=== PATIENT | male | born 1960 ===

== ENCOUNTER 2019-12-31 09:24 | Outpatient (REF) | payer MEDICARE, OTHER, SELFPAY | END 2019-12-31 09:25 | disposition home or self-care (01) | LOC: HO.LAB 09:24 | PROVIDERS: PCP Internal Medicine; Visit Provider Internal Medicine | DX: Z20.828 Contact with and (suspected) exposure to other viral communicable diseases (principal) | CPT/HCPCS: 87635 ==

== ENCOUNTER → 2020-01-24 14:18 | Outpatient (BNVA) | payer MEDICARE, OTHER, SELFPAY | PROVIDERS: PCP Internal Medicine; Referring Provider Internal Medicine; Visit Provider Internal Medicine Endocrinology, Diabetes & Metabolism | DX: E11.65 Type 2 diabetes mellitus with hyperglycemia (principal); E11.42 Type 2 diabetes mellitus with diabetic polyneuropathy; Z79.4 Long term (current) use of insulin; I10 Essential (primary) hypertension; E66.3 Overweight; Z68.29 Body mass index [BMI] 29.0-29.9, adult | CPT/HCPCS: 82947; 99212 ==

== ENCOUNTER 2020-02-04 06:56 | Outpatient (REF) | payer MEDICARE, OTHER, SELFPAY ==
[2020-02-04 08:09] LABS: Hematocrit 39.9 % (42-52); Hemoglobin 13.6 g/dl (14.0-18.0); Mean Corpuscular HGB Conc 34.1 g/dl (31.0-36.0); Mean Corpuscular Hemoglobin 31.1 pg (27.0-33.0); Mean Corpuscular Volume 91.3 fL (80-98); Mean Platelet Volume 9.8 fL (9.4-12.4); Platelet Count 173 X10*3/uL (160-400); Red Blood Count 4.37 X10*6/uL (4.60-5.80); White Blood Count 4.5 X10*3/uL (4.8-10.8)
[2020-02-04 08:22] LABS: Alanine Aminotransferase 14 U/L (0-40); Albumin Level 4.2 g/dL (3.5-5.0); Alkaline Phosphatase 75 U/L (39-117); Anion Gap 12 (12-20); Aspartate Amino Transferase 17 U/L (5-37); Bilirubin Total 0.5 mg/dL (0.0-1.0); Blood Urea Nitrogen 16 mg/dL (9-16); Calcium 8.9 mg/dL (8.4-10.2); Carbon Dioxide 30 mmol/L (22-29); Chloride 104 mmol/L (96-108); Cholesterol 132 mg/dL; Estimated Glomerular Filt Rate > 60; Glucose Random 90 mg/dL (60-115); HDL Cholesterol 43 mg/dL; LDL Cholesterol Calculated 75 mg/dl; Potassium 4.1 mmol/l (3.3-5.1); Sodium 142 mmol/L (135-145); Total Protein 6.9 g/dL (6.5-8.0); Triglycerides 74 mg/dL
[2020-02-04 08:59] LABS: Vitamin B12 252 pg/mL (200-900)
[2020-02-04 09:59] LABS: Microalbum/Creatinine Ratio Ur 8.5 ug/mg cr
[2020-02-05 21:08] LABS: LDL Cholesterol Direct 75 mg/dL (<100)
== END 2020-02-04 06:57 | disposition home or self-care (01) ==
LOC: HO.LAB 06:56
PROVIDERS: PCP Internal Medicine; Visit Provider Internal Medicine Endocrinology, Diabetes & Metabolism
DX: E11.65 Type 2 diabetes mellitus with hyperglycemia (principal); Z79.4 Long term (current) use of insulin
CPT/HCPCS: 36415; 80053; 80061; 82043; 82607; 83721; 85027

== ENCOUNTER → 2020-02-07 12:50 | Outpatient (BNVA) | payer MEDICARE, OTHER, SELFPAY | PROVIDERS: PCP Internal Medicine; Referring Provider Internal Medicine; Visit Provider Internal Medicine Endocrinology, Diabetes & Metabolism | DX: E11.65 Type 2 diabetes mellitus with hyperglycemia (principal); E11.42 Type 2 diabetes mellitus with diabetic polyneuropathy; Z79.4 Long term (current) use of insulin; E66.3 Overweight; F32.9 Major depressive disorder, single episode, unspecified; I10 Essential (primary) hypertension | CPT/HCPCS: 82947; 99212 ==

== ENCOUNTER 2020-03-19 12:55 | Outpatient (REF) | payer MEDICARE, OTHER, SELFPAY | END 2020-03-19 12:56 | disposition home or self-care (01) | LOC: HO.LAB 12:55 | PROVIDERS: PCP Internal Medicine; Visit Provider Internal Medicine | DX: Z20.822 Contact with and (suspected) exposure to COVID-19 (principal) | CPT/HCPCS: 36415; C9803; U0003 ==

== ENCOUNTER → 2020-03-26 11:12 | Outpatient (BNVA) | payer MEDICARE, OTHER, SELFPAY | PROVIDERS: PCP Internal Medicine; Visit Provider Physician Assistant | DX: Z13.89 Encounter for screening for other disorder (principal) | CPT/HCPCS: Q3014 ==

== ENCOUNTER 2020-03-28 09:52 | Outpatient (REF) | payer MEDICARE, OTHER, SELFPAY | END 2020-03-28 09:53 | disposition home or self-care (01) | LOC: HO.LAB 09:52 | PROVIDERS: PCP Internal Medicine; Visit Provider Internal Medicine | DX: Z20.822 Contact with and (suspected) exposure to COVID-19 (principal) | CPT/HCPCS: 36415; C9803; U0003 ==

== ENCOUNTER → 2020-04-02 10:22 | Outpatient (BNVA) | payer MEDICARE, OTHER, SELFPAY | PROVIDERS: PCP Internal Medicine; Visit Provider Urology | DX: N52.9 Male erectile dysfunction, unspecified (principal); N40.1 Benign prostatic hyperplasia with lower urinary tract symptoms; R35.0 Frequency of micturition | CPT/HCPCS: 51798; 81002; 99212 ==

== ENCOUNTER → 2020-04-13 09:40 | Outpatient (BNVA) | payer MEDICARE, OTHER, SELFPAY | PROVIDERS: Visit Provider Orthopaedic Surgery | DX: M17.12 Unilateral primary osteoarthritis, left knee (principal); K76.0 Fatty (change of) liver, not elsewhere classified; E11.65 Type 2 diabetes mellitus with hyperglycemia; Z79.4 Long term (current) use of insulin | CPT/HCPCS: 99212 ==

== ENCOUNTER 2020-04-23 07:44 | Outpatient (REF) | payer MEDICARE, OTHER, SELFPAY | END 2020-04-23 07:45 | disposition home or self-care (01) | LOC: HO.LAB 07:44 | PROVIDERS: Visit Provider Internal Medicine | DX: Z20.822 Contact with and (suspected) exposure to COVID-19 (principal) | CPT/HCPCS: 36415; C9803; U0003 ==

== ENCOUNTER 2020-04-23 08:34 | Outpatient (REF) | payer MEDICARE, OTHER, SELFPAY ==
[2020-04-23 09:43] LABS: MANUAL DIFF FLAG NO
[2020-04-23 10:00] LABS: Basophils Percent Auto 0.2 % (0-2); Eosinophils Absolute Auto 0.1 X10*3/uL (0.0-0.4); Eosinophils Percent Auto 2.2 % (0-4); Hematocrit 38.4 % (42-52); Hemoglobin 12.9 g/dl (14.0-18.0); Imm Gran Abs Auto 0.02 X10*3/uL (0.00-0.03); Imm Gran Pct Auto 0.4 % (0.0-0.4); Lymphocytes Absolute Auto 1.1 X10*3/uL (1.2-4.9); Mean Corpuscular HGB Conc 33.6 g/dl (31.0-36.0); Mean Corpuscular Hemoglobin 30.3 pg (27.0-33.0); Mean Corpuscular Volume 90.1 fL (80-98); Mean Platelet Volume 10.1 fL (9.4-12.4); Monocytes Absolute Auto 0.3 X10*3/uL (0.1-1.2); Monocytes Percent Auto 6.1 % (2-11); Neutrophils Percent Auto 71.1 % (45-73); Platelet Count 167 X10*3/uL (160-400); Red Blood Count 4.26 X10*6/uL (4.60-5.80); Red Cell Distribution Width 12.8 % (11.0-16.0); White Blood Count 5.6 X10*3/uL (4.8-10.8)
[2020-04-23 10:04] LABS: Estimated Average Glucose 189 mg/dL; Hemoglobin A1c % 8.2 %
[2020-04-23 10:41] LABS: Ferritin 178 ng/mL (20-250)
[2020-05-06 12:19] LABS: HepC Viral Load <15 NOT DETECTED
[2020-05-06 12:20] LABS: HCV Log PCR <1.18 NOT DETECTED
== END 2020-04-23 08:35 | disposition home or self-care (01) ==
LOC: HO.LAB 08:34
PROVIDERS: PCP Otolaryngology; Referring Provider Orthopaedic Surgery; Visit Provider Physician Assistant
DX: Z01.812 Encounter for preprocedural laboratory examination (principal); D64.9 Anemia, unspecified; B18.2 Chronic viral hepatitis C; R74.01 Elevation of levels of liver transaminase levels; Z20.822 Contact with and (suspected) exposure to COVID-19
CPT/HCPCS: 36415; 82728; 83036; 85025; 87522; C9803; U0003

== ENCOUNTER → 2020-04-30 11:22 | Outpatient (BNVA) | payer MEDICARE, OTHER, SELFPAY | PROVIDERS: PCP Internal Medicine; Visit Provider Physician Assistant | CPT/HCPCS: Q3014 ==

== ENCOUNTER → 2020-05-05 14:47 | Outpatient (BNVA) | payer MEDICARE, SELFPAY | PROVIDERS: PCP Internal Medicine; Visit Provider Internal Medicine Endocrinology, Diabetes & Metabolism | DX: E11.65 Type 2 diabetes mellitus with hyperglycemia (principal); E11.42 Type 2 diabetes mellitus with diabetic polyneuropathy; Z79.4 Long term (current) use of insulin; I10 Essential (primary) hypertension; E66.3 Overweight | CPT/HCPCS: 82947; 99212 ==

== ENCOUNTER 2020-05-21 08:12 | Outpatient (REF) | payer MEDICARE, OTHER, SELFPAY ==
--- NOTE | ~2020-05-21 | US_ITS ---
EXAMINATION: US ABDOMEN LIMITED CLINICAL INFORMATION: Fatty change of liver, not elsewhere classified. COMPARISON: Ultrasound abdomen complete 03/05/2019 and 11/07/2014. TECHNIQUE: Real-time imaging of the right upper quadrant abdominal viscera. FINDINGS: PANCREAS: The head and body of the pancreas is homogeneous in echotexture. The tail is obscured by overlying gas. LIVER: The liver is normal in size. The liver contour is normal. There is diffuse liver echogenicity without any focal hepatic lesion. There is no intrahepatic biliary duct dilatation seen. GALLBLADDER: Normal. The gallbladder is physiologically distended without evidence of stones, sludge, polyps, wall thickening or pericholecystic fluid. COMMON BILE DUCT: Normal in caliber measuring 0.8 cm in diameter. RIGHT KIDNEY: Normal. No hydronephrosis. No renal calculi or focal parenchymal lesions. The kidney measures 11.9 cm in maximum dimension. FREE FLUID: None. US/US abdomen limited IMPRESSION: There is diffuse hepatic echogenicity without any focal lesion. The rest of visualized limited abdomen ultrasound is unremarkable.
== END 2020-05-21 08:13 | disposition home or self-care (01) ==
LOC: HO.US 08:12
PROVIDERS: Visit Provider Physician Assistant
DX: K76.0 Fatty (change of) liver, not elsewhere classified (principal)
CPT/HCPCS: 76705

== ENCOUNTER → 2020-05-28 11:08 | Outpatient (BNVA) | payer MEDICARE, OTHER, SELFPAY | PROVIDERS: Visit Provider Physician Assistant | DX: Z13.89 Encounter for screening for other disorder (principal) | CPT/HCPCS: Q3014 ==

== ENCOUNTER 2020-06-02 00:46 | Emergency (ER) | payer MEDICARE, OTHER, SELFPAY ==
[2020-06-02] VITALS (14 sets, daily range): BP systolic 117–222; BP diastolic 81–105; PULSE 76–108; RESP 15–22; TEMP 36.7–37.1; O2SAT 94–99; BMI 30.1
--- NOTE | 2020-06-02 02:10 | PC.NURSE ---
PT has facial swelling to his left side with dental issues. pt states he was eating steak and seafood and the crab meat didnt seem right. pt has a upset stomach midline, nausea no vomiting. pt talking in full sentences no s/s of resp distress.
[2020-06-02] MEDS: EPINEPHrine 1 MG/ML VIAL 0.3 MG IM ×2 (02:51→07:18)
[2020-06-02] MEDS: diphenhydrAMINE HCL 50 MG/ML VIAL IVPUSH (02:51)
[2020-06-02] MEDS: methylPREDNISolone Sod Succ 125 MG/2 ML VIAL IVPUSH (02:53)
[2020-06-02] MEDS: Famotidine/PF 20 MG/2 ML VIAL IVPUSH (02:53)
[2020-06-02 03:00] LABS: Glucose, Whole Blood 114 mg/dL (60-115)
--- NOTE | 2020-06-02 03:06 | PC.NURSE ---
pt lower lip has signs of improvment, swelling decreased. pt bp elevabed due to medications given. hr nsr 97
--- NOTE | 2020-06-02 03:10 | PC.NURSE ---
pt left side of his face has signs of improvment, swelling improving, pt also states he can notice the difference for the better. sat 96% on room air, pt talking in full sentences, pt is able to swallow no drooling noted. occassional cough noted.
--- NOTE | 2020-06-02 03:22 | PC.NURSE ---
pt upper lip is improving, swelling resolving. pt talking in full sentences, no drooling, dr perez at bedside.
--- NOTE | 2020-06-02 03:46 | ED.GENADULT ---
HPI - General Adult General Chief complaint: General Medical Stated complaint: ABSCESS/HIVES Time Seen by Provider: 06/02/20 02:43 History of Present Illness HPI narrative: 59-year-old male who comes in with left lower jaw swelling that started approximately an hour prior to presentation and states he had been itchy all day but denies any issues with talking or breathing and is able to handle secretions. In addition, he denies any fevers, chills, tooth pain, ear pain. Patient states that for dinner he had shrimp, but states he has had this before without difficulties and that he also had fake crab meat. Related Data Home Medications Medication Instructions Recorded Confirmed lisinopril 40 mg tablet 40 mg PO DAILY 01/24/20 05/05/20 tamsulosin 0.4 mg capsule 0.4 mg PO DAILY 01/24/20 05/05/20 diclofenac sodium 75 mg 75 mg PO BID 05/05/20 05/05/20 tablet,delayed release Previous Rx's Medication Instructions Recorded tadalafil 20 mg tablet 20 mg PO DAILY PRN #10 tab 04/02/20 blood sugar diagnostic 1 strip MISCELLANEOUS QID 30 Days 05/05/20 #150 cap cholecalciferol (vitamin D3) 50 50 mcg PO DAILY #30 cap 05/05/20 mcg (2,000 unit) capsule insulin aspart (niacinamide) See Rx Instructions SUBCUT DAILY 05/05/20 (U-100) 100 unit/mL subcutaneous 30 Days #30 ml solution lancets #100 ea 05/05/20 metformin 500 mg tablet,extended 500 mg PO BEDTIME 30 Days #30 tab 05/05/20 release 24 hr sitagliptin 100 mg tablet 100 mg PO DAILY 30 Days #30 tab 05/05/20 sub-q insulin device, 30 unit #30 ea 05/05/20 Allergies Allergy/AdvReac Type Severity Reaction Status Date / Time canagliflozin [Invokana] Allergy Unknown polyuria Verified 05/28/20 11:09 liraglutide [Victoza] AdvReac Unknown nausea, Verified 05/28/20 11:09 constipation Review of Systems Review of Systems: Pertinent positives and negatives as stated in HPI 10 point review of systems is otherwise negative. PMFSH Past Medical History Source: nursing notes reviewed Medical History Alcohol abuse Arthritis BPH loc w urin obs/LUTS Carpal tunnel syndrome Depression Diabetic polyneuropathy associated with type 2 diabetes mellitus Erectile dysfunction Essential hypertension Frequency of urination Hepatitis B Hepatitis C NAFLD (nonalcoholic fatty liver disease) Overweight (BMI 25.0-29.9) Type 2 diabetes mellitus with diabetic neuropathy, unspecified Type 2 diabetes mellitus with hyperglycemia, with long-term current use of insulin Surgical History History of back surgery History of excision of mass Hx of cataract removal with insertion of prosthetic lens Hx of colonoscopy Hx of rhinoplasty Family History Family History Father Myocardial infarct Colon cancer Mother Diabetes Social History Social History Household Members: Spouse Alcohol intake: current Alcohol intake frequency: a few times a week Alcohol type: beer and hard liquor Smoking Status: Never smoker Substance Use Type: Crack/Cocaine Last Used Substance: Days (ago) Any prior treatment program specific to substance use: No Advance Directives: No Current occupational status: disabled Physical Exam Vital Signs: Vital Signs: Last Vital Signs Temp 98.8 F 06/02/20 02:00 Pulse 85 06/02/20 08:00 Resp 18 06/02/20 08:00 BP 146/89 H 06/02/20 06:00 Pulse Ox 96 06/02/20 08:00 Body Mass Index 30.1 VITAL SIGNS: Reviewed. GENERAL: Well developed, well nourished, in no acute distress. HEAD: Normocephalic/atraumatic EYES: PERRLA, EOMI EARS: Ext canals without abnormality, TMs non-bulging and non-erythematous NOSE: Nares patent bilateral OROPHARYNX: no oral lesions noted, posterior pharynx clear, there is noted swelling to upper and lower lips, no swelling noted to the tongue or floor of the mouth, no trismus NECK: Supple, no adenopathy LUNGS: No stridor, Normal breath sounds, no tachypnea SpO2<96> CARDIOVASCULAR: Regular rate and rhythm without noted murmurs ABDOMEN: Soft, non-tender, non-distended with bowel sounds. NEUROLOGIC: Alert and oriented x 4. Course Course Course Narrative: 59-year-old male with history and clinical presentation consistent with angioedema and patient treated with EpiPen, Benadryl, Pepcid, Solu-Medrol. On re-evaluation lip swelling continues to decrease, but upper lip remains swollen and patient continues to endorse that he is not having difficulty handling his secretions or feeling short of breath. 0710: On re-evaluation patient states his voice is feeling a little more raspy and his lips are noted to have started swelling again, patient given another round of epi as well as 25 mg of Benadryl. On further investigation patient is noted to be on lisinopril and he will be instructed to stop taking this medication and will be instructed to have his primary care provider send in a different blood pressure control medication. Patient signed out to YEHUDA Faith: Continue to observe until 11:15am. Reevaluation(s) Reevaluation #1: Patient placed in physician observation because the patient needed more time for medication to work and for observation after receiving EpiPen. At the time observation was started the patient's vital signs were stable, patient is alert and oriented, neuro: Nonfocal, CV RRR, lungs clear, mild swelling of the upper and lower lips, but tongue and floor of mouth are otherwise within normal limits Time: 07:10 Medical Decision Making Lab Data Labs: Lab Results 06/02/20 06/02/20 Range/Units 02:57 09:06 POC Glucose 114 297 H (60-115) mg/dL Discharge Plan Discharge Clinical Impression: Angioedema Qualifiers: Encounter type: initial encounter Qualified Code(s): T78.3XXA - Angioneurotic edema, initial encounter Patient Disposition: Home, Self-Care Instructions: Angioedema (ED) Additional Instructions: STOP taking lisinopril. Prescriptions: No Action tamsulosin 0.4 mg capsule 0.4 mg PO DAILY RF: 0 lisinopril 40 mg tablet 40 mg PO DAILY RF: 0 diclofenac sodium 75 mg tablet,delayed release (DR/EC) 75 mg PO BID RF: 0 insulin aspart (niacinamide) 100 unit/mL solution See Rx Instructions subcut DAILY 30 Days Qty: 30 RF: 4 metformin 500 mg tablet extended release 24 hr 500 mg PO BEDTIME 30 Days Qty: 30 RF: 6 sitagliptin 100 mg tablet 100 mg PO DAILY 30 Days Qty: 30 RF: 6 (DME) sub-q insulin device, 30 unit Device See Rx Instructions ea .ROUTE DAILY Qty: 30 RF: 6 Accu-Chek Lizy Plus test strp Strip 1 strip miscellaneous QID 30 Days Qty: 150 RF: 5 cholecalciferol (vitamin D3) [Vitamin D3] 50 mcg (2,000 unit) capsule 50 mcg PO DAILY Qty: 30 RF: 5 (DME) lancets Misc See Rx Instructions ea topical TID Qty: 100 RF: 6 tadalafil 20 mg tablet 20 mg PO DAILY PRN (Reason: sexual activity) Qty: 10 RF: 6 Referrals: Reji Coronado MD [Primary Care Provider] - 2 days (Re-evaluation after treated for angioedema suspected to be secondary to lisinopril. This medication was stopped.)
--- NOTE | 2020-06-02 04:39 | PC.NURSE ---
pt ambulated to the bathroom and on return to the bed sat 96% no sob noted. steady gait, no resp distress, swelling remain improved.
[2020-06-02] MEDS: diphenhydrAMINE HCL 50 MG/ML VIAL 25 MG IVPUSH ×2 (07:20→13:56)
--- NOTE | 2020-06-02 07:29 | PC.NURSE ---
addtional im epi dose given d/t continuous cough, upper and lower lip swelling, and swelling in the throat. additional benadryl dose given per md order. pt resting comfortably in bed. vss at this time. will continue to monitor.
--- NOTE | 2020-06-02 08:23 | PC.NURSE ---
swelling slightly has decreased, md aware
[2020-06-02 09:10] LABS: Glucose, Whole Blood 297 mg/dL (60-115)
--- NOTE | 2020-06-02 11:36 | PC.NURSE ---
pt requesting dc, pa and md to bedside to discuss risks of leaving ama. pt upper lip is still noticably swollen. pt agreeable to stay. ed diet ordered.
--- NOTE | 2020-06-02 12:07 | PC.NURSE ---
family at bedside, pt continues to have noticable upper lip swelling. awaiting hopsitalist.
--- NOTE | 2020-06-02 12:56 | PC.NURSE ---
pt sitting up in bed eating lunch at this time. resp even and unlabored. nad. airway patent.
[2020-06-02] MEDS: dexAMETHasone sod phosphate 4 MG/ML VIAL 8 MG IVPUSH (13:56)
[2020-06-02 14:04] LABS: Glucose, Whole Blood 440 mg/dL (60-115)
[2020-06-02] MEDS: Insulin Lispro 100 UNIT/ML 3 ML VIAL 10 UNIT SUBCUT (14:12)
[2020-06-02] MEDS: 0.9 % Sodium Chloride 1,000 ML 999 ML IVCONT (14:12)
--- NOTE | 2020-06-02 15:29 | PC.NURSE ---
pt refused admission, will stay in ed for obs
[2020-06-02 16:28] LABS: Glucose, Whole Blood 264 mg/dL (60-115)
== END 2020-06-02 16:50 | disposition home or self-care (01) ==
PROVIDERS: Emergency Provider Student in an Organized Health Care Education/Training Program; PCP Internal Medicine
DX: L50.0 Allergic urticaria (principal); T78.49XA Other allergy, initial encounter; T78.40XA Allergy, unspecified, initial encounter; T50.905A Adverse effect of unspecified drugs, medicaments and biological substances, initial encounter; F14.90 Cocaine use, unspecified, uncomplicated; E11.9 Type 2 diabetes mellitus without complications; Y92.9 Unspecified place or not applicable; X58.XXXA Exposure to other specified factors, initial encounter; Z79.899 Other long term (current) drug therapy; Z79.4 Long term (current) use of insulin
CPT/HCPCS: 82947; 96365; 96372; 96375; 96376; 99285; J0171; J1100; J1200; J2930

== ENCOUNTER → 2020-08-07 14:06 | Outpatient (BNVA) | payer MEDICARE, OTHER, SELFPAY | PROVIDERS: PCP Internal Medicine; Visit Provider Internal Medicine Endocrinology, Diabetes & Metabolism | DX: E11.65 Type 2 diabetes mellitus with hyperglycemia (principal); E11.42 Type 2 diabetes mellitus with diabetic polyneuropathy; E66.3 Overweight; I10 Essential (primary) hypertension; Z79.4 Long term (current) use of insulin | CPT/HCPCS: 82947; 99212 ==

== ENCOUNTER 2020-08-17 10:27 | Emergency (ER) | payer MEDICARE, OTHER, SELFPAY ==
--- NOTE | ~2020-08-17 | US_ITS ---
EXAMINATION: US UPPER EXTREMITY, RIGHT CLINICAL INFORMATION: Swelling and inflammation right arm. Evaluate for foreign body. COMPARISON: None TECHNIQUE: Limited ultrasound imaging through the posterior right upper arm was performed. FINDINGS: Limited imaging through the right upper arm was performed and reveals no mass or foreign body seen. There is mild inflammation and swelling in the area of pain. US/US extremity nonvascular IMPRESSION: No radiopaque foreign body seen. There is mild swelling and inflammation seen in the area of pain.
--- NOTE | ~2020-08-17 | XR_ITS ---
EXAMINATION: XR HUMERUS, RIGHT CLINICAL INFORMATION: Evaluate for foreign body (needle versus plastic). COMPARISON: None TECHNIQUE: AP and lateral views of the right humerus. FINDINGS: There is no metallic foreign body demonstrated. The underlying bone appears intact with no fracture or destructive process or periostitis. There is no gas tracking in the soft tissues. There are scattered soft tissue densities, some linear and likely related to venous markings. XR/XR humerus RT IMPRESSION: 1. No metallic foreign body. No definite radiopaque soft tissue foreign body on plain film. 2. If there is a clinically palpable soft tissue finding, this could be targeted with ultrasound for further assessment..
[2020-08-17 11:10] VITALS: BP 129/78; PULSE 81; RESP 16; TEMP 36.3; O2SAT 99; BMI 29.2
--- NOTE | 2020-08-17 13:44 | ED.SKABFB ---
HPI - Skin/Abscess/Foreign Bdy General Chief complaint: Skin/Abscess/Foreign Body Stated complaint: needle stick Time Seen by Provider: 08/17/20 11:17 Source: patient Mode of arrival: ambulatory History of Present Illness HPI narrative: 60-year-old male with a past medical history of alcohol abuse, arthritis, depression, carpal tunnel, diabetes, HTN, hepatitis-B, hepatitis-C, presenting to the ED complaining of red painful lump to right upper arm x 2-3 days s/p removing insulin infusion pump. Reports believes there is either residual needle or plastic stuck in arm from home, admits to similar symptoms in the past. Denies fever, chills, drainage from area Related Data Home Medications Medication Instructions Recorded Confirmed tamsulosin 0.4 mg capsule 0.4 mg PO DAILY 01/24/20 08/07/20 diclofenac sodium 75 mg 75 mg PO BID 05/05/20 08/07/20 tablet,delayed release Previous Rx's Medication Instructions Recorded tadalafil 20 mg tablet 20 mg PO DAILY PRN #10 tab 04/02/20 amlodipine 5 mg tablet 5 mg PO DAILY 30 Days #30 tab 08/07/20 blood sugar diagnostic 1 strip MISCELLANEOUS QID 30 Days 08/07/20 #150 cap cholecalciferol (vitamin D3) 50 50 mcg PO DAILY #30 cap 08/07/20 mcg (2,000 unit) capsule insulin aspart (niacinamide) See Rx Instructions SUBCUT DAILY 08/07/20 (U-100) 100 unit/mL subcutaneous 30 Days #30 ml solution lancets #100 ea 08/07/20 metformin 500 mg tablet,extended 500 mg PO BEDTIME 30 Days #30 tab 08/07/20 release 24 hr sitagliptin 100 mg tablet 100 mg PO DAILY 30 Days #30 tab 08/07/20 Accu-Chek Fastclix Lancet Drum #150 ea NS 08/10/20 sub-q insulin device, 30 unit #30 ea 08/10/20 cephalexin 500 mg PO QID 7 Days #28 cap 08/17/20 sulfamethoxazole-trimethoprim 1 tab PO Q12H 7 Days #14 tab 08/17/20 [Bactrim DS] Allergies Allergy/AdvReac Type Severity Reaction Status Date / Time lisinopril Allergy Severe Angioedema Verified 06/02/20 09:38 canagliflozin [Invokana] Allergy Unknown polyuria Verified 05/28/20 11:09 liraglutide [Victoza] AdvReac Unknown nausea, Verified 05/28/20 11:09 constipation Review of Systems Review of Systems: Constitutional: No Fever, No Chills, No Fatigue, No Malaise Cardiovascular: No Chest Pain, No SOB Respiratory: No Cough, No Dyspnea Gastrointestinal: No Nausea, No Vomiting, No Diarrhea, No Constipation, No Abdominal pain Musculoskeletal: No joint pain, No Myalgias, No Joint Swelling Skin: + Skin Lesions, No rash Neuro: No Weakness, No Numbness Yes all other systems are reviewed and are negative [facility] Past Medical History Attestation statement: The following information was validated with the patient. Medical History Alcohol abuse Arthritis BPH loc w urin obs/LUTS Carpal tunnel syndrome Depression Diabetic polyneuropathy associated with type 2 diabetes mellitus Erectile dysfunction Essential hypertension Frequency of urination Hepatitis B Hepatitis C NAFLD (nonalcoholic fatty liver disease) Overweight (BMI 25.0-29.9) Type 2 diabetes mellitus with diabetic neuropathy, unspecified Type 2 diabetes mellitus with hyperglycemia, with long-term current use of insulin Surgical History History of back surgery History of excision of mass Hx of cataract removal with insertion of prosthetic lens Hx of colonoscopy Hx of rhinoplasty Family History Family History Father Myocardial infarct Colon cancer Mother Diabetes Social History Social History Household Members: Spouse Household Members Other:: Alcohol intake: current Alcohol intake frequency: a few times a week Alcohol type: beer and hard liquor Substance Use Type: Crack/Cocaine Advance Directives: No Advance Directives Information Provided: No Current occupational status: disabled Physical Exam Vital Signs: Vital Signs: Last Vital Signs Temp 97.5 F 08/17/20 14:14 Pulse 67 08/17/20 14:14 Resp 16 08/17/20 14:14 BP 142/82 H 08/17/20 14:14 Pulse Ox 100 08/17/20 14:14 Body Mass Index 29.2 Const: General: cooperative, healthy appearing and no acute distress Orientation/consciousness: patient oriented x3 Limitations: no limitations HENMT: Head: Yes normal to inspection Ears: hearing grossly normal bilaterally General nose exam: Normal external nose present Face and sinus: Yes normal facial exam Eyes: General: appearance normal, both eyes and all related structures EOM: EOMs intact bilaterally Neck: Neck: Yes normal visual inspection and Yes no meningeal signs Resp: Effort & Inspection: normal respiratory effort Cardio: Rate: regular rate GI: Inspection: Yes normal to inspection Skin: Other: Two Erythematous lumps noted to right deltoid. + indurated. No fluctuance. No warmth or drainage or pointing. No streaking Wounds: no wounds Neuro: General: patient oriented x3 and no meningeal signs Gait exam (Neuro): Normal gait present Extrem: General: Yes normal to inspection Course Course Course Narrative: XR humerus RT IMPRESSION: 1. No metallic foreign body. No definite radiopaque soft tissue foreign body on plain film. 2. If there is a clinically palpable soft tissue finding, this could be targeted with ultrasound for further assessment. >> will obtain ultrasound -0--patient would like to leave prior to ultrasound official results. I will call him with results later this afternoon -1623--US extremity nonvascular IMPRESSION: No radiopaque foreign body seen. There is mild swelling and inflammation seen in the area of pain. > called and spoke to patient, results discussed. Discussed with patient to take antibiotics, and follow-up with general surgeon as needed MDM - Skin/Abscess/Foreign Bdy MDM Narrative Medical decision making narrative: 60-year-old male with a past medical history of alcohol abuse, arthritis, depression, carpal tunnel, diabetes, HTN, hepatitis-B, hepatitis-C, presenting to the ED complaining of red painful lump to right upper arm x 2-3 days s/p removing insulin infusion pump. On exam VSS, NAD, well appearing, physical exam as above. Concern for residual foreign body from infusion pump vs indurated abscess with overlying cellulitis Plan: X-ray to rule out foreign body Discharge Plan Discharge Clinical Impression: Abscess Patient Disposition: Home, Self-Care Instructions: Abscess (ED) Additional Instructions: Your x-ray did not show any needle in her arm, ultrasound results still pending alcohol you later this afternoon with results Bactrim and Keflex for antibiotic take as prescribed Follow-up with her primary care doctor Follow-up with general surgery as needed if the foreign body was evaluated in your arm, this will be determined later with official ultrasound is back If area begins to look worse, is more swollen, more red, more painful, or you have fever please return to the ED Prescriptions: New sulfamethoxazole-trimethoprim [Bactrim DS] 800-160 mg tablet 1 tab PO Q12H 7 Days Qty: 14 RF: 0 cephalexin 500 mg capsule 500 mg PO QID 7 Days Qty: 28 RF: 0 No Action (DME) sub-q insulin device, 30 unit Device See Rx Instructions ea .ROUTE DAILY Qty: 30 RF: 6 (DME) lancets [Accu-Chek Fastclix Lancet Drum] Misc See Rx Instructions .ROUTE .MEDSUPPLY Qty: 150 RF: 6 tamsulosin 0.4 mg capsule 0.4 mg PO DAILY RF: 0 amlodipine [Norvasc] 5 mg tablet 5 mg PO DAILY 30 Days Qty: 30 RF: 6 insulin aspart (niacinamide) 100 unit/mL solution See Rx Instructions subcut DAILY 30 Days Qty: 30 RF: 4 Accu-Chek Lizy Plus test strp Strip 1 strip miscellaneous QID 30 Days Qty: 150 RF: 5 cholecalciferol (vitamin D3) [Vitamin D3] 50 mcg (2,000 unit) capsule 50 mcg PO DAILY Qty: 30 RF: 5 (DME) lancets Misc See Rx Instructions ea topical TID Qty: 100 RF: 6 metformin 500 mg tablet extended release 24 hr 500 mg PO BEDTIME 30 Days Qty: 30 RF: 6 sitagliptin 100 mg tablet 100 mg PO DAILY 30 Days Qty: 30 RF: 6 diclofenac sodium 75 mg tablet,delayed release (DR/EC) 75 mg PO BID RF: 0 tadalafil 20 mg tablet 20 mg PO DAILY PRN (Reason: sexual activity) Qty: 10 RF: 6 Referrals: Ivan Ramirez MD [Physician] - 1 week Jorge Singleton PA [Primary Care Provider] - 2 days Interventions: ED Discharge Assessment Last Done: 08/17/20 14:32 Discharge Date/Time: 08/17/20 14:33
[2020-08-17 14:14] VITALS: BP 142/82; PULSE 67; RESP 16; TEMP 36.4; O2SAT 100
== END 2020-08-17 14:33 | disposition home or self-care (01) ==
PROVIDERS: Emergency Provider Emergency Medicine Emergency Medical Services; PCP Physician Assistant Medical
DX: L02.413 Cutaneous abscess of right upper limb (principal); E11.9 Type 2 diabetes mellitus without complications; I10 Essential (primary) hypertension; Z79.4 Long term (current) use of insulin; Z79.899 Other long term (current) drug therapy
CPT/HCPCS: 73060; 76882; 99284

== ENCOUNTER → 2020-08-24 08:02 | Outpatient (BNVA) | payer MEDICARE, OTHER, SELFPAY | PROVIDERS: PCP Internal Medicine; Visit Provider Internal Medicine Endocrinology, Diabetes & Metabolism | DX: E11.65 Type 2 diabetes mellitus with hyperglycemia (principal) | CPT/HCPCS: Q3014 ==

== ENCOUNTER 2020-11-17 09:30 | Outpatient (REF) | payer MEDICARE, OTHER, SELFPAY | END 2020-11-17 09:31 | disposition home or self-care (01) | LOC: HO.LAB 09:30 | PROVIDERS: Visit Provider Internal Medicine | DX: Z20.822 Contact with and (suspected) exposure to COVID-19 (principal) | CPT/HCPCS: C9803; U0003; U0005 ==

== ENCOUNTER → 2020-11-25 14:02 | Outpatient (BNVA) | payer MEDICARE, OTHER, SELFPAY | PROVIDERS: PCP Internal Medicine; Visit Provider Nurse Practitioner Gerontology | DX: E11.65 Type 2 diabetes mellitus with hyperglycemia (principal); E11.42 Type 2 diabetes mellitus with diabetic polyneuropathy; F10.10 Alcohol abuse, uncomplicated; E66.3 Overweight; I10 Essential (primary) hypertension; Z79.4 Long term (current) use of insulin | CPT/HCPCS: 82947; 83036; 99212 ==

== ENCOUNTER → 2020-11-26 11:35 | Outpatient (BNVA) | payer MEDICARE, OTHER, SELFPAY | PROVIDERS: PCP Internal Medicine; Visit Provider Physician Assistant | DX: F32.9 Major depressive disorder, single episode, unspecified (principal); F10.10 Alcohol abuse, uncomplicated | CPT/HCPCS: Q3014 ==

== ENCOUNTER 2020-12-16 08:08 | Outpatient (REF) | payer MEDICARE, OTHER, SELFPAY ==
[2020-12-16 08:28] LABS: MANUAL DIFF FLAG NO
[2020-12-16 08:51] LABS: Basophils Percent Auto 0.5 % (0-2); Eosinophils Absolute Auto 0.1 X10*3/uL (0.0-0.4); Eosinophils Percent Auto 3.2 % (0-4); Hematocrit 37.7 % (42-52); Hemoglobin 12.8 g/dl (14.0-18.0); Imm Gran Abs Auto 0.01 X10*3/uL (0.00-0.03); Imm Gran Pct Auto 0.2 % (0.0-0.4); Lymphocytes Absolute Auto 1.4 X10*3/uL (1.2-4.9); Lymphocytes Percent Auto 31.3 % (20-40); Mean Corpuscular Hemoglobin 30.5 pg (27.0-33.0); Mean Corpuscular Volume 89.8 fL (80-98); Mean Platelet Volume 9.5 fL (9.4-12.4); Monocytes Absolute Auto 0.4 X10*3/uL (0.1-1.2); Monocytes Percent Auto 8.3 % (2-11); Neutrophils Absolute Auto 2.4 X10*3/uL (2.0-8.3); Neutrophils Percent Auto 56.5 % (45-73); Platelet Count 172 X10*3/uL (160-400); Red Cell Distribution Width 12.6 % (11.0-16.0); White Blood Count 4.3 X10*3/uL (4.8-10.8)
[2020-12-16 09:17] LABS: Alanine Aminotransferase 11 U/L (0-40); Albumin Level 4.3 g/dL (3.5-5.0); Alkaline Phosphatase 73 U/L (39-117); Anion Gap 11 (12-20); Aspartate Amino Transferase 24 U/L (5-37); Bilirubin Direct 0.4 mg/dL (0.0-0.5); Bilirubin Total 0.7 mg/dL (0.0-1.0); Blood Urea Nitrogen 22 mg/dL (9-16); Calcium 9.6 mg/dL (8.4-10.2); Carbon Dioxide 26 mmol/L (22-29); Chloride 105 mmol/L (96-108); Estimated Glomerular Filt Rate 60; Glucose Random 192 mg/dL (60-115); Potassium 4.8 mmol/L (3.3-5.1); Sodium 137 mmol/L (135-145)
== END 2020-12-16 08:09 | disposition home or self-care (01) ==
LOC: HO.LAB 08:08
PROVIDERS: Absent Provider Physician Assistant; PCP Internal Medicine; Visit Provider Nurse Practitioner Gerontology
DX: R10.11 Right upper quadrant pain (principal); F10.10 Alcohol abuse, uncomplicated; D64.9 Anemia, unspecified
CPT/HCPCS: 36415; 80053; 80076; 82248; 85025

== ENCOUNTER 2021-01-06 08:10 | Outpatient (REF) | payer MEDICARE, OTHER, SELFPAY ==
[2021-01-06 08:55] LABS: Alanine Aminotransferase 12 U/L (0-40); Albumin Level 4.4 g/dL (3.5-5.0); Alkaline Phosphatase 72 U/L (39-117); Anion Gap 12 (12-20); Aspartate Amino Transferase 20 U/L (5-37); Bilirubin Total 0.6 mg/dL (0.0-1.0); Blood Urea Nitrogen 23 mg/dL (9-16); Calcium 9.8 mg/dL (8.4-10.2); Carbon Dioxide 28 mmol/L (22-29); Chloride 103 mmol/L (96-108); Cholesterol 153 mg/dL; Estimated Glomerular Filt Rate > 60; Glucose Fasting 145 mg/dL (60-99); HDL Cholesterol 52 mg/dL; LDL Cholesterol Calculated 88 mg/dl; Potassium 4.6 mmol/L (3.3-5.1); Sodium 138 mmol/L (135-145); Total Protein 7.2 g/dL (6.5-8.0); Triglycerides 68 mg/dL
[2021-01-06 09:18] LABS: PSA,Total (Free>4and<10) 0.59 ng/mL (0.00-4.00)
[2021-01-06 09:29] LABS: Vitamin B12 354 pg/mL (200-900)
[2021-01-06 10:57] LABS: Creatinine Urine 247.94 mg/dL; Microalbum/Creatinine Ratio Ur 38.3 ug/mg cr
== END 2021-01-06 08:11 | disposition home or self-care (01) ==
LOC: HO.LAB 08:10
PROVIDERS: Urology; PCP Internal Medicine; Visit Provider Nurse Practitioner Gerontology
DX: Z12.5 Encounter for screening for malignant neoplasm of prostate (principal); E11.40 Type 2 diabetes mellitus with diabetic neuropathy, unspecified; N13.8 Other obstructive and reflux uropathy; N40.1 Benign prostatic hyperplasia with lower urinary tract symptoms
CPT/HCPCS: 36415; 80053; 80061; 82043; 82607; 84153

== ENCOUNTER 2021-02-16 07:21 | Outpatient (REF) | payer MEDICARE, OTHER, SELFPAY ==
[2021-02-16 08:44] LABS: Vitamin D 25-OH Total 39.5 ng/mL (>30)
== END 2021-02-16 07:22 | disposition home or self-care (01) ==
LOC: HO.LAB 07:21
PROVIDERS: PCP Physician Assistant Medical; Visit Provider Nurse Practitioner Gerontology
DX: E55.9 Vitamin D deficiency, unspecified (principal)
CPT/HCPCS: 36415; 82306

== ENCOUNTER → 2021-03-25 10:57 | Outpatient (BNVA) | payer MEDICARE, OTHER, SELFPAY | PROVIDERS: PCP Internal Medicine; Referring Provider Physician Assistant Medical; Visit Provider Physician Assistant | DX: F10.10 Alcohol abuse, uncomplicated (principal) | CPT/HCPCS: 99212 ==

== ENCOUNTER → 2021-04-01 14:31 | Outpatient (BNVA) | payer MEDICARE, OTHER, SELFPAY | PROVIDERS: PCP Internal Medicine; Visit Provider Nurse Practitioner Gerontology | DX: E11.65 Type 2 diabetes mellitus with hyperglycemia (principal); E11.42 Type 2 diabetes mellitus with diabetic polyneuropathy; I10 Essential (primary) hypertension; F10.10 Alcohol abuse, uncomplicated; Z79.4 Long term (current) use of insulin; Z68.30 Body mass index [BMI] 30.0-30.9, adult | CPT/HCPCS: 82947; 83036; 99212 ==

== ENCOUNTER 2021-04-28 13:30 | Outpatient (REF) | payer MEDICARE, MEDICAID, SELFPAY ==
[2021-05-02 13:46] LABS: Testosterone, Total 256 ng/dL (250-1100)
== END 2021-04-28 13:31 | disposition home or self-care (01) ==
LOC: HO.LAB 13:30
PROVIDERS: PCP Physician Assistant Medical; Visit Provider Urology
DX: N52.9 Male erectile dysfunction, unspecified (principal)
CPT/HCPCS: 36415; 84403

== ENCOUNTER → 2021-05-06 08:21 | Outpatient (BNVA) | payer MEDICARE, OTHER, SELFPAY | PROVIDERS: PCP Physician Assistant Medical; Visit Provider Urology | DX: N52.9 Male erectile dysfunction, unspecified (principal); N40.1 Benign prostatic hyperplasia with lower urinary tract symptoms; R35.1 Nocturia | CPT/HCPCS: Q3014 ==

== ENCOUNTER → 2021-09-30 11:18 | Outpatient (BNVA) | payer MEDICARE, OTHER, SELFPAY | PROVIDERS: Visit Provider Physician Assistant | DX: K76.0 Fatty (change of) liver, not elsewhere classified (principal); F10.10 Alcohol abuse, uncomplicated | CPT/HCPCS: 99212 ==

== ENCOUNTER → 2021-10-06 14:04 | Outpatient (BNVA) | payer MEDICARE, OTHER, SELFPAY | PROVIDERS: PCP Physician Assistant Medical; Visit Provider Urology | DX: N40.1 Benign prostatic hyperplasia with lower urinary tract symptoms (principal); N52.1 Erectile dysfunction due to diseases classified elsewhere; E11.69 Type 2 diabetes mellitus with other specified complication | CPT/HCPCS: 51798; 99212 ==

== ENCOUNTER 2021-11-18 09:47 | Outpatient (REF) | payer MEDICARE, OTHER, SELFPAY ==
--- NOTE | ~2021-11-18 | US_ITS ---
EXAMINATION: US ABDOMEN LIMITED WITH LIVER ELASTOGRAPHY CLINICAL INFORMATION: Uncomplicated alcohol abuse. COMPARISON: 05/21/2020 abdominal ultrasound. TECHNIQUE: Real-time imaging of the abdominal viscera. Noninvasive ultrasound liver fibrosis assessment is performed using Padmini ElastPQ point quantification shear wave elastography (2D-SWE) with a C5-2 MHz transducer. Multiple elastography samples are obtained. FINDINGS: PANCREAS: Visualized portions unremarkable. LIVER: Homogeneous without focal abnormality. The right lobe measures 13.2 cm in length. The left lobe measures 9.2 cm in length. Portal flow is hepatopedal Shear wave liver elastography median stiffness is 1.46 m/s (reference: normal median stiffness is 1.3 m/s or less). IQR/median stiffness to assess sampling precision is 0.17 (reference: good quality data set is IQR/median stiffness of 0.15 or less). GALLBLADDER: Unremarkable. COMMON BILE DUCT: Normal in caliber measuring 0.8 cm in diameter. RIGHT KIDNEY: 11.0 cm. Unremarkable. FREE FLUID: None. US/US abdomen unger w elastography IMPRESSION: 1. No acute abnormality. 2. Liver elastography: Rules without compensated advanced chronic liver disease. REFERENCE: Society of Radiologists in Ultrasound Liver Stiffness Thresholds (2020): LIVER STIFFNESS THRESHOLDS: *Liver Stiffness equal or less than 1.3 m/s: High probability of being normal. *Liver Stiffness less than 1.7 m/s: In the absence of other known clinical signs, rules out compensated advanced chronic liver disease. *Liver Stiffness 1.7-2.1 m/s: Suggestive of compensated advanced chronic liver disease but need further test for confirmation. *Liver Stiffness over 2.1 m/s: Rules in compensated advanced chronic liver disease. *Liver Stiffness over 2.4 m/s: Suggestive of clinically significant portal hypertension. QUALITY OF DATA SET: *IQR/Median value equal or less than 0.15 implies a quality data set. *IQR/Median value over 0.15 implies a poor quality data set. SIGNIFICANT CHANGE FROM PRIOR EXAM: Significant change if liver stiffness measurement is 10% or greater from prior exam. OTHER CONSIDERATIONS: The stage of liver fibrosis may be overestimated in the setting of acute hepatitis, liver inflammation, elevated liver function tests, hepatic vascular congestion, obstructive cholestasis, non-fasting state, and infiltrative diseases such as amyloidosis and lymphoma. In some patients with NAFLD, the liver stiffness thresholds for compensated advanced chronic liver disease may be lower. In causes other than viral hepatitis and NAFLD, liver stiffness thresholds are not well established.
[2021-11-18 10:03] LABS: MANUAL DIFF FLAG NO
[2021-11-18 10:20] LABS: Basophils Percent Auto 0.4 % (0-2); Eosinophils Percent Auto 0.7 % (0-4); Hematocrit 38.6 % (42.0-52.0); Hemoglobin 13.4 g/dl (14.0-18.0); Imm Gran Abs Auto 0.01 X10*3/uL (0.00-0.03); Imm Gran Pct Auto 0.2 % (0.0-0.4); Lymphocytes Absolute Auto 1.4 X10*3/uL (1.2-4.9); Lymphocytes Percent Auto 24.5 % (20-40); Mean Corpuscular HGB Conc 34.7 g/dl (31.0-36.0); Mean Corpuscular Hemoglobin 30.4 pg (27.0-33.0); Mean Corpuscular Volume 87.5 fL (80.0-98.0); Mean Platelet Volume 9.5 fL (9.4-12.4); Monocytes Absolute Auto 0.5 X10*3/uL (0.1-1.2); Monocytes Percent Auto 8.5 % (2-11); Neutrophils Absolute Auto 3.6 x10*3/uL (2.0-8.3); Neutrophils Percent Auto 65.7 % (45-73); Platelet Count 200 X10*3/uL (160-400); Red Blood Count 4.41 X10*6/uL (4.60-5.80); Red Cell Distribution Width 12.5 % (11.0-16.0); White Blood Count 5.5 X10*3/uL (4.8-10.8)
[2021-11-18 10:49] LABS: Alanine Aminotransferase 13 U/L (0-40); Albumin Level 4.4 g/dL (3.5-5.0); Alkaline Phosphatase 81 U/L (39-117); Anion Gap 15 (12-20); Aspartate Amino Transferase 17 U/L (5-37); Bilirubin Total 0.6 mg/dL (0.0-1.0); Blood Urea Nitrogen 19 mg/dL (9-16); Calcium 9.8 mg/dL (8.4-10.2); Carbon Dioxide 27 mmol/L (22-29); Chloride 102 mmol/L (96-108); Estimated Glomerular Filt Rate > 60; Glucose Random 153 mg/dL (60-115); Potassium 5.2 mmol/L (3.3-5.1); Sodium 139 mmol/L (135-145); Total Protein 7.5 g/dL (6.5-8.0)
== END 2021-11-18 09:48 | disposition home or self-care (01) ==
LOC: HO.US 09:47
PROVIDERS: Visit Provider Physician Assistant
DX: F10.10 Alcohol abuse, uncomplicated (principal); D64.9 Anemia, unspecified
CPT/HCPCS: 36415; 76705; 76981; 80053; 85025

== ENCOUNTER → 2021-11-25 12:14 | Outpatient (BNVA) | payer MEDICARE, OTHER, SELFPAY | PROVIDERS: PCP Physician Assistant Medical; Referring Provider Physician Assistant Medical; Visit Provider Physician Assistant | DX: K76.0 Fatty (change of) liver, not elsewhere classified (principal); F10.10 Alcohol abuse, uncomplicated | CPT/HCPCS: 99212 ==

== ENCOUNTER 2022-01-10 09:41 | Outpatient (REF) | payer MEDICARE, OTHER, SELFPAY ==
[2022-01-10 09:58] LABS: MANUAL DIFF FLAG NO
[2022-01-10 10:13] LABS: Basophils Percent Auto 0.4 % (0-2); Eosinophils Absolute Auto 0.1 X10*3/uL (0.0-0.4); Eosinophils Percent Auto 2.2 % (0-4); Hematocrit 37.5 % (42.0-52.0); Hemoglobin 13.1 g/dl (14.0-18.0); Imm Gran Abs Auto 0.02 X10*3/uL (0.00-0.03); Imm Gran Pct Auto 0.4 % (0.0-0.4); Lymphocytes Absolute Auto 1.6 X10*3/uL (1.2-4.9); Lymphocytes Percent Auto 30.6 % (20-40); Mean Corpuscular HGB Conc 34.9 g/dl (31.0-36.0); Mean Corpuscular Hemoglobin 30.8 pg (27.0-33.0); Mean Platelet Volume 9.4 fL (9.4-12.4); Monocytes Absolute Auto 0.4 X10*3/uL (0.1-1.2); Monocytes Percent Auto 7.8 % (2-11); Neutrophils Percent Auto 58.6 % (45-73); Platelet Count 188 X10*3/uL (160-400); Red Blood Count 4.26 X10*6/uL (4.60-5.80); Red Cell Distribution Width 12.4 % (11.0-16.0); White Blood Count 5.1 X10*3/uL (4.8-10.8)
[2022-01-10 10:48] LABS: Alanine Aminotransferase 14 U/L (0-40); Albumin Level 4.4 g/dL (3.5-5.0); Alkaline Phosphatase 79 U/L (39-117); Anion Gap 17 (12-20); Aspartate Amino Transferase 16 U/L (5-37); Bilirubin Total 0.6 mg/dL (0.0-1.0); Blood Urea Nitrogen 20 mg/dL (9-16); Calcium 9.7 mg/dL (8.4-10.2); Carbon Dioxide 22 mmol/L (22-29); Chloride 104 mmol/L (96-108); Cholesterol 153 mg/dL; Estimated Glomerular Filt Rate > 60; Glucose Random 161 mg/dL (60-115); HDL Cholesterol 45 mg/dL; LDL Cholesterol Calculated 94 mg/dl; Potassium 4.8 mmol/L (3.3-5.1); Sodium 138 mmol/L (135-145); Total Protein 7.4 g/dL (6.5-8.0); Triglycerides 70 mg/dL
[2022-01-10 11:15] LABS: Microalbum/Creatinine Ratio Ur 13.6 ug/mg cr
== END 2022-01-10 09:42 | disposition home or self-care (01) ==
LOC: HO.LAB 09:41
PROVIDERS: Absent Provider Physician Assistant; PCP Physician Assistant Medical; Visit Provider Internal Medicine Endocrinology, Diabetes & Metabolism
DX: E11.40 Type 2 diabetes mellitus with diabetic neuropathy, unspecified (principal); K76.0 Fatty (change of) liver, not elsewhere classified; D64.9 Anemia, unspecified; F10.10 Alcohol abuse, uncomplicated
CPT/HCPCS: 36415; 80053; 80061; 82043; 85025

== ENCOUNTER 2022-03-15 09:58 | Outpatient (REF) | payer MEDICARE, OTHER, SELFPAY ==
[2022-03-15 11:57] LABS: Blood Urea Nitrogen 17 mg/dL (9-16); Estimated Glomerular Filt Rate > 60
== END 2022-03-15 09:59 | disposition home or self-care (01) ==
LOC: HO.LAB 09:58
PROVIDERS: PCP Surgery; Visit Provider Surgery
DX: K76.0 Fatty (change of) liver, not elsewhere classified (principal)
CPT/HCPCS: 36415; 82565; 84520

== ENCOUNTER 2022-03-22 07:46 | Outpatient (REF) | payer MEDICARE, MEDICAID, SELFPAY ==
--- NOTE | ~2022-03-22 | CT_ITS ---
EXAMINATION: CT CHEST WITH CONTRAST CLINICAL INFORMATION: Localized enlarged lymph nodes. COMPARISON: No previous CT available for comparison. TECHNIQUE: Multidetector volumetric CT imaging of the chest was obtained after the administration of 50 mL of Omnipaque 350 intravenous contrast without immediate adverse reactions. Axial MIP volume rendering provided. Sagittal and coronal reformatted images were obtained. This CT examination was performed using dose optimization techniques as appropriate, variously including the following: *Automated exposure control *Adjustment of mA and/or kV according to patient size (this includes techniques or standardized protocols for targeted exams where dose is matched to indication/reason for exam; i.e. extremities or head) *Use of iterative reconstruction technique DLP: 182 mGy-cm. FINDINGS: LSW: Unremarkable. LUNGS: The lungs are well expanded and clear of acute process. There is a 3 mm nodule right middle lobe lateral segment image 35/6 and a 2 mm nodule right lower lobe lateral segment axial image 32/6. No acute pneumonic process, mass or groundglass density.. MEDIASTINUM: The thyroid lobes are symmetrical and normal. Central trachea and the bronchi are widely patent. Heart size and the great vessels are normal caliber. Small shotty lymph nodes are seen in the left para-aortic space and the pretracheal space. The largest pretracheal lymph node is 1.3 cm in short axis and para-aortic lymph nodes measure 9 mm in short axis. PLEURA: There is no pleural effusion. No pleural mass or thickening. AXILLA: No lymphadenopathy. UPPER ABDOMEN: Visualized liver, spleen, pancreas and bilateral adrenal glands are unremarkable. OSSEOUS STRUCTURES: Unremarkable. CT/CT chest w IV con IMPRESSION: 1. Small pulmonary nodules. 2. Small reactive lymph nodes with the largest short axis measurement of 1.3 cm precarinal space 3. No acute consolidation or mass seen. Fleischner guidelines were followed.
[2022-03-22] MEDS: iohexoL 350 MG/ML 100 ML INFUS..BTL IV (08:24)
== END 2022-03-22 07:47 | disposition home or self-care (01) ==
LOC: HO.CT 07:46
PROVIDERS: Visit Provider Surgery
DX: I72.9 Aneurysm of unspecified site (principal); R59.0 Localized enlarged lymph nodes; E11.40 Type 2 diabetes mellitus with diabetic neuropathy, unspecified
CPT/HCPCS: 71260; 82947; 83036; 99212; Q9967

== ENCOUNTER → 2022-04-01 09:51 | Outpatient (BNVA) | payer OTHER, MEDICARE, SELFPAY | PROVIDERS: PCP Internal Medicine; Visit Provider Surgery | DX: R91.1 Solitary pulmonary nodule (principal); R59.0 Localized enlarged lymph nodes | CPT/HCPCS: 99212 ==

== ENCOUNTER 2022-05-18 11:24 | Outpatient (REF) | payer OTHER, MEDICARE, SELFPAY ==
[2022-05-18 12:37] LABS: ~HepC Num1 13.88 S/CO (0.00-0.79); ~Hepatitis C Antibody Reactive (Nonreactive)
== END 2022-05-18 11:25 | disposition home or self-care (01) ==
LOC: HO.LAB 11:24
PROVIDERS: PCP Physician Assistant Medical; Visit Provider Physician Assistant Medical
DX: L43.8 Other lichen planus (principal)
CPT/HCPCS: 36415; 86803

== ENCOUNTER 2022-05-31 10:30 | Outpatient (REF) | payer OTHER, MEDICARE, SELFPAY ==
[2022-06-02 15:18] LABS: HCV Log PCR <1.18 NOT DETECTED Log IU/mL (NOT DETECTED); HepC Viral Load <15 NOT DETECTED IU/mL (NOT DETECTED)
== END 2022-05-31 10:31 | disposition home or self-care (01) ==
LOC: HO.LAB 10:30
PROVIDERS: PCP Physician Assistant Medical; Visit Provider Physician Assistant Medical
DX: L43.8 Other lichen planus (principal); L29.8 Other pruritus
CPT/HCPCS: 36415; 87522

== ENCOUNTER 2022-06-02 12:59 | Outpatient (REF) | payer MEDICARE, MEDICAID, OTHER, SELFPAY ==
[2022-06-02 13:42] LABS: MANUAL DIFF FLAG NO
[2022-06-02 14:06] LABS: Basophils Percent Auto 0.2 % (0-2); Eosinophils Absolute Auto 0.1 X10*3/uL (0.0-0.4); Hematocrit 38.1 % (42.0-52.0); Hemoglobin 13.2 g/dl (14.0-18.0); Imm Gran Abs Auto 0.02 X10*3/uL (0.00-0.03); Imm Gran Pct Auto 0.3 % (0.0-0.4); Lymphocytes Absolute Auto 1.2 X10*3/uL (1.2-4.9); Lymphocytes Percent Auto 20.4 % (20-40); Mean Corpuscular HGB Conc 34.6 g/dl (31.0-36.0); Mean Corpuscular Hemoglobin 30.9 pg (27.0-33.0); Mean Corpuscular Volume 89.2 fL (80.0-98.0); Mean Platelet Volume 9.5 fL (9.4-12.4); Monocytes Absolute Auto 0.5 X10*3/uL (0.1-1.2); Monocytes Percent Auto 7.6 % (2-11); Neutrophils Absolute Auto 4.3 x10*3/uL (2.0-8.3); Neutrophils Percent Auto 70.5 % (45-73); Platelet Count 186 X10*3/uL (160-400); Red Blood Count 4.27 X10*6/uL (4.60-5.80); Red Cell Distribution Width 12.8 % (11.0-16.0); White Blood Count 6.1 X10*3/uL (4.8-10.8)
[2022-06-02 15:11] LABS: Alanine Aminotransferase 13 U/L (0-40); Albumin Level 4.4 g/dL (3.5-5.0); Alkaline Phosphatase 97 U/L (39-117); Anion Gap 17 (12-20); Aspartate Amino Transferase 20 U/L (5-37); Bilirubin Total 0.7 mg/dL (0.0-1.0); Blood Urea Nitrogen 25 mg/dL (9-16); Calcium 9.8 mg/dL (8.4-10.2); Carbon Dioxide 24 mmol/L (22-29); Chloride 106 mmol/L (96-108); Estimated Glomerular Filt Rate 57; Glucose Random 140 mg/dL (60-115); Iron 121 mcg/dL (45-160); Percent Iron Saturation 47 % (15-50); Potassium 4.6 mmol/L (3.3-5.1); Sodium 142 mmol/L (135-145); Total Iron Binding Capacity 257 mcg/dL (228-428); Total Protein 7.1 g/dL (6.5-8.0); Unsaturated Iron Binding 136 ug/dL
== END 2022-06-02 13:00 | disposition home or self-care (01) ==
LOC: HO.LAB 12:59
PROVIDERS: PCP Physician Assistant Medical; Visit Provider Physician Assistant
DX: F10.10 Alcohol abuse, uncomplicated (principal); E11.9 Type 2 diabetes mellitus without complications; Z79.899 Other long term (current) drug therapy; Z79.4 Long term (current) use of insulin
CPT/HCPCS: 36415; 80053; 83540; 85025; 99212

== ENCOUNTER → 2022-06-13 12:21 | Outpatient (BNVA) | payer MEDICARE, MEDICAID, OTHER, SELFPAY | PROVIDERS: PCP Physician Assistant Medical; Visit Provider Dietitian, Registered | DX: E11.40 Type 2 diabetes mellitus with diabetic neuropathy, unspecified (principal) | CPT/HCPCS: 97802 ==

== ENCOUNTER → 2022-08-04 08:47 | Outpatient (BNVA) | payer MEDICARE, MEDICAID, OTHER, SELFPAY | PROVIDERS: PCP Physician Assistant Medical; Visit Provider Registered Nurse Diabetes Educator | DX: E11.40 Type 2 diabetes mellitus with diabetic neuropathy, unspecified (principal) | CPT/HCPCS: 99211 ==

== ENCOUNTER → 2022-08-15 12:48 | Outpatient (BNVA) | payer MEDICARE, MEDICAID, OTHER, SELFPAY | PROVIDERS: PCP Physician Assistant Medical; Visit Provider Dietitian, Registered | DX: E11.40 Type 2 diabetes mellitus with diabetic neuropathy, unspecified (principal) | CPT/HCPCS: 97803 ==

== ENCOUNTER → 2022-08-30 13:30 | Outpatient (BNVA) | payer MEDICARE, MEDICAID, OTHER, SELFPAY | PROVIDERS: PCP Physician Assistant Medical; Visit Provider Internal Medicine Endocrinology, Diabetes & Metabolism | DX: E11.40 Type 2 diabetes mellitus with diabetic neuropathy, unspecified (principal); E11.3599 Type 2 diabetes mellitus with proliferative diabetic retinopathy without macular edema, unspecified eye | CPT/HCPCS: 82947; 83036; 99212 ==

== ENCOUNTER 2022-10-26 07:43 | Outpatient (AMB) | payer MEDICARE, MEDICAID, OTHER, SELFPAY ==
--- NOTE | 2022-10-26 08:25 | A.OFFVIS_ITS ---
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: No Accompanied by: Self / Same As Patient Allergies lisinopril Allergy (Severe, Verified 08/30/22 13:35) Angioedema canagliflozin [Invokana] Allergy (Unknown, Verified 08/30/22 13:35) polyuria liraglutide [Victoza] Adverse Reaction (Unknown, Verified 08/30/22 13:35) nausea, constipation HPI Comprehensive Diabetes Asmnt Most Recent Diabetes Results: Creatinine 1.28 mg/dL (0.5-1.4) 06/02/22 Blood Urea Nitrogen 25 mg/dL (9-16) H 06/02/22 Sodium 142 mmol/L (135-145) 06/02/22 Potassium 4.6 mmol/L (3.3-5.1) 06/02/22 Chloride 106 mmol/L (96-108) 06/02/22 Carbon Dioxide 24 mmol/L (22-29) 06/02/22 Calcium 9.8 mg/dL (8.4-10.2) 06/02/22 AST 20 U/L (5-37) 06/02/22 ALT 13 U/L (0-40) 06/02/22 Total Protein 7.1 g/dL (6.5-8.0) 06/02/22 Albumin 4.4 g/dL (3.5-5.0) 06/02/22 [facility] Medical History Alcohol abuse Arthritis BPH loc w urin obs/LUTS Carpal tunnel syndrome Depression Erectile dysfunction Essential hypertension Frequency of urination Hepatitis B Hepatitis C NAFLD (nonalcoholic fatty liver disease) Overweight (BMI 25.0-29.9) Tubular adenoma of colon (~2019) Type 2 diabetes mellitus with diabetic neuropathy, unspecified (~2003) Surgical History History of cataract surgery History of colonoscopy History of excision of mass History of lumbar surgery History of rhinoplasty Family History Father Myocardial infarct Colon cancer Mother Diabetes Social History Household Members: Spouse Household Members Other:: Alcohol intake: current Alcohol intake frequency: a few times a week Alcohol type: beer and hard liquor Patient Tobacco Use Status: Never used Tobacco Substance Use Type: Crack/Cocaine Current occupational status: disabled Assessment & Plan Assessment & Plan (1) Type 2 diabetes mellitus with diabetic neuropathy, unspecified: Onset Date: ~2003 Code(s): E11.40 - Type 2 diabetes mellitus with diabetic neuropathy, unspecified Plan: Patient at visit to set up an insert Dexcom G7 Instructed patient sensors water proof you can shower, or swim do not submerge sensor in water for over 30 minutes Is sensor falls off cannot put back in you need to replace sensor, customer service number given to patient for sensor replacement Sensor placed on the back of left arm Patient left visit with sensor in warmup Reviewed how to interpret trend arrows Reminded patient that to check finger sticks if symptoms do not match sensor reading. Discussed lag time between finger stick and sensor data.? Instructed patient she should always keep blood glucometer for backup testing if needed Reviewed delay of CGM from fingersticks Reminded pt that if symptoms do not match sensor still needs to check fingersticks. Patient Instructions: Follow-up with rn diabetes educator in 10 days Coding Level of Care Code Est Pt Level 1 (54405) Diagnoses Type 2 diabetes mellitus with diabetic neuropathy, unspecified E11.40
== END 2022-10-26 09:39 | disposition home or self-care (01) ==
PROVIDERS: PCP Physician Assistant Medical; Visit Provider Registered Nurse Diabetes Educator
DX: E11.40 Type 2 diabetes mellitus with diabetic neuropathy, unspecified (principal)

== ENCOUNTER → 2022-10-26 07:43 | Outpatient (BNVA) | payer MEDICARE, MEDICAID, OTHER, SELFPAY | PROVIDERS: PCP Physician Assistant Medical; Visit Provider Registered Nurse Diabetes Educator | DX: E11.40 Type 2 diabetes mellitus with diabetic neuropathy, unspecified (principal) | CPT/HCPCS: 99211 ==

== ENCOUNTER 2022-10-27 07:27 | Outpatient (REF) | payer MEDICARE, OTHER, MEDICAID, SELFPAY ==
--- NOTE | ~2022-10-27 | CT_ITS ---
EXAMINATION: CT CHEST WITHOUT CONTRAST CLINICAL INFORMATION: Enlarged lymph nodes. COMPARISON: None available. TECHNIQUE: Multidetector volumetric CT imaging of the chest was done. Axial MIP volume rendering provided. Sagittal and coronal reformatted images were obtained. This CT examination was performed using dose optimization techniques as appropriate, variously including the following: *Automated exposure control *Adjustment of mA and/or kV according to patient size (this includes techniques or standardized protocols for targeted exams where dose is matched to indication/reason for exam; i.e. extremities or head) *Use of iterative reconstruction technique DLP: 171 mGy-cm FINDINGS: SCENIC ARTIST: Mediastinal prominence with tracheal deviation to the right. LUNGS: Study limited by low lung volumes and motion. Trachea and bronchi are patent. MEDIASTINUM: Unremarkable thyroid. No change multiple prominent mediastinal lymph nodes, largest in the pretracheal region measuring 1.3 cm in short axis, largest in the prevascular region measuring 9 mm. Evaluation of the rogers limited without IV contrast but no definite lymphadenopathy seen. Heart size within normal limits. No pericardial effusion. Nonaneurysmal aorta. Nonenlarged pulmonary arteries. CORONARY ARTERY CALCIFICATION: Trace. PLEURA: There is no pleural effusion. No pleural mass or thickening. AXILLA: No lymphadenopathy. UPPER ABDOMEN: Unremarkable. OSSEOUS AND SOFT TISSUE STRUCTURES: Mild gynecomastia. CT/CT chest wo IV con IMPRESSION: Stable mediastinal lymphadenopathy. No change 3 mm right lower lobe pulmonary nodule.
== END 2022-10-27 07:28 | disposition home or self-care (01) ==
LOC: HO.CT 07:27
PROVIDERS: Visit Provider Surgery
DX: R59.0 Localized enlarged lymph nodes (principal)
CPT/HCPCS: 71250

== ENCOUNTER 2022-10-28 09:11 | Emergency (ER) | payer MEDICARE, OTHER, MEDICAID, SELFPAY ==
--- NOTE | ~2022-10-28 | XR_ITS ---
EXAMINATION: XR RIBS, LEFT CLINICAL INFORMATION: Pain COMPARISON: Previous chest CT from yesterday TECHNIQUE: 3 views of the left ribs were obtained. FINDINGS: The cardiac and mediastinal contours are stable. The lung volumes are low. The lungs are clear. No pleural effusion or pneumothorax. No rib fracture or bone abnormality. Degenerative changes of the thoracic spine. XR/XR ribs LT min 3V w CXR1V IMPRESSION: No evidence for acute disease in the chest. No rib fracture.
[2022-10-28 09:20] VITALS: BP 145/94; PULSE 86; RESP 16; TEMP 36.9; O2SAT 98; BMI 31.0
--- NOTE | 2022-10-28 09:33 | PC.NURSE ---
pt refused xrays per radiology
--- NOTE | 2022-10-28 10:36 | ED.GENADULT ---
HPI - General Adult General Chief complaint: General Medical Stated complaint: L Side Pain No Injury Time Seen by Provider: 10/28/22 10:22 Source: patient Mode of arrival: ambulatory Limitations: no limitations History of Present Illness HPI narrative: 62 yo male with history of HTN, BPH, AAA, ETOH abuse, depression who presents to the ER for evaluation of nontraumatic left sided rib pain for the last 3 days. He states it has been getting worse. It is only when he touches the area or when he moves. none at rest. pain is located over the lateral left ribs under his axilla and is sharp. He has no rashes, SOB or chest pain. he cannot think of any strenuous activity that is out of the ordinary. reports over a week ago he had similar pain on the right side that went away on its own. MD complaint: left lateral rib pain Onset (ago): day(s) (3) Location: chest Radiation: non-radiation Severity: moderate Severity scale (1-10): 7 Quality: sharp Pain Consistency: intermittent Relieving factors: rest Exacerbating factors: movement Associated symptoms: denies other symptoms Treatments prior to arrival: none Related Data Home Medications Medication Instructions Recorded Confirmed diclofenac sodium 75 mg 75 mg PO BID 05/05/20 04/01/22 tablet,delayed release bupropion HCl 150 mg 24 hr tablet, 150 mg PO QAM 11/25/20 04/01/22 extended release fluoxetine 40 mg capsule 40 mg PO DAILY 11/25/20 04/01/22 nystatin-triamcinolone 100,000 appl topical 11/26/20 04/01/22 unit/g-0.1 % topical cream clotrimazole-betamethasone 1 appl topical DAILY PRN 10/06/21 04/01/22 %-0.05 % topical cream metoprolol succinate 25 mg 25 mg PO DAILY 03/22/22 04/01/22 tablet,extended release 24 hr Previous Rx's Medication Instructions Recorded lancets #100 ea 08/07/20 amlodipine 10 mg tablet 10 mg PO DAILY #30 tabs 04/01/21 tadalafil 10 mg tablet 10 mg PO DAILY sexual activity 90 10/06/21 days #90 tabs tadalafil 20 mg tablet 20 mg PO DAILY PRN sexual activity 10/06/21 #30 tabs Accu-Chek Fastclix Lancet Drum #102 ea 11/14/21 (lancets) sub-q insulin device, 20 unit #30 ea 12/02/21 (V-GO 20 device) insulin aspart (niacinamide) See Rx Instructions subcut DAILY 12/14/21 (U-100) 100 unit/mL subcutaneous 30 days #30 mL solution lancets (Accu-Chek Softclix #100 ea 03/22/22 Lancets) metformin 500 mg tablet,extended 500 mg PO BEDTIME #30 tabs 05/19/22 release 24 hr tamsulosin 0.4 mg capsule 0.4 mg PO DAILY 90 days #90 caps 05/20/22 cholecalciferol (vitamin D3) 50 50 mcg PO DAILY #30 caps 06/21/22 mcg (2,000 unit) capsule (Vitamin D3) blood sugar diagnostic (Accu-Chek #100 ea 07/05/22 Guide test strips) blood-glucose meter (Accu-Chek #1 ea 07/05/22 Guide Glucose Meter) blood-glucose meter,continuous #1 ea 08/30/22 (Dexcom G7 Property Management Intern) blood-glucose sensor (Dexcom G7 #3 ea 08/30/22 Sensor device) cyclobenzaprine 10 mg tablet 10 mg PO TID PRN muscle spasm #10 10/28/22 tabs lidocaine 5 % topical patch 1 patch topical DAILY #15 ea 10/28/22 naproxen 500 mg tablet (Naprosyn) 500 mg PO BID #20 tabs 10/28/22 oxycodone 5 mg tablet 5 mg PO BID PRN severe pain (scale 10/28/22 score 7-10) #5 tabs Allergies Allergy/AdvReac Type Severity Reaction Status Date / Time lisinopril Allergy Severe Angioedema Verified 08/30/22 13:35 canagliflozin [Invokana] Allergy Unknown polyuria Verified 08/30/22 13:35 liraglutide [Victoza] AdvReac Unknown nausea, Verified 08/30/22 13:35 constipation Review of Systems Review of Systems: Yes all other systems are reviewed and are negative [facility] Past Medical History Medical History Alcohol abuse Arthritis BPH loc w urin obs/LUTS Carpal tunnel syndrome Depression Erectile dysfunction Essential hypertension Frequency of urination Hepatitis B Hepatitis C NAFLD (nonalcoholic fatty liver disease) Overweight (BMI 25.0-29.9) Tubular adenoma of colon (~2019) Type 2 diabetes mellitus with diabetic neuropathy, unspecified (~2003) Surgical History History of cataract surgery History of colonoscopy History of excision of mass History of lumbar surgery History of rhinoplasty Family History Family History Father Myocardial infarct Colon cancer Mother Diabetes Social History Social History Household Members: Spouse Household Members Other:: Alcohol intake: current Alcohol intake frequency: a few times a week Alcohol type: beer and hard liquor Patient Tobacco Use Status: Never used Tobacco Substance Use Type: Crack/Cocaine Advance Directives: No Advance Directives Information Provided: No Current occupational status: disabled Physical Exam ED Vital Signs: Vital Signs - 24 hr 10/28/22 09:20 Temperature 98.5 F Pulse Rate 86 Respiratory Rate 16 Blood Pressure 145/94 H Pulse Oximetry 98 Oxygen Delivery Method Room Air BMI result Body Mass Index 31.0 Appearance: Alert. Oriented X3. No acute distress. Head: normocephalic, atraumatic. Eyes: Pupils equal, round and reactive to light. ENT: Pharynx normal. No tonsillar swelling or exudate. Neck: Normal inspection. Neck supple. CVS: Normal heart rate and rhythm. Pulses normal. Respiratory: No respiratory distress. Breath sounds normal. No skin changes on chest wall. +tenderness to the left lateral ribs from approx ribs 5-8. no anterior chest wall tenderness Abdomen: Soft and nontender. +BS x4 Skin: Skin warm and dry. Normal skin color. Normal skin turgor. No rashes. Extremities: No lower extremity edema. No joint swelling. NO calf tenderness Neuro/psych: Oriented X 3. No motor deficit. No sensory deficit. CN II-XII intact. Normal speech and cognition. Medications Administered Discontinued Medications Generic Name Dose Route Start Last Admin Trade Name Freq PRN Reason Stop Dose Admin Ketorolac Tromethamine 30 mg 10/28/22 12:03 10/28/22 12:10 Ketorolac Tromethamine 30 Mg/Ml Vial IM 10/28/22 12:04 30 mg ONCE ONE Administration Lidocaine 1 patch 10/28/22 12:03 10/28/22 12:11 Lidocaine 4 % Patch Adh..Patch TRANSDERMA 10/28/22 12:04 1 patch ONCE ONE Administration Protocol Oxycodone HCl 5 mg 10/28/22 12:03 10/28/22 12:11 Oxycodone Hcl Immed Release 5 Mg Tablet PO 10/28/22 12:04 5 mg ONCE ONE Administration Medical Decision Making Medical Decision Making MDM Narrative: 62 yo male presenting with nontraumatic left lateral rib pain x3 days. Intermittent, sharp, w/ movement and palpation only. low clinical suspicion for ACS or PE. No evidence of PNA, rib fx on CXR. EKG without ischemic changes. Given exam findings pain is most c/w MSK pain vs costochondritis. will treat accordingly and have patient f/u with his PCP. He was given strict return precautions and expressed understanding. stable for d/c home. Differential Diagnosis Differential Diagnoses: The differential diagnosis associated with the presentation includes MSK pain, costochondritis, rib contusion, rib fracture, less likely ACS or PE, doubt myocarditis or pericarditis Admission/Observation Consideration of admission/observation: Escalation of care including admission/observation considered Independent Interpretation I performed an independent interpretation of an: Plain X-Ray Interpretation: xrays w/out fx or PNA, agree w/ radiologist Radiology Impression Discussion of test interpretation with radiology: I have reviewed the radiologist's reading. Radiologist Impression: XR/XR ribs LT min 3V w CXR1V IMPRESSION: No evidence for acute disease in the chest. No rib fracture. Independent Historian Clinical information obtained from an independent historian. History obtained from or confirmed by: Spouse External Record Review External record reviewed: Outpatient record, Prior outpatient labs and Prior outpatient radiology Tests considered The following testing was considered but not selected: considered lab workup w/ bloodwork - CBC, CMP and troponin however PE was c/w msk pain Prescription Management I considered prescription management with: Pain Medication Critical Care Time Critical Care Time Critical Care Time: No Discharge Plan Discharge Clinical Impression: Acute costochondritis Patient Disposition: Home, Self-Care Instructions: Costochondritis (ED) Additional Instructions: Your EKG today was normal. Your chest x-ray was normal. Your pain is most likely muscular in nature. Take the prescribed medications as directed. Take the prescribed narcotic medication only as needed for severe pain only. Do not drive after taking this medication. Follow-up with your doctor. If you develop new or worsening symptoms call 911 or come back to the ER for further evaluation. Prescriptions: New naproxen [Naprosyn] 500 mg tablet 500 mg PO BID Qty: 20 0RF cyclobenzaprine 10 mg tablet 10 mg PO TID PRN (Reason: muscle spasm) Qty: 10 0RF lidocaine 5 % adhesive patch,medicated 1 patch topical DAILY Qty: 15 0RF Rx Instructions: leave on most painful area for up to 12 hrs oxycodone 5 mg tablet 5 mg PO BID PRN (Reason: severe pain (scale score 7-10)) Qty: 5 0RF Rx Instructions: Partial Fill upon patient request. No Action (DME) lancets [Accu-Chek Fastclix Lancet Drum] Misc See Rx Instructions .ROUTE .COMPLEX Qty: 102 6RF Dose Instruction: USE FOUR TIMES A DAY Rx Instructions: USE FOUR TIMES A DAY (DME) V-GO 20 Device See Rx Instructions .Route Qty: 30 11RF Rx Instructions: one daily insulin aspart (niacinamide) 100 unit/mL solution See Rx Instructions subcut DAILY 30 Days Qty: 30 4RF Rx Instructions: Up to 76 units via V Go subcut daily; metformin 500 mg tablet extended release 24 hr 500 mg PO BEDTIME Qty: 30 6RF tamsulosin 0.4 mg capsule 0.4 mg PO DAILY 90 Days Qty: 90 3RF cholecalciferol (vitamin D3) [Vitamin D3] 50 mcg (2,000 unit) capsule 50 mcg PO DAILY Qty: 30 5RF (DME) Accu-Chek Guide test strips Strip See Rx Instructions .Route Qty: 100 5RF Rx Instructions: As directed tests 4 X/day (DME) blood-glucose meter [Accu-Chek Guide Glucose Meter] Misc See Rx Instructions .Route Qty: 1 0RF Rx Instructions: As directed tests 4 X/day (DME) lancets Misc See Rx Instructions topical TID Qty: 100 6RF Rx Instructions: 4x daily nystatin-triamcinolone 100,000-0.1 unit/g-% cream topical fluoxetine 40 mg capsule 40 mg PO DAILY bupropion HCl 150 mg tablet extended release 24 hr 150 mg PO QAM diclofenac sodium 75 mg tablet,delayed release (DR/EC) 75 mg PO BID amlodipine 10 mg tablet 10 mg PO DAILY Qty: 30 11RF metoprolol succinate 25 mg tablet extended release 24 hr 25 mg PO DAILY (DME) lancets [Accu-Chek Softclix Lancets] Misc See Rx Instructions .Route Qty: 100 4RF Rx Instructions: As directed-tests 4X/day clotrimazole-betamethasone 1-0.05 % cream topical DAILY PRN tadalafil 10 mg tablet 10 mg PO DAILY 90 Days Qty: 90 0RF tadalafil 20 mg tablet 20 mg PO DAILY PRN (Reason: sexual activity) Qty: 30 1RF Rx Instructions: On demand time of sexual activity (DME) Dexcom G7 Sensor Device See Rx Instructions .Route Qty: 3 4RF Rx Instructions: As directed change every 10 days (DME) Dexcom G7 Property Management Intern Misc See Rx Instructions .Route Qty: 1 0RF Rx Instructions: As directed Referrals: Jorge Singleton, PA [Primary Care Provider] - Interventions: ED Discharge Assessment Last Done: 10/28/22 12:43 Discharge Date/Time: 10/28/22 12:44
--- NOTE | 2022-10-28 11:39 | ECG_ITS ---
Test Reason : CHEST WALL PAIN Blood Pressure : / mmHG Vent. Rate : 059 BPM Atrial Rate : 059 BPM P-R Int : 164 ms QRS Dur : 080 ms QT Int : 396 ms P-R-T Axes : 046 -28 023 degrees QTc Int : 392 ms Sinus bradycardia Otherwise normal ECG When compared with ECG of 20-MAY-2013 14:26, Heart rate has decreased Referred By: Mandi Faith Electronically Signed By:MAGNUS VILLARREAL
[2022-10-28] MEDS: Ketorolac Tromethamine 30 MG/ML VIAL IM (12:10)
[2022-10-28] MEDS: oxyCODONE HCl Immed Release 5 MG TABLET PO (12:11)
[2022-10-28] MEDS: Lidocaine 4 % Patch ADH..PATCH 1 PATCH TRANSDERMA (12:11)
== END 2022-10-28 12:44 | disposition home or self-care (01) ==
PROVIDERS: Emergency Provider Emergency Medicine Emergency Medical Services; PCP Physician Assistant Medical
DX: M94.0 Chondrocostal junction syndrome [Tietze] (principal); R07.81 Pleurodynia; R07.89 Other chest pain; R00.1 Bradycardia, unspecified
CPT/HCPCS: 71101; 93005; 96372; 99283; 99284; J1885

== ENCOUNTER 2022-11-03 13:50 | Outpatient (AMB) | payer MEDICARE, OTHER, MEDICAID, SELFPAY ==
--- NOTE | 2022-11-03 14:25 | A.OFFVIS_ITS ---
Intake Intake Visit Reasons: DM Dexcom Slubber Hand Required: No Accompanied by: Self / Same As Patient Allergies lisinopril Allergy (Severe, Verified 08/30/22 13:35) Angioedema canagliflozin [Invokana] Allergy (Unknown, Verified 08/30/22 13:35) polyuria liraglutide [Victoza] Adverse Reaction (Unknown, Verified 08/30/22 13:35) nausea, constipation HPI Comprehensive Diabetes Asmnt Most Recent Diabetes Results: No Data to Display [facility] Medical History Alcohol abuse Arthritis BPH loc w urin obs/LUTS Carpal tunnel syndrome Depression Erectile dysfunction Essential hypertension Frequency of urination Hepatitis B Hepatitis C NAFLD (nonalcoholic fatty liver disease) Overweight (BMI 25.0-29.9) Tubular adenoma of colon (~2019) Type 2 diabetes mellitus with diabetic neuropathy, unspecified (~2003) Surgical History History of cataract surgery History of colonoscopy History of excision of mass History of lumbar surgery History of rhinoplasty Family History Father Myocardial infarct Colon cancer Mother Diabetes Social History Household Members: Spouse Household Members Other:: Alcohol intake: current Alcohol intake frequency: a few times a week Alcohol type: beer and hard liquor Patient Tobacco Use Status: Never used Tobacco Substance Use Type: Crack/Cocaine Current occupational status: disabled Assessment & Plan Assessment & Plan (1) Type 2 diabetes mellitus with diabetic neuropathy, unspecified: Onset Date: ~2003 Code(s): E11.40 - Type 2 diabetes mellitus with diabetic neuropathy, unspecified Plan: Personal Continuous Glucose Monitor: Patients CGM information reviewed Reviewed patient's sensor data: Hypoglycemia: ? 3% Hyperglycemia:? 42 % Time in Range:? 55% Average glucose for the last 2 weeks 172? mg/dL Patient is experiencing some hypoglycemia over night. Patient wears Vgo 20, patient also reports that when he is experiencing hyperglycemia at night he gives himself for clicks Vgo, equal to 8 units of insulin. Reviewed with patient action of mealtime insulin instructed patient he should only give for clicks before meals if he is concerned about hyperglycemia at bedtime he can try 2 clicks. Patient also reports he occasionally drink alcohol in the evening. Discussed with patient the effect of alcohol on glucose levels, causing hi hypoglycemia after consumption. Instructed patient he should always eat a complex carbohydrate snack or meal with alcohol Reviewed with patient how to treat hypoglycemia with rule of 15s Patient reports his last Dexcom G7 sensor fell off approximately 6 hours after insertion, Gave patient Dexcom customer service number to call to replace sensor. Reviewed how to interpret trend arrows Reminded patient that to check finger sticks if symptoms do not match sensor reading. Discussed lag time between finger stick and sensor data.? Patient able to insert sensor independently at home without issue.? Patient Instructions: With clinical nurse manager in 1 month Coding Level of Care Code Est Pt Level 1 (70790) Diagnoses Type 2 diabetes mellitus with diabetic neuropathy, unspecified E11.40
== END 2022-11-03 14:27 | disposition home or self-care (01) ==
PROVIDERS: PCP Physician Assistant Medical; Visit Provider Registered Nurse Diabetes Educator
DX: E11.40 Type 2 diabetes mellitus with diabetic neuropathy, unspecified (principal)

== ENCOUNTER → 2022-11-03 13:50 | Outpatient (BNVA) | payer MEDICARE, MEDICAID, SELFPAY | PROVIDERS: PCP Physician Assistant Medical; Visit Provider Registered Nurse Diabetes Educator | DX: E11.40 Type 2 diabetes mellitus with diabetic neuropathy, unspecified (principal) | CPT/HCPCS: 99211 ==

== ENCOUNTER 2022-11-11 09:03 | Outpatient (AMB) | payer MEDICARE, MEDICAID, SELFPAY ==
--- NOTE | 2022-11-11 09:12 | MHC.OFFVIS ---
Intake Vital Signs 11/11/22 09:27 Height 5 ft 9 in Weight 194 lb BMI 28.6 BP 130/80 Blood Pressure Location Lt brachial Position Sitting Pulse 91 Pulse Oximetry (%) 97 Intake Visit Reasons: follow up with CT Allergies lisinopril Allergy (Severe, Verified 11/11/22 09:28) Angioedema canagliflozin [Invokana] Allergy (Unknown, Verified 11/11/22 09:28) polyuria liraglutide [Victoza] Adverse Reaction (Unknown, Verified 11/11/22 09:28) nausea, constipation Medication List - Last Reconciled 11/11/22 by Etta Lipscomb MD Accu-Chek Fastclix Lancet Drum (lancets) USE FOUR TIMES A DAY NS amlodipine 10 mg PO DAILY blood sugar diagnostic (Accu-Chek Guide test strips) As directed tests 4 X/day blood-glucose meter (Accu-Chek Guide Glucose Meter) As directed tests 4 X/day blood-glucose meter,continuous (DexTownSquared G7 Hander In) As directed blood-glucose sensor (Dexcom G7 Sensor device) As directed change every 10 days bupropion HCl 150 mg PO QAM cholecalciferol (vitamin D3) (Vitamin D3) 50 mcg PO DAILY clotrimazole-betamethasone 1-0.05 % appl topical DAILY PRN cyclobenzaprine 10 mg PO TID PRN diclofenac sodium 75 mg PO BID fluoxetine 40 mg PO DAILY insulin aspart (niacinamide) 100 unit/mL Up to 76 units via V Go subcut daily; 30 days lancets 4x daily lancets (Accu-Chek Softclix Lancets) As directed-tests 4X/day lidocaine 5% 1 patch topical DAILY metformin ER 500 mg PO BEDTIME metoprolol succinate ER 25 mg PO DAILY naproxen (Naprosyn) 500 mg PO BID nystatin-triamcinolone 100,000-0.1 unit/g-% appl topical oxycodone 5 mg PO BID PRN sub-q insulin device, 20 unit (V-GO 20 device) one daily tadalafil 10 mg PO DAILY 90 days tadalafil 20 mg PO DAILY PRN tamsulosin 0.4 mg PO DAILY 90 days HPI follow up with CT HPI Details 61-year-old man who presented in November of 2021 to [facility] with some right-sided chest pain and shortness of breath. He did get a CT scan at that time at [place] on 12/08/2021 which showed a calcified granuloma at the right base and mediastinal lymphadenopathy including a 1.6 cm, 1.9 cm, and 2.2 cm lymph nodes in the precarinal, subcarinal, and prevascular spaces respectively. At that time, I arranged for him to have a 3 month follow-up CT scan which he had at [facility] on 03/22/2022. This was also reviewed interpreted by me directly showing a pretracheal lymph node that now measures 1.3 cm and the pre-vascular lymph node that was or is 9 mm with seems slightly decreased from previous imaging. There are no other significant findings. Another repeat CT scan done in October of 2022 shows persistent somewhat enlarged mediastinal lymphadenopathy including a 1.3 cm pretracheal lymph node in at least 9 mm prevascular lymph node similar to the previous scan the although still enlarged. He does also tell me that his chest pain and shortness of breath after that initial time has now completely resolved and feels totally normal. He denies fevers, chills, or unintentional weight loss. He denies any hemoptysis. Other than above, 12 point review of systems was done and documented separately in the office chart with detailed social and family history. [facility] Medical History Tubular adenoma of colon (~2019) BPH loc w urin obs/LUTS Frequency of urination Erectile dysfunction NAFLD (nonalcoholic fatty liver disease) Hepatitis C Hepatitis B Arthritis Alcohol abuse Depression Carpal tunnel syndrome Type 2 diabetes mellitus with diabetic neuropathy, unspecified (~2003) Essential hypertension Overweight (BMI 25.0-29.9) Surgical History History of rhinoplasty History of colonoscopy History of lumbar surgery History of cataract surgery History of excision of mass Family History Father Myocardial infarct Colon cancer Mother Diabetes Social History Household Members: Spouse Household Members Other:: Alcohol intake: current Alcohol intake frequency: a few times a week Alcohol type: beer and hard liquor Patient Tobacco Use Status: Never used Tobacco Substance Use Type: Crack/Cocaine Current occupational status: disabled Physical Exam Vital Signs: Last Vital Signs Pulse 91 11/11/22 09:27 BP 130/80 11/11/22 09:27 Pulse Ox 97 11/11/22 09:27 BMI result Body Mass Index 28.6 General: No acute distress HEENT: Moist mucous membranes, normocephalic, pupils equal round and reactive to light. Neck: No thyromegaly, supple, no JVD Lymph: No cervical, supraclavicular, or other lymphadenopathy Chest: No chest wall abnormalities or deformities Heart: Regular rate and rhythm Lungs: Clear to auscultation bilaterally Abdomen: Soft, nontender, normal bowel sounds Extremities: No edema, cyanosis, or clubbing. Full range of motion Neuro: Grossly intact, alert and oriented x3, and nonfocal Skin: Warm and dry no rashes Affect: Normal Assessment & Plan Assessment & Plan (1) Mediastinal lymphadenopathy: Code(s): R59.0 - Localized enlarged lymph nodes Plan: 62-year-old male with persistent mediastinal lymphadenopathy without any other apparent symptoms. I discussed the differential for enlarged mediastinal lymph nodes including reactive versus sarcoid versus lymphoma. I discussed options with him including continued observation versus biopsy of these lymph nodes which I think would be better biopsied with a mediastinoscopy. After discussing the risks and benefits of each of these options he wants to proceed with mediastinoscopy. Without mind will plan on doing a video mediastinoscopy here at [facility] in the next few weeks. He will need to stop his Naprosyn for least a week prior. (2) Nodule of right lung: Code(s): R91.1 - Solitary pulmonary nodule Plan: Stable and small Coding Level of Care Code Est Pt Level 4 (48025) Diagnoses Mediastinal lymphadenopathy R59.0 Nodule of right lung R91.1
[2022-11-11 09:27] VITALS: BP 130/80; PULSE 91; O2SAT 97; BMI 28.6
== END 2022-11-11 09:30 | disposition home or self-care (01) ==
PROVIDERS: PCP Physician Assistant Medical; Visit Provider Surgery
DX: R59.0 Localized enlarged lymph nodes (principal); R91.1 Solitary pulmonary nodule

== ENCOUNTER → 2022-11-11 09:03 | Outpatient (BNVA) | payer MEDICARE, MEDICAID, SELFPAY | PROVIDERS: PCP Physician Assistant Medical; Visit Provider Surgery | DX: R59.0 Localized enlarged lymph nodes (principal); R91.1 Solitary pulmonary nodule | CPT/HCPCS: 99212 ==

== ENCOUNTER 2022-11-23 05:58 | Day surgery (SDC) | payer MEDICARE, MEDICAID, SELFPAY ==
[2022-11-21 10:18] VITALS: BMI 28.6
--- NOTE | 2022-11-22 11:51 | HO.ANESPROP2 ---
Documented by User: Ledy Gavin NP 11/22/22 11:52 HPI - Anesthesia Eval Consult details Narrative: 62yo M for Bronchoscopy Mediastinoscopy [facility] Active Problems Active Problems: All Active Problems (Updated 10/29/22 @ 00:01 by Citlali Camacho) Mediastinal lymphadenopathy (Acute) Nodule of right lung (Acute) Ascending aortic aneurysm (Acute) Alcohol abuse (Acute) NAFLD (nonalcoholic fatty liver disease) (Acute) Tubular adenoma of colon (Acute ~2019) Type 2 diabetes mellitus with diabetic neuropathy, unspecified (Acute ~2003) Essential hypertension (Acute) Erectile dysfunction (Acute) BPH loc w urin obs/LUTS (Acute) Frequency of urination (Acute) Depression (Acute) Overweight (BMI 25.0-29.9) (Acute) Past Medical History Medical History Tubular adenoma of colon (~2019) BPH loc w urin obs/LUTS Frequency of urination Erectile dysfunction NAFLD (nonalcoholic fatty liver disease) Hepatitis C Hepatitis B Arthritis Alcohol abuse Depression Carpal tunnel syndrome Type 2 diabetes mellitus with diabetic neuropathy, unspecified (~2003) Essential hypertension Overweight (BMI 25.0-29.9) Family History Family History Father Myocardial infarct Colon cancer Mother Diabetes Surgical History Surgical History History of rhinoplasty History of colonoscopy History of lumbar surgery History of cataract surgery History of excision of mass Social History Social History Household Members: Spouse Household Members Other:: Alcohol intake: current Alcohol intake frequency: a few times a month Alcohol type: beer and hard liquor Patient Tobacco Use Status: Never used Tobacco Substance Use Type: Crack/Cocaine Substance Use Type Other:: past hx marijuana/current cocaine on occasion-last used one month ago Substance Use Frequency: Occasionally Have you been hit, kicked, punched, or otherwise hurt by someone within the past year? If so, by whom?: No Are you DNR?: No Advance Directives: No Advance Directives Information Provided: Yes Advance Directives on File: No Recently lost weight without trying: No Eating poorly because of decreased appetite: No Nutrition Risks: No Nutritional Risk Current occupational status: disabled Meds Allergies Allergy/AdvReac Type Severity Reaction Status Date / Time lisinopril Allergy Severe Angioedema Verified 11/11/22 09:28 canagliflozin [Invokana] Allergy Unknown polyuria Verified 11/11/22 09:28 liraglutide [Victoza] AdvReac Unknown nausea, Verified 11/11/22 09:28 constipation Home Medications Medication Instructions Recorded Confirmed Last Taken Type diclofenac sodium 75 mg 75 mg PO BID 05/05/20 11/21/22 Unknown History tablet,delayed release bupropion HCl 150 mg 24 hr tablet, 150 mg PO QAM 11/25/20 11/21/22 Unknown History extended release fluoxetine 40 mg capsule 40 mg PO DAILY 11/25/20 11/21/22 Unknown History nystatin-triamcinolone 100,000 1 appl topical DAILY 11/26/20 11/21/22 Unknown History unit/g-0.1 % topical cream clotrimazole-betamethasone 1 1 appl topical DAILY 10/06/21 11/21/22 Unknown History %-0.05 % topical cream metoprolol succinate 25 mg 25 mg PO DAILY 03/22/22 11/21/22 11/22/22 17:00 History tablet,extended release 24 hr Exam Exam Date and Time: November 22, 2022 1151 Height,Weight and Vital Signs: Height 5 ft 9 in Weight 87.997 kg Pertinent Lab Results Pertinent Lab Results: Laboratory Tests 06/02/22 13:41 WBC 6.1 Hgb 13.2 L Hct 38.1 L Plt Count 186 Sodium 142 Potassium 4.6 Chloride 106 Carbon Dioxide 24 BUN 25 H Creatinine 1.28 Narrative Narrative: EKG 10/2022 Vent. Rate : 059 BPM Atrial Rate : 059 BPM P-R Int : 164 ms QRS Dur : 080 ms QT Int : 396 ms P-R-T Axes : 046 -28 023 degrees QTc Int : 392 ms Sinus bradycardia Otherwise normal ECG When compared with ECG of 20-MAY-2013 14:26, Heart rate has decreased Assessment and Plan Assessment Anesthesia Assessment: Chart Reviewed Documented by User: Jesus Gupta MD 11/23/22 08:10 PMF Past Medical History Medical History Tubular adenoma of colon (~2019) BPH loc w urin obs/LUTS Frequency of urination Erectile dysfunction NAFLD (nonalcoholic fatty liver disease) Hepatitis C Hepatitis B Arthritis Alcohol abuse Depression Carpal tunnel syndrome Type 2 diabetes mellitus with diabetic neuropathy, unspecified (~2003) Essential hypertension Overweight (BMI 25.0-29.9) Family History Family History Father Myocardial infarct Colon cancer Mother Diabetes Family history of problems with anesthesia: No Surgical History Surgical History History of rhinoplasty History of colonoscopy History of lumbar surgery History of cataract surgery History of excision of mass History of Problems with Anesthesia: No Social History Social History Household Members: Spouse Household Members Other:: Alcohol intake: current Alcohol intake frequency: a few times a month Alcohol type: beer and hard liquor Patient Tobacco Use Status: Never used Tobacco Substance Use Type: Crack/Cocaine Substance Use Type Other:: past hx marijuana/current cocaine on occasion-last used one month ago Substance Use Frequency: Occasionally Have you been hit, kicked, punched, or otherwise hurt by someone within the past year? If so, by whom?: No Are you DNR?: No Advance Directives: No Advance Directives Information Provided: Yes Advance Directives on File: No Recently lost weight without trying: No Eating poorly because of decreased appetite: No Nutrition Risks: No Nutritional Risk Current occupational status: disabled Meds Allergies Allergy/AdvReac Type Severity Reaction Status Date / Time lisinopril Allergy Severe Angioedema Verified 11/11/22 09:28 canagliflozin [Invokana] Allergy Unknown polyuria Verified 11/11/22 09:28 liraglutide [Victoza] AdvReac Unknown nausea, Verified 11/11/22 09:28 constipation Home Medications Medication Instructions Recorded Confirmed Last Taken Type diclofenac sodium 75 mg 75 mg PO BID 03/02/21 09/18/23 Unknown History tablet,delayed release bupropion HCl 150 mg 24 hr tablet, 150 mg PO QAM 11/25/20 11/21/22 Unknown History extended release fluoxetine 40 mg capsule 40 mg PO DAILY 11/25/20 11/21/22 Unknown History nystatin-triamcinolone 100,000 1 appl topical DAILY 11/26/20 11/21/22 Unknown History unit/g-0.1 % topical cream clotrimazole-betamethasone 1 1 appl topical DAILY 10/06/21 11/21/22 Unknown History %-0.05 % topical cream metoprolol succinate 25 mg 25 mg PO DAILY 03/22/22 11/21/22 11/22/22 17:00 History tablet,extended release 24 hr Exam Airway Mallampati Class: II TM Dist: >3cm Neck ROM: Full Loose/Missing/Broken Teeth: Yes and Upper Heart: ok Lungs: ok Assessment and Plan Assessment Anesthesia Assessment: Anesthesia Plan Discussed Final Anesthetic Review Family History of Problems with Anesthesia: No History of Problems with Anesthesia: No NPO: Yes ASA Class: III Final Preanesthetic Review: No Changes in Pt Med Stat, Meds/Allgs Chart Reviewed, Consent Obtained/Reviewed and Anes Risks/Benef Reviewed Patient Risk: Intermediate Procedure Risk: Intermediate Anesthetic Plan Anesthetic Plan: GA and Agree w/ Assess. and Plan Disposition: Standard PACU
--- OUTSIDE RECORDS SUMMARY | 2022-11-23 06:01 | XMS_ITS | Patient Health Record ---
Author Name Unknown [facility] [address] [place] [address] Care Team Providers Care Chief Risk Officer Name Role Phone Jorge Chowdhury Primary Care Provider Unav ailable Nena Ernst Unavailable [phone] ALLERGIES Allergen (clinical drug ingredient) Drug/Non Drug Allergy documented on EMR Reaction Allergy Type Onset Date Status liraglutide Victoza Unknown Drug Allergy Activ e canagliflozin Canagliflozin Unknown Drug Allergy Active lisinopril Lisinopril Unknown Drug Allergy Activ e REASON FOR REFERRAL No Information MEDICATIONS Medication SIG (Take, Route, Frequency, Duration) Notes Start Date End Date Status buPROPion HCl ER (Smoking Det) 150 MG 1 tablet in the morning Orally Once a day for 30 day(s) Active Vitamin D3 50 MCG (1999 UT) 1 capsule Orally Once a day for 30 day(s) Active FLUoxetine HCl 40 MG 1 capsule Orally On a day for 30 day(s) Active metFORMIN HCl ER 500 MG 1 tablet with ev ening meal Orally Once a day for 30 day(s) Active Insulin Glargine 100 UNIT/ML as directed Subcutaneous Act kaushik SITagliptin Phosphate 100 MG 1 tablet Orally Once a day for 30 day(s) Unknown Nystatin-Triamcinolone 885590-4.1 UNIT/GM 1 application Externally Twice a day Active Tadalafil 20 MG 1 tablet Orally for 30 day(s) Unknown Pen [place] 05/19 Ac tive amLODIPine Besylate 10 MG 1 tablet Orally Once a day Active Tamsulosin HCl 0.4 MG 1 capsule Orally O nce a day for 30 day(s) Active Diclofenac Sodium 75 MG 1 tablet as need ed Orally Twice a day Unknown Januvia 100 MG 1 tablet Orally Once a day for 30 day(s) Active Sildenafil Citrate 100 MG 1 tablet as ne eded Orally Once a day for 30 day(s) Active Insulin Aspart 100 UNIT/ML as directed Subcutaneous Unk nown Extra Depth Orthopedic Shoes (1 Pair) with Customized Heat Molded Multidensity Innersoles (3 Pair) as directed Dx: NIDDM (E11.9), Hammertoe Foot Deformity (M20.41,M20.42), Preulcerative Skin Lesion(s) (L85.1) Active SOCIAL HISTORY Tobacco Use: Social History Observation Description Date Details (start date - stop date) Never Smoker NA - NA Sex Assigned At : Social History Observation Description Sex Assigned At Unknown Tobacco Use/Smoking Question Answer Notes Are you a: nonsmoker Alcohol Screen Question Answer Notes Did you have a drink contain ing alcohol in the past year? Yes How often did you have a dri nk containing alcohol in the past year? 2 to 3 times a week (3 points) How many drinks did you have on a typical day when you were drinking in the past year? 5 or 6 drinks (2 points) Points 5 Interpretation Positive Tobacco use other than smoking: Question Answer Notes Are you an other tobacco user? No PROBLEMS Problem Type ICD Code Onset Dates Problem Status W/U Status Risk SNOMED Code Notes Problem Type 2 diabetes mellitus without complications (E11.9) Active confirmed [id number] Problem Hammer toe of left foot (M20.42) Active confirmed [id number] Encounters Encounter Location Date Provider Diagnosis [facility] [address] 06/14/2022 Nena Ernst Type 2 diabetes mellitus without complications E11.9 ; Other hammer toe(s) (acquired), right foot M20.41 and Hammer toe of left foot M20.[address] [facility] [address] 06/15/2022 eNna Ernst ASSESSMENTS Encounter Date Diagnosis Assessment Notes Treatment Notes Treatment Clinical Notes 06/14/2022 Other hammer toe(s) (acquired), right foot (ICD-10 - M20.41) Patient Educated with: DIABETIC FOOT CARE INSTRUCTIONS.pdf (DIABETIC FOOT CARE INSTRUCTIONS.pdf ) 06/14/2022 Type 2 diabetes mellitus without complications (ICD-10 - E11.9) 06/14/2022 Hammer toe of left foot (ICD-10 - M20.42) PLAN OF TREATMENT Next Appt Details Provider Name:Nena squires, 06/14/2023 08:00:00 AM, [address] [place], [address], Insurance Providers Payer Name Payer Address Payer Phone Subscriber Number Group Number Insured Name Patient Relationship to Insured Coverage Start Date Coverage End Date [facility] Plan [address] [place] [address] [id number] Eddie Recio Self - patient is the insured Medicare National Govt [id number] [facility] [address] [facility] [place] [address] [id number] Eddie Recio Self - patient is the insured MEDICAL (GENERAL) HISTORY Medical History History ICD Code type II diabetes Herniated disc Hypertension Reflux ( GERD) Hepatitis C Arthritis Hepatitis B Alzheimers disease Anxiety Back,Hip,and Knee pain Broken bones Cataracts Depression Hepatitis High blood pressure Neuropathy Poor circulation Warts Surgical History Surgery Date(Month/Year) back surgery cataract surgery rhinoplasty excision of mass
[2022-11-23 06:23] LABS: Glucose, Whole Blood 180 mg/dL (60-115)
[2022-11-23 06:29] VITALS: BP 133/77; PULSE 60; RESP 20; TEMP 36.8; O2SAT 97
[2022-11-23] MEDS: Lactated Ringers 1,000 ML 100 ML IVCONT (06:53)
--- NOTE | 2022-11-23 07:10 | MHC.SHP ---
Pre-Procedural Eval Section A Date of Service: 11/23/22 The patient is an INPATIENT: No The History & Physical has been completed within 30 days and I have reviewed it.: Yes Section B Chief Complaint: Localized enlarged lymph nodes,Solitary pulmonary Allergies: Allergies Allergy/AdvReac Type Severity Reaction Status Date / Time lisinopril Allergy Severe Angioedema Verified 11/11/22 09:28 canagliflozin [Invokana] Allergy Unknown polyuria Verified 11/11/22 09:28 liraglutide [Victoza] AdvReac Unknown nausea, Verified 11/11/22 09:28 constipation Plan I have reviewed the history and physical and performed a pertinent physical examination on my patient. No changes have occurred unless specified. Discussed risks, benefits, and alternatives patient agreed to plan for bronchoscopy and mediastinoscopy. Time Spent With Patient Time: Total time managing care of this patient today ____ minutes.
--- NOTE | 2022-11-23 08:48 | P.OP_ITS ---
Operative Note Operative Note Date of Service: 11/23/22 Narrative: Preoperative diagnosis:Mediastinal lymphadenopathy Postoperative diagnosis: mediastinal lymphadenopathy Operation: Bronchoscopy with bronchoalveolar lavage and mediastinoscopy with mediastinal lymph node biopsies Surgeon:Etta Lipscomb MD Merchandise Presentation Manager: none Anesthesia: General Specimens: right paratracheal Mediastinal/hilar lymph nodes and bronchial washings EBL: Minimal Operation in detail: The patient was brought to the operating room, placed supine on the operative table, anesthesia monitoring devices were placed, and the patient was intubated without difficulty. A time-out was performed confirming the correct patient, site, and procedure. The bronchoscope was then inserted through the endotracheal tube and airways were visualized down to the subsegmental level with findings no endobronchial lesions and minimal secretions. The scope was then positioned generally in the right and left mainstem bronchi and 120 cc of saline lavaged were taken and collected in a Lukens trap. The patient's head and neck with an extended any neck and chest were widely prepped and draped in a standard sterile fashion. After injection of local anesthetic, a 2 cm incision was made above the sternal notch and carried down with electrocautery in between the strap muscles directly onto the trachea. The pretracheal fascia was then incised with the Metzenbaum scissors. This pretracheal space was then developed bluntly with my finger. The video mediastinal scope was then inserted along the trachea and down to the guerline. We 1st visualized right paratracheal lymph nodes and multiple grasper biopsies were taken and sent to pathology. a little further down there was a additional enlarged right paratracheal lymph node and this lymph node was removed in its entirety. Surgicel was used at each site and an opened up sponge was then placed into the pretracheal space and left to sit for 5 minutes by the clock. The sponge was removed and the scope was reinserted and hemostasis was achieved. The strap muscles were closed with a running 3-0 Vicryl suture. The platysma was closed with running 3-0 Vicryl suture. The skin was closed with running 3-0 Vicryl suture and Dermabond glue. The patient tolerated the procedure well, was extubated at the conclusion the operation, and brought to recovery room in stable condition.
[2022-11-23 08:58] VITALS: BP 167/87; PULSE 53; RESP 14; TEMP 36.3; O2SAT 93
[2022-11-23 09:03] VITALS: BP 141/92; PULSE 54; RESP 18; O2SAT 96
[2022-11-23 09:08] VITALS: BP 160/94; PULSE 56; RESP 18; O2SAT 97
[2022-11-23 09:13] VITALS: BP 165/93; PULSE 51; RESP 18; TEMP 36.2; O2SAT 96
[2022-11-23 09:28] VITALS: BP 164/95; PULSE 51; RESP 18; TEMP 36.2; O2SAT 97
== END 2022-11-23 10:08 | disposition home or self-care (01) ==
PROVIDERS: PCP Physician Assistant Medical; Visit Provider Surgery
PROC: (CPT 31624; principal; 2022-11-23 07:30)
DX: R59.0 Localized enlarged lymph nodes (principal); R91.1 Solitary pulmonary nodule; K76.0 Fatty (change of) liver, not elsewhere classified; E11.40 Type 2 diabetes mellitus with diabetic neuropathy, unspecified; I10 Essential (primary) hypertension; B19.20 Unspecified viral hepatitis C without hepatic coma; B19.10 Unspecified viral hepatitis B without hepatic coma; F10.10 Alcohol abuse, uncomplicated; E66.3 Overweight; Z68.28 Body mass index [BMI] 28.0-28.9, adult; Z79.4 Long term (current) use of insulin; Z79.1 Long term (current) use of non-steroidal anti-inflammatories (NSAID); Z79.899 Other long term (current) drug therapy; Z88.8 Allergy status to other drugs, medicaments and biological substances
CPT/HCPCS: 31624; 31623; 36415; 82947; 87070; 87102; 87116; 87205; 87206; 88112; 88184; 88185; 88300; 88305; J0690; J3010

== ENCOUNTER 2022-12-02 10:26 | Outpatient (AMB) | payer OTHER, MEDICARE, MEDICAID, SELFPAY ==
--- NOTE | 2022-12-02 10:32 | MHC.OFFVIS ---
Intake Vital Signs 12/02/22 10:39 Weight 198 lb BP 140/80 H Blood Pressure Location Rt brachial Position Sitting Pulse 78 Pulse Oximetry (%) 99 Intake Visit Reasons: Post MED Allergies lisinopril Allergy (Severe, Verified 12/02/22 10:40) Angioedema canagliflozin [Invokana] Allergy (Unknown, Verified 12/02/22 10:40) polyuria liraglutide [Victoza] Adverse Reaction (Unknown, Verified 12/02/22 10:40) nausea, constipation Medication List - Last Reconciled 12/02/22 by Etta Lipscomb MD Accu-Chek Fastclix Lancet Drum (lancets) USE FOUR TIMES A DAY NS amlodipine 10 mg PO DAILY blood sugar diagnostic (Accu-Chek Guide test strips) As directed tests 4 X/day blood-glucose meter (Accu-Chek Guide Glucose Meter) As directed tests 4 X/day blood-glucose meter,continuous (Dexcom G7 Print Shop Helper) As directed blood-glucose sensor (Dexcom G7 Sensor device) As directed change every 10 days bupropion HCl 150 mg PO QAM cholecalciferol (vitamin D3) (Vitamin D3) 50 mcg PO DAILY clotrimazole-betamethasone 1-0.05 % 1 appl topical DAILY cyclobenzaprine 10 mg PO TID PRN diclofenac sodium 75 mg PO BID fluoxetine 40 mg PO DAILY insulin aspart (niacinamide) 100 unit/mL Up to 76 units via V Go subcut daily; 30 days lancets 4x daily lancets (Accu-Chek Softclix Lancets) As directed-tests 4X/day lidocaine 5% 1 patch topical DAILY metformin ER 500 mg PO BEDTIME metoprolol succinate ER 25 mg PO DAILY nystatin-triamcinolone 100,000-0.1 unit/g-% 1 appl topical DAILY oxycodone 5 mg PO BID PRN sub-q insulin device, 20 unit (V-GO 20 device) one daily tadalafil 10 mg PO DAILY 90 days tadalafil 20 mg PO DAILY PRN tamsulosin 0.4 mg PO DAILY 90 days HPI Post MED HPI Details 61-year-old man who presented in November of 2021 to [facility] with some right-sided chest pain and shortness of breath. He did get a CT scan at that time at [place] on 12/08/2021 which showed a calcified granuloma at the right base and mediastinal lymphadenopathy including a 1.6 cm, 1.9 cm, and 2.2 cm lymph nodes in the precarinal, subcarinal, and prevascular spaces respectively. At that time, I arranged for him to have a 3 month follow-up CT scan which he had at [facility] on 03/22/2022. This was also reviewed interpreted by me directly showing a pretracheal lymph node that now measures 1.3 cm and the pre-vascular lymph node that was or is 9 mm with seems slightly decreased from previous imaging. There are no other significant findings. Another repeat CT scan done in October of 2022 shows persistent somewhat enlarged mediastinal lymphadenopathy including a 1.3 cm pretracheal lymph node in at least 9 mm prevascular lymph node similar to the previous scan the although still enlarged. He had a mediastinoscopy to evaluate these lymph nodes and bronchoscopy done on 11/23/2022 which he tolerated well. There is no drainage from his wound no fevers and some slight swelling he says. He has no pain. Pathology from that lymph nodes was negative for malignancy and flow cytometry was negative for lymphoma. Bronchoscopic washings were negative for malignancy and negative on microbiology. He does also tell me that his chest pain and shortness of breath after that initial time has now completely resolved and feels totally normal. He denies fevers, chills, or unintentional weight loss. He denies any hemoptysis. Other than above, 12 point review of systems was done and documented separately in the office chart with detailed social and family history. [facility] Medical History Essential hypertension Type 2 diabetes mellitus with diabetic neuropathy, unspecified (~2003) Depression Alcohol abuse Hepatitis C Hepatitis B NAFLD (nonalcoholic fatty liver disease) Tubular adenoma of colon (~2019) BPH loc w urin obs/LUTS Frequency of urination Erectile dysfunction Arthritis Carpal tunnel syndrome Overweight (BMI 25.0-29.9) Surgical History History of rhinoplasty History of colonoscopy History of lumbar surgery History of cataract surgery History of excision of mass Family History Father Myocardial infarct Colon cancer Mother Diabetes Social History Household Members: Spouse Household Members Other:: Alcohol intake: current Alcohol intake frequency: a few times a month Alcohol type: beer and hard liquor Patient Tobacco Use Status: Never used Tobacco Substance Use Type: Crack/Cocaine Current occupational status: disabled Physical Exam Vital Signs: Last Vital Signs Pulse 78 12/02/22 10:39 BP 140/80 H 12/02/22 10:39 Pulse Ox 99 12/02/22 10:39 General: No acute distress HEENT: Moist mucous membranes, normocephalic, pupils equal round and reactive to light. Neck: No thyromegaly, supple, no JVD wound is well healed slight swelling. No erythema or drainage. Lymph: No cervical, supraclavicular, or other lymphadenopathy Chest: No chest wall abnormalities or deformities Heart: Regular rate and rhythm Lungs: Clear to auscultation bilaterally Abdomen: Soft, nontender, normal bowel sounds Extremities: No edema, cyanosis, or clubbing. Full range of motion Neuro: Grossly intact, alert and oriented x3, and nonfocal Skin: Warm and dry no rashes Affect: Normal Assessment & Plan Assessment & Plan (1) Mediastinal lymphadenopathy: Code(s): R59.0 - Localized enlarged lymph nodes Plan: 62-year-old male with mediastinal lymphadenopathy status post CME and bronchoscopy negative on microbiology and pathology/cytometry. I explained the pathology results to him in detail which he understood. He is recovering well from his procedure. He can follow-up on an as-needed basis moving forward. All questions were answered. Coding Level of Care Code Est Pt Level 3 (38754) Diagnoses Mediastinal lymphadenopathy R59.0
[2022-12-02 10:39] VITALS: BP 140/80; PULSE 78; O2SAT 99
== END 2022-12-02 10:59 | disposition home or self-care (01) ==
PROVIDERS: PCP Physician Assistant Medical; Visit Provider Surgery
DX: R59.0 Localized enlarged lymph nodes (principal)

== ENCOUNTER → 2022-12-02 10:26 | Outpatient (BNVA) | payer MEDICARE, MEDICAID, SELFPAY | PROVIDERS: PCP Physician Assistant Medical; Visit Provider Surgery | DX: R59.0 Localized enlarged lymph nodes (principal) | CPT/HCPCS: 99212 ==

== ENCOUNTER 2023-02-09 12:53 | Outpatient (AMB) | payer MEDICARE, MEDICAID, OTHER, SELFPAY ==
--- NOTE | 2023-02-09 13:11 | MHC.OFFVIS ---
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 Canal Tender Required: No Allergies lisinopril Allergy (Severe, Verified 02/09/23 13:12) Angioedema canagliflozin [Invokana] Allergy (Unknown, Verified 02/09/23 13:12) polyuria liraglutide [Victoza] Adverse Reaction (Unknown, Verified 02/09/23 13:12) nausea, constipation Medication List - Last Reconciled 02/09/23 by Avelina Graham MD Accu-Chek Fastclix Lancet Drum (lancets) USE FOUR TIMES A DAY NS amlodipine 10 mg PO DAILY blood sugar diagnostic (Accu-Chek Guide test strips) As directed tests 4 X/day blood-glucose meter (Accu-Chek Guide Glucose Meter) As directed tests 4 X/day blood-glucose meter,continuous (Dexcom G7 Ham Passer) As directed blood-glucose sensor (Dexcom G7 Sensor device) As directed change every 10 days bupropion HCl 150 mg PO QAM cholecalciferol (vitamin D3) (Vitamin D3) 50 mcg PO DAILY clotrimazole-betamethasone 1-0.05 % 1 appl topical DAILY cyclobenzaprine 10 mg PO TID PRN diclofenac sodium 75 mg PO BID fluoxetine 40 mg PO DAILY insulin aspart (niacinamide) 100 unit/mL Up to 76 units via V Go subcut daily; 30 days lancets 4x daily lancets (Accu-Chek Softclix Lancets) As directed-tests 4X/day lidocaine 5% 1 patch topical DAILY metformin ER 500 mg PO BEDTIME metoprolol succinate ER 25 mg PO DAILY nystatin-triamcinolone 100,000-0.1 unit/g-% 1 appl topical DAILY oxycodone 5 mg PO BID PRN sub-q insulin device, 20 unit (V-GO 20 device) one daily tadalafil 10 mg PO DAILY 90 days tadalafil 20 mg PO DAILY PRN tamsulosin 0.4 mg PO DAILY 90 days HPI HPI Comments History of Present Illness Details 62y/o male with HTN , diabetes , depression comes for evaluation of short term memory issues. He reports having difficulty in school and was not able to graduate. He always had trouble remembering especially short term. But for past 2 years he has noticed more difficulty with short term memory. He is constantly searching for things at home , misplacing things, forgets conversations, repeats things etc.No difficulty with execution except for his phone - he known to call but cannot text or use other features. 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 He has had a few mild closed head injuries but nothing serious. He has poor sleep, he takes melatonin. He has snoring, trouble falling asleep and frequent arousals. He is very restless in bed . He has excessive daytime sleepiness. He has depression not well controlled- no suicidal thoughts He used to be a heavy alcohol user - 16 beers and liquor per week he stopped 2 months ago. [facility] Medical History (Updated 02/09/23 @ 15:20 by Avelina Graham MD) Hypersomnia Snoring Cognitive disorder Essential hypertension Type 2 diabetes mellitus with diabetic neuropathy, unspecified (~2003) Depression Alcohol abuse Hepatitis C Hepatitis B NAFLD (nonalcoholic fatty liver disease) Tubular adenoma of colon (~2019) BPH loc w urin obs/LUTS Frequency of urination Erectile dysfunction Arthritis Carpal tunnel syndrome Overweight (BMI 25.0-29.9) Surgical History History of rhinoplasty History of colonoscopy History of lumbar surgery History of cataract surgery History of excision of mass Family History Father Myocardial infarct Colon cancer Mother Diabetes Social History Household Members: Spouse Household Members Other:: Alcohol intake: current Alcohol intake frequency: a few times a month Alcohol type: beer and hard liquor Patient Tobacco Use Status: Never used Tobacco Substance Use Type: Crack/Cocaine Current occupational status: disabled Physical Exam Vital Signs: Last Vital Signs Pulse 74 02/09/23 13:20 Resp 16 02/09/23 13:20 BP 118/78 02/09/23 13:20 Pulse Ox 98 02/09/23 13:20 Oxygen Delivery Method Room Air 02/09/23 13:20 BMI result Body Mass Index 28.9 Const General: cooperative and comfortable Nutritional Appearance: average body habitus Orientation/consciousness: patient oriented x3 Eyes Pupils: Equal, round and reactive pupils present Neuro General: patient oriented x3, tone normal, moves all extremities and no focal motor deficits Cranial nerves: Yes Facial sensation intact/muscles of mastication intact, Yes Equal, round and reactive pupils present, Yes Bilaterally intact EOM present, Yes Nystagmus not present, Yes Normal facial strength present and Yes Symmetric palate elevation present Cognition (Neuro): normal cognition Gait exam (Neuro): Antalgic gait present Motor exam (neuro): 5/5 motor strength present throughout and Normal motor muscle tone present throughout Deep tendon reflexes (DTR's): Right triceps reflex intensity grade: 1+, Left triceps reflex intensity grade: 1+, Rt Biceps (C5, C6): 1+, Left biceps reflex intensity grade: 1+, Right brachioradialis reflex intensity grade: 1+, Left brachioradialis reflex intensity grade: 1+, Right patellar reflex intensity grade: 1+ and Left patellar reflex intensity grade: 1+ Coordination: [id number] test normal Psych Affect: Anxious affect present Orientation What is the (year) (season) (date) (day) (month)?: year, season, date and month Where are we (state) (county) (town or city) (hospital) (floor)?: state, county, town or city, hospital/clinic and floor Registration Name of 3 unrelated objects clearly and slowly, then ask patient to repeat all 3 of them. (1st repeat determines score. Make sure they can repeat all three): object 1, object 2 and object 3 Attention & Calculation (CHOOSE ONE) Spell WORLD backwards (DLROW): 3 letters Recall Ask patient to repeat the 3 items from question #3.: object 1 Language Show patient a wristwatch & ask what it is. Repeat for pencil.: watch and pencil Ask the patient to repeat the phrase 'No ifs, ands, or buts' after you.: correct Ask the patient to 'take a piece of paper with their right hand' 'fold paper in half' 'place paper on floor': take paper in right hand, fold paper in half and place paper on floor Print the sentence 'CLOSE YOUR EYES' on a piece. If patient actually closes eyes then score.: followed written direction Give patient a blank piece of paper & ask to write a sentence. Score if it contains a noun & verb.: sentence contains subject and verb Ask patient to copy figure of intersecting pentagons exactly. Score if all 10 angles & 2 intersects are included.: all 10 angles present & 2 are intersected Score Score: 25 Assessment & Plan Assessment & Plan (1) Cognitive disorder: Comment: Multifactorial, vascular, poorly controlled mood, alcohol use , sleep apnea ? Code(s): F09 - Unspecified mental disorder due to known physiological condition Plan: MRI brain Check Vit B 12 TSH ESR (2) Snoring: Code(s): R06.83 - Snoring Plan: Home sleep study to r/o sleep apnea (3) Hypersomnia: Code(s): G47.10 - Hypersomnia, unspecified Plan: HST to r/o sleep apnea Mirtazepine 7.5mg qhs for insomnia Orders: Orders MR brain wo con w neuroquant Today F09 - Unspecified mental disorder due to known physiological condition RT home sleep study Today F09 - Unspecified mental disorder due to known physiological condition, G47.10 - Hypersomnia, unspecified, R06.83 - Snoring Vitamin B12 and Folate Today F09 - Unspecified mental disorder due to known physiological condition Vitamin D 25-OH (D2 and D3) Today F09 - Unspecified mental disorder due to known physiological condition TSH reflex Free T4 Today F09 - Unspecified mental disorder due to known physiological condition Erythrocyte Sedimentation Rate Today F09 - Unspecified mental disorder due to known physiological condition Medications: New mirtazapine 7.5 mg PO BEDTIME 30 tabs 6RF Coding Level of Care Code New Pt Level 4 (67014) Diagnoses Cognitive disorder F09 Snoring R06.83 Hypersomnia G47.10
[2023-02-09 13:20] VITALS: BP 118/78; PULSE 74; RESP 16; O2SAT 98; BMI 28.9
== END 2023-02-09 14:11 | disposition home or self-care (01) ==
PROVIDERS: PCP Physician Assistant Medical; Visit Provider Psychiatry & Neurology Neurology
DX: R41.89 Other symptoms and signs involving cognitive functions and awareness (principal); R06.83 Snoring; G47.10 Hypersomnia, unspecified
CPT/HCPCS: 99204

== ENCOUNTER → 2023-02-09 12:53 | Outpatient (BNVA) | payer MEDICARE, OTHER, MEDICAID, SELFPAY | PROVIDERS: PCP Physician Assistant Medical; Visit Provider Psychiatry & Neurology Neurology | DX: F09 Unspecified mental disorder due to known physiological condition (principal); R06.83 Snoring; G47.10 Hypersomnia, unspecified | CPT/HCPCS: 99202 ==

== ENCOUNTER 2023-02-14 09:41 | Outpatient (AMB) | payer MEDICARE, MEDICAID, OTHER, SELFPAY ==
[2023-02-14 10:31] VITALS: BMI 29.1
--- NOTE | 2023-02-14 10:31 | A.OFFVIS_ITS ---
Intake VS Expanded 02/14/23 10:31 02/23/23 08:52 Height 5 ft 10 in 5 ft 10 in Weight 203 lb 0.732 oz 203 lb BMI 29.1 29.1 Intake Visit Reasons: [id number] Allergies lisinopril Allergy (Severe, Verified 02/09/23 13:12) Angioedema canagliflozin [Invokana] Allergy (Unknown, Verified 02/09/23 13:12) polyuria liraglutide [Victoza] Adverse Reaction (Unknown, Verified 02/09/23 13:12) nausea, constipation HPI Nutrition Presentation Details Pt presents for MNT f/u for T2DM Pt presents with who helps with meal preparation/reminders Pt reports having trouble remembering, follows up with neurologist, has some nutrition labs pending (folate, b12) Reports having increased appetite for sweets at any time and Pt verbalizes understanding that the larger the portion the higher his BG level. Pt did not bring BG record with him today Food frequency Nuts/seeds/trail mix types of foods: not including (has at home but not looking for them) milk/yogurts: not including but likes them fruits: 0-1/day vegetables: does not like, willing to include starches: including some whole grains (breads/beans) fish: 0-1/wk, poultry/beef: 4-5 x/wk, eggs 2-3 x/wk physical activity: sedentary (body aches/neuropathy) ETOH: 1-2 /wk A1c at 7.4% on 08/2022 HTS-Nujgwix-Eg.Jeor Equation Height 5 ft 10 in Weight 203 lb Resting Metabolic Rate 1721.24 Calculated Activity Level Sedentary Calories Needed to Maintain Weight 2065.49 Diagnosis Nutrition problem #1 food nutri know defi As related to (etiology) #1 diagnosis As evidenced by (sign/symptom) #1 knowledge deficit of diet (food sources of thiamine, b vitamins and relationship to mental health , glucose level) Most Recent Diabetes Results: No Data to Display [facility] Medical History (Updated 02/23/23 @ 09:03 by Karissa Harvey, RD, LDN) Hypersomnia Snoring Cognitive disorder Essential hypertension Type 2 diabetes mellitus with diabetic neuropathy, unspecified (~2003) Depression Alcohol abuse Hepatitis C Hepatitis B NAFLD (nonalcoholic fatty liver disease) Tubular adenoma of colon (~2019) BPH loc w urin obs/LUTS Frequency of urination Erectile dysfunction Arthritis Carpal tunnel syndrome Overweight (BMI 25.0-29.9) Surgical History History of rhinoplasty History of colonoscopy History of lumbar surgery History of cataract surgery History of excision of mass Family History Father Myocardial infarct Colon cancer Mother Diabetes Social History Household Members: Spouse Household Members Other:: Alcohol intake: current Alcohol intake frequency: a few times a month Alcohol type: beer and hard liquor Patient Tobacco Use Status: Never used Tobacco Substance Use Type: Crack/Cocaine Current occupational status: disabled Assessment & Plan Assessment & Plan (1) Type 2 diabetes mellitus with diabetic neuropathy, unspecified: Onset Date: ~2003 Comment: MD/PROVIDER: RECOMMEND monitoring thiamine related to hx of neuropathy/ alcohol abuse and c/o memory loss Code(s): E11.40 - Type 2 diabetes mellitus with diabetic neuropathy, unspecified Plan: Educate Pt on high fiber, low sugar options ? Used wt : 94 kg Est kcal as per 25 kcal/kg bw: 2352 (40% carb, 30% fat/prot) Est fluid needs: 2400 ml/d (25 ml/kg bw) Rec fiber: increase to 8-10 g per day and gradually increase to 35 g or as tolerated Rec Na: < 2000 mg /d Educate patient on: (R= Reviewed, V = verbalizes understanding N/R= Needs review N/A= not applicable) * Food sources of carbohydrates and serving adequate serving sizes : R * Difference between complex carbohydrates and simple carbohydrates, role of fiber: R * Differences between fats (MUFA/PUFA/saturated fats, trans fats) and food sources of various fats: R, basic low fat concepts) * Food sources of sodium and salt and healthy modifications for heart health and kidney health: N/R * Vitamins and minerals: R (focusing on thiamine, b12, folic acid, vitamin c,source sof foods * How to interpret food labels: R, V * Healthy Plate method concept: R V * Physical activity: benefits and precaution: R Patient Instructions: Replace pastries by having trail mixes (nuts/seeds instead), yogurt choice of flavor in place of ice cream Include fish at least 6 oz twice a week Incorporate food sources of vitamin C with your protein foods for better absorption (spinach, carrots/tomatoes, vegetables ) See list of protein sources of foods to include in your diet a s reference Coding Level of Care Code Nutr Indiv Subseq (19441) Diagnoses Type 2 diabetes mellitus with diabetic neuropathy, unspecified E11.40 Time Spent (min) 30
[2023-02-23 08:52] VITALS: BMI 29.1
== END 2023-02-14 11:32 | disposition home or self-care (01) ==
PROVIDERS: PCP Physician Assistant Medical; Visit Provider Dietitian, Registered
DX: E11.40 Type 2 diabetes mellitus with diabetic neuropathy, unspecified (principal)

== ENCOUNTER → 2023-02-14 09:41 | Outpatient (BNVA) | payer MEDICARE, MEDICAID, OTHER, SELFPAY | PROVIDERS: PCP Physician Assistant Medical; Visit Provider Dietitian, Registered | DX: E11.40 Type 2 diabetes mellitus with diabetic neuropathy, unspecified (principal) | CPT/HCPCS: 97803 ==

== ENCOUNTER 2023-02-15 07:19 | Outpatient (REF) | payer MEDICARE, MEDICAID, OTHER, SELFPAY ==
[2023-02-15 08:49] LABS: Erythrocyte Sedimentation Rate 13 MM/HR (0-15)
[2023-02-15 09:11] LABS: TSH reflex Free T4 1.05 uIU/mL (0.32-4.0)
[2023-02-15 09:22] LABS: Folate 11.1 ng/mL (> or = 4.0); Vitamin B12 377 pg/mL (200-900)
[2023-02-19 15:44] LABS: Vitamin D 25-OH, D2 <4 ng/mL; Vitamin D 25-OH, D3 33 ng/mL; Vitamin D 25-OH, Total 33 ng/mL (30-100)
== END 2023-02-15 07:20 | disposition home or self-care (01) ==
LOC: HO.LAB 07:19
PROVIDERS: PCP Physician Assistant Medical; Visit Provider Psychiatry & Neurology Neurology
DX: F09 Unspecified mental disorder due to known physiological condition (principal)
CPT/HCPCS: 36415; 82306; 82607; 82746; 84443; 85652

== ENCOUNTER → 2023-03-28 10:53 | Outpatient (REF) | payer MEDICARE, MEDICAID, OTHER, SELFPAY | LOC: HO.SL 10:53 | PROVIDERS: PCP Physician Assistant Medical; Visit Provider Psychiatry & Neurology Neurology | DX: G47.33 Obstructive sleep apnea (adult) (pediatric) (principal); F09 Unspecified mental disorder due to known physiological condition; R06.83 Snoring; G47.10 Hypersomnia, unspecified | CPT/HCPCS: 95806 ==

== ENCOUNTER → 2023-03-28 12:21 | Outpatient (BNV) | payer MEDICARE, MEDICAID, OTHER, SELFPAY | PROVIDERS: PCP Physician Assistant Medical; Visit Provider Psychiatry & Neurology Neurology | DX: G47.33 Obstructive sleep apnea (adult) (pediatric) (principal) | CPT/HCPCS: 95806 ==

== ENCOUNTER 2023-04-05 13:06 | Outpatient (AMB) | payer MEDICARE, MEDICAID, OTHER, SELFPAY ==
[2023-04-05 13:07] VITALS: BP 128/84; PULSE 80; BMI 29.1
--- NOTE | 2023-04-05 13:07 | A.OFFVIS_ITS ---
Intake Vital Signs 04/05/23 13:07 Height 5 ft 10 in Weight 203 lb 0.732 oz BMI 29.1 BP 128/84 Blood Pressure Location Lt brachial Position Sitting Pulse 80 Pulse Source Pulse Oximeter Intake Visit Reasons: f/u Type 2 DM/CONFIRMED Intake Note: Patient presents today to follow up on D2MT. 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 He usually uses VGo 20. He also reports adding 1 click for every 20mg/dl over 150mg/dl Past medical history: DM2, HTN, GERD, NAFLD, hepatitis C, lower back pain due to herniated disc L5, Micro and macrovascular complications: + proliferative retinopathy, +, neuropathy Diabetes medications: Fiasp via V-GO 20 with 4 clicks with meals. Only 1 click for correction blood glucose over 300. Not taking insulin regularly , Metformin ER 500mg once a day. 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: Supervisor Product Inspection: denies Ophthalmology evaluation: last yr - needs to make appt Laboratory Tests 11/25/20 01/06/21 01/06/21 14:38 08:22 08:22 Creatinine 1.10 Estimated GFR > 60 Hgb A1c (Clinic) 7.2 H Triglycerides 68 Cholesterol 153 LDL Cholesterol, C alc 88 HDL Cholesterol 52 D Vitamin B12 354 25-OH Vitamin D To guy Microalb/Creat Rat io 01/06/21 02/16/21 08:30 07:31 Creatinine Estimated GFR Hgb A1c (Clinic) Triglycerides Cholesterol LDL Cholesterol, C alc HDL Cholesterol Vitamin B12 25-OH Vitamin D To guy 39.5 Microalb/Creat Rat io 38.3 PFSH Medical History (Updated 02/23/23 @ 09:03 by Karissa Harvey, RD, LDN) Hypersomnia Snoring Cognitive disorder Essential hypertension Type 2 diabetes mellitus with diabetic neuropathy, unspecified (~2003) Depression Alcohol abuse Hepatitis C Hepatitis B NAFLD (nonalcoholic fatty liver disease) Tubular adenoma of colon (~2019) BPH loc w urin obs/LUTS Frequency of urination Erectile dysfunction Arthritis Carpal tunnel syndrome Overweight (BMI 25.0-29.9) Surgical History History of rhinoplasty History of colonoscopy History of lumbar surgery History of cataract surgery History of excision of mass Family History Father Myocardial infarct Colon cancer Mother Diabetes Social History Household Members: Spouse Household Members Other:: Alcohol intake: current Alcohol intake frequency: a few times a month Alcohol type: beer and hard liquor Patient Tobacco Use Status: Never used Tobacco Substance Use Type: Crack/Cocaine Current occupational status: disabled Physical Exam Absence of Cushingoid features. Absence of acromegalic features. Neck exam reveals nl size thyroid about 15 gms. No thyroid nodules palpable. No carotid bruits present. Lungs CTA. Heart S1 S2, Reg R/R. No M/R/ G. Skin exam reveals absence of vitiligo or acanthosis nigricans. Abdominal exam reveals Soft NT/ND with NA BS. No organomegaly present. Neck Other: . Extrem Other: Visual exam of foot performed. No ulcerations or open lesions. No onchomycosis, no callouses.Pulses 2 + distally Sensation intact to monofilament exam. Vibratory sensation sensed is decreased with 128 Hz tuning fork Assessment & Plan Assessment & Plan (1) Type 2 diabetes mellitus with diabetic neuropathy, unspecified: Onset Date: ~2003 Comment: MD/PROVIDER: RECOMMEND monitoring thiamine related to hx of neuropathy/ alcohol abuse and c/o memory loss Code(s): E11.40 - Type 2 diabetes mellitus with diabetic neuropathy, unspecified Plan: This is a 62-year-old male with history of type 2 diabetes being treated with V-Go 20 and Januvia with fair glycemic control and known complications of neuropathy and NAFLD The plan is to have the patient have a Dexcom sensor in place and I represcribed this. Once the Dexcom sensor in is in place could consider reinitiating another G LP 1 like Ozempic or Mounjaro . Also told patient to retake the metformin for Also explained to patient the necessity of taking the V Go clicks prior to the meal. Will be with the human resources records clerk for follow-up in next 2-3 weeks time and bring his Dexcom. Will also check basic metabolic panel, lipid profile and microalbumin to creatinine ratio Orders: Orders Lipid Panel Today E11.40 - Type 2 diabetes mellitus with diabetic neuropathy, unspecified Basic Metabolic Panel Today E11.40 - Type 2 diabetes mellitus with diabetic neuropathy, unspecified Microalbumin, Random (w Creat) Today E11.40 - Type 2 diabetes mellitus with diabetic neuropathy, unspecified Medications: Refilled blood-glucose sensor (Dexcom G7 Sensor device) As directed change every 10 days 3 ea 4RF Coding Level of Care Code Est Pt Level 4 (25685) Diagnoses Type 2 diabetes mellitus with diabetic neuropathy, unspecified E11.40
[2023-04-05 13:25] LABS: Glucose, Whole Blood 125 mg/dL (60-115)
== END 2023-04-05 13:38 | disposition home or self-care (01) ==
PROVIDERS: PCP Physician Assistant Medical; Visit Provider Internal Medicine Endocrinology, Diabetes & Metabolism
DX: E11.40 Type 2 diabetes mellitus with diabetic neuropathy, unspecified (principal)
CPT/HCPCS: 99214

== ENCOUNTER → 2023-04-05 13:06 | Outpatient (BNVA) | payer MEDICARE, MEDICAID, OTHER, SELFPAY | PROVIDERS: PCP Physician Assistant Medical; Visit Provider Internal Medicine Endocrinology, Diabetes & Metabolism | DX: E11.40 Type 2 diabetes mellitus with diabetic neuropathy, unspecified (principal) | CPT/HCPCS: 82947; 83036; 99212 ==

== ENCOUNTER 2023-04-14 07:20 | Outpatient (REF) | payer MEDICARE, MEDICAID, OTHER, SELFPAY ==
--- NOTE | ~2023-04-14 | MR_ITS ---
EXAMINATION: MR BRAIN WITHOUT CONTRAST CLINICAL INFORMATION: 62-year-old with unspecified mental disorder due to known physiological condition. Self-reported forgetfulness. COMPARISON: None available. TECHNIQUE: Multiplanar multisequence MR imaging of the brain was done without IV contrast. FINDINGS: Brain Volume: Within normal limits within the limitations of qualitative assessment. Structural: There are small bilateral hippocampal fissure cysts which are benign findings. Brain and Meninges: DWI sequence demonstrates no restricted diffusion to suggest acute or subacute cerebral ischemia. Mild scattered punctate and small patchy zones of FLAIR/T2 signal hyperintensity noted in the subcortical and deeper white matter of both cerebral hemispheres are nonspecific findings but could be secondary to chronic ischemic microangiopathy. There is a tiny remote lacunar infarct in the posterior right putamen. Gradient refocused imaging demonstrates no abnormal susceptibility-weighted signal loss to suggest hemorrhage, hemosiderin staining or abnormal mineralization. No extra-axial fluid collections, space-occupying process or mass effect are identified. Ventricles and Subarachnoid Spaces: The ventricular system and subarachnoid spaces are within normal range; there is no hydrocephalus. Orbital Structures: Bilateral lens extractions are noted. Otherwise, the visualized orbital structures are grossly unremarkable within the limitations of the study. Vascular: Signal voids are noted in the visualized major intracranial vessels. Osseous Structures, Sinuses/Mastoids, Extracranial Soft Tissues: Osseous marrow signal intensity appears grossly within normal limits. There are degenerative changes at the temporal mandibular joints bilaterally. Pansinus mucosal thickening is noted with a subcentimeter retention cyst in the sphenoid sinus on the left with subcentimeter retention cysts in the right maxillary sinus. The visualized extracranial soft tissue structures are within normal limits. MR/MR brain wo con w neuroquant IMPRESSION: 1. Mild chronic ischemic microangiopathy in the white matter of both cerebral hemispheres with a tiny remote lacunar infarct in the posterior right putamen. 2. No acute intracranial process. No space-occupying process, mass effect, hemorrhage, or hydrocephalus. 3. Paranasal sinus mucosal inflammatory changes. Correlate for any evidence of sinusitis.
== END 2023-04-14 07:21 | disposition home or self-care (01) ==
LOC: HO.MRI 07:20
PROVIDERS: PCP Physician Assistant Medical; Visit Provider Psychiatry & Neurology Neurology
DX: F09 Unspecified mental disorder due to known physiological condition (principal)
CPT/HCPCS: 70551; 76377

== ENCOUNTER 2023-04-25 07:02 | Outpatient (AMB) | payer MEDICARE, MEDICAID, OTHER, SELFPAY ==
--- NOTE | 2023-04-25 07:28 | MHC.AMDMED ---
Intake Intake Visit Reasons: f/u Type 2 DM Respite Provider Required: No Accompanied by: Self / Same As Patient Allergies lisinopril Allergy (Severe, Verified 04/05/23 13:18) Angioedema canagliflozin [Invokana] Allergy (Unknown, Verified 04/05/23 13:18) polyuria liraglutide [Victoza] Adverse Reaction (Unknown, Verified 04/05/23 13:18) nausea, constipation HPI Comprehensive Diabetes Asmnt Most Recent Diabetes Results: No Data to Display [facility] Medical History (Updated 02/23/23 @ 09:[address], LDN) Hypersomnia Snoring Cognitive disorder Essential hypertension Type 2 diabetes mellitus with diabetic neuropathy, unspecified (~2003) Depression Alcohol abuse Hepatitis C Hepatitis B NAFLD (nonalcoholic fatty liver disease) Tubular adenoma of colon (~2019) BPH loc w urin obs/LUTS Frequency of urination Erectile dysfunction Arthritis Carpal tunnel syndrome Overweight (BMI 25.0-29.9) Surgical History History of rhinoplasty History of colonoscopy History of lumbar surgery History of cataract surgery History of excision of mass Family History Father Myocardial infarct Colon cancer Mother Diabetes Social History Household Members: Spouse Household Members Other:: Alcohol intake: current Alcohol intake frequency: a few times a month Alcohol type: beer and hard liquor Patient Tobacco Use Status: Never used Tobacco Substance Use Type: Crack/Cocaine Current occupational status: disabled Assessment & Plan Assessment & Plan (1) Type 2 diabetes mellitus with diabetic neuropathy, unspecified: Onset Date: ~2003 Comment: MD/PROVIDER: RECOMMEND monitoring thiamine related to hx of neuropathy/ alcohol abuse and c/o memory loss Code(s): E11.40 - Type 2 diabetes mellitus with diabetic neuropathy, unspecified Plan: Personal Continuous Glucose Monitor: Patients CGM information reviewed Reviewed patient's sensor data: Hypoglycemia: ? 1% Hyperglycemia:?41% Time in Range:58%? Average glucose for the last 1 week 175? mg/dL Patient is having postprandial excursions mid day, this is related to patient not using V-Go prior to lunch or snacks in the afternoon. Patient reports he gives himself for clicks on the V-Go before breakfast, however then he snacks throughout the day while watching TV and does not administer insulin till he notices his glucose levels are high. Dr. King at last visit suggested patient start on GLP 1, patient wants to try and changing behavior, watching last TV, increasing activity, and taking insulin prior to eating. Recommended to patient he put reminder note on refrigerator and on TV to take V-go 4 clicks before meals, 2 clicks before snacks Patient able to insert sensor independently at home without issue.? Follow-up with baling machine operator in 6 weeks Patient Instructions: Make a list of things to do around the house Take insulin before meals Coding Level of Care Code Est Pt Level 1 (47143) Diagnoses Type 2 diabetes mellitus with diabetic neuropathy, unspecified E11.40
== END 2023-04-25 07:32 | disposition home or self-care (01) ==
PROVIDERS: PCP Physician Assistant Medical; Visit Provider Registered Nurse Diabetes Educator
DX: E11.40 Type 2 diabetes mellitus with diabetic neuropathy, unspecified (principal)

== ENCOUNTER → 2023-04-25 07:02 | Outpatient (BNVA) | payer MEDICARE, MEDICAID, OTHER, SELFPAY | PROVIDERS: PCP Physician Assistant Medical; Visit Provider Registered Nurse Diabetes Educator | DX: E11.40 Type 2 diabetes mellitus with diabetic neuropathy, unspecified (principal) | CPT/HCPCS: 99211 ==

== ENCOUNTER 2023-05-15 10:05 | Outpatient (AMB) | payer MEDICARE, MEDICAID, OTHER, SELFPAY ==
--- NOTE | 2023-05-15 10:10 | MHC.OFFVIS ---
Intake Vital Signs 05/15/23 10:16 Height 5 ft 10 in Weight 204 lb 6 oz BMI 29.3 BP 134/80 Blood Pressure Location Lt brachial Pulse 70 Pulse Source Pulse Oximeter Pulse Oximetry (%) 99 Oxygen Delivery Method Room Air Intake Visit Reasons: 3m f/u for memory loss - CONF w/address Intake Note: Patient presents for 3 month f/u. Allergies lisinopril Allergy (Severe, Verified 05/15/23 10:15) Angioedema canagliflozin [Invokana] Allergy (Unknown, Verified 05/15/23 10:15) polyuria liraglutide [Victoza] Adverse Reaction (Unknown, Verified 05/15/23 10:15) nausea, constipation HPI HPI Comments History of Present Illness Details 62 y/o male patient presents for follow up of sleep study. The home sleep study result was significant for a moderate degree of sleep apnea. The AHI was 18/hr and oxygen conchis was 76%, The duration of O2 sat below 88% for 21 min. APAP [id number] ordered. However, patient declined the CPAP use. Pt tried nasal mask in the past, and it was very uncomfortable. Pt continues to endorse difficulty staying sleep, wakes up several times at night. Pt has non refreshing sleep with daytime sleepiness and forgetfulness. [facility] Medical History (Updated 05/16/23 @ 09:58 by Shy Rush CNP) Hypersomnia Snoring Cognitive disorder Essential hypertension Type 2 diabetes mellitus with diabetic neuropathy, unspecified (~2003) Depression Alcohol abuse Hepatitis C Hepatitis B NAFLD (nonalcoholic fatty liver disease) Tubular adenoma of colon (~2019) BPH loc w urin obs/LUTS Frequency of urination Erectile dysfunction Arthritis Carpal tunnel syndrome Overweight (BMI 25.0-29.9) Surgical History History of rhinoplasty History of colonoscopy History of lumbar surgery History of cataract surgery History of excision of mass Family History Father Myocardial infarct Colon cancer Mother Diabetes Social History Household Members: Spouse Household Members Other:: Alcohol intake: current Alcohol intake frequency: a few times a month Alcohol type: beer and hard liquor Patient Tobacco Use Status: Never used Tobacco Substance Use Type: Crack/Cocaine Current occupational status: disabled Review of Systems Const All systems reviewed & are unremarkable except as noted in HPI and below Physical Exam Vital Signs: Last Vital Signs Pulse 70 05/15/23 10:16 BP 134/80 05/15/23 10:16 Pulse Ox 99 05/15/23 10:16 Oxygen Delivery Method Room Air 05/15/23 10:16 BMI result Body Mass Index 29.3 Const General: cooperative and comfortable Nutritional Appearance: average body habitus Orientation/consciousness: patient oriented x3 Eyes Pupils: Equal, round and reactive pupils present Neuro General: patient oriented x3, tone normal, moves all extremities and no focal motor deficits Cranial nerves: Yes Facial sensation intact/muscles of mastication intact, Yes Equal, round and reactive pupils present, Yes Bilaterally intact EOM present, Yes Nystagmus not present, Yes Normal facial strength present and Yes Symmetric palate elevation present Cognition (Neuro): normal cognition Gait exam (Neuro): Antalgic gait present Motor exam (neuro): 5/5 motor strength present throughout and Normal motor muscle tone present throughout Deep tendon reflexes (DTR's): Right triceps reflex intensity grade: 1+, Left triceps reflex intensity grade: 1+, Rt Biceps (C5, C6): 1+, Left biceps reflex intensity grade: 1+, Right brachioradialis reflex intensity grade: 1+, Left brachioradialis reflex intensity grade: 1+, Right patellar reflex intensity grade: 1+ and Left patellar reflex intensity grade: 1+ Coordination: [id number] test normal Psych Affect: Anxious affect present Assessment & Plan Assessment & Plan (1) RACHEL (obstructive sleep apnea): Comment: A moderate degree of sleep apnea. The AHI was 18/hr and oxygen conchis was 76%. Code(s): G47.33 - Obstructive sleep apnea (adult) (pediatric) Plan Discussed regarding sleep study result and non treated sleep apnea can contribute the chronic heart disease and memory decline. Pt agrees to try CPAP with full face mask. APAP [id number] order resent to [facility]. Stressed compliance, use CPAP nightly and more than 4 hrs. Coding Level of Care Code Est Pt Level 3 (88643) Diagnoses RACHEL (obstructive sleep apnea) G47.33
[2023-05-15 10:16] VITALS: BP 134/80; PULSE 70; O2SAT 99; BMI 29.3
== END 2023-05-15 10:37 | disposition home or self-care (01) ==
PROVIDERS: PCP Physician Assistant Medical; Visit Provider Nurse Practitioner Family
DX: G47.33 Obstructive sleep apnea (adult) (pediatric) (principal)
CPT/HCPCS: 99213

== ENCOUNTER → 2023-05-15 10:05 | Outpatient (BNVA) | payer MEDICARE, MEDICAID, OTHER, SELFPAY | PROVIDERS: PCP Physician Assistant Medical; Visit Provider Nurse Practitioner Family | DX: G47.33 Obstructive sleep apnea (adult) (pediatric) (principal) | CPT/HCPCS: 99212 ==

== ENCOUNTER 2023-06-16 08:59 | Outpatient (REF) | payer MEDICARE, MEDICAID, OTHER, SELFPAY ==
[2023-06-16 10:59] LABS: Prostate Specific Antigen 0.71 ng/mL (<0.05-4.0)
== END 2023-06-16 09:00 | disposition home or self-care (01) ==
LOC: HO.LAB 08:59
PROVIDERS: PCP Physician Assistant Medical; Visit Provider Physician Assistant
DX: Z12.5 Encounter for screening for malignant neoplasm of prostate (principal); N40.1 Benign prostatic hyperplasia with lower urinary tract symptoms
CPT/HCPCS: 36415; 84153

== ENCOUNTER 2023-06-20 07:32 | Outpatient (AMB) | payer MEDICARE, MEDICAID, OTHER, SELFPAY ==
--- NOTE | 2023-06-20 07:49 | A.OFFVIS_ITS ---
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: No Accompanied by: Self / Same As Patient Allergies lisinopril Allergy (Severe, Verified 05/15/23 10:15) Angioedema canagliflozin [Invokana] Allergy (Unknown, Verified 05/15/23 10:15) polyuria liraglutide [Victoza] Adverse Reaction (Unknown, Verified 05/15/23 10:15) nausea, constipation HPI Comprehensive Diabetes Asmnt Most Recent Diabetes Results: Hemoglobin A1c 6.9 % 10/29/19 Microalb/Creat Ratio 13.6 ug/mg cr 01/10/22 Cholesterol 153 mg/dL 01/10/22 HDL Cholesterol 45 mg/dL 01/10/22 Triglycerides 70 mg/dL 01/10/22 Creatinine 1.28 mg/dL (0.5-1.4) 06/02/22 Blood Urea Nitrogen 25 mg/dL (9-16) H 06/02/22 Sodium 142 mmol/L (135-145) 06/02/22 Potassium 4.6 mmol/L (3.3-5.1) 06/02/22 Chloride 106 mmol/L (96-108) 06/02/22 Carbon Dioxide 24 mmol/L (22-29) 06/02/22 Calcium 9.8 mg/dL (8.4-10.2) 06/02/22 AST 20 U/L (5-37) 06/02/22 ALT 13 U/L (0-40) 06/02/22 Total Protein 7.1 g/dL (6.5-8.0) 06/02/22 Albumin 4.4 g/dL (3.5-5.0) 06/02/22 [facility] Medical History (Updated 05/16/23 @ 09:58 by Shy Rush CNP) Hypersomnia Snoring Cognitive disorder Essential hypertension Type 2 diabetes mellitus with diabetic neuropathy, unspecified (~2003) Depression Alcohol abuse Hepatitis C Hepatitis B NAFLD (nonalcoholic fatty liver disease) Tubular adenoma of colon (~2019) BPH loc w urin obs/LUTS Frequency of urination Erectile dysfunction Arthritis Carpal tunnel syndrome Overweight (BMI 25.0-29.9) Surgical History History of rhinoplasty History of colonoscopy History of lumbar surgery History of cataract surgery History of excision of mass Family History Father Myocardial infarct Colon cancer Mother Diabetes Social History Household Members: Spouse Household Members Other:: Alcohol intake: current Alcohol intake frequency: a few times a month Alcohol type: beer and hard liquor Patient Tobacco Use Status: Never used Tobacco Substance Use Type: Crack/Cocaine Current occupational status: disabled Assessment & Plan Assessment & Plan (1) Type 2 diabetes mellitus with diabetic neuropathy, unspecified: Onset Date: ~2003 Comment: MD/PROVIDER: RECOMMEND monitoring thiamine related to hx of neuropathy/ alcohol abuse and c/o memory loss Code(s): E11.40 - Type 2 diabetes mellitus with diabetic neuropathy, unspecified Plan: Personal Continuous Glucose Monitor: Patients CGM information reviewed Reviewed patient's sensor data: Hypoglycemia: ? 4% Hyperglycemia:? 35% Time in Range:? 61% Average glucose for the last 2 weeks? 164 mg/dL Patient has increased episodes hypoglycemia, related to anxiety when glucose level is high and he is giving him self extra clicks on his V-Go. Reviewed with patient insulin action, of Humalog. Discuss with patient effects that alcohol can have in conjunction with insulin that can increase episodes of hypoglycemia. Patient agreed at this visit to try GLP 1, message sent to Dr. King to write prescription Reviewed with patient how to treat hypoglycemia with rule of 15s Instructed patient to contact peer educator when he picks up GLP 1 for GLP 1 teaching appointment Reviewed how to interpret trend arrows Reminded patient that to check finger sticks if symptoms do not match sensor reading. Discussed lag time between finger stick and sensor data.? Patient able to insert sensor independently at home without issue.? Patient Instructions: Patient instruction: CGM provides information on blood glucose control throughout the day, including hyperglycemia and hypoglycemia. ? Continue to monitor blood glucose as instructed. Follow nutrition guidelines provided. Report any discomfort promptly to health care provider. ?Stay well-hydrated. You can bathe ,shower, swim and exerce while wearing the glucose sensor. Do not submerge glucose sensor in water for more than 30 minutes. Remove sensor for MRI or CAT scan. Avoid Xray machine in airports - remove sensor or request wand Call when you grain picker GLP-1 pen for instruction Coding Level of Care Code Est Pt Level 1 (33060) Diagnoses Type 2 diabetes mellitus with diabetic neuropathy, unspecified E11.40
== END 2023-06-20 07:59 | disposition home or self-care (01) ==
PROVIDERS: PCP Physician Assistant Medical; Visit Provider Registered Nurse Diabetes Educator
DX: E11.40 Type 2 diabetes mellitus with diabetic neuropathy, unspecified (principal)

== ENCOUNTER → 2023-06-20 07:32 | Outpatient (BNVA) | payer OTHER, MEDICAID, MEDICARE, SELFPAY | PROVIDERS: PCP Physician Assistant Medical; Visit Provider Registered Nurse Diabetes Educator | DX: E11.40 Type 2 diabetes mellitus with diabetic neuropathy, unspecified (principal) | CPT/HCPCS: 99211 ==

== ENCOUNTER 2023-06-29 14:00 | Outpatient (AMB) | payer MEDICARE, MEDICAID, OTHER, SELFPAY ==
--- NOTE | 2023-06-29 14:11 | A.OFFVIS_ITS ---
Intake Intake Visit Reasons: DM Mentally Retarded Teacher Required: No Accompanied by: Self / Same As Patient Allergies lisinopril Allergy (Severe, Verified 05/15/23 10:15) Angioedema canagliflozin [Invokana] Allergy (Unknown, Verified 05/15/23 10:15) polyuria liraglutide [Victoza] Adverse Reaction (Unknown, Verified 05/15/23 10:15) nausea, constipation HPI Comprehensive Diabetes Asmnt Most Recent Diabetes Results: No Data to Display [facility] Medical History (Updated 05/16/23 @ 09:58 by Shy Rush CNP) Hypersomnia Snoring Cognitive disorder Essential hypertension Type 2 diabetes mellitus with diabetic neuropathy, unspecified (~2003) Depression Alcohol abuse Hepatitis C Hepatitis B NAFLD (nonalcoholic fatty liver disease) Tubular adenoma of colon (~2019) BPH loc w urin obs/LUTS Frequency of urination Erectile dysfunction Arthritis Carpal tunnel syndrome Overweight (BMI 25.0-29.9) Surgical History History of rhinoplasty History of colonoscopy History of lumbar surgery History of cataract surgery History of excision of mass Family History Father Myocardial infarct Colon cancer Mother Diabetes Social History Household Members: Spouse Household Members Other:: Alcohol intake: current Alcohol intake frequency: a few times a month Alcohol type: beer and hard liquor Patient Tobacco Use Status: Never used Tobacco Substance Use Type: Crack/Cocaine Current occupational status: disabled Assessment & Plan Assessment & Plan (1) Type 2 diabetes mellitus with diabetic neuropathy, unspecified: Onset Date: ~2003 Comment: MD/PROVIDER: RECOMMEND monitoring thiamine related to hx of neuropathy/ alcohol abuse and c/o memory loss Code(s): E11.40 - Type 2 diabetes mellitus with diabetic neuropathy, unspecified Plan: Insulin/Incretin?Mimetic Education visit Patient Education: Patient was instructed and provided with demonstration of the following: Insulin action and Incretin Mimetics medication storage how to set up medication pen/or syringe and vial Handwashing insulin injection site rotation Site rotation recognizing hypertrophy Testing blood glucose Removing and disposing needle from insulin pen Safe disposal of sharps Target blood sugar Signs/ symptoms/treatment of hypoglycemia/hyperglycemia expiration of open insulin pen Patient verbalized understanding of education provided and was able to demonstrate proper use of inject into injection pillow Reviewed rule of 15s to treat glucose under 70 mg/dL Patient will start Mounjaro 2.5 mg weekly All questions were answered and patient was advised to contact the office with any questions or concerns. Patient Instructions: Patient will follow-up with Diabetes Education nurse in 1 month Coding Level of Care Code Est Pt Level 1 (63977) Diagnoses Type 2 diabetes mellitus with diabetic neuropathy, unspecified E11.40
== END 2023-06-29 14:12 | disposition home or self-care (01) ==
PROVIDERS: PCP Physician Assistant Medical; Visit Provider Registered Nurse Diabetes Educator
DX: E11.40 Type 2 diabetes mellitus with diabetic neuropathy, unspecified (principal)

== ENCOUNTER → 2023-06-29 14:00 | Outpatient (BNVA) | payer MEDICARE, MEDICAID, OTHER, SELFPAY | PROVIDERS: PCP Physician Assistant Medical; Visit Provider Registered Nurse Diabetes Educator | DX: E11.40 Type 2 diabetes mellitus with diabetic neuropathy, unspecified (principal) | CPT/HCPCS: 99211 ==

== ENCOUNTER 2023-07-27 07:05 | Outpatient (AMB) | payer MEDICARE, OTHER, SELFPAY ==
--- NOTE | 2023-07-27 07:41 | A.OFFVIS_ITS ---
Intake Intake Visit Reasons: 30 min, Dexcom, medication review Steam Tunnel Feeder Required: No Accompanied by: Self / Same As Patient Allergies lisinopril Allergy (Severe, Verified 05/15/23 10:15) Angioedema canagliflozin [Invokana] Allergy (Unknown, Verified 05/15/23 10:15) polyuria liraglutide [Victoza] Adverse Reaction (Unknown, Verified 05/15/23 10:15) nausea, constipation HPI Comprehensive Diabetes Asmnt Most Recent Diabetes Results: No Data to Display [facility] Medical History (Updated 05/16/23 @ 09:58 by Shy Rush CNP) Hypersomnia Snoring Cognitive disorder Essential hypertension Type 2 diabetes mellitus with diabetic neuropathy, unspecified (~2003) Depression Alcohol abuse Hepatitis C Hepatitis B NAFLD (nonalcoholic fatty liver disease) Tubular adenoma of colon (~2019) BPH loc w urin obs/LUTS Frequency of urination Erectile dysfunction Arthritis Carpal tunnel syndrome Overweight (BMI 25.0-29.9) Surgical History History of rhinoplasty History of colonoscopy History of lumbar surgery History of cataract surgery History of excision of mass Family History Father Myocardial infarct Colon cancer Mother Diabetes Social History Household Members: Spouse Household Members Other:: Alcohol intake: current Alcohol intake frequency: a few times a month Alcohol type: beer and hard liquor Patient Tobacco Use Status: Never used Tobacco Substance Use Type: Crack/Cocaine Current occupational status: disabled Assessment & Plan Assessment & Plan (1) Type 2 diabetes mellitus with diabetic neuropathy, unspecified: Onset Date: ~2003 Comment: MD/PROVIDER: RECOMMEND monitoring thiamine related to hx of neuropathy/ alcohol abuse and c/o memory loss Code(s): E11.40 - Type 2 diabetes mellitus with diabetic neuropathy, unspecified Plan: Personal Continuous Glucose Monitor: Patients CGM information reviewed Reviewed patient's sensor data: Hypoglycemia: ? 5% Hyperglycemia:? 38% Time in Range:? 56% Average glucose for the last 2 weeks?160 mg/dL Patient is having episodes of postprandial hypoglycemia. Patient recently started on Mounjaro 2.5 mg, he is also using V-Go 20, using 3-5 clicks per meal, and sometimes giving himself extra clicks when he is experiencing hyperglycemia He is prescribed metformin ER 500 mg, but reports he is not taking Discussed with patient the effects sent Mounjaro may have on glucose control, recommended patient reduce clicks before meals to 2-3. Patient has upcoming visit with Dr. King in August 2023, at that visit can discu ss increasing Mounjaro dose. Reviewed how to treat hypoglycemia with rule of 15s, handout given. Reviewed how to interpret trend arrows Reminded patient that to check finger sticks if symptoms do not match sensor reading. Discussed lag time between finger stick and sensor data.? Patient able to insert sensor independently at home without issue.? Patient Instructions: Follow-up with thread milling machine set up operator in 2 months, if you continue to have hypoglycemic events contact thread milling machine set up operator or provider Coding Level of Care Code Est Pt Level 1 (35642) Diagnoses Type 2 diabetes mellitus with diabetic neuropathy, unspecified E11.40
== END 2023-07-27 07:43 | disposition home or self-care (01) ==
PROVIDERS: PCP Physician Assistant Medical; Visit Provider Registered Nurse Diabetes Educator
DX: E11.40 Type 2 diabetes mellitus with diabetic neuropathy, unspecified (principal)

== ENCOUNTER → 2023-07-27 07:05 | Outpatient (BNVA) | payer MEDICARE, MEDICAID, SELFPAY | PROVIDERS: PCP Physician Assistant Medical; Visit Provider Registered Nurse Diabetes Educator | DX: E11.40 Type 2 diabetes mellitus with diabetic neuropathy, unspecified (principal) | CPT/HCPCS: 99211 ==

== ENCOUNTER 2023-08-01 10:32 | Outpatient (REF) | payer MEDICARE, OTHER, SELFPAY ==
[2023-08-01 11:38] LABS: Anion Gap 11 (12-20); Blood Urea Nitrogen 19 mg/dL (9-16); Calcium 9.4 mg/dL (8.4-10.2); Carbon Dioxide 25 mmol/L (22-29); Chloride 106 mmol/L (96-108); Cholesterol 132 mg/dL (<200); Estimated Glomerular Filt Rate > 60; Glucose Random 206 mg/dL (60-115); HDL Cholesterol 42 mg/dL (>40); LDL Cholesterol Calculated 70 mg/dL (<100); Potassium 4.2 mmol/L (3.3-5.1); Sodium 138 mmol/L (135-145); Triglycerides 103 mg/dL (<150)
[2023-08-01 12:44] LABS: Creatinine Urine > 740.00 mg/dL
== END 2023-08-01 10:33 | disposition home or self-care (01) ==
LOC: HO.LAB 10:32
PROVIDERS: Visit Provider Internal Medicine Endocrinology, Diabetes & Metabolism
DX: E11.40 Type 2 diabetes mellitus with diabetic neuropathy, unspecified (principal)
CPT/HCPCS: 36415; 80048; 80061; 82043; 82570

== ENCOUNTER 2023-08-14 10:04 | Outpatient (AMB) | payer MEDICARE, SELFPAY ==
--- NOTE | 2023-08-14 10:05 | MHC.OFFVIS ---
Vital Signs 08/14/23 10:06 Height 5 ft 10 in Weight 197 lb 1.492 oz BMI 28.3 BP 160/90 H Blood Pressure Location Lt brachial Position Sitting Pulse 77 Pulse Source Pulse Oximeter Intake Visit Reasons: f/u Type 2 DM-lvm Intake Note: Patient present today to follow up on Type 2 Diabetes Mellitus. Patient receives DME supplies through: [facility] [employer] Last Diabetic Eye exam: 05/2023 Last Podiatry Visit: 2023 Random Glucose: 296mg/dl HgA1C: 7.0% Pizza Delivery Required: No Accompanied by: Self / Same As Patient Allergies lisinopril Allergy (Severe, Verified 08/14/23 10:11) Angioedema canagliflozin [Invokana] Allergy (Unknown, Verified 08/14/23 10:11) polyuria liraglutide [Victoza] Adverse Reaction (Unknown, Verified 08/14/23 10:11) nausea, constipation Medication List - Last Reconciled 08/14/23 by Almas King MD amlodipine 10 mg PO DAILY blood sugar diagnostic (Accu-Chek Guide test strips) As directed tests 4 X/day blood-glucose meter (Accu-Chek Guide Glucose Meter) As directed tests 4 X/day blood-glucose meter,continuous (Dexcom G7 Carburetor Specialist) As directed blood-glucose sensor (Dexcom G7 Sensor device) As directed change every 10 days bupropion HCl XL 150 mg PO QAM cholecalciferol (vitamin D3) (Vitamin D3) 50 mcg PO DAILY clotrimazole-betamethasone 1-0.05 % 1 appl topical DAILY cyclobenzaprine 10 mg PO TID PRN diclofenac sodium 75 mg PO BID fluoxetine 40 mg PO DAILY insulin aspart (niacinamide) 100 unit/mL Up to 76 units via V Go subcut daily; 30 days lancets 4x daily lancets (Accu-Chek Softclix Lancets) As directed-tests 4X/day lancets (Accu-Chek Fastclix Lancet Drum) USE FOUR TIMES A DAY lidocaine 5% 1 patch topical DAILY metformin ER 500 mg PO BEDTIME metoprolol succinate ER 25 mg PO DAILY mirtazapine 7.5 mg PO BEDTIME nystatin-triamcinolone 100,000-0.1 unit/g-% 1 appl topical DAILY oxycodone 5 mg PO BID PRN sub-q insulin device, 20 unit (V-GO 20 device) USE 1 DAILY tadalafil 10 mg PO DAILY 90 days tadalafil 20 mg PO DAILY PRN tamsulosin 0.4 mg PO DAILY 90 days tirzepatide (Mounjaro) 2.5 mg (0.5 mL) subcut QWEEK HPI Comments Details: Patient is a 63 year old male with DM type 2 diagnosed in 2003 , who presents for management of diabetes. He usually uses VGo 20. He also reports adding 1 click for every 20mg/dl over 150mg/dl Past medical history: DM2, HTN, GERD, NAFLD, hepatitis C, lower back pain due to herniated disc L5, Micro and macrovascular complications: + proliferative retinopathy, +, neuropathy Diabetes medications: Fiasp via V-GO 20 with 2 clicks with meals. Only 1 click for correction blood glucose over 300. Not taking insulin regularly , Metformin ER 500mg once a day. Doesn't take regularly Mounjaro 2.5 mg Qwkly Symptoms reported: denies numbness, tingling, cramping in lower extremities Hypoglycemia: none Hyperglycemia: + urinary frequency, +nocturia, + polydypsia Blood glucose monitoring: Unable to download Dexcom today. However GMI was 7.9 Exercise: walking over 30 minutes Butadiene Converter Utility Operator - CDE education: Time Clock Inspector: denies Ophthalmology evaluation: 3-4 mos a go Laboratory Tests 11/25/20 01/06/21 01/06/21 14:38 08:22 08:22 Creatinine 1.10 Estimated GFR > 60 Hgb A1c (Clinic) 7.2 H Triglycerides 68 Cholesterol 153 LDL Cholesterol, Calc 88 HDL Cholesterol 52 D Vitamin B12 354 25-OH Vitamin D Total Microalb/Creat Ratio 01/06/21 02/16/21 08:30 07:31 Creatinine Estimated GFR Hgb A1c (Clinic) Triglycerides Cholesterol LDL Cholesterol, Calc HDL Cholesterol Vitamin B12 25-OH Vitamin D Total 39.5 Microalb/Creat Ratio 38.3 ON LICENSE OF [facility] Medical History (Updated 05/16/23 @ 09:58 by Shy Rush CNP) Hypersomnia Snoring Cognitive disorder Essential hypertension Type 2 diabetes mellitus with diabetic neuropathy, unspecified (~2003) Depression Alcohol abuse Hepatitis C Hepatitis B NAFLD (nonalcoholic fatty liver disease) Tubular adenoma of colon (~2019) BPH loc w urin obs/LUTS Frequency of urination Erectile dysfunction Arthritis Carpal tunnel syndrome Overweight (BMI 25.0-29.9) Surgical History History of rhinoplasty History of colonoscopy History of lumbar surgery History of cataract surgery History of excision of mass Family History Father Myocardial infarct Colon cancer Mother Diabetes Social History Household Members: Spouse Household Members Other:: Alcohol intake: current Alcohol intake frequency: a few times a month Alcohol type: beer and hard liquor Patient Tobacco Use Status: Never used Tobacco Substance Use Type: Crack/Cocaine Current occupational status: disabled Physical Exam Absence of Cushingoid features. Absence of acromegalic features. Neck exam reveals nl size thyroid about 15 gms. No thyroid nodules palpable. No carotid bruits present. Lungs CTA. Heart S1 S2, Reg R/R. No M/R/ G. Skin exam reveals absence of vitiligo or acanthosis nigricans. Abdominal exam reveals Soft NT/ND with NA BS. No organomegaly present. Neck Other: . Extrem Other: Visual exam of foot performed. No ulcerations or open lesions. No onchomycosis, no callouses.Pulses 2 + distally Sensation intact to monofilament exam. Vibratory sensation sensed is decreased with 128 Hz tuning fork Results AMB Hemoglobin A1c AMB Hemoglobin A1c 7.0 % Last Edit by EDGAR Bui on 08/14/23 10:23 Assessment & Plan Assessment & Plan (1) Type 2 diabetes mellitus with diabetic neuropathy, unspecified: Onset Date: ~2003 Comment: MD/PROVIDER: RECOMMEND monitoring thiamine related to hx of neuropathy/ alcohol abuse and c/o memory loss Code(s): E11.40 - Type 2 diabetes mellitus with diabetic neuropathy, unspecified Category: Medical Plan: This is a 63-year-old male with history of type 2 diabetes being treated with V-Go 20, metformin , Mounjaro with fair glycemic control and known complications of neuropathy and NAFLD. HBAIC may be underestimated glycemic control The plan is to continue current regimen for now. Will be with the ems educator for follow-up in next 2-3 weeks time and bring his Dexcom and hopefully can be downloaded then for adjustment of regimen . Could talk to pt about potentially switching V-GO to a pump potentially iLet and pt is interested Orders: Orders AMB Hemoglobin A1c Today E11.40 - Type 2 diabetes mellitus with diabetic neuropathy, unspecified, Z13.9 - Encounter for screening, unspecified Medications: Refilled metformin ER 500 mg PO BEDTIME 30 tabs 6RF E11.65 - Type 2 diabetes mellitus with hyperglycemia, Z79.4 - custodial (current) use of insulin Coding Level of Care Code Est Pt Level 4 (80247) Diagnoses Type 2 diabetes mellitus with diabetic neuropathy, unspecified E11.40
[2023-08-14 10:06] VITALS: BP 160/90; PULSE 77; BMI 28.3
[2023-08-14 10:18] LABS: Glucose, Whole Blood 296 mg/dL (60-115)
== END 2023-08-14 10:37 | disposition home or self-care (01) ==
PROVIDERS: PCP Physician Assistant Medical; Visit Provider Internal Medicine Endocrinology, Diabetes & Metabolism
DX: Z13.9 Encounter for screening, unspecified (principal); E11.40 Type 2 diabetes mellitus with diabetic neuropathy, unspecified
CPT/HCPCS: 99214

== ENCOUNTER → 2023-08-14 10:04 | Outpatient (BNVA) | payer MEDICARE, SELFPAY | PROVIDERS: PCP Physician Assistant Medical; Visit Provider Internal Medicine Endocrinology, Diabetes & Metabolism | DX: E11.40 Type 2 diabetes mellitus with diabetic neuropathy, unspecified (principal) | CPT/HCPCS: 82947; 83036; 99212 ==

== ENCOUNTER 2023-08-21 07:10 | Outpatient (AMB) | payer MEDICARE, MEDICAID, OTHER, SELFPAY ==
--- NOTE | 2023-08-21 07:27 | A.OFFVIS_ITS ---
Intake Intake Visit Reasons: f/u Type 2 DM-per /CONFIRMED Sustainability Specialist Required: No Accompanied by: Self / Same As Patient Allergies lisinopril Allergy (Severe, Verified 08/14/23 10:11) Angioedema canagliflozin [Invokana] Allergy (Unknown, Verified 08/14/23 10:11) polyuria liraglutide [Victoza] Adverse Reaction (Unknown, Verified 08/14/23 10:11) nausea, constipation HPI Comprehensive Diabetes Asmnt Most Recent Diabetes Results: Hemoglobin A1c 6.9 % 10/29/19 Microalb/Creat Ratio 110.0 ug/mg cr (<30) H 08/01/23 Cholesterol 132 mg/dL (<200) 08/01/23 HDL Cholesterol 42 mg/dL (>40) 08/01/23 Triglycerides 103 mg/dL (<150) 08/01/23 Creatinine 1.00 mg/dL (0.5-1.4) 08/01/23 Blood Urea Nitrogen 19 mg/dL (9-16) H 08/01/23 Sodium 138 mmol/L (135-145) 08/01/23 Potassium 4.2 mmol/L (3.3-5.1) 08/01/23 Chloride 106 mmol/L (96-108) 08/01/23 Carbon Dioxide 25 mmol/L (22-29) 08/01/23 Calcium 9.4 mg/dL (8.4-10.2) 08/01/23 AST 20 U/L (5-37) 06/02/22 ALT 13 U/L (0-40) 06/02/22 Total Protein 7.1 g/dL (6.5-8.0) 06/02/22 Albumin 4.4 g/dL (3.5-5.0) 06/02/22 [facility] Medical History (Updated 05/16/23 @ 09:58 by Shy Rush CNP) Hypersomnia Snoring Cognitive disorder Essential hypertension Type 2 diabetes mellitus with diabetic neuropathy, unspecified (~2003) Depression Alcohol abuse Hepatitis C Hepatitis B NAFLD (nonalcoholic fatty liver disease) Tubular adenoma of colon (~2019) BPH loc w urin obs/LUTS Frequency of urination Erectile dysfunction Arthritis Carpal tunnel syndrome Overweight (BMI 25.0-29.9) Surgical History History of rhinoplasty History of colonoscopy History of lumbar surgery History of cataract surgery History of excision of mass Family History Father Myocardial infarct Colon cancer Mother Diabetes Social History Household Members: Spouse Household Members Other:: Alcohol intake: current Alcohol intake frequency: a few times a month Alcohol type: beer and hard liquor Patient Tobacco Use Status: Never used Tobacco Substance Use Type: Crack/Cocaine Current occupational status: disabled Assessment & Plan Assessment & Plan (1) Type 2 diabetes mellitus with diabetic neuropathy, unspecified: Onset Date: ~2003 Comment: MD/PROVIDER: RECOMMEND monitoring thiamine related to hx of neuropathy/ alcohol abuse and c/o memory loss Code(s): E11.40 - Type 2 diabetes mellitus with diabetic neuropathy, unspecified Plan: Personal Continuous Glucose Monitor: Patients CGM information reviewed Reviewed patient's sensor data: Hypoglycemia: ? Hyperglycemia:? Time in Range:? Average glucose for the last 2 weeks?192 mg/dL Patient's A1c has improved to 7% on 08/14/2023, from 8.4% in 03/2023. We have been unable to download patient's Dexcom for the past 2 visits, patient given new Dexcom car sales associate and instructed to use new Dexcom car sales associate with next sensor change. In addition we discussed iLet insulin pump. Patient declined insulin pump therapy at this time, feeling it was too complicated and he is concerned about tubing that attaches him to the device. In addition we discussed increasing Mounjaro 2.5 mg to 5 mg. Patient reports that he sometimes experiences nausea with Mounjaro 2.5 and did not want to increase the dose at this time. Reviewed with patient carbohydrate food list, recommended patient add protein or fiber when eating high carbohydrate foods. Patient stated he has significant memory loss, and rarely thinks about types of foods he eating at meals. Reviewed how to interpret trend arrows Patient able to insert sensor with assistance from his spouse at home without issue.? Portions of this note were created using voice recognition software, please excuse any words or phrases that may have been misinterpreted. Patient Instructions: Next sensor change please use new Dexcom G7 car sales associate Follow-up with diabetic educator in 2 months Coding Level of Care Code Est Pt Level 1 (82131) Diagnoses Type 2 diabetes mellitus with diabetic neuropathy, unspecified E11.40
== END 2023-08-21 07:36 | disposition home or self-care (01) ==
PROVIDERS: PCP Physician Assistant Medical; Visit Provider Registered Nurse Diabetes Educator
DX: E11.40 Type 2 diabetes mellitus with diabetic neuropathy, unspecified (principal)

== ENCOUNTER → 2023-08-21 07:10 | Outpatient (BNVA) | payer MEDICARE, MEDICAID, SELFPAY | PROVIDERS: PCP Physician Assistant Medical; Visit Provider Registered Nurse Diabetes Educator | DX: E11.40 Type 2 diabetes mellitus with diabetic neuropathy, unspecified (principal) | CPT/HCPCS: 99211 ==

== ENCOUNTER 2023-09-26 07:12 | Outpatient (AMB) | payer MEDICARE, MEDICAID, OTHER, SELFPAY ==
--- NOTE | 2023-09-26 07:20 | A.OFFVIS_ITS ---
Intake Intake Visit Reasons: DM/CONFIRMED Tester Equipment Required: No Accompanied by: Self / Same As Patient Allergies lisinopril Allergy (Severe, Verified 08/14/23 10:11) Angioedema canagliflozin [Invokana] Allergy (Unknown, Verified 08/14/23 10:11) polyuria liraglutide [Victoza] Adverse Reaction (Unknown, Verified 08/14/23 10:11) nausea, constipation HPI Comprehensive Diabetes Asmnt Most Recent Diabetes Results: Hemoglobin A1c 6.9 % 10/29/19 Microalb/Creat Ratio 110.0 ug/mg cr (<30) H 08/01/23 Cholesterol 132 mg/dL (<200) 08/01/23 HDL Cholesterol 42 mg/dL (>40) 08/01/23 Triglycerides 103 mg/dL (<150) 08/01/23 Creatinine 1.00 mg/dL (0.5-1.4) 08/01/23 Blood Urea Nitrogen 19 mg/dL (9-16) H 08/01/23 Sodium 138 mmol/L (135-145) 08/01/23 Potassium 4.2 mmol/L (3.3-5.1) 08/01/23 Chloride 106 mmol/L (96-108) 08/01/23 Carbon Dioxide 25 mmol/L (22-29) 08/01/23 Calcium 9.4 mg/dL (8.4-10.2) 08/01/23 AST 20 U/L (5-37) 06/02/22 ALT 13 U/L (0-40) 06/02/22 Total Protein 7.1 g/dL (6.5-8.0) 06/02/22 Albumin 4.4 g/dL (3.5-5.0) 06/02/22 [facility] Medical History (Updated 05/16/23 @ 09:58 by Shy Rush CNP) Hypersomnia Snoring Cognitive disorder Essential hypertension Type 2 diabetes mellitus with diabetic neuropathy, unspecified (~2003) Depression Alcohol abuse Hepatitis C Hepatitis B NAFLD (nonalcoholic fatty liver disease) Tubular adenoma of colon (~2019) BPH loc w urin obs/LUTS Frequency of urination Erectile dysfunction Arthritis Carpal tunnel syndrome Overweight (BMI 25.0-29.9) Surgical History History of rhinoplasty History of colonoscopy History of lumbar surgery History of cataract surgery History of excision of mass Family History Father Myocardial infarct Colon cancer Mother Diabetes Social History Household Members: Spouse Household Members Other:: Alcohol intake: current Alcohol intake frequency: a few times a month Alcohol type: beer and hard liquor Patient Tobacco Use Status: Never used Tobacco Substance Use Type: Crack/Cocaine Current occupational status: disabled Assessment & Plan Assessment & Plan (1) Type 2 diabetes mellitus with diabetic neuropathy, unspecified: Onset Date: ~2003 Comment: MD/PROVIDER: RECOMMEND monitoring thiamine related to hx of neuropathy/ alcohol abuse and c/o memory loss Code(s): E11.40 - Type 2 diabetes mellitus with diabetic neuropathy, unspecified Plan: Personal Continuous Glucose Monitor: Patients CGM information reviewed Reviewed patient's sensor data: Hypoglycemia: ? 0% Hyperglycemia:? 43% Time in Range:? 57% Average glucose for the last 2 weeks? 180 mg/dL Patient's last A1c on 08/14/2023 7% Pt uses V-go 20 for insulin administration. Pt reports he has not been changing V-go everyday and only gives himself one cli ck before meals, if he notices his glucose is high throughout the day he will do 2-3 more clicks. Reviewed with Pt the importance of changing V-go daily. Recommended he increase clicks before meals, 3 before large meal to before smaller meals In addition patient has started Mounjaro 2.5 mg, will send message to provider to increase Mounjaro if appropriate Reviewed how to interpret trend arrows Patient able to insert sensor independently at home without issue.? Portions of this note were created using voice recognition software, please excuse any words or phrases that may have been misinterpreted. Patient Instructions: Put up a reminder note on refrigerator to change V-go everyday 3 clicks on V-go before large meals, like three waffles, 2 clicks for small meals like eggs, thornton and one piece of bread Follow up with diabetes education nurse in 4 months Coding Level of Care Code Est Pt Level 1 (40076) Diagnoses Type 2 diabetes mellitus with diabetic neuropathy, unspecified E11.40
== END 2023-09-26 07:37 | disposition home or self-care (01) ==
PROVIDERS: PCP Physician Assistant Medical; Visit Provider Registered Nurse Diabetes Educator
DX: E11.40 Type 2 diabetes mellitus with diabetic neuropathy, unspecified (principal)

== ENCOUNTER → 2023-09-26 07:12 | Outpatient (BNVA) | payer MEDICARE, SELFPAY | PROVIDERS: PCP Physician Assistant Medical; Visit Provider Registered Nurse Diabetes Educator | DX: E11.40 Type 2 diabetes mellitus with diabetic neuropathy, unspecified (principal) | CPT/HCPCS: 99211 ==

== ENCOUNTER 2023-10-12 10:16 | Outpatient (REF) | payer MEDICARE, SELFPAY ==
[2023-10-12 10:29] LABS: MANUAL DIFF FLAG NO
[2023-10-12 11:17] LABS: Eosinophils Absolute Auto 0.1 X10*3/uL (0.0-0.4); Eosinophils Percent Auto 1.6 % (0-4); Hematocrit 36.9 % (42.0-52.0); Hemoglobin 12.8 g/dl (14.0-18.0); Imm Gran Abs Auto 0.01 X10*3/uL (0.00-0.03); Imm Gran Pct Auto 0.2 % (0.0-0.4); Lymphocytes Absolute Auto 1.2 X10*3/uL (1.2-4.9); Lymphocytes Percent Auto 27.9 % (20-40); Mean Corpuscular HGB Conc 34.7 g/dl (31.0-36.0); Mean Corpuscular Hemoglobin 30.6 pg (27.0-33.0); Mean Corpuscular Volume 88.3 fL (80.0-98.0); Mean Platelet Volume 9.5 fL (9.4-12.4); Monocytes Absolute Auto 0.3 X10*3/uL (0.1-1.2); Monocytes Percent Auto 7.1 % (2-11); Neutrophils Absolute Auto 2.8 x10*3/uL (2.0-8.3); Neutrophils Percent Auto 63.2 % (45-73); Platelet Count 179 X10*3/uL (160-400); Red Blood Count 4.18 X10*6/uL (4.60-5.80); Red Cell Distribution Width 12.7 % (11.0-16.0); White Blood Count 4.4 X10*3/uL (4.8-10.8)
[2023-10-12 11:41] LABS: Alanine Aminotransferase 15 U/L (0-40); Albumin Level 4.2 g/dL (3.5-5.0); Alkaline Phosphatase 69 U/L (39-117); Anion Gap 10 (12-20); Aspartate Amino Transferase 19 U/L (5-37); Bilirubin Total 0.5 mg/dL (0.0-1.0); Blood Urea Nitrogen 17 mg/dL (9-16); Calcium 10.1 mg/dL (8.4-10.2); Carbon Dioxide 29 mmol/L (22-29); Chloride 105 mmol/L (96-108); Estimated Glomerular Filt Rate > 60; Glucose Random 144 mg/dL (60-115); Potassium 4.6 mmol/L (3.3-5.1); Sodium 139 mmol/L (135-145); Total Protein 7.2 g/dL (6.5-8.0)
== END 2023-10-12 10:17 | disposition home or self-care (01) ==
LOC: HO.LAB 10:16
PROVIDERS: Visit Provider Internal Medicine Gastroenterology
DX: K75.81 Nonalcoholic steatohepatitis (NASH) (principal); K76.0 Fatty (change of) liver, not elsewhere classified
CPT/HCPCS: 36415; 80053; 85025

== ENCOUNTER 2023-10-30 10:24 | Outpatient (REF) | payer MEDICARE, SELFPAY ==
--- NOTE | ~2023-10-30 | US_ITS ---
EXAMINATION: US ABDOMEN COMPLETE CLINICAL INFORMATION: Fatty (change of) liver, not elsewhere classified. COMPARISON: Ultrasound abdomen limited with liver elastography 11/18/2021. Ultrasound abdomen limited 05/21/2020. TECHNIQUE: Real-time imaging of the abdominal viscera. FINDINGS: PANCREAS: Pancreas is largely obscured by overlying bowel gas. ABDOMINAL AORTA: The proximal, mid, and distal segments are normal in caliber. INFERIOR VENA CAVA: Visualized portions are normal. LIVER: Normal. The liver is normal in size. The liver contour is normal. Parenchymal echogenicity is normal. No focal hepatic lesion. There is no intrahepatic biliary duct dilatation seen. GALLBLADDER: Normal. The gallbladder is physiologically distended without evidence of stones, sludge, polyps, wall thickening or pericholecystic fluid. COMMON BILE DUCT: Normal in caliber measuring 0.5 cm in diameter. RIGHT KIDNEY: Right renal interpolar cystic foci measuring up to 1.0 cm, simple-appearing, not requiring follow-up. No hydronephrosis or renal calculi. The kidney measures 10.5 cm in maximum dimension. LEFT KIDNEY: Normal. No hydronephrosis. No renal calculi or focal parenchymal lesions. The kidney measures 10.7 cm in maximum dimension. SPLEEN: Normal. The spleen measures 10.1 cm in maximum dimension. FREE FLUID: None. US/US abdomen complete IMPRESSION: Right renal interpolar cystic foci measuring up to 1.0 cm, simple-appearing, not requiring follow-up. Electronically signed by: Timothy Barajas MD 11/04/2023 02:47 PM EDT
== END 2023-10-30 10:25 | disposition home or self-care (01) ==
LOC: HO.US 10:24
PROVIDERS: PCP Physician Assistant Medical; Visit Provider Internal Medicine Gastroenterology
DX: K76.0 Fatty (change of) liver, not elsewhere classified (principal)
CPT/HCPCS: 76700

== ENCOUNTER 2023-12-20 08:26 | Outpatient (AMB) | payer MEDICARE, SELFPAY ==
[2023-12-20 08:29] VITALS: BP 130/80; PULSE 75; BMI 26.9
--- NOTE | 2023-12-20 08:29 | A.OFFVIS_ITS ---
Vital Signs 12/20/23 08:29 Height 5 ft 10 in Weight 187 lb 6.287 oz BMI 26.9 BP 130/80 Blood Pressure Location Rt brachial Position Sitting Pulse 75 Pulse Source Pulse Oximeter Intake Visit Reasons: T2DM/CONFIRMED Intake Note: Patient presents today to re-establish treatment for Type 2 Diabetes Mellitus: Last Diabetic eye exam was on: 12/2023 Last Podiatry exam was on: Does not see a Infrastructure Engineer Most recent HbA1c: 7.6%, 12/19/2024 Random Glucose- 226 mg/dL, Today Core Paster Required: No Allergies lisinopril Allergy (Severe, Verified 08/14/23 10:11) Angioedema canagliflozin [Invokana] Allergy (Unknown, Verified 08/14/23 10:11) polyuria liraglutide [Victoza] Adverse Reaction (Unknown, Verified 08/14/23 10:11) nausea, constipation HPI Comments Details: Patient is a 63 year old male with DM type 2 diagnosed in 2003 , who presents for management of diabetes. Past medical history: DM2, HTN, GERD, NAFLD, hepatitis C, lower back pain due to herniated disc L5, Micro and macrovascular complications: + proliferative retinopathy, +, neuropathy Diabetes medications: Fiasp via SkyJam 20 with 2 clicks with meals. Only 1 click for correction blood glucose over 300. Not taking insulin regularly Metformin ER 500mg once a day (not taking). Taking mounjaro 5 units weekly ~90% of weeks Symptoms reported: denies numbness, tingling, cramping in lower extremities Hypoglycemia: none Blood glucose monitoring: Unable to download Dexcom today. Exercise: walking over 30 minutes Materials And Processes Manager - CDE education: Infrastructure Engineer: denies Ophthalmology evaluation: UTD ROS CONSTITUTIONAL: Denies weight loss, fever and chills. HEENT: Denies changes in vision and hearing. RESPIRATORY: Denies SOB and cough. CV: Denies palpitations and CP GI: Denies abdominal pain, nausea, vomiting and diarrhea. : Denies dysuria and urinary frequency. MSK: Denies new myalgia and joint pain. SKIN: Denies rash and pruritus. NEUROLOGICAL: Denies headache PSYCHIATRIC: Denies recent changes in mood. PHYSICAL EXAM: GENERAL: Alert and oriented x 3. NAD EYES: EOMI. Anicteric. HENT: Moist mucous membranes. No scleral icterus. No cervical lymphadenopathy. LUNGS: Clear to auscultation bilaterally. CARDIOVASCULAR: Regular rate and rhythm. soft systolic murmur. No JVD. ABDOMEN: Soft, non-tender +bs EXTREMITIES: No edema. Non-tender. SKIN: No rashes or lesions. Warm. NEUROLOGIC: No focal neurological deficits. CN II-XII grossly intact PSYCHIATRIC: Cooperative. Appropriate mood and affect [facility] Medical History Hypersomnia Snoring Cognitive disorder Essential hypertension Type 2 diabetes mellitus with diabetic neuropathy, unspecified (~2003) Depression Alcohol abuse Hepatitis C Hepatitis B NAFLD (nonalcoholic fatty liver disease) Tubular adenoma of colon (~2019) BPH loc w urin obs/LUTS Frequency of urination Erectile dysfunction Arthritis Carpal tunnel syndrome Overweight (BMI 25.0-29.9) Surgical History History of rhinoplasty History of colonoscopy History of lumbar surgery History of cataract surgery History of excision of mass Family History Father Myocardial infarct Colon cancer Mother Diabetes Social History Household Members: Spouse Household Members Other:: Alcohol intake: current Alcohol intake frequency: a few times a month Alcohol type: beer and hard liquor Patient Tobacco Use Status: Never used Tobacco Substance Use Type: Crack/Cocaine Current occupational status: disabled Physical Exam Vital Signs: Last Vital Signs Pulse 75 12/20/23 08:29 BP 130/80 12/20/23 08:29 BMI result Body Mass Index 26.9 Results AMB Hemoglobin A1c AMB Hemoglobin A1c 7.6 % Last Edit by EDGAR Pereira on 12/20/23 08:57 Results Reviewed Results Reviewed: Laboratory Last Values Glucose (Clinic) 226 mg/dL (60-115) H 10/16/24 08:35 Assessment & Plan Assessment & Plan (1) Type 2 diabetes mellitus with diabetic neuropathy, unspecified: Onset Date: ~2003 Comment: MD/PROVIDER: RECOMMEND monitoring thiamine related to hx of neuropathy/ alcohol abuse and c/o memory loss Code(s): E11.40 - Type 2 diabetes mellitus with diabetic neuropathy, unspecified Category: Medical Qualifiers: Diabetes mellitus detention insulin use: with adjunct faculty for medical terminology use Qualified Code(s): E11.40 - Type 2 diabetes mellitus with diabetic neuropathy, unspecified; Z79.4 - prison (current) use of insulin Plan: Uncontrolled. Increase mounjaro to 7.5mg weekly. Discussed restarting metformin. continue current dosing metformin Orders: Orders AMB Hemoglobin A1c Today E11.40 - Type 2 diabetes mellitus with diabetic neuropathy, unspecified Medications: New tirzepatide 7.5 mg (0.5 mL) subcut QWEEK 6 mL 3RF Discontinued tirzepatide (Mounjaro) Discontinued Reason: Doctor's Order 5 mg (0.5 mL) subcut QWEEK 2 mL 6RF On Hold metformin ER Hold Comment: Doctor's Order 500 mg PO BEDTIME 30 tabs 6RF E11.65 - Type 2 diabetes mellitus with hyperglycemia, Z79.4 - technician terminal and repeater (current) use of insulin Coding Level of Care Code Est Pt Level 4 (73935) Diagnoses Type 2 diabetes mellitus with diabetic neuropathy, with long-term current use of insulin E11.40; Z79.4 Diabetes mellitus adjunct faculty for medical terminology insulin use: with detention use
[2023-12-20 08:40] LABS: Glucose, Whole Blood 226 mg/dL (60-115)
== END 2023-12-20 09:02 | disposition home or self-care (01) ==
PROVIDERS: PCP Physician Assistant Medical; Visit Provider Internal Medicine
DX: E11.40 Type 2 diabetes mellitus with diabetic neuropathy, unspecified (principal); Z79.4 Long term (current) use of insulin

== ENCOUNTER → 2023-12-20 08:26 | Outpatient (BNVA) | payer MEDICARE, SELFPAY | PROVIDERS: PCP Physician Assistant Medical; Visit Provider Internal Medicine | DX: E11.40 Type 2 diabetes mellitus with diabetic neuropathy, unspecified (principal); Z79.4 Long term (current) use of insulin | CPT/HCPCS: 82947; 83036; 99212 ==

== ENCOUNTER 2024-01-25 08:01 | Outpatient (AMB) | payer MEDICARE, OTHER, SELFPAY ==
--- NOTE | 2024-01-25 07:21 | A.OFFVIS_ITS ---
Intake Intake Visit Reasons: DM-lvm Accompanied by: Self / Same As Patient Allergies lisinopril Allergy (Severe, Verified 08/14/23 10:11) Angioedema canagliflozin [Invokana] Allergy (Unknown, Verified 08/14/23 10:11) polyuria liraglutide [Victoza] Adverse Reaction (Unknown, Verified 08/14/23 10:11) nausea, constipation HPI Comprehensive Diabetes Asmnt Most Recent Diabetes Results: Hemoglobin A1c 6.9 % 10/29/19 Microalb/Creat Ratio 110.0 ug/mg cr (<30) H 08/01/23 Cholesterol 132 mg/dL (<200) 08/01/23 HDL Cholesterol 42 mg/dL (>40) 08/01/23 Triglycerides 103 mg/dL (<150) 08/01/23 Creatinine 1.19 mg/dL (0.5-1.4) 10/12/23 Blood Urea Nitrogen 17 mg/dL (9-16) H 10/12/23 Sodium 139 mmol/L (135-145) 10/12/23 Potassium 4.6 mmol/L (3.3-5.1) 10/12/23 Chloride 105 mmol/L (96-108) 10/12/23 Carbon Dioxide 29 mmol/L (22-29) 10/12/23 Calcium 10.1 mg/dL (8.4-10.2) 10/12/23 AST 19 U/L (5-37) 10/12/23 ALT 15 U/L (0-40) 10/12/23 Total Protein 7.2 g/dL (6.5-8.0) 10/12/23 Albumin 4.2 g/dL (3.5-5.0) 10/12/23 [facility] Medical History Hypersomnia Snoring Cognitive disorder Essential hypertension Type 2 diabetes mellitus with diabetic neuropathy, unspecified (~2003) Depression Alcohol abuse Hepatitis C Hepatitis B NAFLD (nonalcoholic fatty liver disease) Tubular adenoma of colon (~2019) BPH loc w urin obs/LUTS Frequency of urination Erectile dysfunction Arthritis Carpal tunnel syndrome Overweight (BMI 25.0-29.9) Surgical History History of rhinoplasty History of colonoscopy History of lumbar surgery History of cataract surgery History of excision of mass Family History Father Myocardial infarct Colon cancer Mother Diabetes Social History Household Members: Spouse Household Members Other:: Alcohol intake: current Alcohol intake frequency: a few times a month Alcohol type: beer and hard liquor Patient Tobacco Use Status: Never used Tobacco Substance Use Type: Crack/Cocaine Current occupational status: disabled Assessment & Plan Assessment & Plan (1) Type 2 diabetes mellitus with diabetic neuropathy, unspecified: Onset Date: ~2003 Comment: MD/PROVIDER: RECOMMEND monitoring thiamine related to hx of neuropathy/ alcohol abuse and c/o memory loss Code(s): E11.40 - Type 2 diabetes mellitus with diabetic neuropathy, unspecified Qualifiers: 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 0% Hyperglycemia:? 58% Time in Range:? 42 Average glucose for the last 7 days 190 mg/dL Patient is wearing V-Go 20 Glucose overnight is well controlled He is now taking Mounjaro 7.5 mg weekly Frequently forgets to quick V-Go before meals, when he does he only does 1-2 clicks Recommended to patient he increase mealtime insulin to 3 clicks before meals Made assigned at today's visit to remind patient to take mealtime insulin, and oral medications Suggested he put the sign on his refrigerator or in the TV room where he eats most of his meals Reviewed how to interpret trend arrows Reminded patient that to check finger sticks if symptoms do not match sensor reading. Discussed lag time between finger stick and sensor data.? Patient able to insert sensor independently at home without issue.? Patient will follow-up in 4 Portions of this note were created using voice recognition software, please excuse any words or phrases that may have been misinterpreted. Patient Instructions: Take 3 clicks on Vgo before meals Take daily medication as prescribed Coding Level of Care Code Est Pt Level 1 (32643) Diagnoses Type 2 diabetes mellitus with diabetic neuropathy, with long-term current use of insulin E11.40; Z79.4 Diabetes mellitus correction insulin use: with termite exterminator helper use
--- OUTSIDE RECORDS SUMMARY | 2024-01-26 14:35 | XMS_ITS | Patient Health Record ---
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 Name Role Phone Jorge Chowdhury Primary Care Provider Unav ailable Nena Ernst Unavailable [phone] Allergies Allergen (clinical drug ingredient) Drug/Non Drug Allergy documented on EMR Reaction Allergy Type Onset Date Status liraglutide Victoza Unknown Drug Allergy Activ e canagliflozin Canagliflozin Unknown Drug Allergy Active lisinopril Lisinopril Unknown Drug Allergy Activ e Reason For Referral No Information Medications Medication SIG (Take, Route, Frequency, Duration) Notes Start Date End Date Status Nystatin-Triamcinolone 191430-4.1 UNIT/GM 1 application Externally Twice a day Active Tadalafil 20 MG 1 tablet Orally for 30 day(s) Not-Taking Pen [place] /16 Ac tive Extra Depth Orthopedic Shoes (1 Pair) with Customized Heat Molded Multidensity Innersoles (3 Pair) as directed Dx: NIDDM (E11.9), Hammertoe Foot Deformity (M20.41,M20.42), Preulcerative Skin Lesion(s) (L85.1) Not-Taking Sildenafil Citrate 100 MG 1 tablet as needed Orally Once a day for 30 day(s) Active Insulin Glargine 100 UNIT/ML as directed Subcutaneous Act kaushik SITagliptin Phosphate 100 MG 1 tablet Orally Once a day for 30 day(s) Not-Taking Vitamin D3 50 MCG (2000 UT) 1 capsule Orally Once a day for 30 day(s) Active FLUoxetine HCl 40 MG 1 capsule Orally On ce a day for 30 day(s) Active amLODIPine Besylate 10 MG 1 tablet Orally Once a day Active buPROPion HCl ER (Smoking Det) 150 MG 1 tablet in the morning Orally Once a day for 30 day(s) Active Januvia 100 MG 1 tablet Orally Once a day for 30 day(s) Active Diclofenac Sodium 75 MG 1 tablet as need ed Orally Twice a day Not-Taking Insulin Aspart 100 UNIT/ML as directed Subcutaneous Not -Taking metFORMIN HCl ER 500 MG 1 tablet with ev ening meal Orally Once a day for 30 day(s) Active Tamsulosin HCl 0.4 MG 1 capsule Orally O nce a day for 30 day(s) Active Immunizations Vaccine Route Administration Date Status Comme nts Influenza Unknown 02/03/2023 Administered Social History Tobacco Use: Social History Observation Description Date Details (start date - stop date) Never Smoker NA - NA Tobacco Use/Smoking Question Answer Notes Are you a: nonsmoker Additional Findings: Tobacco Non-User Current no n-smoker Alcohol Screen Question Answer Notes Did you have a drink contain ing alcohol in the past year? Yes How often did you have a dri nk containing alcohol in the past year? 2 to 4 times a month (2 points) How many drinks did you have on a typical day when you were drinking in the past year? 5 or 6 drinks (2 points) Points 4 Interpretation Positive Tobacco use other than smoking: Question Answer Notes Are you an other tobacco user? No Problems Problem Type SNOMED Code ICD Code Onset Dates Problem Status W/U Status Risk Notes Problem Acquired hammer toe of right foot (6234473427146 105) Other hammer toe(s) (acquired), right foot (M20.41) Active confirmed Problem Acquired hammer toe of left foot (6471755680685 103) Other hammer toe(s) (acquired), left foot (M20.42) Active confirmed Problem [id number] Type 2 diabetes mellitus without complications (E11.9) Active confirmed Problem [id number] Hammer toe of left foot (M20.42) Active confirmed Vital Signs Height 5 ft 10 in in 06/27/2023 Weight 200 lbs 06/27/2023 BMI 28.69 kg/m2 06/27/2023 Encounters Encounter Location Date Provider Diagnosis [facility] [address] [place] [address] 06/27/2023 Nena Ernst Other hammer toe(s) (acquired), right foot M20.41 ; Other hammer toe(s) (acquired), left foot M20.42 and Type 2 diabetes mellitus without complications E11.9 Assessments Encounter Date Diagnosis (ICD Code) Assessment Notes Treat ment Notes Treatment Clinical Notes 06/27/2023 Other hammer toe(s) (acquired), right foot (ICD-10 - M20.41) Patient Educated with: DIABETIC FOOT CARE INSTRUCTIONS.pdf (DIABETIC FOOT CARE INSTRUCTIONS.pdf ) 06/27/2023 Other hammer toe(s) (acquired), left foot (ICD-10 - M20.42) 06/27/2023 Type 2 diabetes mellitus without complications (ICD-10 - E11.9) Plan Of Treatment Next Appt Details Provider Name:Nena squires, 07/19/2024 09:00:00 AM, [address] [place] [address], [id number], Insurance Providers Payer Name Payer Address Payer Phone Subscriber Number Group Number Insured Name Patient Relationship to Insured Coverage Start Date Coverage End Date Medicare [employer] [address] [place] [address] [id number] [employer]eb[employer] oshea Eddie Self - patient is the insured Medical (General) History Medical History History ICD Code type II diabetes Herniated disc Hypertension Reflux ( GERD) Hepatitis C Arthritis Hepatitis B Alzheimers disease Anxiety Back,Hip,and Knee pain Broken bones Cataracts Depression Hepatitis High blood pressure Neuropathy Poor circulation Warts Sleep apnea Surgical History Surgery Date(Month/Year) back surgery cataract surgery rhinoplasty excision of mass
--- OUTSIDE RECORDS SUMMARY | 2024-01-26 14:35 | XMS_ITS ---
Author [facility] Address [address] [address] Care Team Providers Care Research Kennel Supervisor Name Role Phone Jorge Chowdhury Primary Care Provider Unav ailNena Sands Unavailable [phone] Allergies Allergen (clinical drug ingredient) Drug/Non Drug Allergy documented on EMR Reaction Allergy Type Onset Date Status liraglutide Victoza Unknown Drug Allergy Activ e canagliflozin Canagliflozin Unknown Drug Allergy Active lisinopril Lisinopril Unknown Drug Allergy Activ e REASON FOR VISIT Pcp- 06/24, Toe Irritation Medications Medication SIG (Take, Route, Frequency, Duration) Notes Start Date End Date Status Tadalafil 20 MG 1 tablet Orally for 30 day(s) Not-Taking Extra Depth Orthopedic Shoes (1 Pair) with Customized Heat Molded Multidensity Innersoles (3 Pair) as directed Dx: NIDDM (E11.9), Hammertoe Foot Deformity (M20.41,M20.42), Preulcerative Skin Lesion(s) (L85.1) Not-Taking Vitamin D3 50 MCG (1999 UT) 1 capsule Orally Once a day for 30 day(s) Active amLODIPine [...] ce a day for 30 day(s) Active Januvia 100 MG 1 tablet Orally Once a day for 30 day(s) Active metFORMIN HCl ER 500 MG 1 tablet with ev ening meal Orally Once a day for 30 day(s) Active Tamsulosin HCl 0.4 MG 1 capsule Orally O nce a day for 30 day(s) Active Nystatin-Triamcinolone 795566-7.1 UNIT/GM 1 application Externally Twice a day Active [place] 05/19 Ac tive Insulin Glargine 100 UNIT/ML as directed Subcutaneous Act kaushik Diclofenac Sodium 75 MG 1 tablet as need ed Orally Twice a day Not-Taking Insulin Aspart 100 UNIT/ML as directed Subcutaneous Not -Taking SITagliptin Phosphate 100 MG 1 tablet Orally Once a day for 30 day(s) Not-Taking Social History Tobacco Use: Social History Observation [...] Problem Acquired hammer toe of right foot (3179352939836 105) Other hammer toe(s) (acquired), right foot (M20.41) Active confirmed Problem Acquired hammer toe of left foot (7345750547252 103) Other hammer toe(s) (acquired), left foot (M20.42) Active confirmed Vital Signs Height 5 ft 10 in in 06/27/2023 Weight 200 lbs 06/27/2023 BMI 28.69 kg/m2 06/27/2023 Encounters Encounter Location Date Provider Diagnosis [facility] [address] [place] [address] 06/27/2023 Nena Ernst Other hammer toe(s) (acquired), [...] complications (ICD-10 - E11.9) Plan Of Treatment Treatment Notes Assessment Notes Other hammer toe(s) (acquired), right fo ot Patient Educated with: DIABETIC FOOT CARE INSTRUCTIONS.pdf (DIABETIC FOOT CARE INSTRUCTIONS.pdf) Next Appt Details Follow Up: 1 Year, Reason: Provider Name:Nena squires, 07/19/2024 09:00:00 AM, [address] [place] [address], [id number], Progress Notes * Farhad GONZALESOB:[birth year] (63 yo M)Acc No.[id number]:06/27/2023 Progress Note Patient:?ImaniVeneciaJohny oshea Provider:?Nena Ernst DPM :1960???Age:63 Y???Sex:Male Thanh e:06/27/2023 Address:[facility] [address] [id number] Pcp:YEHUDA Carrizales Subjective: * Chief Complaints: * ???Pcp- 06/24 Toe Irritation * HPI: ???Toe pain:?Location:?B/L feet.?Duration:?several years.?Course:?worse.?Aggrevated by:?shoes, any pressure.?Treatments:?change in shoes.? * ROS:?General/Constitutional:?Nausea?denies.?Vomiting?denies.?Hunger Thirst?denies.?Loss appetite?denies.?Chills?denies.?Fatigue?denies.?Fever?denies.?Night Sweats?denies.?Unexplained weight loss?denies.?Unexplained weight gain?denies.?HEENTM:?Dentures?denies.?Dizziness?denies.?Glasses/contacts?denies.?Retinopathy?de nies.?Blurred/double vision?denies.?TMJ?denies.?Discharge/drainage?denies.?Implants?denies.?Sore throat?denies.?Dental implants?denies.?Hard of hearing ?denies.?Difficulty chewing/swallowing/speaking?denies.?Nose bleeds?denies.?Sore mouth?denies.?Respiratory:?On Oxygen?denies.?Pneumonia/pleurisy?denies.?Bronchitis?denies.?Emphysema?denies.?C oughing?denies.?Cough blood?denies.?Shortness of breath?denies.?Wheezing?denies.?Cardiovascular:?Pacemaker?denies.?MVP?denies.?WPW?denies.?CHF?denies.?Heart attack?denies.?Septal defect?denies.?Rapid beat?denies.?Chest pain ?denies.?Atrial Fib.?denies.?Murmur/Palpitations?denies.?Gastrointestinal:?Hemorrhoids?denies.?Stomach/Abdominal pain?denies.?Dark blood stool?denies.?Irritable bowel ?denies.?Constipation?denies.?Diarrhea?denies.?Hematology:?Swelling?denies.?Clots?denies.?Varicose Veins?denies.?Bruising?denies.?Bleeding problem?denies.?Genitourinary:?Blood urine?denies.?Frequent/Painfu/urination/bladder control?denies.?Kidney stones?denies.?Infection (UTI)?denies.?Nephropathy?denies.?sex trans dis (STD)?denies.?Prostate?denies.?Musculoskeletal:?Hammertoes?denies.?Bunions?denies.?Back Pain?admits.?Muscle Cramps/ Resting?denies.?Muscle cramps / walking?denies.?Generalized aches and pains?admits.?Weakness?denies.?Integ.:?[place]?denies.?Scars?denies.?Corns/calluses?denies.?Ingrown nails?denies.?Painful nails?denies.?Open Sores?denies.?Rashes?denies.?Neurologic:?Difficulty sleeping?denies.?Brain disorder?denies.?Numbness?denies.?Balance trouble?denies.?Confusion?denies.?Fainting/blackouts?denies.?Tingling?denies.?Tr emors?denies.? * Medical History:? * Surgical History:?back surge ry cataract surgery rhinoplasty excision of mass * Hospitalization/Major Diagno stic Procedure:?Denies Past Hospitalization * Family History:?Mother: nickolas tamayo, diagnosed with Diabetic - NIDDM.?Father: , diagnosed with Other malignant neoplasm of unspecified site.? * Social History:?Tobacco Use:?Tobacco Use/Smoking?Are you a:?nonsmoker ?Additional Findings: Tobacco Non-User?Current non-smoker ?Tobacco use other than smoking?Are you an other tobacco user??No ???Drugs/Alcohol:?Drugs?Have you used drugs other than those for medical reasons in the past 12 months??No ?Alcohol Screen?Did you have a drink containing alcohol in the past year??Yes ?How often did you have a drink containing alcohol in the past year??2 to 4 times a month (2 points) ?How many drinks did you have on a typical day when you were drinking in the past year??5 or 6 drinks (2 points) ?Points?4 ?Interpretation?Positive ???Miscellaneous:?Caffeine: yes, frequency:, 1-2 cups per day. ?Children: yes, 3. ?Exercise: yes, gardening/yard work. ?Marital status: . ?Occupation: Disabled. * Medications:?TakingPen Needl es 05/19 Nystatin-Triamcinolone 012483-5.1 UNIT/GM Cream 1 application Externally Twice a dayInsulin Glargine 100 UNIT/ML Solution as directed Subcutaneous Sildenafil Citrate 100 MG Tablet 1 tablet as needed Orally Once a dayJanuvia 100 MG Tablet 1 tablet Orally Once a dayTamsulosin HCl 0.4 MG Capsule 1 capsule Orally Once a daymetFORMIN HCl ER 500 MG Tablet Extended Release 24 Hour 1 tablet with evening meal Orally Once a dayFLUoxetine HCl 40 MG Capsule 1 capsule Orally Once a dayVitamin D3 50 MCG (2000 UT) Capsule 1 capsule Orally Once a daybuPROPion HCl ER (Smoking Det) 150 MG Tablet Extended Release 12 Hour 1 tablet in the morning Orally Once a dayamLODIPine Besylate 10 MG Tablet 1 tablet Orally Once a dayTaking Pen [place] 05/19 Taking Nystatin-Triamcinolone 362262-0.1 UNIT/GM Cream 1 application Externally Twice a dayTaking Insulin Glargine 100 UNIT/ML Solution as directed Subcutaneous Taking Sildenafil Citrate 100 MG Tablet 1 tablet as needed Orally Once a dayTaking Januvia 100 MG Tablet 1 tablet Orally Once a dayTaking Tamsulosin HCl 0.4 MG Capsule 1 capsule Orally Once a dayTaking metFORMIN HCl ER 500 MG Tablet Extended Release 24 Hour 1 tablet with evening meal Orally Once a dayTaking FLUoxetine HCl 40 MG Capsule 1 capsule Orally Once a dayTaking Vitamin D3 50 MCG (2000 UT) Capsule 1 capsule Orally Once a dayTaking buPROPion HCl ER (Smoking Det) 150 MG Tablet Extended Release 12 Hour 1 tablet in the morning Orally Once a dayTaking amLODIPine Besylate 10 MG Tablet 1 tablet Orally Once a dayNot-Taking/PRNExtra Depth Orthopedic Shoes (1 Pair) with Customized Heat Molded Multidensity Innersoles (3 Pair) as directed Dx: NIDDM (E11.9), Hammertoe Foot Deformity (M20.41,M20.42), Preulcerative Skin Lesion(s) (L85.1)Tadalafil 20 MG Tablet 1 tablet Orally SITagliptin Phosphate 100 MG Tablet 1 tablet Orally Once a dayInsulin Aspart 100 UNIT/ML Solution as directed Subcutaneous Diclofenac Sodium 75 MG Tablet Delayed Release 1 tablet as needed Orally Twice a dayMedication List reviewed and reconciled with the patientNot-Taking/PRN Extra Depth Orthopedic Shoes (1 Pair) with Customized Heat Molded Multidensity Innersoles (3 Pair) as directed Dx: NIDDM (E11.9), Hammertoe Foot Deformity (M20.41,M20.42), Preulcerative Skin Lesion(s) (L85.1)Not-Taking/PRN Tadalafil 20 MG Tablet 1 tablet Orally Not-Taking/PRN SITagliptin Phosphate 100 MG Tablet 1 tablet Orally Once a dayNot-Taking/PRN Insulin Aspart 100 UNIT/ML Solution as directed Subcutaneous Not-Taking/PRN Diclofenac Sodium 75 MG Tablet Delayed Release 1 tablet as needed Orally Twice a dayMedication List reviewed and reconciled with the patient * Allergies:?LisinoprilKatie Sanchez[Allergies Verified] Objective: * Vitals:?Ht: 5 ft 10 in, Wt:2 00, BMI:28.69, Shoe size:11, BS:249. * Examination: ???Ophthalmology Referral: ?DIABETES EYE EXAM?General Examination: ?GENERAL APPEARANCE:?Reveals a pleasant, alert, well-nourished, well- developed, well hydrated individual, who demonstrates proper attention to hygiene/body habitus, and is in no acute distress, Pt serves as own?historian for office visit today.?ORIENTED:?person, place, and time.?FOOT EXAM:?Footwear Evaluation?Neurological: ?SENSORY:?Neurological exam reveals intact sensorium, pain sensation normal, vibration sensation intact, pinprick sensation is normal in the lower extremities, Pt denies, anesthesia, burning, paresthesia, tingling, B/L.?DEEP TENDON REFLEXES:?Achilles, 2/4, B/L.?Vascular: ?DP PULSES:?3/4, B/L.?PT PULSES:?3/4, B/L.?CAPILLARY FILL TIME:?immediate, all digits, B/L.?SKIN TEMPERTURE GRADIENT OF THE LOWER EXTERMITIES:?warm to cool, proximal to distal, B/L.?HAIR GROWTH/TEXTURE/ELASTICITY/TURGOR:?normal, B/L.?PIGMENTATION:?normal, B/L.?EDEMA:?absent, B/L.?Dermatologic: ?SKIN FINDINGS:?Skin exam reveals normal texture, elasticity, and turgor. There are no masses. The interspaces are clear.?Orthopedic: ?MUSCLE STRENGTH:?5/5 all groups in a symmetrical fashion , B/L.?DIGITAL DEFORMITIES:?Digital contracture, PIPJ, 2-5 B/L, incompl-reducible to push-up test, no over, nor underlapping, with evidence of shoe producing skin irritation.?FOOTWEAR:?worn, non-supportive, shoe gear properties exacerbate patient's foot/toe deformity.? Assessment: * Assessment: 1.?Other hammer toe(s) (acqu ired), right foot - M20.41 (Primary), Chronic problem, Worse (4),Rx Management (4)?2.?Other hammer toe(s) (acquired), left foot - M20.42, Chronic problem, Worse (4),Rx Management (4)?3.?Type 2 diabetes mellitus without complications - E11.9? Plan: * Treatment: * Procedure Codes:? * Preventive Medicine:? ??Counseling:?Discussion:?-13: Office or other outpatient visit for the evaluation and management of an established patient, which required a medically appropriate history and/or examination and LOW level of DECISION MAKING for: 1 STABLE ACUTE UNCOMPLICATED PROBLEM, 2 OR MORE MINOR PROBLEMS, OR 1 STABLE CHRONIC PROBLEM, THAT POSE(S) A LOW RISK FOR MORBIDITY/MORTALITY. The visit on the day of the encounter encompassed interpreting the data and educating the patient as to the nature of their condition, treatment options available according to their individual PMH, meds, allergies, and overall health/living conditions, as well as any potential risks or complications that may occur from a failure to adhere to, and participate in, the recommended course of therapy. The discussion included a complete verbal, and/or written explanation of the examination results, any x-rays taken, the proposed diagnosis, and outline of the treatment plan. A schedule for future care needs was also explained. The patient verbalized an understanding of the instructions at this time and agreed to be an active participant in their treatment. If the patient should think of any questions or concerns after the visit, I have encouraged the patient to call the office.?Digital Surgery:?Digital surgery was discussed with the patient, We elected to try conservative treatment at the present time, due to the patients medical history and increased asssociated post-operative risks.?Digital Treatment:?HT- I explained to the patient the possible etiologies of Hammertoes, including genetics/foot type/shoegear/activity level/exercise routine and the risks/benefits of all the different treatment options for their pain including: No treatment at all, Rest, Ice, New/supportive/wider/deeper Shoegear, Digital Padding/Strapping/Taping/Bracing/Gel protective sleeves, Foot/Ankle AFO Bracing, Stretching exercises, Deep Tissue Massage, Arch support/shoe inserts with splay metatarsal padding, and Custom orthoses. I insisted that any digital devices be removed daily and not worn overnight for safety. The patient is to carefully examine the toes daily for any skin irritation while using any splinting or padding device. The advantages and disadvantages of each option were discussed and the patients questions re: shoegear, padding, custom vs prefabricated inserts, activity level, and consistency in home treatment regimens for optimal success were answered to their verbally confirmed satisfaction.?Shoe Gear Counseling:?SHOE Rx - The patient was counseled in great detail on their muscoloskeletal foot and toe deformities which coincided with the dermatological presentations visualized on exam. We discussed how their deformities put the integrity of their feet at risk for potential pedal complications which makes the accomidative diabetic shoes and cutomizable inserts medically necessary. We discussed the different shoe and insert treatment types and options, as well as the important advantages for adhering to regularly wearing these accomidative devices daily. The patient was made aware of the fact that a failure to abide by these recommedations may be deleterious to their foot health as they are able to prevent many pedal complications such as skin irritation, skin ulceration, infection, and even loss of toe/foot/leg/or life. Time was also spent with the patient dispensing and discussing proper diabetic footcare techniques including daily skin moisturization, daily foot inspection for any interruption in skin integrity including open lesions, or sign of infection such as redness/malodor/drainage/swelling. Also discussed and recommended were procedures regarding daily shoe inspection for the presence of internal foreign bodies as well as any visualized irregular shoe or insert wear. Patient questions re: shoes, inserts, and self foot inspections were answered to their satisfaction as the patient verbally confirmed a full understanding of the above information. Patient defers recommended Rx for Extra Depth Orthopedic Shoes with 3 pair of custom heat- molded inserts.?Ulcer:?.? * Follow Up:?1 Year * Images: * Sign off status: Completed true * Provider:?Nena Ernst DPM Date:? Generated for Danny hoffman/Jorge/Speedyitting on:?01/26/2024 02:33 PM EST History and Physical Notes * HPI (History of Present Illness) Category Sub-Category Detail Notes Toe pain Location: B/L feet Duration: several years Course: worse Aggravated by: shoes, any pressure Treatments: change in shoes Examination Category Sub-Category Detail Notes Neurological SENSORY: Neurological exa m reveals intact sensorium, pain sensation normal, vibration sensation intact, pinprick sensation is normal in the lower extremities, Pt denies, anesthesia, burning, paresthesia, tingling, B/L DEEP TENDON REFLEXES: Achilles, 2/4, B/L Dermatologic SKIN FINDINGS: Skin exam reveal s normal texture, elasticity, and turgor. There are no masses. The interspaces are clear Orthopedic FOOTWEAR: worn, non-suppor tive, shoe gear properties exacerbate patient's foot/toe deformity DIGITAL DEFORMITIES: Digital contracture , PIPJ, 2-5 B/L, incompl-reducible to push-up test, no over, nor underlapping, with evidence of shoe producing skin irritation MUSCLE STRENGTH: 5/5 all groups in a symmetrical fashion , B/L General Examination GENERAL APPEARANCE: Reveals a pleasant, alert, well- nourished, well-developed, well hydrated individual, who demonstrates proper attention to hygiene/body habitus, and is in no acute distress, Pt serves as own historian for office visit today FOOT EXAM: Lower Extremity Neurological Exa m performed:: Yes ORIENTED: person, place, and t prema Footwear Evaluation Footwear Evaluation performe d:: Yes Ophthalmology Referral DIABETES EYE EXAM Diabetic Reti nopathy Screening:: Yes Findings of Diabetic Eye Exam:: no retin opathy Vascular DP PULSES(B): 3/4, B/L PT PULSES(B): 3/4, B/L CAPILLARY FILL TIME: immediate, all digi ts, B/L TEMPERTURE GRADIENT(C): warm to cool, pr oximal to distal, B/L TROPHIC CONDITION-TEXTURE/ELASTICITY/TURGOR/HAIR GROWTH(B): normal, B/L EDEMA(C): absent, B/L PIGMENTATION: normal, B/L
--- OUTSIDE RECORDS SUMMARY | 2024-01-26 14:35 | XMS_ITS ---
Author Organization [facility] Address [address] [place] [address] Care Team Providers Care Blasting Entry Specialist Name Role Phone Jorge Chowdhury Primary Care Provider Unav ailable Nena Ernst [phone] Rios Encounters Encounter Location Date Provider Diagnosis [facility] [address] [place] [address] 06/14/2023 Nena Ernst Plan Of Treatment Next Appt Details Provider Name:Nena squires, 07/19/2024 09:00:00 AM, [address] [place], [address], Progress Notes * Farhad GONZALESOB:[birth year] (63 yo M)Acc No.[id number]:06/14/2023 Progress Note Patient:?Johny GONZALES Provider:?Nena Ernst DPM :1960???Age:62 Y???Sex:Male Thanh e:06/14/2023 Address[address] [id number] Pcp:YEHUDA Carrizales Subjective: * Chief Complaints: * ???1. Dr Rios. * Medical History:? Objective: * Vitals:? Assessment: Plan: * Treatment: * Images: * The named appointment provid er may or may not be the originator of this progress note, and it is not deemed complete until electronically signed by the appointment provider. Sign off status: Pending * Provider:?Nena Ernst DPM Date:?12/2023 Generated for Danny hoffman/Jorge/Lorena on:?01/26/2024 02:33 PM EST
== END 2024-01-25 08:02 | disposition home or self-care (01) ==
LOC: HO.ENCR 08:01
PROVIDERS: PCP Physician Assistant Medical; Visit Provider Registered Nurse Diabetes Educator
DX: E11.40 Type 2 diabetes mellitus with diabetic neuropathy, unspecified (principal); Z79.4 Long term (current) use of insulin

== ENCOUNTER → 2024-01-25 08:01 | Outpatient (BNVA) | payer MEDICARE, OTHER, SELFPAY | PROVIDERS: PCP Physician Assistant Medical; Visit Provider Registered Nurse Diabetes Educator | DX: E11.40 Type 2 diabetes mellitus with diabetic neuropathy, unspecified (principal); Z79.4 Long term (current) use of insulin | CPT/HCPCS: 99211 ==

== ENCOUNTER 2024-03-05 09:29 | Emergency (ER) | payer OTHER, MEDICARE, SELFPAY ==
--- NOTE | ~2024-03-05 | CT_ITS ---
EXAMINATION: CT brain without contrast. CTA neck and brain. CLINICAL INFORMATION: Left facial droop COMPARISON: MRI brain 04/14/2023 TECHNIQUE: Noncontrast 5 mm thin axial and reformatted 3 mm thin sagittal and coronal images of brain were obtained. Subsequently 3 minutes thin axial and reformatted 8 mm thick sagittal and coronal images of neck and head were obtained following IV 70 mL Omnipaque 350. This CT examination was performed using dose optimization techniques as appropriate, variously including the following: *Automated exposure control *Adjustment of mA and/or kV according to patient size (this includes techniques or standardized protocols for targeted exams where dose is matched to indication/reason for exam; i.e. extremities or head) *Use of iterative reconstruction technique DLP: 3294 mGy-cm FINDINGS: Brain noncontrast: There is no acute intra-axial, extra-axial bleed, masses or midline shift. There is no acute infarction evolution. There is no edema. The obrien to white matter differentiation is maintained normal. The lateral ventricles are symmetrical in size and configuration but mildly enlarged. Bone windows reveal no calvarial abnormality. There is no scalp soft tissue abnormality. There is mild mucoperiosteal thickening bilateral frontal, ethmoid, sphenoid and maxillary sinuses. The mastoid air cells are well-aerated. CTA NECK: The thoracic arch appears normal caliber. There is normal three-vessel branching of the aortic arch. Mildly tortuous proximal brachiocephalic artery is noted. Origins of bilateral common carotid arteries and vertebral arteries are widely patent. Both common carotid arteries, bulb and bifurcation into external and internal carotid arteries are widely patent. There is no plaque or thrombosis. The right internal carotid artery has proximal medial course close to midline/pharynx. Both internal carotid arteries are widely patent throughout the neck extending to the skull base. Both vertebral arteries appear codominant and widely patent throughout their course both external carotid arteries are widely patent. CTA brain: Both vertebral arteries intracranially unite to form basilar artery and basilar artery appear widely patent. The basilar artery terminates and bilateral symmetrical posterior cerebral arteries. The basilar artery branches are widely patent. Bilateral petrous, cavernous and supraclinoid ICA segments of internal carotid arteries are widely patent. It bifurcates normally into anterior and middle cerebral artery branches. The middle cerebral artery bifurcates bilaterally without aneurysm or dissection.. Anterior cerebral arteries are widely patent. There is small anterior communicating artery present. No evidence of aneurysm, thrombosis or dissection seen. There is normal global capillary circulation seen. The venous sinuses are widely patent. CT/CT angio head neck IMPRESSION:: Unremarkable noncontrast CT head exam. Mild chronic inflammatory process of the sinuses. Unremarkable CTA brain and neck exam. Electronically signed by: Terry Brooks MD 03/05/2024 11:40 AM [facility]
--- NOTE | ~2024-03-05 | XR_ITS ---
EXAMINATION: XR SHOULDER, LEFT CLINICAL INFORMATION: pain COMPARISON: None available. TECHNIQUE: AP external rotation, Grashey, scapular Y, and axillary views of the left shoulder. FINDINGS: Mild loss of left AC joint space with periarticular spurring. The glenohumeral joint space is normal. No visible acute fracture, dislocation or bony erosive changes seen. The soft tissues are normal. XR/XR shoulder LT min 2V IMPRESSION: Mild degenerative changes left AC joint. No visible acute fracture or dislocation seen. Electronically signed by: eTrry Brooks MD 03/05/2024 02:04 PM EST RP
[2024-03-05 09:32] VITALS: BP 186/108; PULSE 80; RESP 16; TEMP 36.6; O2SAT 99; BMI 25.2
--- NOTE | 2024-03-05 09:41 | ECG_ITS ---
Test Reason : STROKE Blood Pressure : / mmHG Vent. Rate : 089 BPM Atrial Rate : 089 BPM P-R Int : 176 ms QRS Dur : 082 ms QT Int : 362 ms P-R-T Axes : 027 -28 039 degrees QTc Int : 440 ms Normal sinus rhythm Normal ECG When compared to the previous EKG of No significant changes seen Referred By: Chico Awad Electronically Signed By:NAHOMI DE LA CRUZ MD
[2024-03-05 09:54] LABS: Basophils Percent Auto 0.2 % (0-2); Eosinophils Absolute Auto 0.1 X10*3/uL (0.0-0.4); Eosinophils Percent Auto 2.6 % (0-4); Hematocrit 36.7 % (42.0-52.0); Hemoglobin 13.4 g/dl (14.0-18.0); Imm Gran Abs Auto 0.01 X10*3/uL (0.00-0.03); Imm Gran Pct Auto 0.2 % (0.0-0.4); Lymphocytes Absolute Auto 1.2 X10*3/uL (1.2-4.9); Lymphocytes Percent Auto 23.3 % (20-40); MANUAL DIFF FLAG NO; Mean Corpuscular HGB Conc 36.5 g/dl (31.0-36.0); Mean Corpuscular Hemoglobin 31.2 pg (27.0-33.0); Mean Corpuscular Volume 85.3 fL (80.0-98.0); Mean Platelet Volume 8.9 fL (9.4-12.4); Monocytes Absolute Auto 0.5 X10*3/uL (0.1-1.2); Monocytes Percent Auto 9.1 % (2-11); Neutrophils Absolute Auto 3.2 x10*3/uL (2.0-8.3); Neutrophils Percent Auto 64.6 % (45-73); Platelet Count 168 X10*3/uL (160-400); Red Cell Distribution Width 12.3 % (11.0-16.0); White Blood Count 4.9 X10*3/uL (4.8-10.8)
--- NOTE | 2024-03-05 09:55 | ED_ITS ---
HPI - Neuro Symptoms/Deficit General Chief Complaint: Stroke Stated Complaint: Facial drooping Time Seen by Provider: 03/05/24 09:50 Source: patient Mode of arrival: ambulatory Limitations: no limitations History of Present Illness HPI Narrative: This is 63 years old the patient presented to the ED with facial droop since last night about 19:00. He has no other complaint he has no speech impairment no weakness in the upper lower extremity his gait is stable. He has history of diabetes, essential hypertension Onset (ago): day(s) (1) Timing confirmed by: spouse History of same: No Severity: mild Relieving factors: none Exacerbating factors: none Context: gradual onset Associated symptoms: denies other symptoms Treatments Prior to Arrival: none Related Data Home Medications ?Medication ?Instructions ?Recorded ?Confirmed diclofenac sodium 75 mg 75 mg PO BID 05/05/20 01/04/24 tablet,delayed release bupropion HCl 150 mg 24 hr tablet, 150 mg PO QAM 11/25/20 01/04/24 extended release fluoxetine 40 mg capsule 40 mg PO DAILY 11/25/20 01/04/24 nystatin-triamcinolone 100,000 1 appl topical DAILY 11/26/20 01/04/24 unit/g-0.1 % topical cream clotrimazole-betamethasone 1 1 appl topical DAILY 10/06/21 01/04/24 %-0.05 % topical cream metoprolol succinate 25 mg 25 mg PO DAILY 03/22/22 01/04/24 tablet,extended release 24 hr Previous Rx's ?Medication ?Instructions ?Recorded lancets #100 ea 08/07/20 amlodipine 10 mg tablet 10 mg PO DAILY #30 tabs 04/01/21 tadalafil 10 mg tablet 10 mg PO DAILY sexual activity 90 10/06/21 days #90 tabs tadalafil 20 mg tablet 20 mg PO DAILY PRN sexual activity 10/06/21 #30 tabs lancets (Accu-Chek Softclix #100 ea 03/22/22 Lancets) tamsulosin 0.4 mg capsule 0.4 mg PO DAILY 90 days #90 caps 05/20/22 blood-glucose meter (Accu-Chek #1 ea 07/05/22 Guide Glucose Meter) blood-glucose meter,continuous #1 ea 08/30/22 (SoundCloud G7 Pit Inspector) cyclobenzaprine 10 mg tablet 10 mg PO TID PRN muscle spasm #10 10/28/22 tabs lidocaine 5 % topical patch 1 patch topical DAILY #15 ea 10/28/22 oxycodone 5 mg tablet 5 mg PO BID PRN severe pain (scale 10/28/22 score 7-10) #5 tabs mirtazapine 7.5 mg tablet 7.5 mg PO BEDTIME #30 tabs 02/09/23 lancets (Accu-Chek Fastclix Lancet #102 ea 03/23/23 Drum) blood sugar diagnostic (Accu-Chek #100 ea 03/24/23 Guide test strips) blood-glucose sensor (Dexcom G7 #3 ea 04/05/23 Sensor device) metformin 500 mg tablet,extended 500 mg PO BEDTIME #30 tabs 08/14/23 release 24 hr insulin aspart (niacinamide) See Rx Instructions subcut DAILY 10/26/23 (U-100) 100 unit/mL subcutaneous 30 days #30 mL solution tirzepatide 7.5 mg/0.5 mL 7.5 mg (0.5 mL) subcut QWEEK #6 mL 12/20/23 subcutaneous pen injector cholecalciferol (vitamin D3) 50 50 mcg PO DAILY #90 caps 01/08/24 mcg (2,000 unit) capsule (Vitamin D3) sub-q insulin device, 20 unit #30 ea 02/07/24 (V-GO 20 device) prednisone 20 mg tablet 60 mg (3 x 20 mg) PO DAILY 4 days 03/05/24 #12 tabs Allergies Allergy/AdvReac Type Severity Reaction Status Date / Time lisinopril Allergy Severe Angioedema Verified 03/05/24 09:33 canagliflozin [Invokana] Allergy Unknown polyuria Verified 03/05/24 09:33 liraglutide [Victoza] AdvReac Unknown nausea, Verified 03/05/24 09:33 constipation Review of Systems 2 Constitutional: Constitutional: Reports no additional constitutional complaints Cardiovascular: Cardiovascular: Reports no additional cardiovascular complaints Respiratory: Respiratory: Reports no additional respiratory complaints [facility] Past Medical History [facility] Narrative: History of hypertension, diabetes, alcohol abuse Medical History Hypersomnia Snoring Cognitive disorder Essential hypertension Type 2 diabetes mellitus with diabetic neuropathy, unspecified (~2003) Depression Alcohol abuse Hepatitis C Hepatitis B NAFLD (nonalcoholic fatty liver disease) Tubular adenoma of colon (~2019) BPH loc w urin obs/LUTS Frequency of urination Erectile dysfunction Arthritis Carpal tunnel syndrome Overweight (BMI 25.0-29.9) Surgical History History of rhinoplasty History of colonoscopy History of lumbar surgery History of cataract surgery History of excision of mass Family History Family History Father Myocardial infarct Colon cancer Mother Diabetes Social History Social History Household Members: Spouse Household Members Other:: Alcohol intake: current Alcohol intake frequency: a few times a month Alcohol type: beer and hard liquor Patient Tobacco Use Status: Never used Tobacco Substance Use Type: Crack/Cocaine Advance Directives: Yes Advance Directives Information Provided: Yes Advance Directives on File: Yes Advance Directives Date on File: 03/05/24 Current occupational status: disabled Physical Exam 2 Vital Signs: Vital Signs: Last Vital Signs Temp 97.7 F 03/05/24 10:15 Pulse 77 03/05/24 13:33 Resp 17 03/05/24 13:33 BP 178/104 H 03/05/24 13:33 Pulse Ox 99 03/05/24 13:33 O2 Del Method Room Air 03/05/24 13:33 BMI result Body Mass Index 25.2 He looks well he is not toxic-appearing he is comfortable in the stretcher Const: General: cooperative, healthy appearing and comfortable Nutritional Appearance: average body habitus Orientation/consciousness: patient oriented x3 Limitations: no limitations HEENT: Head: Yes normal to inspection Ears: hearing grossly normal bilaterally General nose exam: Normal external nose present Face and sinus: Yes normal facial exam Mouth: Normal oral and palatal mucosa present Throat: Yes posterior oropharynx normal Neck: Neck: Yes normal visual inspection Chest: Chest palpation & inspection: normal inspection of the chest Resp: Effort & Inspection: normal respiratory effort and able to speak in complete sentences Auscultation: clear to auscultation bilaterally Cardio: Jugular venous distension: no JVD Rate: regular rate Rhythm: r egular rhythm GI: Inspection: Yes normal to inspection Palpation (GI): Soft to palpation, not firm, nontender and no guarding Neuro: Other: On re-examination he does have left facial droop, is strength in the upper lower extremities normal is gait is normal speech is clear no aphasia no dysarthria General: patient oriented x3 Course Reevaluation(s) Reevaluation #1: On re-examination patient remained stable his gait is normal no deficit in strength in the upper or lower extremity, speech is clear no aphasia, [id number] normal, gait normal he has a persistent left facial droop his CTA head and neck are negative. 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 Shared decision making with the patient daughter and son will DC home prednisone , pt and family very comfortable with the plan of care, patient will follow-up with the primary care physician, also we will call his neurology for follow-up he has a neurologist in [facility],that he see regularly Time: 14:50 Medications Administered Discontinued Medications Generic Name Dose Route Start Last Admin Trade Name Freq PRN Reason Stop Dose Admin Iohexol 100 ml 03/05/24 11:15 03/05/24 11:15 Iohexol 350 Mg/Ml 100 Ml Infus..Btl IV 03/05/24 11:16 70 ml ONCE ONE Administration Medical Decision Making Medical Decision Making [facility] Narrative: Patient presented to ED ambulatory with a chief complaint of left facial droop we will obtain imaging of the brain Differential Diagnosis Differential Diagnoses: The differential diagnosis associated with the presentation includes Differential diagnosis CVA/solano palsy Admission/Observation Consideration of admission/observation: Escalation of care including admission/observation considered Lab Data [facility] Lab Attestation statement: I reviewed the patient's lab results. 03/05/24 09:48 03/05/24 09:48 Labs: Lab Results 03/05/24 Range/Units 09:48 WBC 4.9 (4.8-10.8) X10*3/uL RBC 4.30 L (4.60-5.80) X10*6/uL Hgb 13.4 L (14.0-18.0) g/dl Hct 36.7 L (42.0-52.0) % MCV 85.3 (80.0-98.0) fL MCH 31.2 (27.0-33.0) pg MCHC 36.5 H (31.0-36.0) g/dl RDW 12.3 (11.0-16.0) % Plt Count 168 (160-400) X10*3/uL MPV 8.9 L (9.4-12.4) fL Immature Gran % (Auto) 0.2 (0.0-0.4) % Neut % (Auto) 64.6 (45-73) % Lymph % (Auto) 23.3 (20-40) % [place] % (Auto) 9.1 (2-11) % Eos % (Auto) 2.6 (0-4) % Baso % (Auto) 0.2 (0-2) % Lymph # (Auto) 1.2 (1.2-4.9) X10*3/uL [place] # (Auto) 0.5 (0.1-1.2) X10*3/uL Eos # (Auto) 0.1 (0.0-0.4) X10*3/uL Baso # (Auto) 0.0 (0.0-0.2) X10*3/uL Abs Immat Gran (auto) 0.01 (0.00-0.03) X10*3/uL Absolute Neuts (auto) 3.2 (2.0-8.3) x10*3/uL Absolute Nucleated RBC 0.000 (0.0-0.012) X10*3/uL Nucleated RBC % (auto) 0.0 (0.0-0.2) /100WBC PT 12.3 (10.9-12.4) SEC INR 1.1 (0.9-1.1) Sodium 139 (135-145) mmol/L Potassium 3.9 (3.3-5.1) mmol/L Chloride 105 (96-108) mmol/L Carbon Dioxide 28 (22-29) mmol/L Anion Gap 10 L (12-20) BUN 14 (9-16) mg/dL Creatinine 1.04 (0.5-1.4) mg/dL Estim Creat Clear Calc 73.1 Estimated GFR > 60 Random Glucose 164 H (60-115) mg/dL Calcium 9.6 (8.4-10.2) mg/dL Total Bilirubin 0.8 (0.0-1.0) mg/dL AST 21 (5-37) U/L ALT 14 (0-40) U/L Alkaline Phosphatase 85 (39-117) U/L Troponin I High Sens 5.1 (<3.5-35.0) ng/L Total Protein 7.4 (6.5-8.0) g/dL Albumin 4.3 (3.5-5.0) g/dL Independent Interpretation I performed an independent interpretation of an: CT Scan Radiology Impression Discussion of test interpretation with radiology: I have reviewed the radiologist's reading. Radiologist Impression: CTA brain: Both vertebral arteries intracranially unite to form basilar artery and basilar artery appear widely patent. The basilar artery terminates and bilateral symmetrical posterior cerebral arteries. The basilar artery branches are widely patent. Bilateral petrous, cavernous and supraclinoid ICA segments of internal carotid arteries are widely patent. It bifurcates normally into anterior and middle cerebral artery branches. The middle cerebral artery bifurcates bilaterally without aneurysm or dissection.. Anterior cerebral arteries are widely patent. There is small anterior communicating artery present. No evidence of aneurysm, thrombosis or dissection seen. There is normal global capillary circulation seen. The venous sinuses are widely patent. CT/CT angio head neck IMPRESSION:: Unremarkable noncontrast CT head exam. Mild chronic inflammatory process of the sinuses. Unremarkable CTA brain and neck exam. Independent Historian Clinical information obtained from an independent historian. History obtained from or confirmed by: Spouse Tests considered The following testing was considered but not selected: I consider MRI of the brain however his exam is more consistent with solano palsy Discharge Plan Discharge Clinical Impression: Solano palsy Patient Disposition: Home, Self-Care Instructions: Solano Palsy (ED) Additional Instructions: You should follow-up with your primary care physician and also with a neurologist, please call today and make an appointment we sent a prescription for prednisone to your pharmacy. Please return to the emergency room with a feeling worse any concern Prescriptions: New prednisone 20 mg tablet 60 mg PO DAILY 4 Days Qty: 12 0RF No Action tamsulosin 0.4 mg capsule 0.4 mg PO DAILY 90 Days Qty: 90 3RF (DME) blood-glucose meter [Accu-Chek Guide Glucose Meter] Misc See Rx Instructions .Route Qty: 1 0RF Rx Instructions: As directed tests 4 X/day (DME) lancets [Accu-Chek Fastclix Lancet Drum] Misc See Rx Instructions .ROUTE .COMPLEX Qty: 102 6RF Dose Instruction: USE FOUR TIMES A DAY Rx Instructions: USE FOUR TIMES A DAY (DME) Accu-Chek Guide test strips Strip See Rx Instructions .Route Qty: 100 5RF Rx Instructions: As directed tests 4 X/day insulin aspart (niacinamide) 100 unit/mL solution See Rx Instructions subcut DAILY 30 Days Qty: 30 4RF Rx Instructions: Up to 76 units via V Go subcut daily; cholecalciferol (vitamin D3) [Vitamin D3] 50 mcg (2,000 unit) capsule 50 mcg PO DAILY Qty: 90 5RF (DME) V-GO 20 Device See Rx Instructions .ROUTE .COMPLEX Qty: 30 1RF Dose Instruction: ONE DAILY Rx Instructions: ONE DAILY cyclobenzaprine 10 mg tablet 10 mg PO TID PRN (Reason: muscle spasm) Qty: 10 0RF lidocaine 5 % adhesive patch,medicated 1 patch topical DAILY Qty: 15 0RF Rx Instructions: leave on most painful area for up to 12 hrs oxycodone 5 mg tablet 5 mg PO BID PRN (Reason: severe pain (scale score 7-10)) Qty: 5 0RF Rx Instructions: Partial Fill upon patient request. (DME) lancets Misc See Rx Instructions topical TID Qty: 100 6RF Rx Instructions: 4x daily nystatin-triamcinolone 100,000-0.1 unit/g-% cream 1 appl topical DAILY fluoxetine 40 mg capsule 40 mg PO DAILY bupropion HCl 150 mg tablet extended release 24 hr 150 mg PO QAM diclofenac sodium 75 mg tablet,delayed release (DR/EC) 75 mg PO BID amlodipine 10 mg tablet 10 mg PO DAILY Qty: 30 11RF metoprolol succinate 25 mg tablet extended release 24 hr 25 mg PO DAILY (DME) lancets [Accu-Chek Softclix Lancets] Misc See Rx Instructions .Route Qty: 100 4RF Rx Instructions: As directed-tests 4X/day clotrimazole-betamethasone 1-0.05 % cream 1 appl topical DAILY tadalafil 10 mg tablet 10 mg PO DAILY 90 Days Qty: 90 0RF tadalafil 20 mg tablet 20 mg PO DAILY PRN (Reason: sexual activity) Qty: 30 1RF Rx Instructions: On demand time of sexual activity (DME) Dexcom G7 Pit Inspector Misc See Rx Instructions .Route Qty: 1 0RF Rx Instructions: As directed metformin 500 mg tablet extended release 24 hr 500 mg PO BEDTIME Qty: 30 6RF (DME) Dexcom G7 Sensor Device See Rx Instructions .Route Qty: 3 4RF Rx Instructions: As directed change every 10 days mirtazapine 7.5 mg tablet 7.5 mg PO BEDTIME Qty: 30 6RF tirzepatide 7.5 mg/0.5 mL pen injector 7.5 mg subcut QWEEK Qty: 6 3RF Referrals: Compa Medina PA-C [Primary Care Provider] - 03/07/24 Print Language: Croatian
[2024-03-05 10:00] LABS: INTERNATIONAL NORM RATIO 1.1 (0.9-1.1); Prothrombin Time 12.3 SEC (10.9-12.4)
[2024-03-05 10:12] LABS: Alanine Aminotransferase 14 U/L (0-40); Albumin Level 4.3 g/dL (3.5-5.0); Alkaline Phosphatase 85 U/L (39-117); Anion Gap 10 (12-20); Aspartate Amino Transferase 21 U/L (5-37); Bilirubin Total 0.8 mg/dL (0.0-1.0); Blood Urea Nitrogen 14 mg/dL (9-16); Calcium 9.6 mg/dL (8.4-10.2); Carbon Dioxide 28 mmol/L (22-29); Chloride 105 mmol/L (96-108); Creatinine Clr Calc Pharmacy 73.1; Estimated Glomerular Filt Rate > 60; Glucose Random 164 mg/dL (60-115); Potassium 3.9 mmol/L (3.3-5.1); Sodium 139 mmol/L (135-145); Total Protein 7.4 g/dL (6.5-8.0)
[2024-03-05 10:15] VITALS: BP 166/97; PULSE 74; RESP 16; TEMP 36.5; O2SAT 97
[2024-03-05 10:19] LABS: Troponin-I High Sensitivity 5.1 ng/L (<3.5-35.0)
[2024-03-05] MEDS: iohexoL 350 MG/ML 100 ML INFUS..BTL IV (11:15)
--- NOTE | 2024-03-05 12:18 | MHC.CM.PN ---
This CM met with pt to complete a HCP per his request, HCP now on file.
[2024-03-05 13:33] VITALS: BP 178/104; PULSE 77; RESP 17; O2SAT 99
[2024-03-05 14:57] VITALS: BP 178/104; PULSE 77; RESP 17; TEMP -17.7; TEMP 0; O2SAT 99
== END 2024-03-05 14:59 | disposition home or self-care (01) ==
PROVIDERS: Emergency Provider Emergency Medicine; PCP Physician Assistant
DX: G51.0 Bell's palsy (principal); M25.512 Pain in left shoulder; E11.9 Type 2 diabetes mellitus without complications; Z79.4 Long term (current) use of insulin; Z51.81 Encounter for therapeutic drug level monitoring; Z79.899 Other long term (current) drug therapy
CPT/HCPCS: 36415; 70496; 70498; 73030; 80053; 84484; 85025; 85610; 93005; 99284; 99285; Q9967

== ENCOUNTER → 2024-03-05 09:41 | Outpatient (BNV) | payer OTHER, MEDICARE, SELFPAY | PROVIDERS: Emergency Provider Emergency Medicine; PCP Physician Assistant; Visit Provider Internal Medicine Cardiovascular Disease | DX: R29.810 Facial weakness (principal) | CPT/HCPCS: 93010 ==

== ENCOUNTER → 2024-03-05 13:12 | Outpatient (BNV) | payer OTHER, MEDICARE, SELFPAY | PROVIDERS: Emergency Provider Emergency Medicine; PCP Physician Assistant; Visit Provider Radiology Diagnostic Radiology | DX: M25.512 Pain in left shoulder (principal) | CPT/HCPCS: 73030 ==

== ENCOUNTER 2024-03-11 12:22 | Outpatient (AMB) | payer MEDICARE, SELFPAY ==
[2024-03-11 12:34] VITALS: BP 130/84; PULSE 78; O2SAT 97; BMI 25.4
--- NOTE | 2024-03-11 12:34 | MHC.PC.OV ---
Vital Signs 03/11/24 12:34 Height 5 ft 10 in Weight 177 lb 6 oz BMI 25.4 BP 130/84 Blood Pressure Location Lt brachial Position Sitting Pulse 78 Pulse Source Pulse Oximeter Pulse Oximetry (%) 97 Oxygen Delivery Method Room Air Intake Visit Reasons: establish care/ ED f/u 03/04 Drawing Kiln Operator Required: No Accompanied by: Self / Same As Patient Allergies lisinopril Allergy (Severe, Verified 03/11/24 12:55) Angioedema canagliflozin [Invokana] Allergy (Unknown, Verified 03/11/24 12:55) polyuria liraglutide [Victoza] Adverse Reaction (Unknown, Verified 03/11/24 12:55) nausea, constipation Medication List - Last Reconciled 03/11/24 by Mau Fang MD amlodipine 10 mg PO DAILY blood sugar diagnostic (Accu-Chek Guide test strips) As directed tests 4 X/day blood-glucose meter (Accu-Chek Guide Glucose Meter) As directed tests 4 X/day blood-glucose meter,continuous ([employer] G7 Wrapping Machine Tender) As directed blood-glucose sensor ([employer] G7 Sensor device) As directed change every 10 days bupropion HCl XL 150 mg PO QAM cholecalciferol (vitamin D3) (Vitamin D3) 50 mcg PO DAILY clotrimazole-betamethasone 1-0.05 % 1 appl topical DAILY cyclobenzaprine 10 mg PO TID PRN diclofenac sodium 75 mg PO BID fluoxetine 40 mg PO DAILY insulin aspart (niacinamide) 100 unit/mL Up to 76 units via V Go subcut daily; 30 days lancets 4x daily lancets (Accu-Chek Softclix Lancets) As directed-tests 4X/day lancets (Accu-Chek Fastclix Lancet Drum) USE FOUR TIMES A DAY lidocaine 5% 1 patch topical DAILY metformin ER 500 mg PO BEDTIME metoprolol succinate ER 25 mg PO DAILY mirtazapine 7.5 mg PO BEDTIME nystatin-triamcinolone 100,000-0.1 unit/g-% 1 appl topical DAILY sub-q insulin device, 20 unit (V-GO 20 device) ONE DAILY tadalafil 20 mg PO DAILY PRN tamsulosin 0.4 mg PO DAILY 90 days tirzepatide 7.5 mg (0.5 mL) subcut QWEEK Tobacco use date assessed: 03/11/24 Fall risk assessment: No Falls in past year Last assessed Fall Risk: 03/11/24 Dental Screening Dental Screen Date: 03/11/24 Did you have a dental visit in the last 12 months?: Yes Did you have a dental problem in the last 6 months where you did not have access to dental care?: No Was dental information given to patient?: Patient has dentist HPI establish care/ ED f/u 03/04 HPI Details Patient comes in today for his HDF follow up and to establish care - is a new patient to the practice His previous PCP was at [facility] who he said left the practice recently but he was also seeing Dr. Zarate over at [facility] several years ago - last visit with Dr. Zarate was on 02/24/2015 Patient went to the ER at [facility] last week on 03/05/2024 for evaluation of a sudden onset of left facial drooping and he was concerned at the time that he could be suffering from a stroke Work ups done at the ER, including labs as well as CT and CTA of the head and neck, all came back normal He was reassured that he did not have a stroke and diagnosed with Solano's Palsy instead He was prescribed some oral Prednisone for a few days and instructed to follow up with his PCP and possibly also with neurology in a few days Patient states that he currently still has (+) numbness and paralysis of the left side of his face and drools (on the left side) when he drinks He also reports some mild problems with swallowing but denies choking when he eats or drinks Adds that he has been having some problems with his teeth/dentures which may be contributing to some of his left facial symptoms as well He denies any headaches or dizziness Denies any chest pains, no increased SOB No nausea/vomiting, no abdominal pain No change in bowel habits noted He is already seeing Dr. Nayak for follow up and management of his diabetes [facility] Medical History Lumbar degenerative disc disease Vitamin D deficiency Hypersomnia Snoring Cognitive disorder Essential hypertension Type 2 diabetes mellitus with diabetic neuropathy, unspecified (~2003) Depression Alcohol abuse Hepatitis C Hepatitis B NAFLD (nonalcoholic fatty liver disease) Tubular adenoma of colon (~2019) BPH loc w urin obs/LUTS Frequency of urination Erectile dysfunction Arthritis Carpal tunnel syndrome Overweight (BMI 25.0-29.9) Surgical History History of rhinoplasty History of colonoscopy History of lumbar surgery History of cataract surgery History of excision of mass Family History Father Myocardial infarct Colon cancer Mother Diabetes Social History Household Members: Spouse Household Members Other:: Housing: House Alcohol intake: current Alcohol intake frequency: a few times a month Alcohol type: beer and hard liquor Patient Tobacco Use Status: Never used Tobacco e-Cigarette/Vaping Use: Never Used Substance Use Type: Crack/Cocaine Advance Directives Date on File: 03/05/24 service: Yes Current occupational status: disabled Current occupational exposures/hazards: No Cognitive needs: No Hearing needs: No Vision needs: No Questionnaire PHQ-9 Over the last 2 weeks, how often have you been bothered by any of the following problems? 1. Little interest or pleasure in doing things: nearly every day 2. Feeling down, depressed, or hopeless: nearly every day 3. Trouble falling or staying asleep, or sleeping too much: nearly every day 4. Feeling tired or having little energy: nearly every day 5. Poor appetite or overeating: nearly every day 6. Feeling bad about yourself - or that you are a failure or have let yourself or your family down: nearly every day 7. Trouble concentrating on things, such as reading the newspaper or watching television: nearly every day 8. Moving or speaking so slowly that other people could have noticed. Or the opposite - being so fidgety or restless that you have been moving around a lot more than usual: nearly every day 9. Thoughts that you would be better off or of hurting yourself in some way: nearly every day Total score: 27 Depression Screening Interpretation: Positive Depression Screening Follow-up: Existing condition and In treatment Depression Screening Done: Yes 07541 - PHQ-9 Billing: Yes Source: Developed by Drs. Almas Gaitan, Tomasa Lee, Quirino Collazo and colleagues, with an educational graham from [employer]. Thrive Questionnaire Date Thrive assessed: 03/11/24 I am a: Patient What is your living situation today?: I have a steady place to live Within the past 12 months, did the food you bought not last and you didn't have the money to get more?: Never true Within the past 12 months, did you worry whether your food would run out before you got money to buy more?: Sometimes True Do you have trouble paying for medicines?: No Do you have trouble getting transportation to medical appointments?: Yes Do you have trouble paying your heating and electricity bill?: No Do you have trouble taking care of your child, family member or friend?: No Do you have trouble with day-to-day activities such as bathing, preparing meals, shopping, managing finances, etc.?: Yes Are you currently unemployed and looking for a job?: No Are you interested in more education?: No Please select the resources that you would like help with: Transportation, Care for elder or disabled and Daily support Currently or been in a relationship where the following occur: No concerns reported THRIVE Score: 2 AUDIT C Alcohol Use Questionnaire (AUDIT-C) 1. How often do you have a drink containing alcohol?: 2-3 times a week 2. How many drinks containing alcohol do you have on a typical day when you are drinking?: 3 or 4 3. How often do you have six or more drinks on one occasion?: Less than monthly Total Score: 5 Score Reviewed/Action Taken: Yes YASEMIN-7 AMB Questionnaire YASEMIN-7 Date YASEMIN - 7 assessed: 03/11/24 Feeling nervous, anxious, or on edge: 3 = Nearly every day Not being able to stop or control worryin = Nearly every day Worrying too much about different things: 3 = Nearly every day Trouble relaxin = Nearly every day Being so restless that it is hard to sit still: 3 = Nearly every day Becoming easily annoyed or irritable: 3 = Nearly every day Feeling afraid as if something awful might happen: 3 = Nearly every day Total YASEMIN-7 score (0-4 normal; 5-9 mild; 10-14 moderate; 15-21 severe): 21 Source: Developed by Drs. Almas Gaitan, Tomasa Lee, Quirino Collazo and colleagues, with an educational graham from [employer]. Review of Systems Const Denies chills, Denies fatigue, Denies fever(s) and Denies headache(s) ENT Details: (+) left facial drooping Reports as per HPI, Reports dysphagia (mild - due to current Solano's palsy ), Denies dizziness, Denies otalgia, Denies headache(s), Denies neck pain, Denies odynophagia and Denies sore throat Card Denies chest pain, Denies palpitations and Denies dyspnea Resp Denies chest congestion, Denies cough and Denies dyspnea GI Denies abdominal pain, Denies constipation, Reports dysphagia (mild - due to current Solano's palsy ), Denies heartburn, Denies diarrhea, Denies nausea, Denies odynophagia and Denies vomiting Denies dysuria, Denies nocturia and Denies urinary frequency Musc Denies back pain and Denies neck pain Skin/Breast Denies rash Neuro Denies dizziness and Denies headache(s) Endo Denies fatigue and Denies palpitations Physical exam (Primary Care) Vital Signs: Last Vital Signs Pulse 78 03/11/24 12:34 BP 130/84 03/11/24 12:34 Pulse Ox 97 03/11/24 12:34 Oxygen Delivery Method Room Air 03/11/24 12:34 BMI result Body Mass Index 25.4 Tobacco/Smoking Status: Tobacco use Status Tobacco use date assessed 03/11/24 03/11/24 12:40 Patient Tobacco Use Status Never used Tobacco 03/11/24 12:40 e-Cigarette/Vaping Use Never Used 03/11/24 12:40 PHQ-9: PHQ-9 Score PHQ-9: Total score 27 03/11/24 13:25 Depression Screening Interpretation: Positive Depression Screening Follow-up: Existing condition and In treatment Thrive Assessment: Date of Thrive Assessment Date Thrive assessed 03/11/24 03/11/24 12:40 Currently or been in a relationship where the following occur: No concerns reported Const General: no acute distress and alert HENMT Other: (+) left facial droop, with shallow left nasolabial fold Ears: TM's normal bilaterally and EAC's normal Face and sinus: Yes Flattened naso-labial fold present (on the left side) Mouth: tongue normal and oropharynx normal Teeth and gingiva: edentulous Throat: Yes posterior oropharynx normal, Yes tonsils normal (no TP congestion) and Yes uvula midline Eyes Eyelids: No lid lag Neck Neck: Yes supple and No lymphadenopathy Thyroid: Thyroid normal Resp Auscultation: clear to auscultation bilaterally, no rales and no wheezes Cardio Rate: regular rate Rhythm: regular rhythm Heart sounds: no murmurs GI Palpation (GI): Soft to palpation and nontender Auscultation: normal bowel sounds General: Yes no CVA tenderness Back/Spine/Pelvis Back: no CVA tenderness Thoracic/Lumbar Spine: No lumbar spinal tenderness Skin Rashes: no rashes Neuro Cognition (Neuro): normal cognition Gait exam (Neuro): Normal gait present Extrem General: Yes no clubbing, cyanosis or edema Coding Level of Care Code New Pt Level 4 (35816) Diagnoses Solano's palsy G51.0 Type 2 diabetes mellitus with diabetic neuropathy, with long-term current use of insulin E11.40; Z79.4 Diabetes mellitus continuous churn buttermaker insulin use: with continuous churn buttermaker use Essential hypertension I10 RACHEL (obstructive sleep apnea) G47.33 Aneurysm of ascending aorta without rupture I71.21 Presence of rupture: without rupture Vitamin D deficiency E55.9 Degeneration of intervertebral disc of lumbar region with discogenic back pain M51.360 Disc-related pain type: discogenic back pain only BPH loc w urin obs/LUTS N40.1 Erectile dysfunction, unspecified erectile dysfunction type N52.9 Erectile dysfunction type: unspecified Alcohol abuse F10.10 Episode of recurrent major depressive disorder, unspecified depression episode severity F33.9 Depression Type: major depressive disorder Major depression recurrence: recurrent Active/Remission status: currently active Major depression episode severity: unspecified Overweight (BMI 25.0-29.9) E66.3 Additional Codes PHQ-9 - 14248 - PHQ-9 Billing: Yes ([id number]) Assessment & Plan Assessment & Plan (1) Solano's palsy: Code(s): G51.0 - Solano's palsy Category: Medical Plan: Patient is again reassured of the benign nature of Solano's Palsy and advised that he should expect a full recovery but this can take anywhere from a few weeks to a few months He was already prescribed some oral Prednisone at the ER a few days ago, which he just completed Will go ahead and start him empirically on oral Valtrex 1 mg Q 8 hours x 7 days Will also refer him to neurology for further recommendations although there may not be much else they would add to what we have already discussed with patient (2) Type 2 diabetes mellitus with diabetic neuropathy, unspecified: Onset Date: ~2003 Comment: MD/PROVIDER: RECOMMEND monitoring thiamine related to hx of neuropathy/ alcohol abuse and c/o memory loss Code(s): E11.40 - Type 2 diabetes mellitus with diabetic neuropathy, unspecified Category: Medical Qualifiers: Diabetes mellitus half-way insulin use: with half-way use Qualified Code(s): E11.40 - Type 2 diabetes mellitus with diabetic neuropathy, unspecified; Z79.4 - USP (current) use of insulin Plan: His HgbA1c was most recently at 7.6% a few months ago on 12/20/2023 - goal is <7.0% Reinforced diabetic diet He is currently on Metformin ER 500 mg QD (although he appears to be NOT taking this per recent endocrinology notes), Mounjaro 7.5 mg SQ once a week and Fiasp via [employer] 20 3 clicks with meals Follow up with endocrinology and with diabetic concrete paver as scheduled (3) Essential hypertension: Code(s): I10 - Essential (primary) hypertension Category: Medical Plan: Reinforced low sodium diet - goal is systolic BP of 120 mm or less Continue Amlodipine 10 mg QD and Metoprolol ER 25 mg QD (4) RACHEL (obstructive sleep apnea): Comment: A moderate degree of sleep apnea. The AHI was 18/hr and oxygen conchis was 76%. Code(s): G47.33 - Obstructive sleep apnea (adult) (pediatric) Category: Medical Plan: Home sleep study done came back significant for moderate degree of sleep apnea Patient has declined use of CPAP in the past but agreed to start using it back in May 2023 APAP 5-20 cm H2O ordered by Sleep Medicine Follow up with Sleep Medicine as scheduled (5) Ascending aortic aneurysm: Comment: (4.5cm - noted on prior [facility] CT scans) Code(s): I71.21 - Aneurysm of the ascending aorta, without rupture Category: Medical Qualifiers: Presence of rupture: without rupture Qualified Code(s): I71.21 - Aneurysm of the ascending aorta, without rupture Plan: Will try to obtain copies of his most recent imaging studies from [facility] for review and we will then determine when he should have follow up scans on this for continuing surveillance (6) Vitamin D deficiency: Code(s): E55.9 - Vitamin D deficiency, unspecified Category: Medical Plan: Continue Vitamin D3 2000 units QD (7) Lumbar degenerative disc disease: Comment: Hx of L3-L4, L4-L5 fusion surgery Code(s): M51.369 - Other intervertebral disc degeneration, lumbar region without mention of lumbar back pain or lower extremity pain Category: Medical Qualifiers: Disc-related pain type: discogenic back pain only Qualified Code(s): M51.360 - Other intervertebral disc degeneration, lumbar region with discogenic back pain only Plan: Reinforced activity and weight-lifting restrictions to minimize aggravating his low back pain Continue Diclofenac 75 mg BID PRN and Cyclobenzaprine 10 mg TID PRN (8) BPH loc w urin obs/LUTS: Code(s): N40.1 - Benign prostatic hyperplasia with lower urinary tract symptoms Category: Medical Plan: Continue Tamsulosin 0.4 mg Q HS Follow up with urology as scheduled (9) Erectile dysfunction: Code(s): N52.9 - Male erectile dysfunction, unspecified Category: Medical Qualifiers: Erectile dysfunction type: unspecified Qualified Code(s): N52.9 - Male erectile dysfunction, unspecified Plan: Continue Tadalafil 20 mg PRN (10) Alcohol abuse: Comment: continues to drink alcohol - discussed risks- continue to cut back Code(s): F10.10 - Alcohol abuse, uncomplicated Category: Social Hx Plan: Patient is counseled on abstinence (11) Depression: Comment: No suicidal homicidal ideation= declined intervention No psychotherapy Encouraged to discuss further with PCP- Code(s): F32.9 - Major depressive disorder, single episode, unspecified Category: Medical Qualifiers: Depression Type: major depressive disorder Major depression recurrence: recurrent Active/Remission status: currently active Major depression episode severity: unspecified Qualified Code(s): F33.9 - Major depressive disorder, recurrent, unspecified Plan: Continue Bupropion XL 150 mg QD, Fluoxetine 40 mg QD and Mirtazapine 7.5 mg Q HS He is advised to consider referral to psychiatry for continuing management of his mood disorder (12) Overweight (BMI 25.0-29.9): Code(s): E66.3 - Overweight Category: Medical Plan: Reinforced diet/exercise as tolerated/lose weight Plan Follow up in 3 months Orders: Orders Lipid Panel 3 Months E78.00 - Pure hypercholesterolemia, unspecified Microalbumin, Random (w Creat) 3 Months E11.9 - Type 2 diabetes mellitus without complications TSH reflex Free T4 3 Months E78.00 - Pure hypercholesterolemia, unspecified UA CC w/rflx Micro + Cult 3 Months R30.0 - Dysuria Complete Blood Count Auto Diff 3 Months D64.9 - Anemia, unspecified Comprehensive [place]. Panel Fast 3 Months E78.00 - Pure hypercholesterolemia, unspecified Hemoglobin A1c 3 Months E11.9 - Type 2 diabetes mellitus without complications Vitamin D 25-OH Total 3 Months E55.9 - Vitamin D deficiency, unspecified Referrals Neurology Referral G51.0 - Solano's palsy Medications: New valacyclovir 1,000 mg PO Q8H 7 days 21 tabs 0RF B02.9 - Zoster without complications
== END 2024-03-11 13:18 | disposition home or self-care (01) ==
PROVIDERS: PCP Physician Assistant; Visit Provider Internal Medicine
DX: E11.40 Type 2 diabetes mellitus with diabetic neuropathy, unspecified (principal); I71.21 Aneurysm of the ascending aorta, without rupture; Z79.4 Long term (current) use of insulin; F33.9 Major depressive disorder, recurrent, unspecified; G51.0 Bell's palsy; I10 Essential (primary) hypertension; G47.33 Obstructive sleep apnea (adult) (pediatric); E55.9 Vitamin D deficiency, unspecified; M51.360 Other intervertebral disc degeneration, lumbar region with discogenic back pain only; N40.1 Benign prostatic hyperplasia with lower urinary tract symptoms; N52.9 Male erectile dysfunction, unspecified; F10.10 Alcohol abuse, uncomplicated

== ENCOUNTER → 2024-03-11 12:22 | Outpatient (BNVA) | payer MEDICARE, SELFPAY | PROVIDERS: PCP Physician Assistant; Visit Provider Internal Medicine | DX: G51.0 Bell's palsy (principal); E11.40 Type 2 diabetes mellitus with diabetic neuropathy, unspecified; I10 Essential (primary) hypertension; G47.33 Obstructive sleep apnea (adult) (pediatric); I71.21 Aneurysm of the ascending aorta, without rupture; E55.9 Vitamin D deficiency, unspecified; M51.360 Other intervertebral disc degeneration, lumbar region with discogenic back pain only; N40.1 Benign prostatic hyperplasia with lower urinary tract symptoms; F10.10 Alcohol abuse, uncomplicated; N52.9 Male erectile dysfunction, unspecified; F33.9 Major depressive disorder, recurrent, unspecified; E66.3 Overweight; Z68.25 Body mass index [BMI] 25.0-25.9, adult; Z79.4 Long term (current) use of insulin | CPT/HCPCS: 96127; 99202 ==

== ENCOUNTER 2024-03-13 08:21 | Outpatient (AMB) | payer MEDICARE, SELFPAY ==
[2024-03-13 08:28] VITALS: BP 116/82; PULSE 82; BMI 25.3
--- NOTE | 2024-03-13 08:28 | A.OFFVIS_ITS ---
Vital Signs 03/13/24 08:28 Height 5 ft 10 in Weight 176 lb 5.917 oz BMI 25.3 BP 116/82 Blood Pressure Location Rt brachial Position Sitting Pulse 82 Pulse Source Pulse Oximeter Intake Visit Reasons: DM Intake Note: Patient presents today for a follow-up on Type 2 Diabetes Mellitus: Last Diabetic eye exam was on: 12/2023 Last Podiatry exam was on: Does not see a Energy Project Manager Most recent HbA1c: 7.1%, 03/13/2024 Random Glucose- 248 mg/dL, Today Chute Puller Required: No Accompanied by: Self / Same As Patient Allergies lisinopril Allergy (Severe, Verified 03/13/24 08:44) Angioedema canagliflozin [Invokana] Allergy (Unknown, Verified 03/13/24 08:44) polyuria liraglutide [Victoza] Adverse Reaction (Unknown, Verified 03/13/24 08:44) nausea, constipation HPI Comments Details: Patient is a 63 year old male with DM type 2 diagnosed in 2003 , who presents for management of diabetes. Past medical history: DM2, HTN, GERD, NAFLD, hepatitis C, lower back pain due to herniated disc L5, Micro and macrovascular complications: + proliferative retinopathy, +, neuropathy Diabetes medications: Fiasp via Tiny Post 20 with 2 clicks with meals. Only 1 click for correction blood glucose over 300. Not taking insulin regularly-missing doses. Metformin ER 500mg once a day (not taking). Taking mounjaro7.5 units weekly ~90% of weeks-increased from 5 at last visit would like to go back down to 5 as appetite is poor. CGM-dexcom 7 reviewed. Average 187. Daytime running high. A1C today 7.1% Recently got his front teeth out. Then got [place] Palsy. Endorses depression. Recently seen by PCP-declines psych referral. Is willing to increase prozac Symptoms reported: denies numbness, tingling, cramping in lower extremities Hypoglycemia: none Exercise: walking over 30 minutes Sql Report Developer - CDE education: Energy Project Manager: denies Ophthalmology evaluation: UTD ROS CONSTITUTIONAL: Denies weight loss, fever and chills. HEENT: Denies changes in vision and hearing. RESPIRATORY: Denies SOB and cough. CV: Denies palpitations and CP GI: Denies abdominal pain, nausea, vomiting and diarrhea. : Denies dysuria and urinary frequency. MSK: Denies new myalgia and joint pain. SKIN: Denies rash and pruritus. NEUROLOGICAL: Denies headache PSYCHIATRIC: see HPI PHYSICAL EXAM: GENERAL: Alert and oriented x 3. NAD EYES: EOMI. Anicteric. HENT: Moist mucous membranes. No scleral icterus. No cervical lymphadenopathy. LUNGS: Clear to auscultation bilaterally. CARDIOVASCULAR: Regular rate and rhythm. soft systolic murmur. No JVD. ABDOMEN: Soft, non-tender +bs EXTREMITIES: No edema. Non-tender. SKIN: No rashes or lesions. Warm. NEUROLOGIC: No focal neurological deficits. CN II-XII grossly intact PSYCHIATRIC: Cooperative. Appropriate mood and affect [facility] Medical History Lumbar degenerative disc disease Vitamin D deficiency Hypersomnia Snoring Cognitive disorder Essential hypertension Type 2 diabetes mellitus with diabetic neuropathy, unspecified (~2003) Depression Alcohol abuse Hepatitis C Hepatitis B NAFLD (nonalcoholic fatty liver disease) Tubular adenoma of colon (~2019) BPH loc w urin obs/LUTS Frequency of urination Erectile dysfunction Arthritis Carpal tunnel syndrome Overweight (BMI 25.0-29.9) Surgical History History of rhinoplasty History of colonoscopy History of lumbar surgery History of cataract surgery History of excision of mass Family History Father Myocardial infarct Colon cancer Mother Diabetes Social History Household Members: Spouse Household Members Other:: Housing: House Alcohol intake: current Alcohol intake frequency: a few times a month Alcohol type: beer and hard liquor Patient Tobacco Use Status: Never used Tobacco e-Cigarette/Vaping Use: Never Used Substance Use Type: Crack/Cocaine Advance Directives Date on File: 03/05/24 service: Yes Current occupational status: disabled Current occupational exposures/hazards: No Cognitive needs: No Hearing needs: No Vision needs: No Physical Exam Vital Signs: Last Vital Signs Pulse 82 03/13/24 08:28 BP 116/82 03/13/24 08:28 BMI result Body Mass Index 25.3 Results AMB Hemoglobin A1c AMB Hemoglobin A1c 7.1 % Last Edit by EDGAR Pereira on 03/13/24 08:42 Assessment & Plan Assessment & Plan (1) Type 2 diabetes mellitus with diabetic neuropathy, unspecified: Onset Date: ~2003 Comment: MD/PROVIDER: RECOMMEND monitoring thiamine related to hx of neuropathy/ alcohol abuse and c/o memory loss Code(s): E11.40 - Type 2 diabetes mellitus with diabetic neuropathy, unspecified Category: Medical Qualifiers: Diabetes mellitus marine oil terminal superintendent insulin use: with marine oil terminal superintendent use Qualified Code(s): E11.40 - Type 2 diabetes mellitus with diabetic neuropathy, unspecified; Z79.4 - termination clerk (current) use of insulin Plan: Decrease mounjaro to 5 u weekly. Restart 500mg metformin daily. Miralax ordered, continue current fiasp dosing Did increase patients prozac to 60u as he is quite depressed and refuses psych referral. He denies SI Orders: Orders AMB Hemoglobin A1c Today Celeste Nayak MD E11.40 - Type 2 diabetes mellitus with diabetic neuropathy, unspecified, Z79.4 - care home (current) use of insulin Medications: New fluoxetine 60 mg PO DAILY 90 tabs 3RF Celeste Nayak MD thiamine mononitrate (vit B1) 100 mg PO DAILY 90 tabs 3RF Celeste Nayak MD tirzepatide (Mounjaro) 5 mg (0.5 mL) subcut QWEEK 2 mL 3RF Celeste Nayak MD Changed From insulin aspart (niacinamide) 100 unit/mL Up to 76 units via V Go subcut daily; 30 days 30 mL 4RF E11.65 - Type 2 diabetes mellitus with hyperglycemia, Z79.4 - care home (current) use of insulin To insulin aspart (niacinamide) 100 unit/mL 2 clicks subcutaneous with meals. Up to 76 units via V Go subcut daily; 30 days 30 mL 4RF E11.65 - Type 2 diabetes mellitus with hyperglycemia, Z79.4 - termination clerk (current) use of insulin Celeste Nayak MD Refilled sub-q insulin device, 20 unit (V-GO 20 device) ONE DAILY 30 ea 1RF Celeste Nayak MD E11.42 - Type 2 diabetes mellitus with diabetic polyneuropathy Discontinued tirzepatide Discontinued Reason: Doctor's Order 7.5 mg (0.5 mL) subcut QWEEK 6 mL 3RF Resumed metformin ER 500 mg PO BEDTIME 90 tabs 3RF Celeste Nayak MD E11.65 - Type 2 diabetes mellitus with hyperglycemia, Z79.4 - termination clerk (current) use of insulin metformin ER 500 mg PO BEDTIME 30 tabs 6RF Almas King MD E11.65 - Type 2 diabetes mellitus with hyperglycemia, Z79.4 - termination clerk (current) use of insulin Coding Level of Care Code Est Pt Level 4 (33071) Diagnoses Type 2 diabetes mellitus with diabetic neuropathy, with long-term current use of insulin E11.40; Z79.4 Diabetes mellitus marine oil terminal superintendent insulin use: with marine oil terminal superintendent use
[2024-03-13 08:38] LABS: Glucose, Whole Blood 248 mg/dL (60-115)
== END 2024-03-13 09:02 | disposition home or self-care (01) ==
PROVIDERS: PCP Physician Assistant; Visit Provider Internal Medicine
DX: E11.40 Type 2 diabetes mellitus with diabetic neuropathy, unspecified (principal); Z79.4 Long term (current) use of insulin

== ENCOUNTER → 2024-03-13 08:21 | Outpatient (BNVA) | payer MEDICARE, SELFPAY | PROVIDERS: PCP Physician Assistant; Visit Provider Internal Medicine | DX: E11.40 Type 2 diabetes mellitus with diabetic neuropathy, unspecified (principal); Z79.4 Long term (current) use of insulin | CPT/HCPCS: 82947; 83036; 99212 ==

== ENCOUNTER 2024-05-14 08:22 | Outpatient (AMB) | payer MEDICARE, SELFPAY ==
--- NOTE | 2024-05-14 08:32 | MHC.OFFVIS ---
Vital Signs 05/14/24 08:35 Height 5 ft 10 in Weight 176 lb BMI 25.3 BP 103/70 Blood Pressure Location Lt brachial Position Sitting Pulse 99 Pulse Oximetry (%) 99 Oxygen Delivery Method Room Air Intake Visit Reasons: 4 month f/u Intake Note: Patient follow up for alcohol abuse. Patient cc: some nauseas, between diarrhea and constipation, swallowing difficulty, acid reflex, always tired, I called last week and lvm to remain pt UA order on his last office visit but he did not did it. Studio Receptionist Required: No Accompanied by: Spouse Allergies lisinopril Allergy (Severe, Verified 05/14/24 08:31) Angioedema canagliflozin [Invokana] Allergy (Unknown, Verified 05/14/24 08:31) polyuria liraglutide [Victoza] Adverse Reaction (Unknown, Verified 05/14/24 08:31) nausea, constipation Medication List - Last Reconciled 05/14/24 by Mayco Peoples MD amlodipine 10 mg PO DAILY blood sugar diagnostic (Accu-Chek Guide test strips) As directed tests 4 X/day blood-glucose meter (Accu-Chek Guide Glucose Meter) As directed tests 4 X/day blood-glucose meter,continuous (Dexcom G7 Merchandising Director) As directed blood-glucose sensor (Dexcom G7 Sensor device) As directed change every 10 days bupropion HCl XL 150 mg PO QAM cholecalciferol (vitamin D3) (Vitamin D3) 50 mcg PO DAILY clotrimazole-betamethasone 1-0.05 % 1 appl topical DAILY cyclobenzaprine 10 mg PO TID PRN diclofenac sodium 75 mg PO BID fluoxetine 60 mg PO DAILY insulin aspart (niacinamide) 100 unit/mL 2 clicks subcutaneous with meals. Up to 76 units via V Go subcut daily; 30 days lancets 4x daily lancets (Accu-Chek Softclix Lancets) As directed-tests 4X/day lancets (Accu-Chek Fastclix Lancet Drum) TEST FOUR TIMES A DAY DIRECTED lidocaine 5% 1 patch topical DAILY metformin ER 500 mg PO BEDTIME metoprolol succinate ER 25 mg PO DAILY mirtazapine 7.5 mg PO BEDTIME nystatin-triamcinolone 100,000-0.1 unit/g-% 1 appl topical DAILY sub-q insulin device, 20 unit (V-GO 20 device) ONE DAILY tadalafil 20 mg PO DAILY PRN tamsulosin 0.4 mg PO DAILY 90 days thiamine mononitrate (vit B1) 100 mg PO DAILY tirzepatide (Mounjaro) 5 mg (0.5 mL) subcut QWEEK valacyclovir 1,000 mg PO Q8H 7 days HPI HPI 4 month f/u: Details: GI clinic visit for this 63 YM with type 2 diabetes mellitus with neuropathy, obstructive sleep apnea, mediastinal lymphadenopathy here for follow-up of fatty liver and alcohol related liver disease. Patient previously followed by YEHUDA Galvez TODAY'S VISIT: Patient cc: some nauseas, between diarrhea and constipation, swallowing difficulty, acid reflex, always tired, I called last week and lvm to remain pt UA order on his last office visit but he did not did it. Pt is accompanied by his significant other. Has cut back on ETOH use - had 3-4 drinks last week and trying to stop. States swallowing problem is related to loosing his teeth. Wt loss of > 25 since he started taking Mounjaro a few years ago. Initially on a high dose which was lowered. He has seen the urologist for the groin pain. Had a positive stress test in [place] and being scheduled for additional cardiac evaluation PAST VISIT: Patient cc: Right middle quadrant pain with bloating on and off. Lost 18 lbs since he started taking Monjoro Complains of 5-6/10 pain in right groin - noted pain for more than a week. Increased when he lied down in bed and moved from side to side. Denies association with food intake. Urinates all the time - has to get up to use the bathroom 8 - 10 times at night. Patient denies symptoms of heartburn, dysphagia, nausea, vomiting, Admits to a decrease in appetite due to Monjoro. Denies recent change in bowel habits, constipation, diarrhea, black stools or rectal bleeding. Patient has a hx of RACHEL and denies major cardiac or pulmonary problems. Denies problems with anesthesia in the past. Denies being on chronic anticoagulation. Takes Ibuprofen. Continues to drink 6-7 drinks of hard liquor (rum) on the weekends and sometimes during the week Did [employer] work - now retired and works on the side Patient denies known family history of colon polyps, colon cancer or other GI malignancies. LABS IN [email or web address] : Reviewed. Hepatitis-C antibody was positive with negative viral load. Hepatitis-B surface antibody in the ernst zone and hepatitis-B core antibody was positive IMAGING STUDIES: 10/2023 ABD US SHOWED: Right renal interpolar cystic foci measuring up to 1.0 cm, simple-appearing, not requiring follow-up. ENDOSCOPIC STUDIES: 09/2019 COLONOSCOPY SHOWED: Colonoscopy Findings: One diminutive polyp removed Moderate diverticulosis seen in the left colon Moderate hemorrhoids on retroflexed exam. Plan: Patient would like to discuss having an EGD due to UGI symptoms during his next appointment. Repeat Colonoscopy interval based on path results ? in 5 years if polyps are adenomatous and 10 years if polyps are hyperplastic. Above findings were reviewed with the patient and colon polyps and diverticulosis handouts were given in the discharge area BIOPSIES SHOWED: Colon, sigmoid, polypectomy: Tubular adenoma; no high grade dysplasia or carcinoma seen. PAST GI HISTORY BY REVIEW OF MEDICAL RECORDS: 06/02/2022 patient was last seen by YEHUDA Galvez A 61 y/o male etoh use follows up -he says he slowed down a lot-but unsure- by how much- 1 beer this week a couple last week. Diabetes not well controlled, he likes to eat- Knees and back hurts-from time to time that is been ongoing for years HX HCV- says he was treated many years ago-recently retested due to rash on his face that has not resolved results pending His appetite is very good, bowels are normal No nausea, vomiting, hematemesis, hematochezia, fever chills [facility] Medical History Lumbar degenerative disc disease Vitamin D deficiency Hypersomnia Snoring Cognitive disorder Essential hypertension Type 2 diabetes mellitus with diabetic neuropathy, unspecified (~2003) Depression Alcohol abuse Hepatitis C Hepatitis B NAFLD (nonalcoholic fatty liver disease) Tubular adenoma of colon (~2019) BPH loc w urin obs/LUTS Frequency of urination Erectile dysfunction Arthritis Carpal tunnel syndrome Overweight (BMI 25.0-29.9) Surgical History History of rhinoplasty History of colonoscopy History of lumbar surgery History of cataract surgery History of excision of mass Family History Father Myocardial infarct Colon cancer Mother Diabetes Social History Household Members: Spouse Household Members Other:: Housing: House Alcohol intake: current Alcohol intake frequency: a few times a month Alcohol type: beer and hard liquor Patient Tobacco Use Status: Never used Tobacco e-Cigarette/Vaping Use: Never Used Substance Use Type: Crack/Cocaine Advance Directives Date on File: 03/05/24 service: Yes Current occupational status: disabled Current occupational exposures/hazards: No Cognitive needs: No Hearing needs: No Vision needs: No Review of Systems Const All systems reviewed & are unremarkable except as noted in HPI and below Physical Exam Const General: healthy appearing and no acute distress Nutritional Appearance: average body habitus Orientation/consciousness: patient oriented x3 Limitations: no limitations HEENT Head: Yes normal to inspection Ears: hearing grossly normal bilaterally Eyes Sclerae: sclerae normal Pupils: Equal, round and reactive pupils present Neck Neck: Yes normal visual inspection Chest Chest palpation & inspection: normal inspection of the chest Resp Effort & Inspection: normal respiratory effort Auscultation: clear to auscultation bilaterally Cardio Palpation: normal PMI Rate: regular rate Rhythm: regular rhythm Heart sounds: S1 normal heart sound present, S2 normal heart sound present and no murmurs GI Palpation (GI): Soft to palpation, nontender and No hepatosplenomegaly present Auscultation: normal bowel sounds Rectal Exam - Male: Yes deferred Skin General skin exam: no rashes or lesions noted Neuro General: patient oriented x3, gait normal and moves all extremities Cranial nerves: Yes Equal, round and reactive pupils present Psych Appearance: grossly normal Mental Status: mental status grossly normal Assessment & Plan Assessment & Plan (1) Alcohol abuse: Comment: continues to drink alcohol - discussed risks- continue to cut back Code(s): F10.10 - Alcohol abuse, uncomplicated Category: Social Hx (2) NAFLD (nonalcoholic fatty liver disease): Comment: Reviewed ultrasound, Repeat labs 6 months He has no GI symptoms-no abdominal pain Colonoscopy 09/2019 adenoma repeat 5 years 2024 Code(s): K76.0 - Fatty (change of) liver, not elsewhere classified Category: Medical (3) Tubular adenoma of colon: Onset Date: ~2019 Comment: (TA on 2019 scope - repeat 2024) Code(s): D12.6 - Benign neoplasm of colon, unspecified Category: Medical Plan 63 YM with type 2 diabetes mellitus with neuropathy, obstructive sleep apnea, mediastinal lymphadenopathy here for follow-up of fatty liver and alcohol related liver disease. 09/2019 Pt had a small tubular adenoma removed during colonoscopy and FU colonoscopy is due in September, - request sent to GI surgical schedulers. Colonoscopy procedure and potential complications including bleeding, perforation, reaction to anesthetic were reviewed with the patient. Has cut back on ETOH use - had 3-4 drinks last week and trying to stop. Wt loss of > 25 since he started taking Monjoro a few years ago. Pt advised to have Liver fibrosis test to rule out early cirrhosis. FU in 6 months Orders: Orders Hepatitis A IgG Today K76.0 - Fatty (change of) liver, not elsewhere classified Hepatitis B Surface Antibody Today K76.0 - Fatty (change of) liver, not elsewhere classified Liver Fibrosis Pnl Today K76.0 - Fatty (change of) liver, not elsewhere classified Medications: New bisacodyl (Dulcolax (bisacodyl)) Take 4 tablets at 12 pm the day before colonoscopy appointment 20 mg (4 x 5 mg) PO ONCE 1 day 4 tabs 0RF colon prep polyethylene glycol 3350 (Miralax) Mix Miralax with 64 oz(8 cups) of Crystal light. Take 2 tablets of Dulcolax qt 12 pm. Wait to have your 1st bowel movement, then begin drinking Miralax. Drink a glass of Miralax every 10-15 minutes until you are finished. You will drink at least another 4 cups of clear liquid of your choice over the next 2 hours. Please drink as many clear liquids as possible You may have clear liquids up to four hours before your procedure 17 grams PO DAILY 1 day 238 grams 0RF colon prep Coding Level of Care Code Est Pt Level 4 (60197) Diagnoses Alcohol abuse F10.10 NAFLD (nonalcoholic fatty liver disease) K76.0 Tubular adenoma of colon D12.6 Time Spent (min) 23
[2024-05-14 08:35] VITALS: BP 103/70; PULSE 99; O2SAT 99; BMI 25.3
--- OUTSIDE RECORDS SUMMARY | 2024-05-14 08:56 | XMS_ITS | Encounter Summary ---
Author Organization [facility] Address [address] [place] [address] Care Team Providers Care Core Mounter Name Role Phone Reji Coronado MD Primary Care Provider [phone] Jorge Singleton PA-C Primary Care Provider + [phone] Etta Lipscomb MD Primary Care Provider [phone] Bryan Wilson MD Unavailable Unavailable Jorge Singleton PA-C Primary Care Provider + [phone] Reason for Visit * Reason Comments E-prescribe Rx Request Encounter Details Date Type Department Care Team Description 02/18/2016 Refill Adult Medicine [address] [id number] Reji Coronado MD [address] [place] [address] [id number] E-prescribe Rx Request Social History Tobacco Use Types Packs/Day Years Used Date Smoking Tobacco: Never Smokeless Tobacco: Never Alcohol Use Standard Drinks/Week Comments Yes 0 (1 standard drink = 0.6 oz pure alcohol) etoh abuse - 12 pack 3 days a week Sex Assigned at Date Recorded Not on file Job Start Date Occupation Industry Not on file Not on file Not on file documented as of this encounter Miscellaneous Notes * Telephone Encounter - Ligia Oglesby - 02/18/2016 8:41 AM EST Patient would like script to be: E-PRESCRIBED/FAXED TO PHARMACY WHEN WAS THE PATIENT'S LAST APPOINTMENT IN ADULT MEDICINE? 02/04/16 WHEN WAS THE LAST TIME THE PATIENT SAW THEIR PCP? 05/14/15 Does patient have an upcoming appointment? No[facility]ill request. Appt due (THE MEDICATION REQUESTED IS ON THE MED LIST ABOVE) All of the medications requested were on the CURRENT MEDS list Did you check the Pharmacy information above?: YES Patient wants: 30 -day supply Is this a mail order prescription request ? NO Patients current [place] is: [place] / [place] / Product Type: MEDICARE [id number] documented in this encounter Plan of Treatment Not on file documented as of this encounter Visit Diagnoses Not on filedocumented in this encounter Care Teams Core Mounter Relationship Specialty Start Date End Date Reji Coronado MD [address] [place] [id number] PCP - General Internal Medicine 03/19/15 05/12/20 Jorge Singleton PA-C [address] [place] [phone] PCP - General Internal Medicine 05/13/20 12/23/21 Etta Lipscomb MD [address] [place] [id number] PCP - General Lung Cancer Sliver Chopper 12/24/21 01/19/22 Jorge Singleton PA-C [address] [place] [phone] PCP - General Internal Medicine 01/20/22 Bryan Wilson MD [address] [place] [address] Specialist Cardiovascular Disease 01/20/22 documented as of this encounter
--- OUTSIDE RECORDS SUMMARY | 2024-05-14 08:56 | XMS_ITS | Encounter Summary ---
Author Organization [facility] Address [address] [place] [address] Care Team Providers Care Language Translator Name Role Phone Bryan Wilson MD Unavailable Unavailable Jorge Singleton PA-C Primary Care Provider [phone] Encounter Details Date Type Department Care Team Description 12/02/2022 Interior Design Program Chair Report Medical Records [address] [place] [address] Etta Lipscomb MD [address] [place] [id number] Social History Tobacco Use Types Packs/Day Years Used Date Smoking Tobacco: Never Smokeless Tobacco: Never Alcohol Use Standard Drinks/Week Comments Yes 0 (1 standard drink = 0.6 oz pure alcohol) 10 drinks / week, previously heavy Sex Assigned at Date Recorded Not on file Job Start Date Occupation Industry Not on file Not on file Not on file COVID-19 Exposure Response Date Recorded In the last 10 days, have yo u been in contact with someone who was confirmed or suspected to have Coronavirus/COVID-19? Unable to assess 11/23/2022 9:02 AM EDT documented as of this encounter Plan of Treatment Not on file documented as of this encounter Visit Diagnoses Not on filedocumented in this encounter Care Teams Language Translator Relationship Specialty Start Date End Date Jorge Singleton PA-C [address] [place] [address] PCP - General Internal Medicine 01/20/22 Bryan Wilson MD Specialist Cardiovascular Disease 01/20/22 documented as of this encounter
--- OUTSIDE RECORDS SUMMARY | 2024-05-14 08:56 | XMS_ITS | Encounter Summary ---
Author Organization [facility] Address [address] [place] [address] Care Team Providers Care Brake Assembler Name Role Phone Bryan Wilson MD Unavailable Unavailable Jorge Singleton PA-C Primary Care Provider [phone] Encounter Details Date Type Department Care Team Description 11/23/2022 Hospital Medical Records [address] [place] [address] Etta Lipscomb MD [address] [place] [address] Social History Tobacco Use Types Packs/Day Years [...] on filedocumented in this encounter Care Teams Brake Assembler Relationship Specialty Start Date End Date Jorge Singleton PA-C [address] [place] [address] PCP - General Internal Medicine 01/20/22 Bryan Wlison MD Specialist Cardiovascular Disease 01/20/22 documented as of this encounter
--- OUTSIDE RECORDS SUMMARY | 2024-05-14 08:56 | XMS_ITS | Encounter Summary ---
Author Organization [facility] Address [address] [place] [address] Care Team Providers Care Information Resource Consultant Name Role Phone Reji Coronado MD Primary Care Provider [phone] Jorge Singleton PA-C Primary Care Provider + [phone] Etta Lipscomb MD Primary Care Provider [phone] Bryan Wilson MD Unavailable Unavailable Jorge Singleton PA-C Primary Care Provider [phone] Encounter Details Date Type Department Care Team Description 10/26/2015 Candy Supervisor Report Medical Records [address] [place] [address] Ivan Maxwell Social History Tobacco Use Types Packs/Day Years [...] on file documented as of this encounter Plan of Treatment Not on file documented as of this encounter Visit Diagnoses Not on filedocumented in this encounter Care Teams Information Resource Consultant Relationship Specialty Start Date End Date Reji Coronado MD [address] [place] [address] [id number] PCP - General Internal Medicine 03/19/15 05/12/20 Jorge Singleton PA-C [address] [place] [address] [phone] PCP - General Internal Medicine 05/13/20 12/23/21 Etta Lipscomb MD [address] [place] [address] PCP - General Lung Cancer [employer] 12/24/21 01/19/22 Jorge Singleton PA-C [address] [place] [address] PCP - General Internal Medicine 01/20/22 Bryan Wilson MD [address] [place] [address] Specialist Cardiovascular Disease 01/20/22 documented as of this encounter
--- OUTSIDE RECORDS SUMMARY | 2024-05-14 08:57 | XMS_ITS | Encounter Summary ---
Author Organization [facility] Address [address] [place] [address] Care Team Providers Care Spa Technician Name Role Phone Bryan Wilson MD Unavailable Unavailable Jorge Singleton PA-C Primary Care Provider [phone] Encounter Details Date Type Department Care Team Description 08/25/2022 Hvac Engineering Technician Report Medical Records [address] [place] [address] Ibrahima Gaitan PA-C Social History Tobacco Use Types Packs/Day Years [...] was confirmed or suspected to have Coronavirus/COVID-19? No / Unsure 08/10/2022 12:24 PM EDT documented as of this encounter Plan of Treatment Not on file documented as of this encounter Visit Diagnoses Not on filedocumented in this encounter Care Teams Spa Technician Relationship Specialty Start Date End Date Jorge Singleton PA-C [address] [place], [place] [id number] PCP - General Internal Medicine 01/20/22 Bryan Wilson MD Specialist Cardiovascular Disease 01/20/22 documented as of this encounter
--- OUTSIDE RECORDS SUMMARY | 2024-05-14 08:57 | XMS_ITS | Encounter Summary ---
Author Organization [facility] Address [address] [place] [address] Care Team Providers Care Manager Of Project Management Name Role Phone Bryan Wilson MD Unavailable Unavailable Jorge Singleton PA-C Primary Care Provider [phone] Encounter Details Date Type Department Care Team Description 02/09/2023 Sheriff Report Medical Records [address] [place] [address] Avelina Graham MD Social History Tobacco Use Types Packs/Day Years [...] on filedocumented in this encounter Care Teams Manager Of Project Management Relationship Specialty Start Date End Date Jorge Singleton PA-C [address] [place] [id number] PCP - General Internal Medicine 01/20/22 Bryan Wilson MD Specialist Cardiovascular Disease 01/20/22 documented as of this encounter
--- OUTSIDE RECORDS SUMMARY | 2024-05-14 08:57 | XMS_ITS | Encounter Summary ---
Author Organization [facility] Address [address] [place] [address] Care Team Providers Care Chin Strap Sewer Name Role Phone Bryan Wilson MD Unavailable Unavailable Jorge Singleton PA-C Primary Care Provider [phone] Reason for Visit * Reason Onset Date Comments Provider Call Back 09/19/2022 Encounter Details Date Type Department Care Team Description 09/19/2022 Telephone Gastroenterology - [place] [address] [phone] Raad Mattson PA-C [address] [address] Provider Call Back Social History Tobacco Use Types Packs/Day Years [...] encounter Miscellaneous Notes * Telephone Encounter - Sophie Kelly - 09/27/2022 4:09 PM EDT Left a vm for the patient to call our office back. * Telephone Encounter - Raad Mattson PA-C - 09/23/2022 2:39 PM EDT Patient is having bright red blood with stooling and we we will order labs. Patient should also be scheduled for colonoscopy and asked him if he is okay with having that done. * Telephone Encounter - Sophie Kelly - 09/23/2022 10:00 AM EDT Patient states he went to the lab but no labs were there. Please order, thanks. * Telephone Encounter - Raad Mattson PA-C - 09/20/2022 5:17 PM EDT Patient is calling the office reporting issues of bright red blood with stools. It does not appear that he has had a colonoscopy. We need to do labs to see how his anemia is and he should also shouldbe scheduled for a colonoscopy as well * Telephone Encounter - Ying Polanco - 09/19/2022 4:39 PM EDT Patient calling, having bright red blood with stools, requesting call back. Please advise. documented in this encounter Plan of Treatment Not on file documented as of this encounter Results * IRON/TIBC (12/22/2022 2:16 PM EDT) IRON (FE) 95 50 - 160 ug/dL 12/22/2022 4:54 PM EDT [facility] TOTAL IRON BINDING CAPACITY 273 250 - 450 ug/dL 12/22/2022 5:01 PM EDT [facility] % FE SATURATION 35 20 - 50 % 5:01 PM EDT [facility] 12/22/2022 2:16 PM EDT 12/22/2022 2:16 PM EDT Narrative [facility] - 12/22/2022 5:01 PM EDT Release to patient->Immediate Raad Thompsongretta BLACKMAN-C LAB [facility] * CHG ASSAY OF FERRITIN (12/22/2022 2:16 PM EDT) FERRITIN 197 26 - 388 ng/mL 12/22/2022 5:01 PM EDT [facility] 12/22/2022 2:16 PM EDT 12/22/2022 2:16 PM EDT Narrative [facility] - 12/22/2022 5:01 PM EDT Release to patient->Immediate Raad Thompsongretta BLACKMAN-C LAB Performing Organization Address [facility]/ZIP Co de Phone Number [facility] * (ABNORMAL) CHG COMPREHENSIVE METABOLIC PANEL (12/22/2022 2:16 PM EDT) GLUCOSE 69(L) 70 - 100 mg/dL 12/22/2022 4:54 PM EDT [facility] Comment:Reference range appl icable to fasting specimens only Blood Urea Nitrogen 24 5 - 25 mg/dL 12/22/2022 4:54 PM EDT [facility] CREAT 1.07 0.7 - 1.3 mg/dL 12/22/2022 4:54 PM EDT [facility] GLOMERULAR FILTRATION RATE 77 >60 12/22/2022 4:54 PM EDT [facility] Comment: This eGFR result was calculated using the CKD-EPI 2020 Creatinine Equation NA 141 135 - 145 mEq/L 12/22/2022 4:54 PM EDT [facility] K 4.3 3.5 - 5.5 mmol/L 12/22/2022 4:54 PM EDT [facility] CL 108 96 - 110 mmol/L 12/22/2022 4:54 PM EDT [facility] CARBON DIOXIDE (CO2) 28 21 - 32 mmol/L 12/22/2022 4:54 PM EDT [facility] ANION GAP 5 3 - 11 12/22/2022 4:54 PM EDT [facility] CALCIUM 9.6 8.5 - 10.5 mg/dL 12/22/2022 4:54 PM EDT [facility] TOTAL PROTEIN (TP) 7.3 6.0 - 8.0 G/dL 12/22/2022 4:54 PM EDT [facility] Albumin 4.2 3.2 - 5.0 G/dL 12/22/2022 4:54 PM EDT [facility] SGOT 29 10 - 42 U/L 12/22/2022 4:54 PM EDT [facility] SGPT 23 10 - 60 U/L 12/22/2022 4:54 PM EDT [facility] BILIRUBIN TOTAL 0.6 0.0 - 1.4 mg/dL 12/22/2022 5:01 PM EDT [facility] ALK PHOS 74 42 - 121 U/L 12/22/2022 5:01 PM EDT [facility] 12/22/2022 2:1 6 PM EDT 12/22/2022 2:16 PM EDT Narrative [facility] - 12/22/2022 5:01 PM EDT Release to patient->Immediate Raad Mattson PA-C LAB [facility] * (ABNORMAL) CHG BLOOD COUNT COMPLETE AUTO&AUTO DIFRNTL WBC (12/22/2022 2:16 PM EDT) WHITE BLOOD COUNT 7.8 4.8 - 10.8 x10-3/uL 12/22/2022 4:40 PM EDT [facility] RED BLOOD COUNT 4.2(L) 4.5 - 5.5 x10-6/uL 12/22/2022 4:40 PM EDT [facility] Hemoglobin 13.0(L) 13.5 - 17.5 g/dL 12/22/2022 4:40 PM EDT [facility] Hematocrit 38.4(L) 42 - 54 % 12/22/2022 4:40 PM EDT [facility] MEAN CORPUSCULAR VOLUME 91.2 79 - 98 fL 12/22/2022 4:40 PM EDT [facility] MEAN CORPUSCULAR HEMOGLOBIN 30.9 27 - 32 pg 12/22/2022 4:40 PM EDT [facility] MEAN CORPUSCULAR HGB CONC 33.9 32 - 37 g/dL 12/22/2022 4:40 PM EDT [facility] RED CELL DISTRIBUTION WIDTH 13.0 11 - 15 % 12/22/2022 4:40 PM EDT [facility] PLT COUNT 182 130 - 400 x10-3/uL 12/22/2022 4:40 PM EDT [facility] MEAN PLATELET VOLUME 9.9 7 - 11 fL 12/22/2022 4:40 PM EDT [facility] NRBC % AUTO 0.0 <1 % 12/22/2022 4:40 PM EDT [facility] NEUTROPHILS % 79.9 % 12/22/2022 4:40 PM EDT [facility] LYMPH % 12.6 % 12/22/2022 4:40 PM EDT [facility] MONO % 6.3 % 12/22/2022 4:40 PM EDT [facility] EOS % 0.8 % 12/22/2022 4:40 PM EDT [facility] BASO % 0.1 % 12/22/2022 4:40 PM EDT [facility] IMMATURE GRANULOCYTES % 0.3 % 12/22/2022 4:40 PM EDT [facility] NRBC # AUTO 0.00 <0.1 x10-3/uL 12/22/2022 4:40 PM EDT [facility] NEUT # 6.19 1.5 - 7.0 x10-3/uL 12/22/2022 4:40 PM EDT [facility] LYMPH # 0.98(L) 1 - 5.0 x10-3/uL 12/22/2022 4:40 PM EDT [facility] MONO # 0.49 0.2 - 1.0 x10-3/uL 12/22/2022 4:40 PM EDT [facility] EOS # 0.06 0 - 0.5 x10-3/uL 12/22/2022 4:40 PM EDT [facility] BASO # 0.01 0 - 0.2 x10-3/uL 12/22/2022 4:40 PM EDT [facility] IMMATURE GRANULOCYTES # 0.02 0 - 0.03 x10-3/uL 12/22/2022 4:40 PM EDT [facility] 12/22/2022 2:16 PM EDT 12/22/2022 2:16 PM EDT Narrative [facility] - 12/22/2022 4:40 PM EDT Release to patient->Immediate Raad Mattson PA-C [facility] documented in this encounter Visit Diagnoses Diagnosis Rectal bleeding- Primary Hemorrhage of rectum and anus Rectal bleeding Hemorrhage of rectum and anus Diabetes mellitus type 2 with neurological manifestations (HCC) Type II or unspecified type diabetes mellitus with neurological manifestations, not stated as uncontrolled documented in this encounter Care Teams Chin Strap Sewer Relationship Specialty Start Date End Date Jorge Singleton PA-C [address] [place] [address] PCP - General Internal Medicine 01/20/22 Bryan Wilson MD Specialist Cardiovascular Disease 01/20/22 documented as of this encounter
--- OUTSIDE RECORDS SUMMARY | 2024-05-14 08:57 | XMS_ITS | Encounter Summary ---
Author Organization [facility] Address [address] [place] [address] Care Team Providers Care Inside Sales Advertising Executive Name Role Phone Reji Coronado MD Primary Care Provider + [phone] Jorge Singleton PA-C Primary Care Provider [phone] Etta Lipscomb MD Primary Care Provider Bryan Wilson MD Unavailable Unavailable Jorge Singleton PA-C Primary Care Provider [phone] Encounter Details Date Type Department Care Team Description 05/05/2020 Old Medical Records Medical Records [address] [place] [id number] Abstract, Provider Social History Tobacco Use Types Packs/Day Years [...] Exposure Response Date Recorded In the last month, have you been in contact with someone who was confirmed or suspected to have Coronavirus / COVID-19? No / Unsure 04/29/2020 9:41 AM EST documented as of this encounter Plan of Treatment Not on file documented as of this encounter Visit Diagnoses Not on filedocumented in this encounter Care Teams Inside Sales Advertising Executive Relationship Specialty Start Date End Date Reji Coronado MD [address] [place] [id number] PCP - General Internal Medicine 03/19/15 05/12/20 Jorge Singleton PA-C [address] [place] [address] PCP - General Internal Medicine 05/13/20 12/23/21 Etta Lipscomb MD [address] [place] [address] PCP - General Lung Cancer Laundry Supervisor 12/24/21 01/19/22 Jorge Singleton PA-C [address] [place] [address] PCP - General Internal Medicine 01/20/22 Bryan Wilson MD [address] [place] [address] Specialist Cardiovascular Disease 01/20/22 documented as of this encounter
--- OUTSIDE RECORDS SUMMARY | 2024-05-14 08:57 | XMS_ITS | Encounter Summary ---
Author Organization [facility] Address [address] [place] [address] Care Team Providers Care All Source Intelligence Analyst Name Role Phone Bryan Wilson MD Unavailable Unavailable Jorge Singleton PA-C Primary Care Provider [phone] Encounter Details Date Type Department Care Team Description 11/03/2022 Knotting Machine Operator Portable Report Medical Records [address] [place], [place] [phone] [place] [address] Social History Tobacco Use Types Packs/Day Years [...] on filedocumented in this encounter Care Teams All Source Intelligence Analyst Relationship Specialty Start Date End Date Jorge Singleton PA-C [address] [place], [place] [phone] PCP - General Internal Medicine 01/20/22 Bryan Wilson MD Specialist Cardiovascular Disease 01/20/22 documented as of this encounter
--- OUTSIDE RECORDS SUMMARY | 2024-05-14 08:57 | XMS_ITS | Encounter Summary ---
Author Organization [facility] Address [address] [place] [address] Care Team Providers Care Relief Map Modeler Name Role Phone Bryan Wilson MD Unavailable Unavailable Jorge Singleton PA-C Primary Care Provider [phone] Encounter Details Date Type Department Care Team Description 12/24/2022 Telephone Gastroenterology - [place] 175 [facility] [address] [place] [phone] Raad Mattson PA-C [address] [address] Social History Tobacco Use Types Packs/Day Years [...] suspected to have Coronavirus/COVID-19? No / Unsure 12/22/2022 1:07 PM EDT documented as of this encounter Miscellaneous Notes * Telephone Encounter - Lexus Avery M.A. - 12/26/2022 11:45 AM EDT Spoke with patient and she understands her results and let now also she stated that hedose need the rx for the iron and vit c pills. * Telephone Encounter - Raad Mattson PA-C - 12/24/2022 4:17 PM EDT Patient is noted to have slightly low hand h. He nees to continue taking iron and vitamin c and if he needs rx, then let me know documented in this encounter Plan of Treatment Not on file documented as of this encounter Visit Diagnoses Not on filedocumented in this encounter Care Teams Relief Map Modeler Relationship Specialty Start Date End Date Jorge Singleton PA-C [address] [place] [address] PCP - General Internal Medicine 01/20/22 Bryan Wilson MD Specialist Cardiovascular Disease 01/20/22 documented as of this encounter
--- OUTSIDE RECORDS SUMMARY | 2024-05-14 08:57 | XMS_ITS | Clinical Summary ---
Author Organization [address] [place] [address] Address [address] [place] [address] Phone Care Team Providers Care Manual Control Auger Press Operator Name Role Phone Mau Fang MD Primary Care Provider Allergies Active Allergy Reactions Criticality Noted Date Comments Lisinopril Swelling 07/08/2020 Medications lidocaine (LIDODERM) 5 % patch Place 1 Patch onto the skin every 24 hours for 28 days. Apply for no more than 12 hours in any 24 hour period. 4 Active buPROPion XL (WELLBUTRIN XL) 150 mg 24 hr tablet Take 1 Tablet by mouth every morning. 4 Active FLUoxetine (PROzac) 40 mg capsule TAKE 1 CAPSULE BY MOUTH ONCE DAILY 4 Active metoprolol succinate (TOPROL-XL) 25 mg 24 hr tablet Take 1 Tablet by mouth daily. 4 Active tamsulosin (FLOMAX) 0.4 mg 24 hr capsule Take 1 Capsule by mouth daily. Take 30 mins after same meal every day. 4 Active tirzepatide (Mounjaro) 2.5 mg/0.5 mL pen injector Inject 2.5 mg into the skin once a week. 4 Active diclofenac (VOLTAREN) 1 % topical gel Apply topically. Active hydrocortisone 2.5 % cream Apply 1 Film topically 2 times daily for 14 days. 3 Active sub-q insulin device, 20 unit (V-GO 20) device USE DAILY DIRECTED 2 Active clotrimazole-be tamethasone (LOTRISONE) 1-0.05 % cream Apply twice a day. 2 Active cholecalciferol (VITAMIN D-3) 50 mcg (2,000 unit) capsule Take 2,000 Units by mouth daily. 9 Active insulin glargine (LANTUS) 100 unit/mL injection Inject 30 Units into the skin at bedtime. Active pen needle, diabetic (Pen Needle) 31 gauge x 3/16 needle by Does not apply route. Active amLODIPine (NORVASC) 10 mg tablet TAKE 1 TABLET BY MOUTH EVERY DAY 90 tablet 5 Active Active Problems Problem Noted Date Diagnosed Date Cough 01/21/2022 Overview (11/30/2023): Last Assessment & Plan: He does have complaints of a dry cough as well as some midepigastric discomfort. We did discuss a trial of a PPI to see if that would help to improve his symptoms. He will try this and see if this helps. Ascending aortic aneurysm 12/20/2021 Overview (11/30/2023): 4.5cm Last Assessment & Plan: We did discuss his a sending aorta. On his most recent CAT scan this showed it to be 4.5 cm. He will be getting a repeat CAT scan for surveillance of his lung nodule. We will follow-up on this. We will also check an echocardiogram so that we can continue to monitor his thoracic arch dilation. We did discuss that we would not do anything about it at this point. We will continue to monitor and if he gets worse we will consider repair. We will continue with low blood pressure Aneurysmal dilatation 12/09/2021 Overview (11/30/2023): Ascending aorta, 4.5 cm Last Assessment & Plan: I also discussed the ascending aortic dilation up to 4.5 cm which is the measurement at which point cardiology and sometimes even cardiac surgery evaluation is warranted. We will refer him to cardiology for further management at this point. Mediastinal lymphadenopathy 12/09/2021 Overview (11/30/2023): Last Assessment & Plan: 61-year-old male who presented initially with chest pain and now has a cough who on CT scan has enlarged mediastinal lymph nodes. I had a long discussion with him about the CAT scan and all of its findings. We specifically discussed the mediastinal lymphadenopathy as a possible inflammatory or infectious reaction versus sarcoid versus lymphoma versus lung cancer. The latter 3 are much less likely at this point. We will plan on getting 3-month follow-up CT scan and visit with me after that. If they have not decreased in size by that time we will likely need to do a mediastinoscopy. All questions were answered and he understood. Nodule of right lung 12/09/2021 Overview (11/30/2023): Last Assessment & Plan: Also discussed calcified nodule in the right lower lobe which is a benign granuloma. No further management or work-up for this is required. Diabetic retinopathy 01/20/2021 Diabetes mellitus with kidney complication 08/06 Microalbuminuria 08/06/2020 Erectile dysfunction 05/28/2018 Essential hypertension 02/04/2016 Overview (11/30/2023): Last Assessment & Plan: Blood pressure is mildly elevated. Again would like to get this under better control with his dilated aorta. He does have a prescription to to start on Toprol which have encouraged him to do so. Bilateral low back pain without sciatica 016 ETOH abuse 10/21/2015 Cervical radiculopathy 06/21/2015 Overview (11/30/2023): recurrent Chronic hepatitis C 06/21/2015 Overview (11/30/2023): Genotype 1a Tx with antivirals, SVR achieved CTS (carpal tunnel syndrome) 06/21/2015 Overview (11/30/2023): Right, NCV 11/ Depression 06/21/2015 Diabetes mellitus type 2 with neurological manif estations 06/21/2015 DJD (degenerative joint disease) of knee 016 GERD (gastroesophageal reflux disease) 6 Overview (11/30/2023): Last Assessment & Plan: I also discussed the thickening of the esophagus with the patient and his and we will plan on referring him to gastroenterology for further work-up and evaluation. History of substance abuse 05/14/2015 Overview (11/30/2023): Cocaine, marijuana, some heroin Type 2 diabetes mellitus with cataract 6 Encounters Date Type Department Care Team Description 04/18/2024 Telephone Adult Medicine [facility] [address] [place] [id number] Johnny Jay MD call back 04/10/2024 3:00 PM EST Ancillary Procedure [facility] Cardiology [facility] [address] [place] [address] Aneurysm of ascending aorta without rupture ([facility]/HCC) 03/01/2024 Telephone [facility] Cardiology [facility] [address] [place] [address] Kari Escalante [place] No Call No Show (Letter sent.) from Last 3 Months Immunizations Name Administration Dates Next Due Influenza Quadravalent, MDCK , 0.5ml, preservative free (Flucelvax) 6mo and older 12/23/2022,12/02/2021 Influenza trivalent, with pr eservative (Fluzone; Afluria) 6mo and older 02/04/2016 Influenza, Unspecified 01/25/2019 Pneumococcal conjugate 20 va lent (Prevnar 20, PCV 20) 2mo and older 07/07/2023 Pneumococcal polysaccharide 23 valent (Pneumovax 23) 2yo and older 07/27/2015 Tdap Tetanus diptheria acell ular pertussis (Boostrix; Adacel) 7yo and older 07/27/2015 Surgical History Surgery Date Site/Laterality Comments OTHER SURGICAL HISTORY 2006 PROCEDURE: HISTORY OTHER; COMMENT: Lumbar spine surgery L4-5 fusion x 2 OTHER SURGICAL HISTORY PROCEDURE: HISTORY OTHER; COMMENT: Right knee surgery CATARACT EXTRACTION Bilateral PROCEDURE: HISTORICAL CATARACT REMOVAL NASAL SEPTUM SURGERY PROCEDURE: NM REPAIR NASAL SEPTAL PERFORATIONS COLONOSCOPY 09/2019 PROCEDURE: HISTORICAL COLONOSCOPY; COMMENT: repeat 5 years polyp OTHER SURGICAL HISTORY 05/02/2022 PROCEDURE: UPPER GI ENDOSCOPY, REMOVE LESION; COMMENT: yang -biopsies taken OTHER SURGICAL HISTORY PROCEDURE: PULMONOLOGY BRONCHOSCOPY; COMMENT: dr. orellana -bronchoscopy and mediastinoscopy with mediastinal lymph node biopsies Medical History Medical History Date Comments History of substance abuse (CMS/HCC) 05/14/2015 DX:History of substance abuse (HCC); COMMENT: Cocaine, marijuana, some heroin Chronic hepatitis C (CMS/HCC) 06/21/2015 DX :Chronic hepatitis C (HCC); COMMENT: Genotype 1a Depression 06/21/2015 DX:Depression Cervical radiculopathy 06/21/2015 DX:Cervic al radiculopathy; COMMENT: recurrent CTS (carpal tunnel syndrome) 06/21/2015 DX: CTS (carpal tunnel syndrome); COMMENT: Right, NCV 01/17 Diabetes mellitus type 2 wit h neurological manifestations (CMS/HCC) 06/21/2015 DX:Diabetes bonnie itus type 2 with neurological manifestations ([facility]) GERD (gastroesophageal reflu x disease) 06/21/2015 DX:GERD (gastroesophageal re flux disease) DJD (degenerative joint dise ase) of knee 06/21/2015 DX:DJD (degenerative joint d isease) of knee Type 2 diabetes mellitus wit h cataract (CMS/HCC) 05/14/2015 DX:Type 2 diabetes mellitus with cataract (HCC) Bilateral low back pain with out sciatica 10/21/2015 DX:Bilateral low back pain w ithout sciatica ETOH abuse 10/21/2015 DX:ETOH abuse Essential hypertension 02/04/2016 DX:Essent ial hypertension Erectile dysfunction 05/28/[address] DX:Erectile dysfunction Abnormal CT of the chest DX:Abno rmal CT of the chest Esophageal thickening DX:Esophag eal thickening Gastritis DX:Gastritis Epigastric pain DX:Epigastric pa in Family History Medical History Relation Name Comments Colon cancer Father Relation Name Status Comments Father Prostate cancer 64 Mother Alive No full sibling s Social History Tobacco Use Types Packs/Day Years Used Date Smoking Tobacco: Never Smokeless Tobacco: Never Alcohol Use Standard Drinks/Week Comments Yes 0 (1 standard drink = 0.6 oz pur e alcohol) Sex and Gender Information Value Date Recorded Sex Assigned at Not on file Legal Sex Male 1:54 PM EST Gender Identity Not on file Sexual Orientation Not on file Obstetrics History Last Filed Vital Signs Vital Sign Reading Time Taken Comments Blood Pressure 135/89 04/10/2024 2:52 PM EST Pulse 71 10/03/2023 9:49 AM EDT Temperature - - Respiratory Rate - - Oxygen Saturation - - Inhaled Oxygen Concentration - - Weight 81.2 kg (179 lb) 04/10/2024 2:52 PM EST Height 177.8 cm (5' 10 ) 04/10/2024 2:52 PM EST Body Mass Index 25.68 04/10/2024 2:52 PM EST Plan of Treatment Health Maintenance Due Date Last Done Comments Diabetes: Annual Foot Exam 1968 Hepatitis A Vaccines (1 of 2 - Risk 2-dose series) 1977 Zoster Vaccines (1 of 2) 2008 Hepatitis B Vaccines (1 of 3 - Risk 3-dose series) 2018 RSV Immunization Patients 60+ Years Old (1 - Risk 60-74 years 1-dose series) 2018 Medicare Annual Wellness Visit 02/12/2022 Social Influencers of Health Screening 02/12/2022 COVID-19 Vaccine ( season) 2023 Influenza Vaccine (#1) 2023 , 12/02/2021, 12/04/2019, Additional history exists Diabetes: Blood Sugar Control Test (HGBA1C) 04/04/2024 10/03/2023, 10/03/2023 Diabetes: Annual Retina Eye Exam 06/14/2024 06/15/2023 Colorectal Cancer Screening: Colonoscopy 09/12/2024 09/13/2019 Depression Screening 10/02/2024 10/03/2023 Diabetes: Annual Urine Albumin-Creatinine Ratio (uACR) 10/02/2024 10/03/2023 Diabetes: Annual GFR (Glomerular Filtration Rate) 10/02/2024 10/03/2023, 10/03/2023 Falls Risk Assessment 10/02/2024 10/03/2023 Hypertension/CHF/CAD Annual BMP Blood Test 10/02/2024 10/03/2023, 10/03/2023 DTaP,Tdap,and Td Vaccines (2 - Td or Tdap) 07/26/2025 07/27/2015 Cholesterol Screening (Lipid Panel) 10/02/2028 10/03/2023, 10/03/2023 Hepatitis C Screening Completed 11/16/2015 Pneumococcal Vaccine: 50+ Years Completed 07/07/2023, 07/27/2015 Pneumococcal Vaccine: Pediatrics (0 to 5 Years) and At-Risk Patients (6 to 64 Years) Completed 07/07/2023, 07/27/2015 HIB Vaccines Aged Out No longer eligi ble based on patient's age to complete this topic HPV Vaccines Aged Out No longer eligi ble based on patient's age to complete this topic IPV Vaccines Aged Out No longer eligi ble based on patient's age to complete this topic MMR Vaccines Aged Out No longer eligi ble based on patient's age to complete this topic Meningococcal ACWY Vaccine Aged Out N o longer eligible based on patient's age to complete this topic Meningococcal B Vacine Aged Out No lo nger eligible based on patient's age to complete this topic RSV Immunization Patients Under 20 months Aged Out No longer eligible based on patient's age to complete this topic Varicella Vaccines Aged Out No longer eligible based on patient's age to complete this topic Procedures Procedure Name Priority Date/Time Associated Diagnosis Comments TRANSTHORACIC ECHOCARDIOGRAM (TTE) COMPLETE Routine 04/10/2024 2:52 PM EST Aneurysm of ascending aorta without rupture (CMS/HCC) DEPRESSION SCREENING Routine 10/03/2023 FALLS RISK ASSESSMENT Routine 10/03/2023 URINE ALBUMIN CREATININE RATIO Routine 10/03/2023 ANNUAL BMP BLOOD TEST Routine 10/03/2023 HEMOGLOBIN A1C Routine 10/03/2023 LIPID PANEL Routine 10/03/2023 DIABETES EYE EXAM Routine 06/15/2023 COLONOSCOPY Routine 09/13/2019 HEPATITIS C SCREENING Routine 11/16/2015 from Last 3 Months or Most Recently Relevant to Health Maintenance Results * (ABNORMAL) TRANSTHORACIC ECHOCARDIOGRAM (TTE) COMPLETE (04/10/2024 2:52 PM EST) LV EDV (A2C) 59 mL CV PACS LV EDV (A4C) 79 mL CV PACS LV Diastolic Volume (BP) 70 62 - 150 mL CV PACS LV ESV (A2C) 32 mL CV PACS LV ESV (A4C) 43 mL CV PACS LV Systolic Volume (BP) 39 21 - 61 mL CV PACS IVSD 1.3(A) 0.6 - 1.0 cm CV PACS LVIDD 4.5 4.2 - 5.8 cm CV PACS LVIDS 3.6 2.5 - 4.0 cm CV PACS LVOT Diameter 2.1 cm CV PACS LVOT Mean Isaiah 0.5 m/s CV PACS LVOT Mean Grad 1 mmHg CV PACS LVOT Mean Grad 1 mmHg CV PACS LVOT Peak VTI 15.7 cm CV PACS LVOT Peak Isaiah 0.9 m/s CV PACS LVOT Peak Isaiah 0.9 m/s CV PACS LVOT Peak Gradient 3 mmHg CV PACS LVPWD 1.3(A) 0.6 - 1.0 cm CV PACS MV E' Tissue Velocity Lateral 5 cm/s CV PACS MV E' Tissue Velocity Septal 4 cm/s CV PACS Ejection Fraction (A2C) 45 % CV PACS Ejection Fraction (A4C) 46 % CV PACS Ejection Fraction (BP) 45 % CV PACS LVOT Area 3.5 cm2 CV PACS LVOT Stroke Volume 54 mL CV PACS Left Atrium Minor [place] 5.9 cm CV PACS Left Atrium Major [place] 5.6 cm CV PACS LA Area Sys (A2C) 22 cm2 CV PACS LA Area Sys (A4C) 19 cm2 CV PACS LA Volume (BP) 59 mL CV PACS LA Size 4.8 cm CV PACS RA Area 13.5 cm2 CV PACS RA 2D Volume 29 mL CV PACS AV Mean Gradient 5 mmHg CV PACS Ao VTI 27.0 cm CV PACS AV Peak Isaiah 1.6 m/s CV PACS AV Peak Gradient 10 mmHg CV PACS AV Area Continuity Equation 2.0 cm2 CV PACS AV Area Peak Velocity 1.9 cm2 CV PACS Aortic Arch 3.0 cm CV PACS Ascending Aorta 4.1 cm CV PACS Aortic Sinus Valsalva 4.1 cm CV PACS IVC Proximal 1.9 cm CV PACS MV Deceleration [place] 2.7 m/s2 CV PACS E Wave Deceleration Time 224 119 - 242 ms CV PACS MV PHT 66 ms CV PACS MV Peak A Isaiah 0.79 m/s CV PACS MV Peak E Isaiah 0.60 m/s CV PACS MV Mean Gradient 1 mmHg CV PACS MV Mean Gradient 1 mmHg CV PACS MV Mean Gradient 1 mmHg CV PACS MV Mean Gradient 1 mmHg CV PACS MV VTI 20.8 cm CV PACS Mitral Valve Max Velocity 0.9 m/s CV PACS Mitral Valve Max Velocity 0.9 m/s CV PACS MV Peak Gradient 3 mmHg CV PACS MV Area PHT 3.3 cm2 CV PACS MV Area Continuity Equation 2.6 cm2 CV PACS PV Acceleration Time 102 ms CV PACS PV Mean Gradient 1 mmHg CV PACS PV VTI 15.1 cm CV PACS PV Peak Velocity 0.8 m/s CV PACS PV Peak Gradient 2 mmHg CV PACS RV Diastolic Basal Dimension 2.8 2.5 - 4.1 cm CV PACS RV S' 12 cm/s CV PACS TAPSE 24 mm CV PACS E/E' Ratio Septal 15 CV PACS E/E' Ratio Averaged 14 CV PACS Relative Wall Thickness ratio 0.58 CV PACS LVOT:AV VTI Index 0.58 CV PACS FS 20 % CV PACS LV Mass 2D 223 g CV PACS MV VTI:LVOT VTI ratio 1.3 CV PACS LVOT flow 173 mL/s CV PACS E/A Ratio 0.8 CV PACS E/E' Ratio Lateral 12 CV PACS BSA 2 m2 CV PACS LV Diastolic Volume Index (BP) 35 34 - 74 mL/m2 CV PACS LV Systolic Volume Index (BP) 20 11 - 31 mL/m2 CV PACS LV EDV Index (A4C) 40 mL/m2 CV PACS LV ESV Index (A4C) 22 mL/m2 CV PACS LV EDV Index (A2C) 30 mL/m2 CV PACS LV ESV Index (A2C) 16 mL/m2 CV PACS LA Volume Index (BP) 30 mL/m2 CV PACS LVIDD Index 2.26 cm/m2 CV PACS LVIDS Index 1.81 cm/m2 CV PACS LV Mass Index 2D 112(A) 50 - 102 g/m2 CV PACS LVOT Stroke Index 27 mL/m2 CV PACS LA Dimension Index 2D 2.4 cm/m2 CV PACS RA 2D Volume Index 15(A) 18 - 32 mL/m2 CV PACS LANI Index (VTI) 1.01 cm2/m2 CV PACS LANI Index (Pk Isaiah) 0.95 cm2/m2 CV PACS Ascending Aorta Index 2.06 cm/m2 CV PACS Anatomical Region Laterality Modality Ultrasound Narrative 04/17/2024 5:57 PM EST Left ventricle cavity size is normal. There is mild concentric hypertrophy. Systolic function is mildly decreased with an ejection fraction of 40-45%. Mild global LV hypokinesis is present. No hemodynamically significant valvular dysfunction Dilatation of the Sinus of Valsalva (4.1 cm) and ascending aorta (4.1 cm). Compared to the prior study from 2021, the left ventricular systolic function previously reported as normal is now mildly reduced; aortic dimensions are similar Left Ventricle Left ventricle cavity size is normal. There is mild concentric hypertrophy. Systolic function is mildly decreased with an ejection fraction of 40-45%. Mild global LV hypokinesis is present. Right Ventricle Right ventricle cavity appears normal. Left Atrium Left atrium cavity size is normal. Right Atrium Right atrium cavity is normal. IVC/SVC Inferior vena cava structure is normal. RA pressures is estimated to be 3 mmHg (IVC diameter <21 mm and decreases >50% during inspiration). Mitral Valve The leaflets are mildly thickened. There is mild annular calcification. There is trace regurgitation. There is no evidence of mitral valve stenosis. Tricuspid Valve Tricuspid valve structure is normal. There is no significant regurgitation. Cannot assess RVSP. Aortic Valve The aortic valve is trileaflet. The leaflets are mildly thickened. There is no significant regurgitation. There is no evidence of aortic valve stenosis. Pulmonic Valve There is no pulmonic valve regurgitation. Ascending Aorta The Sinus of Valsalva is(4.1 cm). The ascending aorta is(4.1 cm). Pericardium Pericardium appears normal. There is no pericardial effusion. Study Details Overall the study quality was adequate. us Johnny Jay MD CV ECHO PROCEDURES Fin al Result * Urine Albumin Creatinine Ratio (10/03/2023) [facility] Urine Albumin Creatinine Ratio Abstracted Result [facility] Provider HEALTH MAINTENANCE Final Result * Annual BMP Blood Test (10/03/2023) [facility] Annual BMP Blood Test Abstracted Result [facility] hospital HEALTH MAINTENANCE Final Result * Falls Risk Assessment (10/03/2023) [facility] Falls Risk Assessment Abstracted Result [facility] hospital HEALTH MAINTENANCE Final Result * Depression Screening (10/03/2023) [facility] Depression Screening Abstracted Result [facility] HEALTH MAINTENANCE Final Result * (ABNORMAL) Hemoglobin A1c (10/03/2023) [facility] Hemoglobin A1C 7.4(A) <=6.5 % Blood Venous blood specimen / Unknown Result [facility] LAB BLOOD ORDERABLES Adelia l Result * Lipid panel (10/03/2023) [facility] LDL/HDL Ratio 3 0 - 4 Triglycerides 93 0 - 150 mg/dL Cholesterol 125 0 - 200 mg/dL HDL 48 >=40 mg/dL LDL Cholesterol 59 0 - 100 mg/dL Blood Venous blood specimen / Unknown Result [facility] LAB BLOOD ORDERABLES Adelia l Result * Diabetes Eye Exam (06/15/2023) [facility] Diabetes: Annual Retina Eye Exam Abstracted Result [facility] HEALTH MAINTENANCE Final Result * Colonoscopy (09/13/2019) [facility] Colonoscopy No interpretation , Abstracted Anatomical Region Laterality Modality Other Result [facility] HEALTH MAINTENANCE Final Result * Hepatitis C Screening (11/16/2015) [facility] Hepatitis C Screening Abstracted Result [facility] hospital HEALTH MAINTENANCE Final Result from Last 3 Months or Most Recently Relevant to Health Maintenance Insurance [employer] MEDICARE ADVANTAGE MEDICARE FAMILY [employer] PLAN MEDICAID - [place] Care Teams Manual Control Auger Press Operator Relationship Specialty Start Date End Date Mau Fang MD [address] [place] [address] [address] THAO Persaud PCP - General Internal Medicine 04/19/24
--- OUTSIDE RECORDS SUMMARY | 2024-05-14 08:57 | XMS_ITS | Encounter Summary ---
Author Organization [facility] Address [address] [place] [address] Care Team Providers Care Weed Thinner Name Role Phone Reji Coronado MD Primary Care Provider [phone] Jorge Singleton PA-C Primary Care Provider [phone] Etta Lipscomb MD Primary Care Provider Bryan Wilson MD Unavailable Unavailable Jorge Singleton PA-C Primary Care Provider [phone] Reason for Visit * Reason Comments E-prescribe Rx Request Encounter Details Date Type Department Care Team Description 07/29/2016 Refill Adult Medicine [address] [id number] Reji Coronado MD [address] [place] [address] [id number] E-prescribe Rx Request Social History Tobacco Use [...] encounter Miscellaneous Notes * Telephone Encounter - Didi Ricks M.A. - 07/29/2016 2:33 PM EDT Lab Results Component Value Date HGBA1C 8.7 05/03/2016 MALBUR 7.4 05/03/2016 MALBCR 2.4 05/03/2016 CHOL 151 05/03/2016 LDL 84 05/03/2016 HDL 52 05/03/2016 TRIG 75 05/03/2016 GLU 212 05/03/2016 CREAT 0.9 05/03/2016 * Telephone Encounter - Ashish Mcgrathuirre - 07/29/2016 9:19 AM EDT Patient would like script to be: E-PRESCRIBED/FAXED TO PHARMACY WHEN WAS THE PATIENT'S LAST APPOINTMENT IN ADULT MEDICINE? 05/18/16 WHEN WAS THE LAST TIME THE PATIENT SAW THEIR PCP? 05/14/15 Does patient have an upcoming appointment? No-unable to reach left [facility] to call for appointment due to [...] / Plan: [place] / Product Type: MEDICARE [id number] documented in this encounter Plan of Treatment Not on file documented as of this encounter Visit Diagnoses Not on filedocumented in this encounter Care Teams Weed Thinner Relationship Specialty Start Date End Date Reji Coronado MD [address] [place] [id number] PCP - General Internal Medicine 03/19/15 05/12/20 Jorge Singleton PA-C [address] [place] [address] PCP - General Internal Medicine 05/13/20 12/23/21 Etta Lipscomb MD [address] [place] [address] PCP - General Lung Cancer Binding Machine Operator 12/24/21 01/19/22 Jorge Singleton PA-C [address] [place] [id number] PCP - General Internal Medicine 01/20/22 Bryan Wilson MD [address] [place] [address] Specialist Cardiovascular Disease 01/20/22 documented as of this encounter
--- OUTSIDE RECORDS SUMMARY | 2024-05-14 08:57 | XMS_ITS | Encounter Summary ---
Author Organization [facility] Address [address] [place] [address] Care Team Providers Care Instructional Design Consultant Name Role Phone Reji Coronado MD Primary Care Provider [phone] Jorge Singleton PA-C Primary Care Provider [phone] Etta Lipscomb MD Primary Care Provider [phone] Bryan Wilson MD Unavailable Unavailable Jorge Singleton PA-C Primary Care Provider + [phone] Encounter Details Date Type Department Care Team Description 04/30/2020 Floor Molder Report Medical Records [address] [place] [id number] Mary Chang Social History Tobacco Use Types Packs/Day Years [...] on filedocumented in this encounter Care Teams Instructional Design Consultant Relationship Specialty Start Date End Date Reji Coronado MD [address] [place] [address] [phone] PCP - General Internal Medicine 03/19/15 05/12/20 Jorge Singleton PA-C [address] [place] [address] PCP - General Internal Medicine 05/13/20 12/23/21 Etta Lipscomb MD [address] [place] [address] PCP - General Lung Cancer Body Maker Machine Setter 12/24/21 01/19/22 Jorge Singleton PA-C [address] [place] [address] PCP - General Internal Medicine 01/20/22 Bryan Wilson MD [address] [place] [address] Specialist Cardiovascular Disease 01/20/22 documented as of this encounter
--- OUTSIDE RECORDS SUMMARY | 2024-05-14 08:57 | XMS_ITS | Encounter Summary ---
Author Organization [facility] Address [address] [place] [address] Care Team Providers Care Supervisor Sewer Maintenance Name Role Phone Reji Coronado MD Primary Care Provider [phone] Jorge Singleton PA-C Primary Care Provider [phone] Etta Lipscomb MD Primary Care Provider [phone] Bryan Wilson MD Unavailable Unavailable Jorge Singleton PA-C Primary Care Provider [phone] Encounter Details Date Type Department Care Team Description 03/26/2020 Optical Goods Drilling Machine Operator Report Medical Records [address] [place] [address] Mary Chang Social History Tobacco Use Types [...] on filedocumented in this encounter Care Teams Supervisor Sewer Maintenance Relationship Specialty Start Date End Date Reij Coronado MD [address] [place] [address] [id number] PCP - General Internal Medicine 03/19/15 05/12/20 Jorge Singleton PA-C [address] [place] [address] [phone] PCP - General Internal Medicine 05/13/20 12/23/21 Etta Lipscomb MD [address] [place] [address] PCP - General Lung Cancer Professional Development Manager 12/24/21 01/19/22 Jorge Singleton PA-C [address] [place] [address] PCP - General Internal Medicine 01/20/22 Bryan Wilson MD [address] [place] [address] Specialist Cardiovascular Disease 01/20/22 documented as of this encounter
--- OUTSIDE RECORDS SUMMARY | 2024-05-14 08:57 | XMS_ITS | Encounter Summary ---
Author Organization [facility] Address [address] [place] [address] Care Team Providers Care Wildlife Control Agent Name Role Phone Bryan Wilson MD Unavailable Unavailable Jorge Singleton PA-C Primary Care Provider [phone] Encounter Details Date Type Department Care Team Description 07/06/2023 Blow Down Helper Report Medical Records [address] [place] [address] Ibrahima Gaitan PA-C Social History Tobacco Use [...] on filedocumented in this encounter Care Teams Wildlife Control Agent Relationship Specialty Start Date End Date Jorge Singleton PA-C [address] [place] [address] [id number] PCP - General Internal Medicine 01/20/22 Bryan Wilson MD Specialist Cardiovascular Disease 01/20/22 documented as of this encounter
--- OUTSIDE RECORDS SUMMARY | 2024-05-14 08:57 | XMS_ITS | Encounter Summary ---
Author Organization [facility] Address [address] [place] [address] Care Team Providers Care Development Vice President Name Role Phone Jorge Singleton PA-C Primary Care Provider [phone] Etta Lipscomb MD Primary Care Provider [phone] Bryan Wilson MD Unavailable Unavailable Jorge Singleton PA-C Primary Care Provider [phone] Encounter Details Date Type Department Care Team Description 11/25/2020 Farmworker Pullet Farm Report Medical Records [address] [place] [address] Abstract, Provider Social History Tobacco Use Types [...] on filedocumented in this encounter Care Teams Development Vice President Relationship Specialty Start Date End Date Jorge Singleton PA-C [address] [place] [address] PCP - General Internal Medicine 05/13/20 12/23/21 Etta Lipscomb MD [address] [place] [address] [phone] PCP - General Lung Cancer Art Glass Designer 12/24/21 01/19/22 Jorge Singleton PA-C [address] [place] [address] PCP - General Internal Medicine 01/20/22 Bryan Wilson MD [address] [place] [address] Specialist Cardiovascular Disease 01/20/22 documented as of this encounter
--- OUTSIDE RECORDS SUMMARY | 2024-05-14 08:58 | XMS_ITS | Encounter Summary ---
Author Organization [facility] Address [address] [place] [address] Care Team Providers Care Commission Clerk Name Role Phone Jorge Singleton PA-C Primary Care Provider [phone] Etta Lipscomb MD Primary Care Provider [phone] Bryan Wilson MD Unavailable Unavailable Jorge Singleton PA-C Primary Care Provider [phone] Reason for Referral * EXTERNAL (Routine) - Authorized/Booked Specialty Diagnoses / Procedures Referred By Evert morales Referred To Contact Dermatology Procedures REFERRAL TO DERMATOLOGY Kenan De La Garza MD [address] [place] [address] [facility] Referral ID Status Reason Start Date Expiration Date V isits Requested Visits Authorized [id number] Authorized/B ooked 02/05/2021 02/05/2022 1 1 Encounter Details Date Type Department Care Team Description 02/05/2021 Orders Only Adult Medicine [address] [id number] Kenan De La Garza MD [address] [place] [address] Social History Tobacco Use Types Packs/Day Years [...] on filedocumented in this encounter Care Teams Commission Clerk Relationship Specialty Start Date End Date Jorge Singleton PA-C [address] [place] [address] PCP - General Internal Medicine 05/13/20 12/23/21 Etta Lipscomb MD [address] [place] [address] PCP - General Lung Cancer Sheet Rock Installer 12/24/21 01/19/22 Jorge Singleton PA-C [address] [place] [address] PCP - General Internal Medicine 01/20/22 Bryan Wilson MD [address] [place] [address] Specialist Cardiovascular Disease 01/20/22 documented as of this encounter
--- OUTSIDE RECORDS SUMMARY | 2024-05-14 08:58 | XMS_ITS | Encounter Summary ---
Author Organization [facility] Address [address] [place] [address] Care Team Providers Care Auto Suspension And Steering Mechanic Name Role Phone Bryan Wilson MD Unavailable Unavailable Jorge Singleton PA-C Primary Care Provider [phone] Encounter Details Date Type Department Care Team Description 06/29/2023 Field Services Director Report Medical Records [address] [place], [place] [id number] [place] [address] Social History Tobacco Use Types Packs/Day Years [...] on filedocumented in this encounter Care Teams Auto Suspension And Steering Mechanic Relationship Specialty Start Date End Date Jorge Singleton PA-C [address] [place], [place] [phone] PCP - General Internal Medicine 01/20/22 Bryan Wilson MD Specialist Cardiovascular Disease 01/20/22 documented as of this encounter
--- OUTSIDE RECORDS SUMMARY | 2024-05-14 08:58 | XMS_ITS | Encounter Summary ---
Author Organization [facility] [employer] [facility] Address [address] [place] [address] Care Team Providers Care Sand Cutter Name Role Phone Bryan Wilson MD Unavailable Unavailable Jorge Singleton PA-C Primary Care Provider [phone] Encounter Details Date Type Department Care Team Description 05/02/2022 Hospital Medical Records [address] [place] [address] Rufino Pennington MD [address] [place] [address] [address] [place] [address] Social History Tobacco Use Types Packs/Day Years [...] suspected to have Coronavirus/COVID-19? No / Unsure 04/25/2022 10:18 AM EST documented as of this encounter Plan of Treatment Not on file documented as of this encounter Visit Diagnoses Not on filedocumented in this encounter Care Teams Sand Cutter Relationship Specialty Start Date End Date Jorge Singleton PA-C [address] [place] [address] PCP - General Internal Medicine 01/20/22 Bryan Wilson MD Specialist Cardiovascular Disease 01/20/22 documented as of this encounter
--- OUTSIDE RECORDS SUMMARY | 2024-05-14 08:58 | XMS_ITS | Encounter Summary ---
Author Organization [facility] Address [address] [place] [address] Care Team Providers Care Foundry Finisher Name Role Phone Bryan Wilson MD Unavailable Unavailable Jorge Singleton PA-C Primary Care Provider [phone] Encounter Details Date Type Department Care Team Description 05/19/2022 Door Installer Report Medical Records [address] [place] [address] Joaquin Ramírez MD Social History Tobacco Use Types Packs/Day [...] on filedocumented in this encounter Care Teams Foundry Finisher Relationship Specialty Start Date End Date Jorge Snigleton PA-C [address] [place], [place] [phone] PCP - General Internal Medicine 01/20/22 Bryan Wilson MD Specialist Cardiovascular Disease 01/20/22 documented as of this encounter
--- OUTSIDE RECORDS SUMMARY | 2024-05-14 08:58 | XMS_ITS | Encounter Summary ---
Author Organization [facility] [employer] Address [address] [place] [address] Care Team Providers Care Before School Name Role Phone Bryan Wilson MD Unavailable Unavailable Jorge Singleton PA-C Primary Care Provider [phone] Encounter Details Date Type Department Care Team Description 05/04/2022 Orders Only Medical Records [address] [place] [address] Rufino Pennington MD [address] [place] [address] [place] [address] Social History Tobacco Use Types Packs/Day Years [...] on file documented as of this encounter Procedures Procedure Name Priority Date/Time Associated Diagnosis Comments OUTSIDE PATHOLOGY Routine 05/02/2022 documented in this encounter Results * OUTSIDE PATHOLOGY (05/02/2022) Rufino Pennington MD OUTSIDE LAB documented in this encounter Visit Diagnoses Not on filedocumented in this encounter Care Teams Before School Relationship Specialty Start Date End Date Jorge Singleton PA-C [address] [place] [address] PCP - General Internal Medicine 01/20/22 Bryan Wilson MD Specialist Cardiovascular Disease 01/20/22 documented as of this encounter
--- OUTSIDE RECORDS SUMMARY | 2024-05-14 08:58 | XMS_ITS | Encounter Summary ---
Author Organization [facility] [employer] [facility] Address [address] [place] [address] Care Team Providers Care Plumbing Warehouse Helper Name Role Phone Bryan Wilson MD Unavailable Unavailable Jorge Singleton PA-C Primary Care Provider [phone] Encounter Details Date Type Department Care Team Description 08/04/2022 Mri Technician Report Medical Records [address] [place] [address] Abstract, Provider Social History Tobacco Use Types [...] suspected to have Coronavirus/COVID-19? No / Unsure 08/05/2022 9:44 AM EDT documented as of this encounter Plan of Treatment Not on file documented as of this encounter Visit Diagnoses Not on filedocumented in this encounter Care Teams Plumbing Warehouse Helper Relationship Specialty Start Date End Date Jorge Singleton PA-C [address] [place], [place] [phone] PCP - General Internal Medicine 01/20/22 Bryan Wilson MD Specialist Cardiovascular Disease 01/20/22 documented as of this encounter
--- OUTSIDE RECORDS SUMMARY | 2024-05-14 08:58 | XMS_ITS | Encounter Summary ---
Author Organization [facility] [employer] [facility] Address [address] [place] [address] Care Team Providers Care Remanufacturing Technician Name Role Phone Bryan Wilson MD Unavailable Unavailable Jorge Singleton PA-C Primary Care Provider [phone] Encounter Details Date Type Department Care Team Description 04/25/2023 Hand Cloth Cutter Report Medical Records [address] [place] [address] Abstract, Provider Social History Tobacco Use Types [...] on filedocumented in this encounter Care Teams Remanufacturing Technician Relationship Specialty Start Date End Date Jorge Singleton PA-C [address] [place] [address] [phone] PCP - General Internal Medicine 01/20/22 Bryan Wilson MD Specialist Cardiovascular Disease 01/20/22 documented as of this encounter
--- OUTSIDE RECORDS SUMMARY | 2024-05-14 08:58 | XMS_ITS | Encounter Summary ---
Author Organization [facility] [employer] [facility] Address [address] [place] [address] Care Team Providers Care Pest Control Technician Name Role Phone Bryan Wilson MD Unavailable Unavailable Jorge Singleton PA-C Primary Care Provider [phone] Encounter Details Date Type Department Care Team Description 08/14/2023 Weatherization Specialist Report Medical Records [address] [place] [address] Almas King Social History Tobacco Use Types Packs/Day Years [...] on filedocumented in this encounter Care Teams Pest Control Technician Relationship Specialty Start Date End Date Jorge Singleton PA-C [address] [place] [address] [id number] PCP - General Internal Medicine 01/20/22 Bryan Wilson MD Specialist Cardiovascular Disease 01/20/22 documented as of this encounter
--- OUTSIDE RECORDS SUMMARY | 2024-05-14 08:58 | XMS_ITS | Encounter Summary ---
Author Organization [facility] Address [address] [place] [address] Care Team Providers Care Divorce Lawyer Name Role Phone Jorge Singleton PA-C Primary Care Provider [phone] Etta Lipscomb MD Primary Care Provider [phone] Bryan Wilson MD Unavailable Unavailable Jorge Singleton PA-C Primary Care Provider [phone] Encounter Details Date Type Department Care Team Description 08/24/2020 Network Contract Manager Report Medical Records [address] [place] [address] Rain Arevalo Social History Tobacco Use Types Packs/Day Years [...] have Coronavirus / COVID-19? No / Unsure 08/05/2020 8:16 AM EDT documented as of this encounter Plan of Treatment Not on file documented as of this encounter Visit Diagnoses Not on filedocumented in this encounter Care Teams Divorce Lawyer Relationship Specialty Start Date End Date Jorge Singleton PA-C [address] [place] [address] [id number] PCP - General Internal Medicine 05/13/20 12/23/21 Etta Lipscomb MD [address] [place] [address] PCP - General Lung Cancer Chairman And Ceo 12/24/21 01/19/22 Jorge iSngleton PA-C [address] [place] [address] PCP - General Internal Medicine 01/20/22 Bryan Wilson MD [address] [place] [address] Specialist Cardiovascular Disease 01/20/22 documented as of this encounter
--- OUTSIDE RECORDS SUMMARY | 2024-05-14 08:58 | XMS_ITS | Encounter Summary ---
Author Organization [facility] Address [address] [place] [address] Care Team Providers Care Central Office Maintainer Name Role Phone Bryan Wilson MD Unavailable Unavailable Jorge Singleton PA-C Primary Care Provider [phone] Encounter Details Date Type Department Care Team Description 06/20/2023 Tyre Fitter Report Medical Records [address] [place] [address] Abstract, Provider Social History Tobacco Use Types [...] on filedocumented in this encounter Care Teams Central Office Maintainer Relationship Specialty Start Date End Date Jorge Singleton PA-C [address] [place] [address] [id number] PCP - General Internal Medicine 01/20/22 Bryan Wilson MD Specialist Cardiovascular Disease 01/20/22 documented as of this encounter
--- OUTSIDE RECORDS SUMMARY | 2024-05-14 08:58 | XMS_ITS | Encounter Summary ---
Author Organization [facility] Address [address] [place] [address] Care Team Providers Care Senior Office Assistant Name Role Phone Reji Coronado MD Primary Care Provider [phone] Jorge Singleton PA-C Primary Care Provider [phone] Etta Lipscomb MD Primary Care Provider [phone] Bryan Wilson MD Unavailable Unavailable Jorge Singleton PA-C Primary Care Provider [phone] Encounter Details Date Type Department Care Team Description 01/30/2019 Body Liner Report Medical Records [address] [place] [address] Jimmy Henley Social History Tobacco Use Types Packs/Day Years [...] on filedocumented in this encounter Care Teams Senior Office Assistant Relationship Specialty Start Date End Date Reji Coronado MD [address] [place] [address] [phone] PCP - General Internal Medicine 03/19/15 05/12/20 Jorge Singleton PA-C [address] [place] [address] [id number] PCP - General Internal Medicine 05/13/20 12/23/21 Etta Lipscomb MD [address] [place] [address] PCP - General Lung Cancer Automobile Tester 12/24/21 01/19/22 Jorge Singleton PA-C [address] [place] [address] PCP - General Internal Medicine 01/20/22 Bryan Wilson MD [address] [place] [address] Specialist Cardiovascular Disease 01/20/22 documented as of this encounter
--- OUTSIDE RECORDS SUMMARY | 2024-05-14 08:58 | XMS_ITS | Encounter Summary ---
Author Organization [facility] Address [address] [place] [address] Care Team Providers Care Gold And Silver Assayer Name Role Phone Bryan Wilson MD Unavailable Unavailable Jorge Singleton PA-C Primary Care Provider [phone] Reason for Visit * Reason Onset Date Comments Faxed Order 08/12/2022 Apprise diagnost ic Encounter Details Date Type Department Care Team Description 08/12/2022 Telephone Adult Medicine [address] [phone] Jorge Singleton PA-C [address] [place] [address] [phone] Faxed Order (Apprise diagnostic) Social History Tobacco Use Types Packs/Day Years [...] on filedocumented in this encounter Care Teams Gold And Silver Assayer Relationship Specialty Start Date End Date Jorge Singleton PA-C [address] [place] [address] [phone] PCP - General Internal Medicine 01/20/22 Bryan Wilson MD Specialist Cardiovascular Disease 01/20/22 documented as of this encounter
--- OUTSIDE RECORDS SUMMARY | 2024-05-14 08:58 | XMS_ITS | Encounter Summary ---
Author Organization [facility] Address [address] [place] [address] Care Team Providers Care Automatic Lathe Operator Name Role Phone Bryan Wilson MD Unavailable Unavailable Jorge Singleton PA-C Primary Care Provider [phone] Encounter Details Date Type Department Care Team Description 02/23/2023 Needle Molder Report Medical Records [address] [place] [address] Karissa Harvey [address] [place] [address] Social History Tobacco Use Types Packs/Day Years [...] on filedocumented in this encounter Care Teams Automatic Lathe Operator Relationship Specialty Start Date End Date Jorge Singleton PA-C [address] [place] [address] PCP - General Internal Medicine 01/20/22 Bryan Wilson MD Specialist Cardiovascular Disease 01/20/22 documented as of this encounter
--- OUTSIDE RECORDS SUMMARY | 2024-05-14 08:58 | XMS_ITS | Encounter Summary ---
Author Organization [employer] Address [address] [place] [address] Care Team Providers Care Journeyman Electrician Name Role Phone Mau Fang MD Primary Care Provider [phone] Reason for Visit * Reason Onset Date Comments call back 04/18/2024 Encounter Details Date Type Department Care Team (Late st Contact Info) Description 04/18/2024 Telephone Adult Medicine [facility] [address] [place], [place] [phone] Johnny Jay MD [address] [place] [address] call back Social History Tobacco Use Types Packs/Day Years Used Date Smoking Tobacco: Never Smokeless Tobacco: Never Alcohol Use Standard Drinks/Week Comments Yes 0 (1 standard drink = 0.6 oz pur e alcohol) Sex and Gender Information Value Date Recorded Sex Assigned at Not on file Legal Sex Male 1:54 PM EST Gender Identity Not on file Sexual Orientation Not on file documented as of this encounter Progress Notes * Alexandria Wooten RN - 04/23/2024 8:03 AM EST Call # [phone] to the daughter. LM to call the office to confirm the appt * Alexandria Wooten RN - 04/22/2024 9:53 AM EST LM for the daughter to call the office and confirm the appt on 04/24 * Alexandria Wooten RN - 04/19/2024 1:41 PM EST LM for the daughter to call the office The pt is scheduled for 04/24 at 1:45 with 30 minutes * Arabella Serna - 04/19/2024 9:12 AM EST Patient daughter is calling in regards to this. PT daughter is insisting he needs to be seen today.PT daughter is stating that if the doctor is calling him about is result it must be serious and is refusing to let her dad wait to be seen. Please advise * Haydee Morrison MA - 04/18/2024 4:15 PM EST Patient is scheduled on 05-06-24 to see Alison at 2pm. That was the next available appointment. * Johnny Jay MD - 04/18/2024 3:25 PM EST Discussed results of the echocardiogram briefly over the phone with the patient's (VR positivein the previous epic). Patient has slightly decreased ejection fraction as compared to before. Doesnot have any CHF related symptoms at this time but will need to be seen in the office. He is overdue for follow-up for his diabetes as well. Missed his appointment with cardiology late last year. Please provide the patient with an office appointment 30 min documented in this encounter Plan of Treatment Not on file documented as of this encounter Visit Diagnoses Not on filedocumented in this encounter Care Teams Journeyman Electrician Relationship Specialty Start Date End Date Mau Fang MD [address] [place] [address] Dr [address] THAO Persaud PCP - General Internal Medicine 04/19/24 documented as of this encounter
--- OUTSIDE RECORDS SUMMARY | 2024-05-14 08:58 | XMS_ITS | Encounter Summary ---
Author Organization [facility] Address [address] [place] [address] Care Team Providers Care Resource Technician Name Role Phone Bryan Wilson MD Unavailable Unavailable Jorge Singleton PA-C Primary Care Provider [phone] Reason for Visit * Reason Onset Date Comments REFERRAL 07/25/2022 Encounter Details Date Type Department Care Team Description 07/25/2022 Telephone Adult Medicine [facility] [address] [place], [place] [phone] Jorge Singleton PA-C [address] [place], [place] [phone] REFERRAL Social History Tobacco Use Types Packs/Day Years [...] encounter Miscellaneous Notes * Telephone Encounter - Jessica Tang - 08/23/2022 3:14 PM EDT Patient must change his PCP with his insurance- still listed with Dr Coronado * Telephone Encounter - Analilia Moreno - 07/25/2022 10:01 AM EDT See Referral request from 01/20/22 for Nuerology at [facility]. Never received referral request please resend to fx [phone] documented in this encounter Plan of Treatment Not on file documented as of this encounter Visit Diagnoses Not on filedocumented in this encounter Care Teams Resource Technician Relationship Specialty Start Date End Date Jorge Singleton PA-C [address] [place] [address] PCP - General Internal Medicine 01/20/22 Bryan Wilson MD Specialist Cardiovascular Disease 01/20/22 documented as of this encounter
--- OUTSIDE RECORDS SUMMARY | 2024-05-14 08:58 | XMS_ITS | Encounter Summary ---
Author Organization [facility] [employer] [facility] Address [address] [place] [address] Care Team Providers Care Freelance Patternmaker Name Role Phone Bryan Wilson MD Unavailable Unavailable Jorge Singleton PA-C Primary Care Provider [phone] Encounter Details Date Type Department Care Team Description 04/01/2022 Survey Rodman Report Medical Records [address] [place] [address] Etta Lipscomb MD [address] [place] [address] Social History Tobacco Use Types Packs/Day Years [...] suspected to have Coronavirus/COVID-19? No / Unsure 03/21/2022 11:11 AM EST documented as of this encounter Plan of Treatment Not on file documented as of this encounter Visit Diagnoses Not on filedocumented in this encounter Care Teams Freelance Patternmaker Relationship Specialty Start Date End Date Jorge Singleton PA-C [address] [place] [address] PCP - General Internal Medicine 01/20/22 Bryan Wilson MD Specialist Cardiovascular Disease 01/20/22 documented as of this encounter
--- OUTSIDE RECORDS SUMMARY | 2024-05-14 08:58 | XMS_ITS | Encounter Summary ---
Author Organization [facility] [facility] Address [address] [place] [address] Care Team Providers Care Ironworker Wire Fence Erector Name Role Phone Bryan Wilson MD Unavailable Unavailable Jorge Singleton PA-C Primary Care Provider [phone] Encounter Details Date Type Department Care Team Description 04/01/2022 Line Maintainer Report Medical Records [address] [place] [address] Etta Lipscomb MD [address] [place] [address] Social History Tobacco Use Types Packs/Day Years [...] on filedocumented in this encounter Care Teams Ironworker Wire Fence Erector Relationship Specialty Start Date End Date Jorge Sinlgeton PA-C [address] [place] [address] PCP - General Internal Medicine 01/20/22 Bryan Wilson MD Specialist Cardiovascular Disease 01/20/22 documented as of this encounter
--- OUTSIDE RECORDS SUMMARY | 2024-05-14 08:58 | XMS_ITS | Encounter Summary ---
Author Organization [facility] Address [address] [place] [address] Care Team Providers Care Antique Automobiles Repairer Name Role Phone Reji Coronado MD Primary Care Provider [phone] Jorge Singleton PA-C Primary Care Provider [phone] Etta Lipscomb MD Primary Care Provider [phone] Bryan Wilson MD Unavailable Unavailable Jorge Singleton PA-C Primary Care Provider [phone] Encounter Details Date Type Department Care Team Description 03/14/2019 Booking Prizer Report Medical Records [address] [place] [id number] Jimmy Henley Social History Tobacco Use Types [...] on filedocumented in this encounter Care Teams Antique Automobiles Repairer Relationship Specialty Start Date End Date Reji Coronado MD [address] [place] [address] [id number] PCP - General Internal Medicine 03/19/15 05/12/20 Jorge Singleton PA-C [address] [place] [address] [id number] PCP - General Internal Medicine 05/13/20 12/23/21 Etta Lipscomb MD [address] [place] [address] PCP - General Lung Cancer Slitter Helper 12/24/21 01/19/22 Jorge Singleton PA-C [address] [place] [address] PCP - General Internal Medicine 01/20/22 Bryan Wilson MD [address] [place] [address] Specialist Cardiovascular Disease 01/20/22 documented as of this encounter
--- OUTSIDE RECORDS SUMMARY | 2024-05-14 08:58 | XMS_ITS | Encounter Summary ---
Author Organization [facility] Address [address] [place] [address] Care Team Providers Care Certified Physician Assistant Name Role Phone Bryan Wilson MD Unavailable Unavailable Jorge Singleton PA-C Primary Care Provider [phone] Encounter Details Date Type Department Care Team Description 06/22/2023 Orders Only Medical Records [address] [place] [address] Fransico Hussein Social History Tobacco Use Types Packs/Day Years [...] Name Priority Date/Time Associated Diagnosis Comments OUTSIDE EYE EXAM Routine 06/15/2023 documented in this encounter Results * OUTSIDE EYE EXAM (06/15/2023) Fransico Hussein PROCEDURES documented in this encounter Visit Diagnoses Not on filedocumented in this encounter Care Teams Certified Physician Assistant Relationship Specialty Start Date End Date Jorge Singleton PA-C [address] [place], [place] [phone] PCP - General Internal Medicine 01/20/22 Bryan Wilson MD Specialist Cardiovascular Disease 01/20/22 documented as of this encounter
--- OUTSIDE RECORDS SUMMARY | 2024-05-14 08:58 | XMS_ITS | Encounter Summary ---
Author Organization [facility] Address [address] [place] [address] Care Team Providers Care Upper Leather Cutter Name Role Phone Reji Coronado MD Primary Care Provider [phone] Jorge Singleton PA-C Primary Care Provider [phone] Etta Lipscomb MD Primary Care Provider [phone] Bryan Wilson MD Unavailable Unavailable Jorge Singleton PA-C Primary Care Provider [phone] Encounter Details Date Type Department Care Team Description 11/27/2018 Cooker Casing Report Medical Records [address] [place] [address] Rain Arevalo Social History Tobacco Use Types [...] on filedocumented in this encounter Care Teams Upper Leather Cutter Relationship Specialty Start Date End Date Reji Coronado MD [address] [place] [address] [phone] PCP - General Internal Medicine 03/19/15 05/12/20 Jorge Singleton PA-C [address] [place] [address] [phone] PCP - General Internal Medicine 05/13/20 12/23/21 Etta Lipscomb MD [address] [place] [address] PCP - General Lung Cancer Grey Roll Worker 12/24/21 01/19/22 Jorge Singleton PA-C [address] [place] [address] PCP - General Internal Medicine 01/20/22 Bryan Wilsno MD [address] [place] [address] Specialist Cardiovascular Disease 01/20/22 documented as of this encounter
--- OUTSIDE RECORDS SUMMARY | 2024-05-14 08:58 | XMS_ITS | Encounter Summary ---
Author Organization [facility] Address [address] [place] [address] Care Team Providers Care Call Center Recruiter Name Role Phone Reji Coronado MD Primary Care Provider [phone] Jorge Singleton PA-C Primary Care Provider [phone] Etta Lipscomb MD Primary Care Provider [phone] Bryan Wilson MD Unavailable Unavailable Jorge Singleton PA-C Primary Care Provider [phone] Encounter Details Date Type Department Care Team Description 02/18/2019 Old Medical Records Medical Records [address] [place] [address] Abstract, Provider Social History Tobacco Use Types [...] on filedocumented in this encounter Care Teams Call Center Recruiter Relationship Specialty Start Date End Date Reji Coronado MD [address] [place] [address] [phone] PCP - General Internal Medicine 03/19/15 05/12/20 Jorge Singleton PA-C [address] [place] [address] [phone] PCP - General Internal Medicine 05/13/20 12/23/21 Etta Lipscomb MD [address] [place] [address] PCP - General Lung Cancer Air Quality Chemist 12/24/21 01/19/22 Jorge Singleton PA-C [address] [place] [address] PCP - General Internal Medicine 01/20/22 Bryan Wilson MD [address] [place] [address] Specialist Cardiovascular Disease 01/20/22 documented as of this encounter
--- OUTSIDE RECORDS SUMMARY | 2024-05-14 08:59 | XMS_ITS | Encounter Summary ---
Author Organization [employer] [facility] Address [address] [facility] 7t [place] [address] Care Team Providers Care Hydraulic Specialist Name Role Phone Unavailable Primary Care Provider Unavailabl e Encounter Details Date Type Department Care Team (Late st Contact Info) Description 03/15/2024 Telephone [facility] [address] [place] [address] Roshan Jackson DDS [address] [place] [address] Social History Tobacco Use Types Packs/Day Years Used Date Smoking Tobacco: Never Passive Smoke Exposure: Never Smokeless Tobacco: Never Sex and Gender Information Value Date Recorded Sex Assigned at Male 01/03/2022 10:15 AM EDT Legal Sex Male 10:15 AM EDT Gender Identity Male 01/03/2022 10:15 AM EDT Sexual Orientation Straight 01/03/2022 10 :15 AM EDT documented as of this encounter Plan of Treatment Upcoming Encounters Date Type Department Care Team (Late st Contact Info) Description 05/21/2024 11:00 AM EDT Office Visit [facility] [address] [place] [address] Roshan Jackson DDS [address] [place] [address] documented as of this encounter Visit Diagnoses Not on filedocumented in this encounter
--- OUTSIDE RECORDS SUMMARY | 2024-05-14 08:59 | XMS_ITS | Encounter Summary ---
Author Organization [facility] Address [address] [place] [address] Care Team Providers Care System Admin Name Role Phone Reji Coronado MD Primary Care Provider [phone] Jorge Singleton PA-C Primary Care Provider [phone] Etta Lipscomb MD Primary Care Provider [phone] Bryan Wilson MD Unavailable Unavailable Jorge Singleton PA-C Primary Care Provider [phone] Encounter Details Date Type Department Care Team Description 05/05/2017 Electric Furnace Operator Report Medical Records [address] [place] [address] Rain Arevalo Social History Tobacco Use Types [...] on filedocumented in this encounter Care Teams System Admin Relationship Specialty Start Date End Date Reji Coronado MD [address] [place] [address] [phone] PCP - General Internal Medicine 03/19/15 05/12/20 Jorge Singleton PA-C [address] [place] [address] [phone] PCP - General Internal Medicine 05/13/20 12/23/21 Etta Lipscomb MD [address] [place] [address] PCP - General Lung Cancer Pellet Preparation Operator 12/24/21 01/19/22 Jorge Singleton PA-C [address] [place] [address] PCP - General Internal Medicine 01/20/22 Bryan Wilson MD [address] [place] [address] Specialist Cardiovascular Disease 01/20/22 documented as of this encounter
--- OUTSIDE RECORDS SUMMARY | 2024-05-14 08:59 | XMS_ITS | Encounter Summary ---
Author Organization [employer] [facility] Address [address] [facility] 7t [place] [address] Care Team Providers Care Agent Name Role Phone Unavailable Primary Care Provider Unavailabl e Encounter Details Date Type Department Care Team (Late st Contact Info) Description 04/19/2024 Telephone [facility] [address] [place] [address] Roshan Jackson DDS [address] [place], [place] [phone] Social History Tobacco Use Types Packs/Day Years Used Date Smoking Tobacco: Never Passive Smoke Exposure: Never Smokeless Tobacco: Never Alcohol Use Standard Drinks/Week Comments Not Currently 0 (1 standard drink = 0.6 oz pur e alcohol) Sex and Gender Information Value Date Recorded Sex Assigned at Male 01/03/2022 10:15 AM EDT Legal Sex Male 10:15 AM EDT Gender Identity Male 01/03/2022 10:15 AM EDT Sexual Orientation Straight 01/03/2022 10 :15 AM EDT documented as of this encounter Miscellaneous Notes * Telephone Encounter - Kahlil López - 04/19/2024 2:32 PM EST Pt wants appt for dentures. Christelle stated he has a pend ext that needs to be done before tx. Pt diabetic and lost weight due to not eating. Expressed convo w needs to happen to clarify. Suggestedfor them to call on Sunday 04/23 so we can talk to documented in this encounter Plan of Treatment Upcoming Encounters Date Type Department Care Team (Late st Contact Info) Description 05/21/2024 11:00 AM EDT Office Visit [facility] [address] [place], [place] [phone] Roshan Jackson DDS [address] [place], [place] [phone] documented as of this encounter Visit Diagnoses Not on filedocumented in this encounter
--- OUTSIDE RECORDS SUMMARY | 2024-05-14 08:59 | XMS_ITS | Encounter Summary ---
Author Organization [employer] [facility] Address [address] [facility] 7t [place] [address] Care Team Providers Care Wallpaper Cleaner Name Role Phone Unavailable Primary Care Provider Unavailabl e Reason for Visit * Reason Comments Dentures Encounter Details Date Type Department Care Team ([facility] st Contact Info) Description 04/26/2024 11:30 AM EST Office Visit [facility] [address] [place], [place] [phone] Roshan Jackson DDS [address] [place], [place] [phone] Social History Tobacco Use Types Packs/Day Years [...] AM EDT documented as of this encounter Last Filed Vital Signs Vital Sign Reading Time Taken Comments Blood Pressure 138/78 04/26/2024 11:36 AM EST Pulse - - Temperature - - Respiratory Rate - - Oxygen Saturation - - Inhaled Oxygen Concentration - - Weight - - Height - - Body Mass Index - - documented in this encounter Progress Notes * Roshan Jackson DDS - 04/26/2024 11:30 AM EST The patient presented for a try-in appointment. The maxillary record base with teeth in wax was tried in, and the midline was verified. The patient was given the opportunity to observe the setup and expressed satisfaction with the size and shape of the teeth. The bite was also verified. During the examination, it was noted that tooth #30 is in crossbite, and there is an open bite on the left side. The patient expressed dissatisfaction with the appearance of the front teeth, feeling that they were protruding. A new bite registration was taken, and the extraction of tooth #32 was advised. Oral hygiene instructions (OHI) were reinforced due to heavy deposits of supra- and sub-gingival plaque. The patient was informed about the importance of meticulous oral hygiene in maintaining the health of the gums and bone surrounding the remaining teeth. Additionally, it was explained how the mesially tilted tooth #32 was hindering proper oral hygiene in the lower right posterior region. The patient expressed a desire to proceed with the extraction. A generalized gingival recession was observed on all remaining mandibular teeth. The patient was informed of the poor prognosis of these teeth, which he acknowledged and appreciated. Case sent to [facility] lab for re-arrangement of the teeth. The patient will return for the extraction of tooth #32 and a wax try-in at the next visit. documented in this encounter Plan of Treatment Upcoming Encounters Date Type Department Care Team (Late st Contact Info) Description 05/21/2024 11:00 AM EDT Office Visit [facility] [address] [place] [address] Roshan Jackson DDS [address] [place] [address] Scheduled Orders Name Type Priority Associated Diagnoses Orde r Schedule PROPHYLAXIS - ADULT Dental Routine 1 Occ urrences starting 04/26/2024 DENTAL LAB DENTURES AND PARTIALS Dental Routine Ordered: 025 documented as of this encounter Procedures Procedure Name Priority Date/Time Associated Diagnosis Comments WAX TRY IN Routine 04/26/2024 11:30 AM EST documented in this encounter Visit Diagnoses Not on filedocumented in this encounter
--- OUTSIDE RECORDS SUMMARY | 2024-05-14 08:59 | XMS_ITS | Encounter Summary ---
Author Organization [facility] Address [address] [place] [address] Care Team Providers Care Underpresser Hand Name Role Phone Reji Coronado MD Primary Care Provider [phone] Jorge Singleton PA-C Primary Care Provider [phone] Etta Lipscomb MD Primary Care Provider [phone] Bryan Wilson MD Unavailable Unavailable oJrge Singleton PA-C Primary Care Provider [phone] Encounter Details Date Type Department Care Team Description 05/29/2018 Manager Credit Risk Report Medical Records [address] [place] [address] Abstract, Provider Social History Tobacco Use Types [...] on filedocumented in this encounter Care Teams Underpresser Hand Relationship Specialty Start Date End Date Reji Coronado MD [address] [place] [address] [phone] PCP - General Internal Medicine 03/19/15 05/12/20 Jorge Singleton PA-C [address] [place] [address] [phone] PCP - General Internal Medicine 05/13/20 12/23/21 Etta Lipscomb MD [address] [place] [address] PCP - General Lung Cancer Composite Science Teacher 12/24/21 01/19/22 Jorge Singleton PA-C [address] [place] [address] PCP - General Internal Medicine 01/20/22 Bryan Wilson MD [address] [place] [address] Specialist Cardiovascular Disease 01/20/22 documented as of this encounter
--- OUTSIDE RECORDS SUMMARY | 2024-05-14 08:59 | XMS_ITS | Encounter Summary ---
Author Organization [facility] Address [address] [place] [address] Care Team Providers Care Weather Analyst Name Role Phone Reji Coronado MD Primary Care Provider [phone] Jorge Singleton PA-C Primary Care Provider [phone] Etta Lipscomb MD Primary Care Provider [phone] Bryan Wilson MD Unavailable Unavailable Jorge Singleton PA-C Primary Care Provider [phone] Reason for Visit * Reason Onset Date Comments refill request 05/03/2017 Encounter Details Date Type Department Care Team Description 05/03/2017 Refill Adult Medicine [address] [phone] Reji Coronado MD [address] [place] [address] [phone] refill request Social History Tobacco Use Types Packs/Day Years [...] encounter Miscellaneous Notes * Telephone Encounter - Nupur Cha M.A. - 05/03/2017 2:26 PM EST Lab Results Component Value Date HGBA1C 8.9 01/30/2017 MALBUR 3.9 01/30/2017 MALBCR 2.2 01/30/2017 CHOL 143 01/30/2017 LDL 66 01/30/2017 HDL 47 01/30/2017 TRIG 153 01/30/2017 GLU 252 01/30/2017 CREAT 1.1 01/30/2017 * Telephone Encounter - Margie TreadwelloIssacJamil - 05/03/2017 2:08 PM EST Patient would like script to be: E-PRESCRIBED/FAXED TO PHARMACY WHEN WAS THE PATIENT'S LAST APPOINTMENT IN ADULT MEDICINE? 2.16.18 WHEN WAS THE LAST TIME THE PATIENT SAW THEIR PCP? Same as above Does patient have an upcoming appointment? Yes 3.8.18 (THE MEDICATION REQUESTED IS ON THE MED LIST ABOVE) All of the medications requested were on the CURRENT MEDS list Did you check the Pharmacy information above?: YES Patient wants: 30 -day supply Is this a mail order prescription request ? NO Patients current insurance carrier is: [place] / [place] / Product Type: MED[place]ARE [id number] documented in this encounter Plan of Treatment Not on file documented as of this encounter Visit Diagnoses Not on filedocumented in this encounter Care Teams Weather Analyst Relationship Specialty Start Date End Date Reji Coronado MD [address] [place] [address] [phone] PCP - General Internal Medicine 03/19/15 05/12/20 Jorge Singleton PA-C [address] [place] [address] PCP - General Internal Medicine 05/13/20 12/23/21 Etta Lipscomb MD [address] [place] [address] PCP - General Lung Cancer Tuft Machine Operator 12/24/21 01/19/22 Jorge Singleton PA-C [address] [place] [address] PCP - General Internal Medicine 01/20/22 Bryan Wilson MD [address] [place] [address] Specialist Cardiovascular Disease 01/20/22 documented as of this encounter
--- OUTSIDE RECORDS SUMMARY | 2024-05-14 08:59 | XMS_ITS | Encounter Summary ---
Author Organization [facility] Address [address] [place] [address] Care Team Providers Care Computer Aided Design Designer Name Role Phone Reji Coronado MD Primary Care Provider [phone] Jorge Singleton PA-C Primary Care Provider [phone] Etta Lipscomb MD Primary Care Provider [phone] Bryan Wilson MD Unavailable Unavailable Jorge Singleton PA-C Primary Care Provider [phone] Encounter Details Date Type Department Care Team Description 07/29/2015 Business Doc Medical Records [address] [place] [address] Abstract, Provider Social History Tobacco Use Types Packs/Day Years Used Date Smoking Tobacco: Never Smokeless Tobacco: Never Alcohol Use Standard Drinks/Week Comments Yes 0 (1 standard drink = 0.6 oz pur e alcohol) etoh abuse Sex Assigned at Date Recorded Not on file Job Start Date Occupation Industry Not on file Not on file Not on file documented as of this encounter Plan of Treatment Not on file documented as of this encounter Visit Diagnoses Not on filedocumented in this encounter Care Teams Computer Aided Design Designer Relationship Specialty Start Date End Date Reji Coronado MD [address] [place] [address] [phone] PCP - General Internal Medicine 03/19/15 05/12/20 Jorge Singleton PA-C [address] [place] [address] [phone] PCP - General Internal Medicine 05/13/20 12/23/21 Etta Lipscomb MD [address] [place] [address] PCP - General Lung Cancer Senior Trial Attorney 12/24/21 01/19/22 Jorge Singleton PA-C [address] [place] [address] PCP - General Internal Medicine 01/20/22 Bryan Wilson MD [address] [place] [address] Specialist Cardiovascular Disease 01/20/22 documented as of this encounter
--- OUTSIDE RECORDS SUMMARY | 2024-05-14 09:00 | XMS_ITS | Clinical Summary ---
Author Organization [employer] Address [address] [facility] [address] [place] [address] Care Team Providers Care Wood Preparation Supervisor Name Role Phone Unavailable Primary Care Provider Unavailabl e Allergies Active Allergy Reactions Criticality Noted Date Comments Canagliflozin Unknown 04/02/2024 Liraglutide Unknown 04/02/2024 Lisinopril Swelling 07/08/2020 Other Reaction(s): Unknown Medications lisinopril 10 MG tablet Take 1 tablet by mouth at bed time. Active acetaminophen (Tylenol) 500 MG tablet take 1 tablet (500MG) by oral route every 6 hours as needed 2 Active amoxicillin (Amoxil) 500 MG capsule take 1 capsule (500MG) by oral route every 8 hours 2 Active ibuprofen 800 MG tablet Take 1 tablet by mouth every 8 (eight) hours. 2 Active Insulin Aspart, w/Niacinamide, (Fiasp) 100 UNIT/ML solution Inject under the skin. Active metFORMIN (Glucophage) 500 MG tablet Take 1 tablet by mouth every 12 (twelve) hours. Active tadalafil (Cialis) 20 MG tablet Take 1 tablet by mouth at bed time. Active buPROPion XL (Wellbutrin XL) 150 MG 24 hr tablet Take 150 mg by mouth in the morning. 4 Active cholecalciferol VITAMIN D (Vitamin D-3) 50 MCG (1999 UT) capsule Take by mouth Once per day. Active diclofenac (Voltaren) 75 MG EC tablet 1 tablet 2 times daily. Active FLUoxetine (PROzac) 40 MG capsule Take 1 capsule by mouth Once per day. 4 Active Insulin Aspart 100 UNIT/ML solution as directed Subcutaneous Active metoprolol succinate XL (Toprol-XL) 25 MG 24 hr tablet Take 25 mg by mouth Once per day. 4 Active tamsulosin (Flomax) 0.4 MG 24 hr capsule Take 0.4 mg by mouth Once per day. 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 We did discuss a trial of a PPI to see if that would help to improve his symptoms. He will try this and see if this helps. Ascending aortic aneurysm 12/20/2021 Overview (03/21/2024): 4.5cm Last Assessment & Plan: We did [...] low blood pressure Aneurysmal dilatation 12/09/2021 Overview (03/21/2024): Ascending aorta, 4.5 cm Last Assessment & Plan: I also discussed the ascending aortic dilation up to 4.5 cm which is the measurement at which point cardiology and sometimes even cardiac surgery evaluation is warranted. We will refer him to cardiology for further management at this point. Mediastinal lymphadenopathy 12/09/2021 Overview (03/21/2024): Last Assessment & Plan: 61-year-old male who [...] understood. Nodule of right lung 12/09/2021 Overview (03/21/2024): Last Assessment & Plan: Also discussed calcified nodule in the right lower lobe which is a benign granuloma. No further management or work-up for this is required. Diabetic retinopathy 01/20/2021 Diabetes mellitus with kidney complication 08/06 Microalbuminuria 08/06/2020 Erectile dysfunction 05/28/2018 Essential hypertension 02/04/2016 Overview (02/06/2024): Last Assessment & Plan: Blood pressure is mildly elevated. Again would like to get this under better control with his dilated aorta. He does have a prescription to to start on Toprol which have encouraged him to do so. 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 Chronic hepatitis C 06/21/2015 Overview (03/21/2024): Genotype 1a Tx with antivirals, SVR achieved History of substance abuse 05/14/2015 Overview (03/21/2024): Cocaine, marijuana, some heroin Type 2 diabetes mellitus with cataract 6 Arthritis 04/30/2013 Diabetes mellitus 04/30/2013 Hepatitis C 04/30/2013 Encounters Date Type Department Care Team Description 04/26/2024 11:30 AM EST Office Visit [facility] ADULT DENTAL [address] [place] [address] Roshan Jackson DDS 04/19/2024 Telephone [facility] ADULT D[facility] [address] [place] [address] Roshan Jackson DDS 04/02/2024 11:00 AM EST Office Visit [facility] ADULT DENT[facility] [address] [place] [address] Roshan Jackson DDS 03/21/2024 10:45 AM EST Office Visit [facility] ADULT DENTAL [address] [place] [address] Pieter Olson DDS Edentulous maxilla (Primary Dx); Dental abscess 03/15/2024 Telephone [facility] ADULT [facility] [address] [place] [address] Roshan Jackson DDS from Last 3 Months Social History Tobacco Use Types Packs/Day Years Used Date Smoking Tobacco: Never Passive Smoke Exposure: Never Smokeless Tobacco: Never Tobacco Cessation:Counseling Given: Not Answered Alcohol Use Standard Drinks/Week Comments Not Currently 0 (1 standard drink = 0.6 oz pur e alcohol) Sex and Gender Information Value Date Recorded Sex Assigned at Male 01/03/2022 10:15 AM EDT Legal Sex Male 10:15 AM EDT Gender Identity Male 01/03/2022 10:15 AM EDT Sexual Orientation Straight 01/03/2022 10 :15 AM EDT Last Filed Vital Signs Vital Sign Reading Time Taken Comments Blood Pressure 138/78 04/26/2024 11:36 AM EST Pulse 65 08/17/2023 10:09 AM EDT Temperature - - Respiratory Rate - - Oxygen Saturation - - Inhaled Oxygen Concentration - - Weight - - Height - - Body Mass Index - - Plan of Treatment Upcoming Encounters Date Type Department Care Team (Late st Contact Info) Description 05/21/2024 11:00 AM EDT Office Visit [facility] ADULT DENTAL [address] [place] [address] Roshan Jackson, DDS [address] [place] [address] Health Maintenance Due Date Last Done Comments CT Colonography 1958 Colonoscopy 1958 Colorectal Cancer Screening 1958 Depression Screening 1958 Diabetes: Hemoglobin A1C 1958 FIT DNA/Cologuard 1958 FIT 1958 FOBT 1958 Lipid Panel 1958 SDOH Screening 1958 Sigmoidoscopy 1958 Diabetes: Foot Exam 1968 Eye Exam 1968 Alcohol/Substance Use Screening 1970 Hepatitis A Vaccines (1 of 2 - Risk 2-dose series) 1977 Zoster Vaccines (1 of 2) 2008 Hepatitis B Vaccines (1 of 3 - Risk 3-dose series) 2018 RSV Patients and Patients Aged 60 years or older (1 - Risk 60-74 years 1-dose series) 2018 COVID-19 Vaccine ( - season) 2023 Influenza Vaccine (#1) 2023 , 12/02/2021, 01/25/2019, Additional history exists Dental Oral Exam 02/17/2024 08/17/2023, , 05/13/2014, Additional history exists Dental Prophylaxis 02/17/2024 08/17/2023, 08/20/2013 Dental X-Ray: Bitewings 08/17/2024 08/17/19 24, 10/29/2019, 04/19/2019, Additional history exists Tobacco Screening 04/26/2025 04/26/2024 DTaP/Tdap/Td Vaccines (2 - Td or Tdap) 07/26/2025 07/27/2015 Dental X-Ray: Full Mouth 08/17/2026 024, 04/19/2019, 04/30/2013 Pneumococcal Vaccine: 50+ Years Completed 07/07/2023, 07/27/2015 HIB Vaccines Aged Out No longer eligi ble based on patient's age to complete this topic HPV Vaccines Aged Out No longer eligi ble based on patient's age to complete this topic IPV Vaccines Aged Out No longer eligi ble based on patient's age to complete this topic Meningococcal Vaccine Aged Out No dorie shalini eligible based on patient's age to complete this topic RSV under 20 months Aged Out No longe r eligible based on patient's age to complete this topic Rotavirus Vaccines Aged Out No longer eligible based on patient's age to complete this topic Procedures Procedure Name Priority Date/Time Associated Diagnosis Comments WAX TRY IN Routine 04/26/2024 11:30 AM EST BITE REGISTRATION Routine 04/02/2024 11: 00 AM EST DENTURE IMPRESSION Routine 04/02/2024 11 :00 AM EST DENTURE IMPRESSION Routine 03/21/2024 10 :45 AM EST LIMITED ORAL EVALUATION - PROBLEM FOCUSED Routine 03/21/2024 10:45 AM EST PROPHYLAXIS - ADULT Routine 08/17/2023 1 0:00 AM EDT INTRAORAL - COMPLETE SERIES OF RADIOGRAPHIC IMAGES Routine 08/17/2023 10:00 AM EDT PERIODIC ORAL EVALUATION - ESTABLISHED PATIENT Routine 08/17/2023 10:00 AM EDT from Last 3 Months or Most Recently Relevant to Health Maintenance Insurance [employer] MEDICARE REPLACEMENT DENTAL-[facility] MEDICAID STAND ADULT DENTAL - AETNA DENTAL PPO
--- OUTSIDE RECORDS SUMMARY | 2024-05-14 09:00 | XMS_ITS | Encounter Summary ---
Author Organization [facility] Address [address] [place] [address] Care Team Providers Care Commission Sales Associate Name Role Phone Reji Coronado MD Primary Care Provider [phone] Jorge Singleton PA-C Primary Care Provider [phone] Etta Lipscomb MD Primary Care Provider [phone] Bryan Wilson MD Unavailable Unavailable Jorge Singleton PA-C Primary Care Provider [phone] Encounter Details Date Type Department Care Team Description 05/30/2017 [facility] Medical Records [address] [place] [address] Abstract, Provider Social History Tobacco Use Types [...] filedocumented in this encounter Care Teams Commission Sales Associate Relationship Specialty Start Date End Date Reji Coronado MD [address] [place] [address] [phone] PCP - General Internal Medicine 03/19/15 05/12/20 Jorge Singleton PA-C [address] [place] [address] [phone] PCP - General Internal Medicine 05/13/20 12/23/21 Etta Lipscomb MD [address] [place] [address] PCP - General Lung Cancer Highballer 12/24/21 01/19/22 Jorge Singleton PA-C [address] [place] [address] PCP - General Internal Medicine 01/20/22 Bryan Wilson MD [address] [place] [address] Specialist Cardiovascular Disease 01/20/22 documented as of this encounter
--- OUTSIDE RECORDS SUMMARY | 2024-05-14 09:00 | XMS_ITS | Encounter Summary ---
Author Organization [facility] Address [address] [place] [address] Care Team Providers Care Waste Cotton Cleaner Name Role Phone Jorge Singleton PA-C Primary Care Provider [phone] Etta Lipscomb MD Primary Care Provider [phone] Bryan Wilson MD Unavailable Unavailable Jorge Singleton PA-C Primary Care Provider [phone] Encounter Details Date Type Department Care Team Description 06/09/2021 Food And Beverage Operations Manager Report Medical Records [address] [place] [address] Nena Ernst DPM Social History Tobacco Use Types Packs/Day Years [...] on filedocumented in this encounter Care Teams Waste Cotton Cleaner Relationship Specialty Start Date End Date Jorge Singleton PA-C [address] [place], [place] [phone] PCP - General Internal Medicine 05/13/20 12/23/21 Etta Lipscomb MD [address] [place], [place] [phone] PCP - General Lung Cancer Measurement Operator 12/24/21 01/19/22 Jorge Singleton PA-C [address] [place] [address] PCP - General Internal Medicine 01/20/22 Bryan Wilson MD [address] [place] [address] Specialist Cardiovascular Disease 01/20/22 documented as of this encounter
--- OUTSIDE RECORDS SUMMARY | 2024-05-14 09:00 | XMS_ITS | Encounter Summary ---
Author Organization [employer] Address [address] [facility] 7[address] [place] [address] Care Team Providers Care Gas Cutter Name Role Phone Unavailable Primary Care Provider Unavailabl e Reason for Visit * Reason Onset Date Comments Appointment 10/27/2022 Encounter Details Date Type Department Care Team ([facility] st Contact Info) Description 10/27/2022 Telephone C ADULT DENTAL [address] [place], [place] [phone] Lorena Lopez DDS [address] [place], [place] [phone] Appointment Social History Tobacco Use Types Packs/Day Years Used Date Smoking Tobacco: Never Assessed Sex and Gender Information Value Date Recorded Sex Assigned at Male 01/03/2022 10:15 AM EDT Legal Sex Male 10:15 AM EDT Gender Identity Male 01/03/2022 10:15 AM EDT Sexual Orientation Straight 01/03/2022 10 :15 AM EDT documented as of this encounter Miscellaneous Notes * Telephone Encounter - Christelle Granados - 10/27/2022 10:17 AM EDT Patient called in questioning why he is waiting for an appt if the DrUriel Said they wanted to see him.I did explain that the appts are wait listed and the office knows he needs to come but there are noimmediate visits available and that he will get a call when it is his tuurn. I did offer the patient an appt in [place] with the understanding that he would become a [place] patient but he is unwilling to go to [facility]. He wants to know why hes being told that he needs to come in and then listed. Tried my best to explain. Would like his appt or phone call. documented in this encounter Plan of Treatment Upcoming Encounters Date Type Department Care Team (Late st Contact Info) Description 05/21/2024 11:00 AM EDT Office Visit [facility] ADULT DENTAL [address] [place], [place] [phone] Roshan Jackson DDS [address] [place] [address] documented as of this encounter Visit Diagnoses Not on filedocumented in this encounter
--- OUTSIDE RECORDS SUMMARY | 2024-05-14 09:00 | XMS_ITS | Encounter Summary ---
Author Organization [employer] [facility] Address [address] [place] [address] Care Team Providers Care Paint Brush Maker Name Role Phone Bryan Wilson MD Unavailable Unavailable Jorge Singleton PA-C Primary Care Provider [phone] Encounter Details Date Type Department Care Team Description 12/20/2023 Erp Engineer Report Medical Records [address] [place] [address] Celeste English MD Social History Tobacco Use Types Packs/Day [...] on filedocumented in this encounter Care Teams Paint Brush Maker Relationship Specialty Start Date End Date Jorge Singleton PA-C [address] [place] [address] [phone] PCP - General Internal Medicine 01/20/22 Bryan Wilson MD Specialist Cardiovascular Disease 01/20/22 documented as of this encounter
--- OUTSIDE RECORDS SUMMARY | 2024-05-14 09:00 | XMS_ITS | Encounter Summary ---
Author Organization [facility] Address [address] [place] [address] Care Team Providers Care Assistant Professor Of Education Name Role Phone Jorge Singleton PA-C Primary Care Provider [phone] Etta Lipscomb MD Primary Care Provider [phone] Bryan Wilson MD Unavailable Unavailable Jorge Singleton PA-C Primary Care Provider [phone] Encounter Details Date Type Department Care Team Description 11/25/2021 Sales Trainee Report Medical Records [address] [place] [phone] Mary Chang Social History Tobacco Use Types [...] on filedocumented in this encounter Care Teams Assistant Professor Of Education Relationship Specialty Start Date End Date Jorge Singleton PA-C [address] [place], [place] [phone] PCP - General Internal Medicine 05/13/20 12/23/21 Etta Lipscomb MD [address] [place], [place] [phone] PCP - General Lung Cancer Social Media Content Specialist 12/24/21 01/19/22 Jorge Singleton PA-C [address] [place] [address] PCP - General Internal Medicine 01/20/22 Bryan Wilson MD [address] [place] [address] Specialist Cardiovascular Disease 01/20/22 documented as of this encounter
--- OUTSIDE RECORDS SUMMARY | 2024-05-14 09:00 | XMS_ITS | Encounter Summary ---
Author Organization [facility] Address [address] [place] [address] Care Team Providers Care Chauffeur Airport Limousine Name Role Phone Reji Coronado MD Primary Care Provider [phone] Jorge Singleton PA-C Primary Care Provider [phone] Etta Lipscomb MD Primary Care Provider [phone] Bryan Wilson MD Unavailable Unavailable Jorge Singleton PA-C Primary Care Provider [phone] Reason for Visit * Reason Onset Date Comments injection 05/15/2017 Encounter Details Date Type Department Care Team Description 05/15/2017 Telephone Physiatry - [address] [phone] Payam Montiel DO injection Social History Tobacco Use Types Packs/Day Years [...] encounter Miscellaneous Notes * Telephone Encounter - Rosie Hastings M.A. - 05/15/2017 10:33 AM EDT Patient had question regarding his medication he is taking, and making sure that he takes it today before his injection. Gabapentin and melatonin. Patient is aware that it is okay to take. * Telephone Encounter - Juliette Davenport 05/15/2017 9:05 AM EDT Patient is returning Rosie's phone call. documented in this encounter Plan of Treatment Not on file documented as of this encounter Visit Diagnoses Not on filedocumented in this encounter Care Teams Chauffeur Airport Limousine Relationship Specialty Start Date End Date Reji Coronado MD [address] [place] [address] PCP - General Internal Medicine 03/19/15 05/12/20 Jorge Singleton PA-C [address] [place] [address] PCP - General Internal Medicine 05/13/20 12/23/21 Etta Lipscomb MD [address] [place] [address] PCP - General Lung Cancer Commissions Analyst 12/24/21 01/19/22 Jorge Singleton PA-C [address] [place] [address] PCP - General Internal Medicine 01/20/22 Bryan Wilson MD [address] [place] [address] Specialist Cardiovascular Disease 01/20/22 documented as of this encounter
--- OUTSIDE RECORDS SUMMARY | 2024-05-14 09:00 | XMS_ITS | Encounter Summary ---
Author Organization [facility] Address [address] [place] [address] Care Team Providers Care Supervisor Vacuum Metalizing Name Role Phone Jorge Singleton PA-C Primary Care Provider [phone] Etta Lipscomb MD Primary Care Provider [phone] Bryan Wilson MD Unavailable Unavailable Jorge Singleton PA-C Primary Care Provider [phone] Encounter Details Date Type Department Care Team Description 05/06/2021 Health Inspector Food Report Medical Records [address] [place] [address] Rodney Lepe MD Social History Tobacco Use Types Packs/Day [...] filedocumented in this encounter Care Teams Supervisor Vacuum Metalizing Relationship Specialty Start Date End Date Jorge Singleton PA-C [address] [place], [place] [phone] PCP - General Internal Medicine 05/13/20 12/23/21 Etta Lipscomb MD [address] [place], [place] [phone] PCP - General Lung Cancer Supervisor Sterile Processing 12/24/21 01/19/22 Jorge Singleton PA-C [address] [place] [address] PCP - General Internal Medicine 01/20/22 Bryan Wilson MD [address] [place] [address] Specialist Cardiovascular Disease 01/20/22 documented as of this encounter
--- OUTSIDE RECORDS SUMMARY | 2024-05-14 09:00 | XMS_ITS | Encounter Summary ---
Author Organization [facility] Address [address] [place] [address] Care Team Providers Care Knuckle Bender Name Role Phone Reji Coronado MD Primary Care Provider [phone] Jorge Singleton PA-C Primary Care Provider [phone] Etta Lipscomb MD Primary Care Provider [phone] Bryan Wilson MD Unavailable Unavailable Jorge Singleton PA-C Primary Care Provider [phone] Encounter Details Date Type Department Care Team Description 06/21/2017 Orders Only Adult Medicine [address] [phone] Reji Coronado MD [address] [place] [address] [phone] Preoperative examination; Screening for deficiency anemia; correction current use of anticoagulant therapy Social History Tobacco Use Types Packs/Day Years [...] documented as of this encounter Results * THROMBOPLASTIN TIME, PARTIAL (07/03/2017 2:06 PM EDT) PTT 23.6 20.6 - 33.6 SEC 07/03/2017 3:33 PM EDT [facility] Comment: Please note adjusted APTT (sec) reference range ?? effective 09/04/2015. 07/03/2017 2:06 PM EDT 07/03/2017 2:07 PM EDT Reji Coronado MD LAB Performing Organization Address [facility] de Phone Number [address] * PROTHROMBIN TIME (07/03/2017 2:06 PM EDT) PT 13.1 11.6 - 15.6 SEC 07/03/2017 3:18 PM EDT [facility] Comment: Please note adjusted PT(sec)normal reference range ?? effective 11/04/14. INR 0.98 07/03/2017 3:18 PM EDT [facility] 07/03/2017 2:06 PM EDT 07/03/2017 2:07 PM EDT Reji Coronado MD LAB Performing Organization Address [facility] Phone Number [address] * (ABNORMAL) CBC (AUTO DIFF PLATELET) (07/03/2017 2:06 PM EDT) WBC 6.0 4.8 - 10.8 x10-3 07/03/2017 2:45 PM EDT [facility] RBC 4.2(L) 4.5 - 5.5 x10-6 07/03/2017 2:45 PM EDT [facility] HGB 13.3(L) 13.5 - 17.5 g/dl 07/03/2017 2:45 PM EDT [facility] HCT 38.0(L) 42 - 54 % 07/03/2017 2:45 PM EDT [facility] MCV 89.6 79 - 98 fl 07/03/2017 2:45 PM EDT [facility] MCH 31.4 27 - 32 pg 07/03/2017 2:45 PM EDT [facility] MCHC 35.0 32 - 37 g/dl 07/03/2017 2:45 PM EDT [facility] RDW 12.3 11 - 15 % 07/03/2017 2:45 PM EDT [facility] PLT COUNT 193 130 - 400 x10-3 07/03/2017 2:45 PM EDT [facility] MEAN PLATELET VOLUME 10.3 7 - 11 fl 07/03/2017 2:45 PM EDT [facility] NEUT % 76.9 41 - 85 % 07/03/2017 2:45 PM EDT [facility] LYMPH % 16.4 15 - 48 % 07/03/2017 2:45 PM EDT [facility] MONO % 6.3 0 - 12 % 07/03/2017 2:45 PM EDT [facility] EOS % 0.2 0 - 5 % 07/03/2017 2:45 PM EDT [facility] BASO % 0.2 0 - 2 % 07/03/2017 2:45 PM EDT [facility] 07/03/2017 2:06 PM EDT 07/03/2017 2:07 PM EDT Reji Coronado MD LAB Performing Organization Address City/State/[facility] Co de Phone Number [facility] [address] documented in this encounter Visit Diagnoses Diagnosis Preoperative examination Preoperative examination, unspecified Screening for deficiency anemia Screening for other and unspecified deficiency anemia intermodal customer service current use of anticoagulant therapy documented in this encounter Care Teams Knuckle Bender Relationship Specialty Start Date End Date Reji Coronado MD [address] [place] [address] PCP - General Internal Medicine 03/19/15 05/12/20 Jorge Singleton PA-C [address] [place] [address] PCP - General Internal Medicine 05/13/20 12/23/21 Etta Lipscomb MD [address] [place] [address] PCP - General Lung Cancer Cake Puncher 12/24/21 01/19/22 Jorge Singleton PA-C [address] [place] [address] PCP - General Internal Medicine 01/20/22 Bryan Wilson MD [address] [place] [address] Specialist Cardiovascular Disease 01/20/22 documented as of this encounter
--- OUTSIDE RECORDS SUMMARY | 2024-05-14 09:00 | XMS_ITS | Encounter Summary ---
Author Organization [employer] Address [address] [facility] 7[address] [place] [address] Care Team Providers Care Certified Health Education Specialist Name Role Phone Unavailable Primary Care Provider Unavailabl e Reason for Visit * Reason Onset Date Comments insurance appt 08/10/2023 Encounter Details Date Type Department Care Team (Late st Contact Info) Description 08/10/2023 Telephone [facility] ADULT DENTAL [address] [place], [place] [phone] Samuel Robbins insurance appt Social History Tobacco Use Types Packs/Day Years Used Date Smoking Tobacco: Never Assessed Sex and Gender Information Value Date Recorded Sex Assigned at Male 01/03/2022 10:15 AM EDT Legal Sex Male 10:15 AM EDT Gender Identity Male 01/03/2022 10:15 AM EDT Sexual Orientation Straight 01/03/2022 10 :15 AM EDT documented as of this encounter Miscellaneous Notes * Telephone Encounter - Christelle Granados - 08/10/2023 2:56 PM EDT [facility]. He says he has [employer] inurance. Patient was asked who is the insurance company that carries the insurance and he said [employer]. Asked again which is the insurance company that carries the insurance and patient hung up. Unsure of insurance coverage DR Ribera desk editor aware documented in this encounter Plan of Treatment Upcoming Encounters Date Type Department Care Team (Late st Contact Info) Description 05/21/2024 11:00 AM EDT Office Visit [facility] ADULT DENTAL [address], [place] [phone] Roshan Jackson DDS [address], [place] [phone] documented as of this encounter Visit Diagnoses Not on filedocumented in this encounter
--- OUTSIDE RECORDS SUMMARY | 2024-05-14 09:00 | XMS_ITS | Clinical Summary ---
Author Organization [facility] Address [address] [place] [address] Care Team Providers Care Edge Molder Name Role Phone Bryan Wilson MD Unavailable Unavailable Jorge Singleton PA-C Primary Care Provider [phone] Allergies Active Allergy Reactions Severity Noted Date Comments Lisinopril Swelling/Edema 07/08/2020 Medications Medication Sig Dispensed Refills Start Date End Date Status Insulin Pen Needle (PEN NEEDLES 05/19 ) 31G X 5 MM Misc by Does not apply route. 0 Active insulin glargine (LANTUS) 100 UNIT/ML injection Inject 30 Units into the skin at bedtime. 0 Active D3 SUPER STRENGTH 2000 units Cap Take 2,000 Units by mouth daily. 11 11/06/2018 Active clotrimazole-betame thasone (Lotrisone) cream Apply twice a day. 30 g 0 09/21/2021 Active Insulin Disposable Pump (V-Go 20) Kit USE DAILY DIRECTED 0 11/03/2021 Active Diclofenac Sodium 1 % Gel Apply topically. 0 Active hydrocortisone 2.5 % cream Apply 1 Film topically 2 times daily for 14 days. 30 g 0 04/25/2022 Active lidocaine (LIDODERM) 5 % Place 1 Patch onto the skin every 24 hours. Apply for no more than 12 hours in any 24 hour period. 30 Patch 3 10/03/2023 Active buPROPion (WELLBUTRIN XL) 150 MG 24 hr tablet Take 1 Tablet by mouth every morning. 90 Tablet 1 10/03/2023 Active fluoxetine (PROZAC) 40 MG capsule TAKE 1 CAPSULE BY MOUTH ONCE DAILY 90 Capsule 1 10/03/2023 Active metoprolol (TOPROL-XL) 25 MG 24 hr tablet Take 1 Tablet by mouth daily. 90 Tablet 1 10/03/2023 Active tamsulosin (FLOMAX) 0.4 MG 24 hr capsule Take 1 Capsule by mouth daily. Take 30 mins after same meal every day. 90 Capsule 1 10/03/2023 Active Tirzepatide (Mounjaro) 2.5 MG/0.5ML Solution Pen-injector Inject 2.5 mg into the skin once a week. 3 mL 0 10/03/2023 Active Active Problems Patient Care Coordination No te Formatting of this note is d ifferent from the original. Checking Your Blood Sugars Please check your blood sugars every day. Please check your sugars at the following times of day: before breakfast Your Blood Sugar Goals Pre Meal: 90-130 2 hours after meals: 110-160 Bedtime: 110-150 Use the Results ?? Bring your glucometer to every appointment ?? Write your fingerstick blood sugars down on a log sheet or record book. Bring them to your appointment ?? Look for patterns in the numbers. The results help you and your provider make decisions about your diabetes treatment plan. Your Results and your Goals Your Result / Date of Completion Your Goal / How Often to Assess No results found for this basename: hgba1c Less than 7% --- 2-4 times per year BP Readings from Last 1 Encounters: 07/27/15 130/80 Less than 140/90 --- once per year No results found for this basename: MALBCR Less than 30 --- once per year No results found for this basename: LDL Less than 100 --- once per year Wt Readings from Last 1 Encounters: 07/27/15 200 lb (90.719 kg) Your goal weight by next visit: 195 --- reassess 2-4 times a year Health Maintenance Due Topic Date Due ? ? Dtap/tdap/td (#1 - Tdap) 1969 ? ? Depression Screen 1970 ? ? Diabetes: Annual Foot Exam 1976 ? ? Diabetes: Annual Care Plan 1976 ? ? Pneumovax For High Risk Patients (1) 1976 ? ? Baseline Health Exam 40-64 1998 ? ? Colon Cancer Screening 2008 ? ? Diabetes: Annual Urine Protein Test (Microalbumin) 06/03/2015 ? ? Diabetes: Blood Sugar Control Test (Hgba1c) 06/22/2015 Your Action Plan Check blood glucose as directed and write down all results. Contact me if you experience any barriers to care such as inability to purchase your medication, difficulty getting to your appointments or difficulty understanding your care plan When to Call your Healthcare Provider If your blood sugar falls below 70 and you do not know why or you become unconscious If you are sick and unable to take liquids because or nausea or vomiting If you have a fever over 101 If your blood sugar is 300 or higher on greater than 3 separate occasions during the same week If you are just unsure what to do Educational Resources [place] Diabetes Association (www.diabetes.org) Centers for Disease Control and Prevention (www.cdc.gov/diabetes) This care plan was created in collaboration with Eddie MUNSON on 07/27/2015 Problem Noted Date Cough 01/21/2022 Last Assessment & Plan: He does have complaints of a dry cough as well as some midepigastric discomfort. We did discuss a trial of a PPI to see if that would help to improve his symptoms. He will try this and see if this helps. Ascending aortic aneurysm 12/20/2021 Overview: 4.5cm Last Assessment & Plan: We did [...] We will continue with low blood pressure Nodule of right lung 12/09/2021 Last Assessment & Plan: Also discussed calcified nodule in the right lower lobe which is a benign granuloma. No further management or work-up for this is required. Mediastinal lymphadenopathy 12/09/2021 Last Assessment & Plan: 61-year-old male who [...] All questions were answered and he understood. Aneurysmal dilatation 12/09/2021 Overview: Ascending aorta, 4.5 cm Last Assessment & Plan: I also discussed the ascending aortic dilation up to 4.5 cm which is the measurement at which point cardiology and sometimes even cardiac surgery evaluation is warranted. We will refer him to cardiology for further management at this point. Diabetic retinopathy 01/20/2021 Microalbuminuria 08/06/2020 Diabetes mellitus with kidney complicati on 08/06/2020 History of angioedema 07/08/2020 Erectile dysfunction 05/28/2018 Essential hypertension 02/04/2016 Last Assessment & Plan: Blood pressure is mildly elevated. Again would like to get this under better control with his dilated aorta. He does have a prescription to to start on Toprol which have encouraged him to do so. 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 DJD (degenerative joint disease) of knee 06/21/2015 History of substance abuse 05/14/2015 Overview: Cocaine, marijuana, some heroin Type 2 diabetes mellitus with cataract 0 05/14/2015 Encounters Date Type Specialty Care Team Description 02/24/2024 Bass Singer Report Karissa Harvey from Last 3 Months Immunizations Name Administration Dates Next Due Influenza (> 6 Months) 02/04/2016 Influenza Flu (PT Reported) 01/25/2019 Influenza Vaccine-preservati ve Free-quadrivalent 4 Years 12/23/2022,12/02/2021 PREVNAR 20 07/07/2023 Pneumoccoccal(Adult) Polysaccharide PPSV23 07/26 Tdap 07/27/2015 Family History Medical History Relation Name Comments CA Colon Father Relation Name Status Comments Father Prostate cancer 64 Mother Alive No full sibling s Social History Tobacco Use Types Packs/Day Years Used Date Smoking Tobacco: Never Smokeless Tobacco: Never Tobacco Cessation:Counseling Given: Not Answered Alcohol Use Standard Drinks/Week Comments Yes 0 (1 standard drink = 0.6 oz pure alcohol) 10 drinks / week, previously heavy Sex Assigned at Date Recorded Not on file Job Start Date Occupation Industry Not on file Not on file Not on file Last Filed Vital Signs Vital Sign Reading Time Taken Comments Blood Pressure 130/60 07/07/2023 3:18 PM EDT Pulse 72 07/07/2023 3:18 PM EDT Temperature 36.8 ??C (98.3 ??F) 07/07/2023 3:18 PM ED T Respiratory Rate 15 07/07/2023 3:18 PM EDT Oxygen Saturation 97% 03/21/2022 11:17 AM EST Inhaled Oxygen Concentration - - Weight 90.8 kg (200 lb 3.2 oz) 07/07/2023 3:18 P M EDT Height 177.8 cm (5' 10 ) 07/07/2023 3:18 PM EDT Body Mass Index 28.73 07/07/2023 3:18 PM EDT Plan of Treatment Health Maintenance Due Date Last Done Comments Covid-19 Vaccine (#1) 1960 SHINGLES VACCINE (1 of 2) 2008 DIABETES: ANNUAL FOOT EXAM 08/06/202308/05, 06/09/2021, 04/13/2020 (External Completion), Additional history exists INFLUENZA (#1) 2023 12/23/2022, 11/05, 01/25/2019, Additional history exists DIABETES: BLOOD SUGAR CONTRO L TEST (HGBA1C) 01/03/2024 10/03/2023, 10/03/2023, 12/22/2022, Additional history exists BMI CHECK/ADVISE 03/06/2024 07/07/2023, 05/2023 (Completed), 12/22/2022, Additional history exists DIABETES: ANNUAL EYE EXAM 06/14/20242023, 06/15/2023 (External Completion), 07/12/2021 (External Completion), Additional history exists COLON CANCER SCREENING 09/12/2024 (Completed), 03/06/2008 (Completed) DEPRESSION SCREEN 10/02/2024 10/03/2023, (Completed) DIABETES/HEART DISEASE: SEPIDEH [place] CHOLESTEROL (LDL) 10/02/2024 10/03/2023, 08/10/2022, 08/25/2021, Additional history exists DIABETES: ANNUAL URINE PROTE IN TEST (MICROALBUMIN) 10/02/2024 10/03/2023, 10/03/2023, 08/10/2022, Additional history exists FALL RISK ASSESSMENT 10/02/2024 10/03/2023 DTAP/TDAP/TD (2 - Td or Tdap) 07/26/2025 07/27/2015 HEPATITIS C SCREENING Completed 10/14/2015 , 11/07/2014 (External Completion) PNEUMOCOCCAL VACCINE Completed 07/07/2023, 07/27/19 16 Care Teams Edge Molder Relationship Specialty Start Date End Date Jorge Singleton PA-C [address] [place] [phone] PCP - General Internal Medicine 01/20/22 Bryan Wilson MD Specialist Cardiovascular Disease 01/20/22
--- OUTSIDE RECORDS SUMMARY | 2024-05-14 09:00 | XMS_ITS | Encounter Summary ---
Author Organization [facility] Address [address] [place] [address] Care Team Providers Care Vice President Of Instruction Name Role Phone Reji Coronado MD Primary Care Provider [phone] Jorge Singleton PA-C Primary Care Provider [phone] Etta Lipscomb MD Primary Care Provider [phone] Bryan Wilson MD Unavailable Unavailable Jorge Singleton PA-C Primary Care Provider [phone] Encounter Details Date Type Department Care Team Description 08/24/2017 Utility Person Report Medical Records [address] [place] [address] Rain Arevalo Social History Tobacco Use Types [...] on filedocumented in this encounter Care Teams Vice President Of Instruction Relationship Specialty Start Date End Date Reji Coronado MD [address] [place] [address] [phone] PCP - General Internal Medicine 03/19/15 05/12/20 Jorge Singleton PA-C [address] [place] [address] [phone] PCP - General Internal Medicine 05/13/20 12/23/21 Etta Lipscomb MD [address] [place] [address] PCP - General Lung Cancer Fish Agent 12/24/21 01/19/22 Jorge Singleton PA-C [address] [place] [address] PCP - General Internal Medicine 01/20/22 Bryan Wilson MD [address] [place] [address] Specialist Cardiovascular Disease 01/20/22 documented as of this encounter
--- OUTSIDE RECORDS SUMMARY | 2024-05-14 09:00 | XMS_ITS | Encounter Summary ---
Author Organization [facility] Address [address] [place] [address] Care Team Providers Care Author Name Role Phone Reji Coronado MD Primary Care Provider [phone] Jorge Singleton PA-C Primary Care Provider [phone] Etta Lipscomb MD Primary Care Provider [phone] Bryan Wilson MD Unavailable Unavailable Jorge Singleton PA-C Primary Care Provider [phone] Reason for Visit * Reason Comments E-prescribe Rx Request Encounter Details Date Type Department Care Team Description 07/17/2017 Refill Physiatry - [address] [address] Payam Montiel DO E-prescribe Rx Request Social History Tobacco Use [...] encounter Miscellaneous Notes * Telephone Encounter - Sarai Montano L.P.N. - 07/17/2017 8:46 AM EDT Lab Results Component Value Date ALB 4.7 07/03/2017 SGOT 32 07/03/2017 SGPT 34 07/03/2017 TBILI 0.6 07/03/2017 DBILI 0.1 11/10/2015 IBILI 0.1 11/10/2015 ALKPHOS 116 07/03/2017 TP 7.2 07/03/2017 Lab Results Component Value Date NA 135 07/03/2017 K 5.0 07/03/2017 CO2 25.0 07/03/2017 CL 95 07/03/2017 BUN 17 07/03/2017 CREAT 1.2 07/03/2017 GLU 110 07/07/2017 CA 10.0 07/03/2017 GFR > 60 07/03/2017 documented in this encounter Plan of Treatment Not on file documented as of this encounter Visit Diagnoses Diagnosis Type 2 diabetes mellitus with cataract (HCC) Diabetes mellitus type 2 with neurological manifestations (HCC) Type II or unspecified type diabetes mellitus with neurological manifestations, not stated as uncontrolled Cervical radiculopathy Brachial neuritis or radiculitis nos documented in this encounter Care Teams Author Relationship Specialty Start Date End Date Reji Coronado MD [address] [place] [id number] PCP - General Internal Medicine 03/19/15 05/12/20 Jorge Singleton PA-C [address] [place] [phone] PCP - General Internal Medicine 05/13/20 12/23/21 Etta Lipscomb MD [address] [place] [address] PCP - General Lung Cancer Chief Strategy Officer 12/24/21 01/19/22 Jorge Singleton PA-C [address] [place] [address] PCP - General Internal Medicine 01/20/22 Bryan Wilson MD [address] [place] [address] Specialist Cardiovascular Disease 01/20/22 documented as of this encounter
--- OUTSIDE RECORDS SUMMARY | 2024-05-14 09:00 | XMS_ITS | Encounter Summary ---
Author Organization [facility] Address [address] [place] [address] Care Team Providers Care Collaborative Physician Name Role Phone Reji Coronado MD Primary Care Provider [phone] Jorge Singleton PA-C Primary Care Provider + [phone] Etta Lipscomb MD Primary Care Provider [phone] Bryan Wilson MD Unavailable Unavailable Jorge Singleton PA-C Primary Care Provider [phone] Encounter Details Date Type Department Care Team Description 06/11/2017 [facility] Report Medical Records [address] [place] [address] Abstract, Provider Social History Tobacco Use Types [...] on filedocumented in this encounter Care Teams Collaborative Physician Relationship Specialty Start Date End Date Reji Coronado MD [address] [place] [phone] PCP - General Internal Medicine 03/19/15 05/12/20 Jorge Singleton PA-C [address] [place] [address] [phone] PCP - General Internal Medicine 05/13/20 12/23/21 Etta Lipscomb MD [address] [place] [address] PCP - General Lung Cancer Lead Case Manager 12/24/21 01/19/22 Jorge Singleton PA-C [address] [place] [address] PCP - General Internal Medicine 01/20/22 Bryan Wilson MD [address] [place] [address] Specialist Cardiovascular Disease 01/20/22 documented as of this encounter
== END 2024-05-14 09:07 | disposition home or self-care (01) ==
LOC: HO.HGI 08:22
PROVIDERS: PCP Internal Medicine; Visit Provider Internal Medicine Gastroenterology
DX: F10.10 Alcohol abuse, uncomplicated (principal); K76.0 Fatty (change of) liver, not elsewhere classified; D12.6 Benign neoplasm of colon, unspecified
CPT/HCPCS: 99214

== ENCOUNTER 2024-05-23 09:26 | Outpatient (AMB) | payer MEDICARE, OTHER, SELFPAY ==
--- NOTE | 2024-05-23 09:39 | A.OFFVIS_ITS ---
Intake Intake Visit Reasons: DM Regional Airline Pilot Required: No Accompanied by: Self / Same As Patient Allergies lisinopril Allergy (Severe, Verified 05/14/24 08:31) Angioedema canagliflozin [Invokana] Allergy (Unknown, Verified 05/14/24 08:31) polyuria liraglutide [Victoza] Adverse Reaction (Unknown, Verified 05/14/24 08:31) nausea, constipation HPI Comprehensive Diabetes Asmnt Most Recent Diabetes Results: No Data to Display FOR[facility]LY [facility] Medical History Lumbar degenerative disc disease Vitamin D deficiency Hypersomnia Snoring Cognitive disorder Essential hypertension Type 2 diabetes mellitus with diabetic neuropathy, unspecified (~2003) Depression Alcohol abuse Hepatitis C Hepatitis B NAFLD (nonalcoholic fatty liver disease) Tubular adenoma of colon (~2019) BPH loc w urin obs/LUTS Frequency of urination Erectile dysfunction Arthritis Carpal tunnel syndrome Overweight (BMI 25.0-29.9) Surgical History History of rhinoplasty History of colonoscopy History of lumbar surgery History of cataract surgery History of excision of mass Family History Father Myocardial infarct Colon cancer Mother Diabetes Social History Household Members: Spouse Household Members Other:: Housing: House Alcohol intake: current Alcohol intake frequency: a few times a month Alcohol type: beer and hard liquor Patient Tobacco Use Status: Never used Tobacco e-Cigarette/Vaping Use: Never Used Substance Use Type: Crack/Cocaine Advance Directives Date on File: 03/05/24 service: Yes Current occupational status: disabled Current occupational exposures/hazards: No Cognitive needs: No Hearing needs: No Vision needs: No Assessment & Plan Assessment & Plan (1) Type 2 diabetes mellitus with diabetic neuropathy, unspecified: Onset Date: ~2003 Comment: MD/PROVIDER: RECOMMEND monitoring thiamine related to hx of neuropathy/ alcohol abuse and c/o memory loss Code(s): E11.40 - Type 2 diabetes mellitus with diabetic neuropathy, unspecified Qualifiers: Diabetes mellitus half-way insulin use: with half-way use Qualified Code(s): E11.40 - Type 2 diabetes mellitus with diabetic neuropathy, unspecified; Z79.4 - rat exterminator (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 0% Hyperglycemia:? 40% Time in Range:? 60% Average glucose for the last 2 weeks 180? mg/dL Patient's last A1c on 03/13/24 7.1% Patient reports that due to memory issues sometimes he forgets to take his insulin before his meals. Patient uses the V-Go 20 to administer insulin, reports he does change it every day. Patient reports he is continue with Mounjaro 5 mg weekly because he can not tolerate any higher dose Hypoglycemia and Hyperglycemia * Signs and symptoms? * Causes?? * Treatment? * Preventing hypoglycemia? * When to seek medical attention Target Goals: * Blood glucose targets and how you feel when your blood glucose is in and out of your target ranges. * Monitoring and knowing your A1C. * What can make blood glucose go up and down and preventing high and low blood glucose. * Review of blood sugar targets in expected goal range and outside of expected goal range. * Problem solving and preventing hyper/hypoglycemia. * Sick day management of diabetes. * Using blood sugar results in decision making process in managing diabetes. ?Patient was receptive to information provided and participated in the discussion. Asked?appropriate questions and demonstrated good understanding of the topics discussed.? ? Educational Materials: The patient was provided with the following written educational materials: Target Goal handout 2 reminder signs given to patient want to put in kitchen and want to put by his TV to write him to take his insulin and his Mounjaro Portions of this note were created using voice recognition software, please excuse any words or phrases that may have been misinterpreted. Patient Instructions: Recommended to patient to give 2 clicks for regular meals increase to 3 clicks for large meals Suggested he put the sign on his refrigerator or in the TV room where he eats most of his meals Coding Level of Care Code Est Pt Level 1 (61750) Diagnoses Type 2 diabetes mellitus with diabetic neuropathy, with long-term current use of insulin E11.40; Z79.4 Diabetes mellitus half-way insulin use: with dedicated intermodal truck driver use
--- OUTSIDE RECORDS SUMMARY | 2024-05-23 10:19 | XMS_ITS | Encounter Summary ---
Author Organization [facility] Address [address] [facility] [address] [place] [address] Care Team Providers Care Car Pincher Name Role Phone Unavailable Primary Care Provider Unavailabl e Encounter Details Date Type Department Care Team (Late st Contact Info) Description 03/15/2024 Telephone [facility] ADULT DENTAL [address] [place] [address] Roshan Jackson DDS [address] [place] [address] Social History Tobacco Use Types Packs/Day Years [...] Care Team (Late st Contact Info) Description 06/04/2024 11:00 AM EDT Office Visit [facility] ADULT DENTAL [address] [place] [address] Roshan Jackson DDS [address] [place] [address] documented as of this encounter Visit Diagnoses Not on filedocumented in this encounter
--- OUTSIDE RECORDS SUMMARY | 2024-05-23 10:19 | XMS_ITS | Encounter Summary ---
Author Organization [employer] Address [address] [place] [address] Care Team Providers Care Mint Wafer Depositor Name Role Phone Mau Fang MD Primary Care Provider [phone] Reason for Visit * Reason Onset Date Comments call back 04/18/2024 Encounter Details Date Type Department Care Team (Late st Contact Info) Description 04/18/2024 Telephone Adult Medicine [facility] [address] [place], [place] [phone] Johnny Jay MD [address] [place] [address] call back Social History Tobacco Use Types [...] confirm the appt on 04/24 * Alexandria oWoten RN - 04/19/2024 1:41 PM EST LM [...] on filedocumented in this encounter Care Teams Mint Wafer Depositor Relationship Specialty Start Date End Date Mau Fang MD [address] [place] [address] Dr [address] THAO Persaud PCP - General Internal Medicine 04/19/24 documented as of this encounter
--- OUTSIDE RECORDS SUMMARY | 2024-05-23 10:19 | XMS_ITS | Encounter Summary ---
Author Organization [facility] Address [address] [facility] [address]t [place] [address] Care Team Providers Care Oil Refiner Name Role Phone Unavailable Primary Care Provider Unavailabl e Reason for Visit * Reason Comments Dentures Encounter Details Date Type Department Care Team ([facility] st Contact Info) Description 04/26/2024 11:30 AM EST Office Visit [facility] ADULT DENTAL [address] [place], [place] [phone] Roshan Jackson DDS [address] [place], [place] [phone] Social History Tobacco Use Types Packs/Day Years [...] he acknowledged and appreciated. Case sent to [facility] lab for re-arrangement of the teeth. The patient will return for the extraction of tooth #32 and a wax try-in at the next visit. documented in this encounter Plan of Treatment Upcoming Encounters Date Type Department Care Team (Late st Contact Info) Description 06/04/2024 11:00 AM EDT Office Visit [facility] ADULT DENTAL [address] [place] [address] Roshan Jackson DDS [address] [place] [address] Scheduled Orders Name Type Priority Associated Diagnoses [...]
--- OUTSIDE RECORDS SUMMARY | 2024-05-23 10:19 | XMS_ITS ---
[facility] Address [address] [facility] [place] [address] Care Team Providers Care Rv Technician Name Role Phone Jorge Chowdhury Primary Care Provider Unav ailNena Sands Unavailable [phone] Allergies Allergen (clinical drug ingredient) Drug/Non Drug [...] a day for 30 day(s) Active Nystatin-Triamcinolone 124379-9.1 UNIT/GM 1 application Externally Twice a day Active Pen [place] 05/19 Ac tive Insulin Glargine 100 UNIT/ML [...] Problem Acquired hammer toe of right foot (9626109597554 105) Other hammer toe(s) (acquired), right foot (M20.41) Active confirmed Problem Acquired hammer toe of left foot (6421943766628 103) Other hammer toe(s) (acquired), left foot (M20.42) Active confirmed Vital Signs Height 5 ft 10 in in 06/27/2023 Weight 200 lbs 06/27/2023 BMI 28.69 kg/m2 06/27/2023 Encounters Encounter Location Date Provider Diagnosis [facility] [address] [place] [address] 06/27/2023 Nena Ernst Other hammer toe(s) (acquired), right foot M20.41 ; Other hammer toe(s) (acquired), left foot M20.42 and Type 2 diabetes mellitus without complications E11.9 Assessments Encounter Date Diagnosis (ICD Code) Assessment Notes Treatment Notes Treatment Clinical Notes Section Notes 06/27/2023 Other hammer toe(s) (acquired), right foot (ICD-10 - M20.41) Patient Educated with: DIABETIC FOOT CARE INSTRUCTIONS.p df (DIABETIC FOOT CARE INSTRUCTIONS.p df) 06/27/2023 Other hammer toe(s) (acquired), left foot (ICD-10 - M20.42) 06/27/2023 Type 2 diabetes mellitus without complications (ICD-10 - E11.9) Plan Of Treatment Treatment Notes Assessment Notes Other hammer toe(s) (acquired), right fo ot Patient Educated with: DIABETIC FOOT CARE INSTRUCTIONS.pdf (DIABETIC FOOT CARE INSTRUCTIONS.pdf) Next Appt Details Follow Up: 1 Year, Reason: Provider Name:Nena squires, 07/19/2024 09:00:00 AM, [address] [place] [address], [phone], Progress Notes * Farhad GONZALESOB:[birth year] (63 yo M)Acc No.[id number]:06/27/2023 Progress Note Patient:?Johny Gonzales Provider:?Nena Ernst DPM :1960???Age:63 Y???Sex:Male Thanh e:06/27/2023 Address:[address] [place] [address] [facility] Pcp:YEHUDA Carrizales Subjective: * Chief Complaints: * [...] Disabled. * Medications:?TakingPen Needl es 05/19 Nystatin-Triamcinolone 748032-0.1 UNIT/GM Cream 1 application Externally Twice a [...] 1 tablet Orally Once a dayTaking Pen [place] 05/19 Taking Nystatin-Triamcinolone 936549-4.1 UNIT/GM Cream 1 application Externally Twice a [...] BS:249. * Examination: ???Ophthalmology Referral: ?DIABETES EYE EXAM?Diabetic Retinopathy Screening:?Yes ?Findings of Diabetic Eye Exam:?no retinopathy?General Examination: ?GENERAL APPEARANCE:?Reveals a pleasant, alert, well-nourished, well- developed, well hydrated individual, who demonstrates proper attention to hygiene/body habitus, and is in no acute distress, Pt serves as own?historian for office visit today.?ORIENTED:?person, place, and time.?FOOT EXAM:?Lower Extremity Neurological Exam performed:?Yes ?Footwear Evaluation?Footwear Evaluation performed:?Yes?Neurological: ?SENSORY:?Neurological exam reveals intact sensorium, pain sensation [...] Provider:?Nena Ernst DPM Date:? Generated for Danny hoffman/Jorge/Lorena on:?05/23/2024 10:18 AM EDT History and Physical Notes * HPI (History of Present Illness) Category Sub-Category Detail Notes Category Not es Toe pain Location: B/L feet Duration: several years Course: worse Aggravated by: shoes, any pressure Treatments: change in shoes Examination Category Sub-Category Detail Notes Category Not es Neurological SENSORY: Neurological exa m reveals intact [...] Yes Ophthalmology Referral DIABETES EYE EXAM Diabetic Retinopa thy Screening:: Yes Findings of Diabetic Eye Exam:: no retin opathy Vascular DP PULSES (B): 3/4, B/L PT PULSES (B): 3/4, B/L CAPILLARY FILL TIME: immediate, all digi ts, B/L TEMPERTURE GRADIENT (C): warm to cool, p roximal to distal, B/L TROPHIC CONDITION-TEXTURE/ELASTICITY/TURGOR/HAIR GROWTH (B): normal, B/L EDEMA (C): absent, B/L PIGMENTATION: normal, B/L
--- OUTSIDE RECORDS SUMMARY | 2024-05-23 10:19 | XMS_ITS | Clinical Summary ---
Author Organization [address] [place] [address] Address [address] [place] [address] Phone Care Team Providers Care Home Theater Expert Name Role Phone Mau Fang MD Primary [...] Team Description 04/18/2024 Telephone Adult Medicine [facility] [address] [place] [phone] Johnny Jay MD call back 04/10/2024 3:00 PM EST Ancillary Procedure [facility] [address] [place] [address] Aneurysm of ascending aorta without rupture ([facility]) 03/01/2024 Telephone [facility] [address] [place] [address] Kari Escalante [place] No Call [...] HISTORICAL CATARACT REMOVAL NASAL SEPTUM SURGERY PROCEDURE: CA REPAIR NASAL SEPTAL PERFORATIONS COLONOSCOPY 09/2019 PROCEDURE: HISTORICAL COLONOSCOPY; COMMENT: repeat 5 years polyp OTHER SURGICAL HISTORY 05/02/2022 PROCEDURE: UPPER GI ENDOSCOPY, REMOVE LESION; COMMENT: yang -biopsies taken OTHER SURGICAL HISTORY PROCEDURE: PULMONOLOGY BRONCHOSCOPY; COMMENT: dr. orellana -bronchoscopy and mediastinoscopy with mediastinal lymph node biopsies Medical History Medical History Date Comments History of substance abuse 05/14/2015 DX:Hi story of substance abuse (HCC); COMMENT: Cocaine, marijuana, [...] 54 mL CV PACS Left At[facility] Minor [place] 5.9 cm CV PACS Left At[facility] Major [place] 5.6 cm CV PACS LA Area Sys [...] Proximal 1.9 cm CV PACS MV Deceleration [place] 2.7 m/s2 CV PACS E Wave Deceleration [...] Result * Urine Albumin Creatinine Ratio (10/03/2023) [facility] Urine Albumin Creatinine Ratio Abstracted Result [facility] HEALTH MAINTENANCE Final Result * Annual BMP Blood Test (10/03/2023) [facility] Annual BMP Blood Test Abstracted Result [facility] HEALTH MAINTENANCE Final Result * Falls Risk Assessment (10/03/2023) [facility] Falls Risk Assessment Abstracted Result [facility] HEALTH MAINTENANCE Final Result * Depression Screening (10/03/2023) [facility] Depression Screening Abstracted Result [facility] HEALTH MAINTENANCE Final Result * (ABNORMAL) Hemoglobin A1c (10/03/2023) [facility] Hemoglobin A1C 7.4(A) <=6.5 % Blood Venous blood specimen / Unknown Result [facility] LAB BLOOD ORDERABLES Adelia l Result * Lipid panel (10/03/2023) [facility] LDL/HDL Ratio 3 0 - 4 Triglycerides 93 0 - 150 mg/dL Cholesterol 125 0 - 200 mg/dL HDL 48 >=40 mg/dL LDL Cholesterol 59 0 - 100 mg/dL Blood Venous blood specimen / Unknown Result [facility] LAB BLOOD ORDERABLES Adelia l Result * Diabetes Eye Exam (06/15/2023) [facility] Diabetes: Annual Retina Eye Exam Abstracted Result [facility] HEALTH MAINTENANCE Final Result * Colonoscopy (09/13/2019) [facility] Colonoscopy No interpretation , Abstracted Anatomical Region Laterality Modality Other Result [facility] HEALTH MAINTENANCE Final Result * Hepatitis C Screening (11/16/2015) [facility] Hepatitis C Screening Abstracted Result [facility] HEALTH MAINTENANCE Final Result from Last 3 Months or Most Recently Relevant to Health Maintenance Insurance A[employer]NA MEDICARE ADVANTAGE MEDICARE FAMILY HEALTH PLAN MEDICAID - [place] Care Teams Home Theater Expert Relationship Specialty Start Date End Date Mau Fang MD [address] [place] [address] [address] THAO Persaud PCP - General Internal Medicine 04/19/24
--- OUTSIDE RECORDS SUMMARY | 2024-05-23 10:19 | XMS_ITS | Patient Health Record ---
Author Organization [facility] [employer] Address [address] [place] [address] Care Team Providers Care Head Tennis Professional Name Role Phone Jorge Chowdhruy Primary Care Provider Unav ailable Nena Ernst Unavailable [phone] Allergies Allergen (clinical drug ingredient) Drug/Non Drug Allergy documented on EMR Reaction Allergy Type Onset Date Status liraglutide Victoza Unknown Drug Allergy Activ e canagliflozin Canagliflozin Unknown Drug Allergy Active lisinopril Lisinopril Unknown Drug Allergy Activ e Reason For Referral No Information Medications Medication SIG (Take, Route, Frequency, Duration) Notes Start Date End Date Status Nystatin-Triamcinolone 901127-0.1 UNIT/GM 1 application Externally Twice a day Active Tadalafil 20 MG 1 tablet Orally for 30 day(s) Not-Taking Pen [place] /16 Ac tive Extra Depth Orthopedic Shoes [...] Problem Acquired hammer toe of right foot (9549380711602 105) Other hammer toe(s) (acquired), right foot (M20.41) Active confirmed Problem Acquired hammer toe of left foot (2586833840909 103) Other hammer toe(s) (acquired), left foot (M20.42) Active confirmed Problem [id number] Type 2 diabetes mellitus without complications (E11.9) Active confirmed Problem 591130767 Hammer toe of left foot (M20.42) Active confirmed Vital Signs Height 5 ft 10 in in 06/27/2023 Weight 200 lbs 06/27/2023 BMI 28.69 kg/m2 06/27/2023 Encounters Encounter Location Date Provider Diagnosis [facility] [place] [address] [place] [address] 06/27/2023 Nena Ernst Other hammer toe(s) (acquired), [...] Details Provider Name:Nena squires, 07/19/2024 09:00:00 AM, [address] [place] [address], [phone], Insurance Providers Payer Name Payer Address Payer Phone Subscriber Number Group Number Insured Name Patient Relationship to Insured Coverage Start Date Coverage End Date Medicare National [employer] [address] [place] [address] [id number] Eddie Recio Self - patient is the insured Medical [...]
--- OUTSIDE RECORDS SUMMARY | 2024-05-23 10:19 | XMS_ITS ---
Author Organization [facility] Address [address] [place] [address] Care Team Providers Care Auto Service Instructor Name Role Phone Jorge Chowdhury Primary Care Provider Unav ailable Nena Ernst [phone] Rios Encounters Encounter Location Date Provider Diagnosis [facility] [address] [place] [address] 06/14/2023 Nena Ernst Plan Of Treatment Next Appt Details Provider Name:Nena squires, 07/19/2024 09:00:00 AM, [address] [place], [address], Progress Notes * Farhad GONZALESOB:[birth year] (63 yo M)Acc No.[id number]:06/14/2023 Progress Note Patient:?Johny GONZALES Provider:?Nena Ernst DPM :1960???Age:62 Y???Sex:Male Thanh e:06/14/2023 Address:[address] [place] [place] Pcp:YEHUDA Carrizales Subjective: * Chief Complaints: * [...] Ernst DPM Date:?12/2023 Generated for Danny hoffman/Jorge/Lorena on:?05/23/2024 10:19 AM EDT
--- OUTSIDE RECORDS SUMMARY | 2024-05-23 10:19 | XMS_ITS | Clinical Summary ---
Author Organization [employer] Address [address] [facility] 7t [place] [address] Care Team Providers Care Cloth Mercerizer Back Tender Name Role Phone Unavailable Primary Care Provider [...] Encounters Date Type Department Care Team Description 05/21/2024 11:00 AM EDT Office Visit [facility] [address] [facility] [place] [address] Roshan Jackson DDS 04/26/2024 11:30 AM EST Office Visit [facility] [address] [place] [address] Roshan Jackson DDS 04/19/2024 Telephone [facility] [address] [place] [address] Roshan Jackson DDS 04/02/2024 11:00 AM EST Office Visit [facility] [address] [place] [address] Roshan Jackson DDS 03/21/2024 10:45 AM EST Office Visit [facility] [address] [place] [address] Pieter Olson DDS Edentulous maxilla (Primary Dx); Dental abscess 03/15/2024 Telephone [facility] [address] [place] [address] Roshan Jackson DDS from Last 3 Months [...] Description 06/04/2024 11:00 AM EDT Office Visit [facility] [address] [place] [address] Manuel, RoshanBONI [address] [place] [address] Health Maintenance Due Date Last Done Comments [...] - season) 2023 Influenza Vaccine (#1) 2023 3, 12/02/2021, 01/25/2019, Additional history exists Dental Oral Exam 02/17/2024 08/17/2023, , 05/13/2014, Additional history exists Dental Prophylaxis 02/17/2024 08/17/2023, 08/20/2013 Dental X-Ray: Bitewings 08/17/2024 08/17/19 24, 10/29/2019, 04/19/2019, Additional history exists Tobacco Screening 05/21/2025 05/21/2024 DTaP/Tdap/Td Vaccines (2 - Td or Tdap) [...] to Health Maintenance Insurance [employer] MEDICARE [place]PLAC[place] STAND ADULT DENTAL - AETNA DENTAL PPO
--- OUTSIDE RECORDS SUMMARY | 2024-05-23 10:19 | XMS_ITS | Encounter Summary ---
Author Organization [employer] [facility] Address [address] [facility] 7[address] [place] [address] Care Team Providers Care Motor Tester Name Role Phone Unavailable Primary Care Provider Unavailabl e Reason for Visit * Reason Comments Dentures Upper denture try in Encounter Details Date Type Department Care Team (Late st Contact Info) Description 05/21/2024 11:00 AM EDT Office Visit [facility] [address] [place] [address] Roshan Jackson DDS [address] [place] [address] Social History Tobacco Use Types Packs/Day Years [...] Description 06/04/2024 11:00 AM EDT Office Visit [facility] [address] [place] [address] Roshan Jackson BONI [address] [place] [address] Scheduled Orders Name Type Priority Associated Diagnoses Orde r Schedule DENTAL LAB DENTURES AND PARTIALS Dental Routine Ordered: 025 documented as of this encounter Visit Diagnoses Not on filedocumented in this encounter
--- OUTSIDE RECORDS SUMMARY | 2024-05-23 10:19 | XMS_ITS | Encounter Summary ---
Author Organization [employer] Address [address] [facility] [address]t [place] [address] Care Team Providers Care Network Professional Name Role Phone Unavailable Primary Care Provider Unavailabl e Reason for Visit * Reason Onset Date Comments insurance appt 08/10/2023 Encounter Details Date Type Department Care Team (Late st Contact Info) Description 08/10/2023 Telephone [facility]ULT [facility] [address] [place], [place] [phone] Samuel Robbins insurance appt Social History Tobacco [...] Granados - 08/10/2023 2:56 PM EDT [facility]. He says he has Secret inurance. Patient was asked who is the insurance company that carries the insurance and he said [employer]. Asked again which is the insurance company that carries the insurance and patient hung up. Unsure of insurance coverage DR Ribera javascript front end developer aware documented in this encounter Plan of Treatment Upcoming Encounters Date Type Department Care Team (Late st Contact Info) Description 06/04/2024 11:00 AM EDT Office Visit [facility] [address] [place], [place] [phone] Roshan Jackson DDS [address] [place], [place] [phone] documented as of this encounter Visit Diagnoses Not on filedocumented in this encounter
--- OUTSIDE RECORDS SUMMARY | 2024-05-23 10:19 | XMS_ITS | Encounter Summary ---
Author Organization [employer] Address [address] [facility] 7[address] [place] [address] Care Team Providers Care Traveling Storekeeper Name Role Phone Unavailable Primary Care Provider Unavailabl e Reason for Visit * Reason Onset Date Comments Appointment 10/27/2022 Encounter Details Date Type Department Care Team ([facility] st Contact Info) Description 10/27/2022 Telephone [facility] [address] [place], [place] [phone] Lorena Lopez DDS [address] [place], [place] [phone] Appointment Social History Tobacco Use Types Packs/Day [...] did offer the patient an appt in [place] with the understanding that he would become a [place] patient but he is unwilling to go to [facility]. He wants to know why hes being told that he needs to come in and then listed. Tried my best to explain. Would like his appt or phone call. documented in this encounter Plan of Treatment Upcoming Encounters Date Type Department Care Team (Late st Contact Info) Description 06/04/2024 11:00 AM EDT Office Visit [facility] [address] [place], [place] [phone] Roshan Jackson DDS [address] [place] [address] documented as of this encounter Visit Diagnoses Not on filedocumented in this encounter
== END 2024-05-23 10:03 | disposition home or self-care (01) ==
LOC: HO.ENCR 09:27
PROVIDERS: PCP Physician Assistant Medical; Visit Provider Registered Nurse Diabetes Educator
DX: E11.40 Type 2 diabetes mellitus with diabetic neuropathy, unspecified (principal); Z79.4 Long term (current) use of insulin